=== PATIENT | female | born 1945 | race Caucasian/White ===

== ENCOUNTER 2018-09-18 16:37 | Inpatient (IN) | payer OTHER, SELFPAY ==
[2018-09-18 17:23] VITALS: BP 145/59; PULSE 77; RESP 18; TEMP 36.7; O2SAT 100
--- NOTE | 2018-09-18 17:46 | W.ED.GENAD ---
Discharge Plan Disposition Patient Disposition: [facility] INPATIENT Condition: Stable Discharge Details Chief Complaint: Orthopedic Clinical Impression: Closed fracture of right hip Primary Care Provider: Jana Wayne ED Provider: Gordo Blackman Home Meds and New Rx's Prescriptions: No Action calcium carb and citrate-vitD3 1 EACH tablet extended release 1 ea PO DAILY RF: 0 ranitidine HCl [Zantac] 150 MG tablet 1 tab PO DAILY RF: 0 ibuprofen 200 MG tablet 400 mg PO PRN PRNRF: 0 Medical Decision Making 73 yo female comes in with right hip pain. She slipped in a driveway and landed on her right hip, denies head trauma or loc. She is unable to bear weight on the right leg due to pain, has intact distal sensation and pulses. Has significant pain with any rom of the right hip. Suspect fracture given amount of pain, will order xray and monitor. Denies any loc and did not hit head so do not feel head imaging and doubt syncope pt remains stable, required morphine and fentanyl for pain. Labs unremarkable, has a right subcapital right femur fx. Chest xray shows mild widened mediastinum likely due to low lung volumes given she has no chest pain or pressure or sob. I spoke with Dr. Goldman who states when patient is cleared by hospitalist to make NPO and earliest he can perform operation would be noon tomorrow. Will admit to the hospitalist Differential Diagnosis right hip contusion, fracture Imaging Data Radiologic Study: Attestation: I personally reviewed and interpreted this imaging study as follows: Imaging: X-Ray My impression: right subcapital hip fracutre on pelvis/hip xray Radiologic Study #2: Attestation: I personally reviewed and interpreted this imaging study as follows: Imaging: X-Ray My impression: right subcapital hip fracture on femur xray Radiologic Study #3: Attestation: I personally reviewed and interpreted this imaging study as follows: Imaging: X-Ray Radiologist's impression: IMPRESSION: 1. Mildly widened mediastinum may be related to projection and low lung volumes in the absence of clinical symptoms. If there is any clinical concern for mediastinal disease, consider further evaluation with chest CT. 2. No acute pulmonary disease. 3. Chronic/incidental findings as detailed above. Lab Data Lab results reviewed: Yes I reviewed the patient's lab results. ECG Data Attestation: I personally reviewed and interpreted this ECG (s) as follows: Prior ECG tracings: available for review Interpretation: sinus rhythm, scarlet of 78, pr 164, no acute st t wave ischemic changes HPI General Mode of arrival: ambulatory. Date/Time Provider Initiated Documentation: 09/18/18 17:28. Limitations to Documentation: no limitations. Information obtained by: patient. History of Present Illness 73 year old F presents to the emergency department with the chief complaint of right sided hip pain, described as severe, with intensity rated at 10. Quality is described as aching, and is localized to the right and lower extremity. Patient reports no radiation. Patient started experiencing this hour(s) (1) and it has been constant. Rest improves symptom(s), Movement worsens symptoms . Patient notes no other symptoms.. Patient did receive the following treatments prior to arrival, none Related Data Home Medications Medication Instructions Recorded Confirmed ranitidine HCl [Zantac] 1 tab PO DAILY 03/11/16 09/18/18 calcium carb and citrate-vitD3 1 ea PO DAILY 08/31/17 09/18/18 ibuprofen 400 mg PO PRN PRN 10/08/17 09/18/18 Allergies Allergy/AdvReac Type Severity Reaction Status Date / Time amoxicillin Allergy Severe patient Unverified 09/18/18 17:28 cannot remember pramipexole di-HCl Allergy Severe patient Unverified 09/18/18 17:28 [From Mirapex] cannot remember ropinirole HCl [From Requip] Allergy Intermediate patient Unverified 09/18/18 17:28 cannot remember bee stings AdvReac Intermediate generalized Uncoded 09/18/18 17:28 swelling General Stated Complaint: Orthopedic CHRISTIAN: 3 Review of Systems Review of Systems All systems reviewed & are unremarkable except as noted in HPI and below Constitutional Denies chills, Denies fever(s) and Denies weakness Cardiovascular Denies dyspnea Respiratory Denies cough and Denies dyspnea Gastrointestinal Denies abdominal pain, Denies nausea and Denies vomiting Musculoskeletal Denies joint swelling Integumentary/Breasts Denies rash Neurologic Denies weakness [facility] Medical History Abnormal chest xray Anxiety Diverticulosis Family history of colon cancer GERD (gastroesophageal reflux disease) Insomnia Obstructive sleep apnea Osteopenia Surgical History Cholecystectomy Colonoscopy - MAC (10/12/17) Social History Smoking and Tabacco status: Never Exam Const General: no acute distress Orientation: alert HENMT Head: normal to inspection Ears: external ears normal General nose exam: external nose normal Mouth: moist mucous membranes Eyes General: appearance normal, both eyes and all related structures Neck Neck: normal visual inspection Resp Effort & Inspection: normal respiratory effort and able to speak in complete sentences Cardio Rate: regular rate Skin General skin exam: no rashes or lesions noted Neuro General: alert and oriented x3 Extrem General: normal capillary refill Psych Mental Status: mental status grossly normal Course Vital Signs Temperature 36.7 C 09/18/18 17:23 Pulse 77 09/18/18 17:23 Respiratory Rate 18 09/18/18 17:23 Blood Pressure 145/59 H 09/18/18 17:23 Pulse Oximetry 100 09/18/18 17:23 Temperature 36.7 C 09/18/18 17:23 Temperature Source Temporal Artery Scan 09/18/18 17:23 Pulse 77 09/18/18 17:23 Respiratory Rate 18 09/18/18 17:23 Respiratory Effort Non-Labored 09/18/18 17:27 Blood Pressure 145/59 H 09/18/18 17:23 Blood Pressure Position Sitting 09/18/18 17:23 Pulse Oximetry 100 09/18/18 17:23
--- NOTE | 2018-09-18 17:49 | ED.GENADUL_ITS ---
Discharge Plan Disposition Patient Disposition: [facility] INPATIENT Condition: Stable Discharge Details Chief Complaint: Orthopedic Clinical Impression: Closed fracture of right hip Primary Care Provider: Jana Wayne ED Provider: Gordo Blackman Home Meds and New Rx's Prescriptions: No Action calcium carb and citrate-vitD3 1 EACH tablet extended release 1 ea PO DAILY RF: 0 ranitidine HCl [Zantac] 150 MG tablet 1 tab PO DAILY RF: 0 ibuprofen 200 MG tablet 400 mg PO PRN PRNRF: 0 Medical Decision Making 73 yo female comes in with right hip pain. She slipped in a driveway and landed on her right hip, denies head trauma or loc. She is unable to bear weight on the right leg due to pain, has intact distal sensation and pulses. Has significant pain with any rom of the right hip. Suspect fracture given amount of pain, will order xray and monitor. Denies any loc and did not hit head so do not feel head imaging and doubt syncope pt remains stable, required morphine and fentanyl for pain. Labs unremarkable, has a right subcapital right femur fx. Chest xray shows mild widened mediastinum likely due to low lung volumes given she has no chest pain or pressure or sob. I spoke with Dr. Goldman who states when patient is cleared by hospitalist to make NPO and earliest he can perform operation would be noon tomorrow. Will admit to the hospitalist Differential Diagnosis right hip contusion, fracture Imaging Data Radiologic Study: Attestation: I personally reviewed and interpreted this imaging study as follows: Imaging: X-Ray My impression: right subcapital hip fracutre on pelvis/hip xray Radiologic Study #2: Attestation: I personally reviewed and interpreted this imaging study as follows: Imaging: X-Ray My impression: right subcapital hip fracture on femur xray Radiologic Study #3: Attestation: I personally reviewed and interpreted this imaging study as follows: Imaging: X-Ray Radiologist's impression: IMPRESSION: 1. Mildly widened mediastinum may be related to projection and low lung volumes in the absence of clinical symptoms. If there is any clinical concern for mediastinal disease, consider further evaluation with chest CT. 2. No acute pulmonary disease. 3. Chronic/incidental findings as detailed above. Lab Data Lab results reviewed: Yes I reviewed the patient's lab results. ECG Data Attestation: I personally reviewed and interpreted this ECG (s) as follows: Prior ECG tracings: available for review Interpretation: sinus rhythm, scarlet of 78, pr 164, no acute st t wave ischemic changes HPI General Mode of arrival: ambulatory . Date/Time Provider Initiated Documentation: 09/18/18 17:28 . Limitations to Documentation: no limitations . Information obtained by: patient . History of Present Illness 73 year old F presents to the emergency department with the chief complaint of right sided hip pain, described as severe, with intensity rated at 10. Quality is described as aching, and is localized to the right and lower extremity. Patient reports no radiation. Patient started experiencing this hour(s) (1) and it has been constant. Rest improves symptom(s), Movement worsens symptoms . Patient notes no other symptoms.. Patient did receive the following treatments prior to arrival, none Related Data Home Medications Medication Instructions Recorded Confirmed ranitidine HCl [Zantac] 1 tab PO DAILY 03/11/16 09/18/18 calcium carb and citrate-vitD3 1 ea PO DAILY 08/31/17 09/18/18 ibuprofen 400 mg PO PRN PRN 10/08/17 09/18/18 Allergies Allergy/AdvReac Type Severity Reaction Status Date / Time amoxicillin Allergy Severe patient Unverified 09/18/18 17:28 cannot remember pramipexole di-HCl Allergy Severe patient Unverified 09/18/18 17:28 [From Mirapex] cannot remember ropinirole HCl [From Requip] Allergy Intermediate patient Unverified 09/18/18 17:28 cannot remember bee stings AdvReac Intermediate generalized Uncoded 09/18/18 17:28 swelling General Stated Complaint: Orthopedic CHRISTIAN: 3 Review of Systems Review of Systems All systems reviewed & are unremarkable except as noted in HPI and below Constitutional Denies chills, Denies fever(s) and Denies weakness Cardiovascular Denies dyspnea Respiratory Denies cough and Denies dyspnea Gastrointestinal Denies abdominal pain, Denies nausea and Denies vomiting Musculoskeletal Denies joint swelling Integumentary/Breasts Denies rash Neurologic Denies weakness [facility] Medical History Abnormal chest xray Anxiety Diverticulosis Family history of colon cancer GERD (gastroesophageal reflux disease) Insomnia Obstructive sleep apnea Osteopenia Surgical History Cholecystectomy Colonoscopy - MAC (10/12/17) Social History Smoking and Tabacco status: Never Exam Const General: no acute distress Orientation: alert HENMT Head: normal to inspection Ears: external ears normal General nose exam: external nose normal Mouth: moist mucous membranes Eyes General: appearance normal, both eyes and all related structures Neck Neck: normal visual inspection Resp Effort & Inspection: normal respiratory effort and able to speak in complete sentences Cardio Rate: regular rate Skin General skin exam: no rashes or lesions noted Neuro General: alert and oriented x3 Extrem General: normal capillary refill Psych Mental Status: mental status grossly normal Course Vital Signs Temperature 36.7 C 09/18/18 17:23 Pulse 77 09/18/18 17:23 Respiratory Rate 18 09/18/18 17:23 Blood Pressure 145/59 H 09/18/18 17:23 Pulse Oximetry 100 09/18/18 17:23 Temperature 36.7 C 09/18/18 17:23 Temperature Source Temporal Artery Scan 09/18/18 17:23 Pulse 77 09/18/18 17:23 Respiratory Rate 18 09/18/18 17:23 Respiratory Effort Non-Labored 09/18/18 17:27 Blood Pressure 145/59 H 09/18/18 17:23 Blood Pressure Position Sitting 09/18/18 17:23 Pulse Oximetry 100 09/18/18 17:23
[2018-09-18] MEDS: fentaNYL 100 MCG/2 ML VIAL 75 MCG IVP (18:02)
[2018-09-18 18:05] LABS: Abs Immature Grans 0.04 k/cumm (0.0-0.09); Absolute Basophil Count 0.03 k/cumm (0.0-0.2); Absolute Eosinophil Count 0.07 k/cumm (0.0-0.7); Absolute Lymphocyte Count 1.19 k/cumm (1.2-3.4); Absolute Monocyte Count 0.82 k/cumm (0.11-0.7); Absolute Neutrophil Count 8.53 k/cumm (1.2-6.7); Basophils % 0.3; Eosinophils % 0.7; HCT 42.1 % (36.0-46.0); HGB 14.1 g/dL (12.0-15.5); Immature Grans % 0.4; Lymphocytes % 11.1; Mean Corp. HGB Concentration 33.5 g/dL (32.0-36.0); Mean Corpuscular Hemoglobin 31.5 pg (27.0-33.0); Mean Platelet Volume 9.6 fL (8.0-11.0); Monocytes % 7.7; Neutrophils % 79.8; Platelet Count 261 x1000/uL (130-400); RBC 4.48 m/cumm (4.00-5.20); RBC Distribution Width 12.7 % (11.7-14.6); White Blood Cell Count 10.68 k/cumm (4.4-10.8)
[2018-09-18 18:17] LABS: PTT Activated 22.2 sec (21.0-31.4); Prothrombin Time 9.9 sec (9.3-11.0)
[2018-09-18 18:24] LABS: ALT 22 U/L (12-78); AST 24 U/L (15-37); Albumin 3.8 g/dL (3.4-5.0); Alkaline Phosphatase 118 U/L (46-116); BUN 24 mg/dL (7-18); Bilirubin, Total 0.3 mg/dL (0.2-1.0); CREATININE 1.03 mg/dL (0.55-1.02); Calcium 8.7 mg/dL (8.5-10.1); Chloride 105 mmol/L (98-107); Estimated GFR 52.24 (mL/min/1.73m2); Glucose 90 mg/dL (70-100); Magnesium 1.9 mg/dL (1.8-2.4); Potassium 3.7 mmol/L (3.5-5.1); Sodium 143 mmol/L (136-145); Total Protein 7.6 g/dL (6.4-8.2)
[2018-09-18 18:25] LABS: Troponin I < 0.02 ng/mL (0.00-0.06)
--- NOTE | 2018-09-18 19:05 | DI.RAD_ITS ---
SYMPTOM/DIAGNOSIS: HIP FRACTURE CHEST X-RAY: Single frontal view. Comparison CT scan 04/08/12 There is poor inspiration. Heart appears mildly enlarged. There is apparent mild widening of the mediastinum. This may be due to poor inspiration and projection. No focal consolidating infiltrates, effusions or pneumothoraces are identified. There are surgical clips in the right upper quadrant of the abdomen, likely reflecting prior cholecystectomy. Degenerative changes are seen in the spine. IMPRESSION: 1. No definite acute pulmonary process. 2. Apparent mild widening of the superior mediastinum. This may be due to poor inspiration and projection. If there is concern for mediastinal disease a CT scan of the chest may be considered.
--- NOTE | 2018-09-18 19:12 | DI.COMBO_ITS ---
SYMPTOM/DIAGNOSIS: PAIN, S/P FALL RIGHT FEMUR, AND RIGHT HIP, AND AP PELVIS: There is a subcapital fracture of the right femur. There is impaction of the fracture and mild lateral rotation of the right femoral head. No other acute fracture or dislocation is seen in the pelvis or right femur. Extensive ossification is seen inferior to the patella of the right knee. This appears chronic. The soft tissues are unremarkable. IMPRESSION: Right subcapital femoral neck fracture.
--- NOTE | 2018-09-18 19:40 | DI.VRAD_ITS ---
EXAM: XR Right Hip with Pelvis when Performed, 2 or 3 Views EXAM DATE/TIME: 09/18/2018 5:45 PM CLINICAL HISTORY: 73 years old, female; Pain; Hip pain; Right hip; Patient HX: Pain, S/P fall TECHNIQUE: XR Right hip with pelvis when performed, 2 or 3 views COMPARISON: CT ABD PELVIS WITH CONTRAST 02/01/2018 10:39 AM FINDINGS: Bones/joints: There is a fracture through the subcapital region of the right femoral neck. There is associated lateral angulation of the femoral head with impaction of the femoral neck of approximately 1 cm. There is no dislocation. Linear lucency through the left greater trochanter is felt to be related to artifact from an overlying skin fold. No other acutely displaced fracture or dislocation is appreciated. 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 Bone density appears well-preserved. Soft tissues: There is mild soft tissue swelling about the fracture site. Vasculature: Pelvic phleboliths are noted. IMPRESSION: Right subcapital femoral neck fracture, detailed above. Dictated and Authenticated by: Logan Galindo MD. Ordering:ADRIENNE Caro MD
--- NOTE | 2018-09-18 19:41 | DI.VRAD_ITS ---
EXAM: XR Right Femur, 2 Views EXAM DATE/TIME: 09/18/2018 7:05 PM CLINICAL HISTORY: 73 years old, female; Pain; Hip; Right; Patient HX: Pain, S/P fall TECHNIQUE: XR Right femur, 2 views COMPARISON: No relevant prior studies available. FINDINGS: Bones/joints: Right subcapital femoral neck fracture is again appreciated, please review right hip films performed concomitantly for complete details. No other acutely displaced fracture or dislocation is seen. There is severe osteoarthritic change at the right knee with extensive infrapatellar chronic ossification. Bone density appears well-preserved. Soft tissues: There is soft tissue swelling about the fracture site. IMPRESSION: Right subcapital femoral neck fracture is again seen. Please review right hip films performed concomitantly for complete details. Dictated and Authenticated by: Logan Galindo MD. Ordering:ADRIENNE Caro MD
--- NOTE | 2018-09-18 19:44 | DI.VRAD_ITS ---
EXAM: XR Chest, 1 View EXAM DATE/TIME: 09/18/2018 7:08 PM CLINICAL HISTORY: 73 years old, female; Condition or disease; Other: Hip FX TECHNIQUE: XR of the chest, 1 view. COMPARISON: CT CHEST WITH CONTRAST 04/08/2012 1:36 PM FINDINGS: Lungs: There is poor ventilation of the lungs, accounting for mild diffuse increase in pulmonary parenchymal density. No acute interstitial or airspace disease appreciated. Pleural space: Unremarkable. No pleural effusion. No pneumothorax. Heart/Mediastinum: The heart is enlarged. The mediastinum appears widened. Vasculature: Aortic knob is calcified. Upper abdomen: Cholecystectomy clips noted in the right upper quadrant. Bones/joints: No acute findings. IMPRESSION: 1. Mildly widened mediastinum may be related to projection and low lung volumes in the absence of clinical symptoms. If there is any clinical concern for mediastinal disease, consider further evaluation with chest CT. 2. No acute pulmonary disease. 3. Chronic/incidental findings as detailed above. Dictated and Authenticated by: Logan Galindo MD. Ordering:ADRIENNE Caro MD
--- NOTE | 2018-09-18 20:23 | W.PM.HP.N ---
Date of service: 09/18/18 Time of Service: 20:24 Assessment and Plan (1) Subcapital fracture of right femur: Start date: 09/18/18 Current visit: Yes Status: Acute This is a 73-year-old lady who fell in her yard on the ice fracturing her right hip with a subcapital femoral fracture. She is medically stable except possibly being slightly dry with a creatinine up slightly and concentrated urine. She will receive IV hydration being n.p.o. after midnight and I will hold off on DVT prophylaxis with heparin with planned surgery tomorrow. Dr. Goldman has been consulted and is aware the patient with plans for surgery tomorrow if she has no complications overnight. She seems comfortable with pain control. Usual meds which are minimal will be continued with some modifications giving Protonix IV instead of oral Zantac and Motrin can be given by mouth for pain control though she does not appear to be needing this at this point with her local block given by anesthesia when she was in the ED. She is medically cleared for surgery at this time. Qualifiers: Encounter type: initial encounter Fracture type: closed Qualified Code(s): S72.011A - Unspecified intracapsular fracture of right femur, initial encounter for closed fracture History of Present Illness Chief Complaint: Right hip pain after fall on ice Narrative: This is a generally healthy 73-year-old lady who slipped on ice in her driveway landing on her right side and could not bear weight on her right leg after the fall. She had no loss of consciousness, no injury to her head and no prefall symptoms. She is on minimal medications with only previous surgery was a cholecystectomy. In the ED she was found to have a closed fracture right hip which was a subcapital femur fracture. Her EKG was normal and initial troponins were negative and she would be admitted to [facility] without telemetry, full CODE STATUS with Dr. Brock orthopedics consulted through the ED to see the patient for surgical repair tomorrow. In the ED patient received fentanyl and then morphine and was stated to be comfortable though she states she continued to have pain. Anesthesia did do a local block and she is more comfortable presently. This block should last over the next 12+ hours and she does have IV morphine ordered for pain breakthrough. Review of Systems Review of Systems 13 point review of systems otherwise unrevealing or negative. The patient did not have any epigastric discomfort and was wanting her Zantac at night though I reassured her she is on Protonix IV. She is having no bruising or bleeding. She does take Motrin intermittently. [facility] Medical History Abnormal chest xray Anxiety Diverticulosis Family history of colon cancer GERD (gastroesophageal reflux disease) Insomnia Obstructive sleep apnea Osteopenia Surgical History Cholecystectomy Colonoscopy - MAC (10/12/17) Social History Smoking and Tabacco status: Never Meds Home Medications Medication Instructions Recorded Confirmed Type ranitidine HCl [Zantac] 1 tab PO DAILY 03/11/16 09/18/18 History calcium carb and citrate-vitD3 1 ea PO DAILY 08/31/17 09/18/18 History ibuprofen 400 mg PO PRN PRN 10/08/17 09/18/18 History Allergies Allergy/AdvReac Type Severity Reaction Status Date / Time amoxicillin Allergy Severe patient Unverified 09/18/18 17:28 cannot remember pramipexole di-HCl Allergy Severe patient Unverified 09/18/18 17:28 [From Mirapex] cannot remember ropinirole HCl [From Requip] Allergy Intermediate patient Unverified 09/18/18 17:28 cannot remember bee stings AdvReac Intermediate generalized Uncoded 09/18/18 17:28 swelling Exam Narrative Exam Narrative: General: The patient appears younger than stated age, in no acute distress, alert and oriented x3. HEENT: Normocephalic with ears normal, eyes with pupils equal react to light symmetrically and extraocular movement intact. Sclera anicteric. Oropharynx with pink, moist mucosa and fair dentition. Neck: Supple without JVD. Lungs: Clear to auscultation and percussion. Heart: Regular rate and rhythm with no murmurs gallops appreciated. Breast: Not examined. Abdomen: Soft, normal contour, nontender with no palpable hepatosplenomegaly. Bowel sounds positive in all quadrants. Genitalia and rectal exam: Deferred. Extremities: Without clubbing, cyanosis or edema. Right foot is turning outward and both feet are cold but strong dorsalis pedis pulses over both feet. Decreased respiratory over both lower extremities but normal joints except for right hip with decreased range of motion not examined for range of motion with her fracture and local block. Skin: Tanned, no rashes, warm and dry. Neuro: No focalizing motor deficits, cranial nerves II through XII grossly intact. Psych no status: Normal affect with short-term and long-term memory to be intact and normal mood. (She does have a history of anxiety). Results Labs : 09/18/18 18:00 09/18/18 18:00 Laboratory Results - last 24 hr 09/18/18 09/18/18 09/18/18 18:00 18:00 18:00 WBC 10.68 RBC 4.48 Hgb 14.1 Hct 42.1 MCV 94.0 MCH 31.5 MCHC 33.5 RDW 12.7 Plt Count 261 MPV 9.6 Immature Gran % 0.4 Neutrophils % 79.8 Lymphocytes % 11.1 Monocytes % 7.7 Eosinophils % 0.7 Basophils % 0.3 Absolute Neutrophils 8.53 H Absolute Lymphocytes 1.19 L Absolute Monocytes 0.82 H Absolute Eosinophils 0.07 Absolute Basophils 0.03 PT 9.9 INR 1.0 APTT 22.2 Sodium 143 Potassium 3.7 Chloride 105 Carbon Dioxide 27.0 Anion Gap 11.0 BUN 24 H Creatinine 1.03 H Estimated GFR/1.73 m2 52.24 Glucose 90 Calcium 8.7 Magnesium 1.9 Total Bilirubin 0.3 AST 24 ALT 22 Alkaline Phosphatase 118 H Troponin I < 0.02 Total Protein 7.6 Albumin 3.8 Last Vital Signs Temp 36.7 C 09/18/18 17:23 Pulse 77 09/18/18 17:23 Resp 18 09/18/18 17:23 BP 145/59 H 09/18/18 17:23 Pulse Ox 100 09/18/18 17:23
[2018-09-18] MEDS: Bupivacaine LIPOSOME/PF 133 MG/10 ML VIAL IJ (21:26)
[2018-09-18] MEDS: Bupivacaine 0.25% Pres-Free 30 ML VIAL (21:26)
--- NOTE | 2018-09-18 21:49 | NUR.NOTE ---
Nursing Note: anesthesia at bedside for procedure with pt. Consents signed with anesthesia.
[2018-09-18 22:51] VITALS: BP 126/79; PULSE 77; RESP 16; TEMP 36.7; O2SAT 99
[2018-09-18 22:54] LABS: Bilirubin Negative (Negative); Blood Negative (Negative); Clarity Clear; Glucose Negative (Negative); Ketones Negative (Negative); Leukocyte Esterase Negative (Negative); Nitrite Negative (Negative); Specific Gravity >= 1.030 (1.005-1.025); Urobilinogen 0.2 EU/dL (Up TO 0.2); pH 6.5 (5-8)
[2018-09-18 23:57] VITALS: BP 120/72; PULSE 76; TEMP 36.8; O2SAT 98
[2018-09-19] VITALS (14 sets, daily range): BP systolic 98–151; BP diastolic 52–88; PULSE 60–77; RESP 12–25; TEMP 36.1–37.9; O2SAT 90–98
[2018-09-19] MEDS: Normal Saline 1,000 ML 80 ML IV ×2 (01:10→14:41)
[2018-09-19 01:21] LABS: Troponin I < 0.02 ng/mL (0.00-0.06)
[2018-09-19] MEDS: Normal Saline Flush 10 ML SYR IVP ×3 (04:21→19:47)
--- NOTE | 2018-09-19 07:46 | W.ORTHOCONSU ---
Date of service: 09/19/18 Time of Service: 07:46 History of Present Illness Chief Complaint: Right hip pain/fracture Narrative: Patient slipped on the ice at her daughter's home injuring her right hip. She is unable to bear weight she is brought to ambulance to [facility]. X-rays revealed a subcapital fracture of the right hip being a Garden 2 fracture with impaction and valgus Assessment and Plan (1) Subcapital fracture of right femur: Start date: 09/18/18 Current visit: Yes Status: Acute Patient has an impacted right subcapital hip fracture with mild to moderate valgus deformity. I explained to the patient that this fracture is normally treated with improvement of the alignment by a closed reduction and placement of 3 cannulated screws. I will try to disimpact the fracture slightly without being excessively aggressive with any manipulation techniques. I do explained to the patient that this fracture can go on to delayed union and nonunion or avascular necrosis which would then result in the need for a total hip arthroplasty. I deep not see the indication for total hip arthroplasty on the current fracture status because on the lateral radiograph there is really no significant deformity she has already received a fascia iliacus block by anesthesia. This has made her more comfortable but she states generally she is sore over because if she is sleeping on her back however she denies any other injuries elsewhere she denies any head injury or loss of consciousness. She is completely coherent and discussing the planned procedure with me. We will proceed with open reduction internal fixation and cannulated screw fixation after mild manipulation at noon time today. She prefers general anesthesia and I see no contraindication to that her chest x-ray looks grossly normal the radiologist thought that there might be slight widening of the mediastinum but in an asymptomatic patient with a poor inspiratory effort he felt that this could possibly be within normal limits her laboratory studies are unremarkable hemoglobin is 14 today's electrolytes are pending. INR is normal troponin is negative Qualifiers: Encounter type: initial encounter Fracture type: closed Open fracture type: Fracture healing: Qualified Code(s): S72.011A - Unspecified intracapsular fracture of right femur, initial encounter for closed fracture Review of Systems Constitutional Comments: Has been in reasonably good health does have GERD. He has discomfort if she sleeps on her back. She apparently works at the [employer] in [place]. She is fairly active and reports no significant cardiovascular issues [facility] Medical History Abnormal chest xray Anxiety Diverticulosis Family history of colon cancer GERD (gastroesophageal reflux disease) Insomnia Obstructive sleep apnea Osteopenia Surgical History Cholecystectomy Colonoscopy - [facility] (10/12/17) Social History Smoking and Tabacco status: Never Exam Extrem Other: Right hip is irritable to any range of motion. There is no significant external rotation or shortening. She has no neurovascular deficits of the right foot. She is alert and oriented and understands as I reviewed with her the pathophysiology of the fracture and how it looks on x-ray using a sheet of paper anion illustrative jawline that I do for her Results Last Vital Signs Temp 100.2 F H 09/19/18 04:15 Pulse 76 09/19/18 04:15 Resp 20 09/19/18 04:15 BP 146/75 H 09/19/18 04:15 Pulse Ox 96 09/19/18 04:15 Labs : 09/18/18 18:00 09/18/18 18:00 Laboratory Results - last 24 hr 09/18/18 09/18/18 09/18/18 18:00 18:00 18:00 WBC 10.68 RBC 4.48 Hgb 14.1 Hct 42.1 MCV 94.0 MCH 31.5 MCHC 33.5 RDW 12.7 Plt Count 261 MPV 9.6 Immature Gran % 0.4 Neutrophils % 79.8 Lymphocytes % 11.1 Monocytes % 7.7 Eosinophils % 0.7 Basophils % 0.3 Absolute Neutrophils 8.53 H Absolute Lymphocytes 1.19 L Absolute Monocytes 0.82 H Absolute Eosinophils 0.07 Absolute Basophils 0.03 PT 9.9 INR 1.0 APTT 22.2 Sodium 143 Potassium 3.7 Chloride 105 Carbon Dioxide 27.0 Anion Gap 11.0 BUN 24 H Creatinine 1.03 H Estimated GFR/1.73 m2 52.24 Glucose 90 Calcium 8.7 Magnesium 1.9 Total Bilirubin 0.3 AST 24 ALT 22 Alkaline Phosphatase 118 H Troponin I < 0.02 Total Protein 7.6 Albumin 3.8 Urine Color Urine Clarity Urine pH Ur Specific [place] Urine Protein Urine Ketones Urine Blood Urine Nitrite Urine Bilirubin Urine Urobilinogen Ur Leukocyte Esterase Urine Glucose 09/18/18 09/19/18 22:10 00:25 WBC RBC Hgb Hct MCV MCH MCHC RDW Plt Count MPV Immature Gran % Neutrophils % Lymphocytes % Monocytes % Eosinophils % Basophils % Absolute Neutrophils Absolute Lymphocytes Absolute Monocytes Absolute Eosinophils Absolute Basophils PT INR APTT Sodium Potassium Chloride Carbon Dioxide Anion Gap BUN Creatinine Estimated GFR/1.73 m2 Glucose Calcium Magnesium Total Bilirubin AST ALT Alkaline Phosphatase Troponin I < 0.02 Total Protein Albumin Urine Color Yellow Urine Clarity Clear Urine pH 6.5 Ur Specific [place] >= 1.030 H Urine Protein Negative Urine Ketones Negative Urine Blood Negative Urine Nitrite Negative Urine Bilirubin Negative Urine Urobilinogen 0.2 Ur Leukocyte Esterase Negative Urine Glucose Negative
--- NOTE | 2018-09-19 07:52 | OCONE_ITS ---
Date of service: 09/19/18 Time of Service: 07:46 History of Present Illness Chief Complaint: Right hip pain/fracture Narrative: Patient slipped on the ice at her daughter's home injuring her right hip. She is unable to bear weight she is brought to ambulance to [facility]. X-rays revealed a subcapital fracture of the right hip being a Garden 2 fracture with impaction and valgus Assessment and Plan (1) Subcapital fracture of right femur: Start date: 09/18/18 Current visit: Yes Status: Acute Patient has an impacted right subcapital hip fracture with mild to modera te valgus deformity. I explained to the patient that this fracture is normally treated with improvement of the alignment by a closed reduction and placement of 3 cannulated screws. I will try to disimpact the fracture slightly without being excessively aggressive with any manipulation techniques. I do explained to the patient that this fracture can go on to delayed union and nonunion or avascular necrosis which would then result in the need for a total hip arthroplasty. I deep not see the indication for total hip arthroplasty on the current fracture status because on the lateral radiograph there is really no significant deformity she has already received a fascia iliacus block by nish ramirez. This has made her more comfortable but she states generally she is sore over because if she is sleeping on her back however she denies any other injuries elsewhere she denies any head injury or loss of consciousness. She is completely coherent and discussing the planned procedure with me. We will proceed with open reduction internal fixation and cannulated screw fixation after mild manipulation at noon time today. She prefers general anesthesia and I see no contraindication to that her chest x-ray looks grossly normal the radiologist thought that there might be slight widening of the mediastinum but in an asymptomatic patient with a poor inspiratory effort he felt that this could possibly be within normal limits her laboratory studies are unremarkable hemoglobin is 14 today's electrolytes are pending. INR is normal troponin is negative Qualifiers: Encounter type: initial encounter Fracture type: closed Open fracture type: Fracture healing: Qualified Code(s): S72.011A - Unspecified intracapsular fracture of right femur, initial encounter for closed fracture Review of Systems Constitutional Comments: Has been in reasonably good health does have GERD. He has discomfort if she sleeps on her back. She apparently works at the [employer] in [place]. She is fairly active and reports no significant cardiovascular issues [facility] Medical History Abnormal chest xray Anxiety Diverticulosis Family history of colon cancer GERD (gastroesophageal reflux disease) Insomnia Obstructive sleep apnea Osteopenia Surgical History Cholecystectomy Colonoscopy - [facility] (10/12/17) Social History Smoking and Tabacco status: Never Exam Extrem Other: Right hip is irritable to any range of motion. There is no significant external rotation or shortening. She has no neurovascular deficits of the right foot. She is alert and oriented and understands as I reviewed with her the pathophysiology of the fracture and how it looks on x-ray using a sheet of paper anion illustrative jawline that I do for her Results Last Vital Signs Temp 100.2 F H 09/19/18 04:15 Pulse 76 09/19/18 04:15 Resp 20 09/19/18 04:15 BP 146/75 H 09/19/18 04:15 Pulse Ox 96 09/19/18 04:15 Labs : 09/18/18 18:00 09/18/18 18:00 Laboratory Results - last 24 hr 09/18/18 09/18/18 09/18/18 18:00 18:00 18:00 WBC 10.68 RBC 4.48 Hgb 14.1 Hct 42.1 MCV 94.0 MCH 31.5 MCHC 33.5 RDW 12.7 Plt Count 261 MPV 9.6 Immature Gran % 0.4 Neutrophils % 79.8 Lymphocytes % 11.1 Monocytes % 7.7 Eosinophils % 0.7 Basophils % 0.3 Absolute Neutrophils 8.53 H Absolute Lymphocytes 1.19 L Absolute Monocytes 0.82 H Absolute Eosinophils 0.07 Absolute Basophils 0.03 PT 9.9 INR 1.0 APTT 22.2 Sodium 143 Potassium 3.7 Chloride 105 Carbon Dioxide 27.0 Anion Gap 11.0 BUN 24 H Creatinine 1.03 H Estimated GFR/1.73 m2 52.24 Glucose 90 Calcium 8.7 Magnesium 1.9 Total Bilirubin 0.3 AST 24 ALT 22 Alkaline Phosphatase 118 H Troponin I < 0.02 Total Protein 7.6 Albumin 3.8 Urine Color Urine Clarity Urine pH Ur Specific [place] Urine Protein Urine Ketones Urine Blood Urine Nitrite Urine Bilirubin Urine Urobilinogen Ur Leukocyte Esterase Urine Glucose 09/18/18 09/19/18 22:10 00:25 WBC RBC Hgb Hct MCV MCH MCHC RDW Plt Count MPV Immature Gran % Neutrophils % Lymphocytes % Monocytes % Eosinophils % Basophils % Absolute Neutrophils Absolute Lymphocytes Absolute Monocytes Absolute Eosinophils Absolute Basophils PT INR APTT Sodium Potassium Chloride Carbon Dioxide Anion Gap BUN Creatinine Estimated GFR/1.73 m2 Glucose Calcium Magnesium Total Bilirubin AST ALT Alkaline Phosphatase Troponin I < 0.02 Total Protein Albumin Urine Color Yellow Urine Clarity Clear Urine pH 6.5 Ur Specific [place] >= 1.030 H Urine Protein Negative Urine Ketones Negative Urine Blood Negative Urine Nitrite Negative Urine Bilirubin Negative Urine Urobilinogen 0.2 Ur Leukocyte Esterase Negative Urine Glucose Negative
[2018-09-19 08:00] LABS: HCT 38.9 % (36.0-46.0); HGB 12.8 g/dL (12.0-15.5); Mean Corp. HGB Concentration 32.9 g/dL (32.0-36.0); Mean Corpuscular Hemoglobin 31.2 pg (27.0-33.0); Mean Corpuscular Volume 94.9 fL (80-95); Mean Platelet Volume 9.6 fL (8.0-11.0); Platelet Count 234 x1000/uL (130-400); RBC Distribution Width 12.7 % (11.7-14.6); White Blood Cell Count 10.06 k/cumm (4.4-10.8)
[2018-09-19 08:20] LABS: ALT 17 U/L (12-78); AST 18 U/L (15-37); Albumin 3.1 g/dL (3.4-5.0); Alkaline Phosphatase 94 U/L (46-116); Anion Gap 7.3 mmol/L (3-11); BUN 19 mg/dL (7-18); Bilirubin, Total 0.6 mg/dL (0.2-1.0); CO2 26.7 mmol/L (21.0-32.0); CREATININE 0.83 mg/dL (0.55-1.02); Calcium 8.2 mg/dL (8.5-10.1); Chloride 107 mmol/L (98-107); Glucose 108 mg/dL (70-100); Potassium 4.1 mmol/L (3.5-5.1); Sodium 141 mmol/L (136-145); Total Protein 6.6 g/dL (6.4-8.2)
[2018-09-19] MEDS: Pantoprazole 40 MG VIAL IVP (08:37)
--- NOTE | 2018-09-19 10:43 | DI.RAD_ITS ---
SYMPTOMS/DIAGNOSIS: RIGHT HIP FX RIGHT HIP IN THE OR: Fluoroscopy Time: 83 sec, 21.96 mGy Fluoroscopy was utilized by Dr. Goldman during the reduction and internal fixation of the subcapital right femoral neck fracture. Hard copy images show placement of three partially threaded screws transfixing the subcapital femoral neck fracture. Please refer to the procedure report for complete details.
[2018-09-19] MEDS: Lactated Ringers 1,000 ML 150 ML IV (11:59)
--- NOTE | 2018-09-19 13:05 | PDOC.CMIN ---
Care Management Initial Assess REASON FOR HOSPITALIZATION:: Right Subcapital Femoral Neck Fracture PAST MEDICAL HISTORY/PAST SURGICAL HISTORY:: Abnormal chest xray, anxiety, diverticulosis, family hx of colon cancer, GERD, Insomnia, SREE, Osteopenia, cholecystectomy, colonoscopy. PREVIOUS FUNCTIONAL STATUS/SOCIAL/FAMILY SUPPORTS:: Licha resides with her , Laureano in [place], [place]. 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 She leads an active life and reports a healthy support network of friends and family. Licha slipped on the ice at her daughter's home resulting in her hip fracture. CURRENT FUNCTIONAL STATUS:: Licha was brought to OR with Dr. Goldman today and was lying in bed, surrounded by family this afternoon when CM entered the room. She appeared alert, CM agreed to come back when Licha was more settled. ADVANCE DIRECTIVES:: None on file at [facility]. Has patient been provided with information about the portal?: No Did the patient sign up for the portal?: No CODE STATUS:: Full Code INSURANCE COVERAGE / FINANCIAL ISSUES:: MCR Replacement. Financial Asst 85. MCR CURRENT HOME/COMMUNITY SERVICES/EQUIPMENT:: Walker, grab bars, tub seat/bench PRIMARY CARE PHYSICIAN:: Jana Wayne POTENTIAL DISCHARGE NEEDS:: OR for Hip Fx with Dr. Goldman, monitoring of pain management, evaluations for discharge planning considerations. PATIENT/FAMILY EDUCATION NEEDS:: Review discharge instructions, discuss Ask Me Three. ANTICIPATED BARRIERS TO DISCHARGE:: None identified. TRANSPORTATION:: Via private vehicle with family. PLAN:: Licha will return home when ready per MD. She will continue to be monitored closely for pain management. She will be evaluated by PT/OT to ensure patient readiness for discharge considerations. Undetermined if she will require additional DME equipment or services at this time. CM will continue to follow. Licha will transport via private vehicle with family.
[2018-09-19] MEDS: Bupivacaine 0.5% Pres-Free 30 ML VIAL (13:16)
--- NOTE | 2018-09-19 14:25 | INITIAL_ITS ---
Care Management Initial Assess REASON FOR HOSPITALIZATION:: Right Subcapital Femoral Neck Fracture PAST MEDICAL HISTORY/PAST SURGICAL HISTORY:: Abnormal chest xray, anxiety, diverticulosis, family hx of colon cancer, GERD, Insomnia, SREE, Osteopenia, cholecystectomy, colonoscopy. PREVIOUS FUNCTIONAL STATUS/SOCIAL/FAMILY SUPPORTS:: Licha resides with her , Laureano in [place], [place]. 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 She leads an active life and reports a healthy support network of friends and family. Licha slipped on the ice at her daughter's home resulting in her hip fracture. CURRENT FUNCTIONAL STATUS:: Licha was brought to OR with Dr. Goldman today and was lying in bed, surrounded by family this afternoon when CM entered the room. She appeared alert, CM agreed to come back when Licha was more settled. ADVANCE DIRECTIVES:: None on file at [facility]. Has patient been provided with information about the portal?: No Did the patient sign up for the portal?: No CODE STATUS:: Full Code INSURANCE COVERAGE / FINANCIAL ISSUES:: MCR Replacement. Financial Asst 85. MCR CURRENT HOME/COMMUNITY SERVICES/EQUIPMENT:: Walker, grab bars, tub seat/bench PRIMARY CARE PHYSICIAN:: Jana Wayne POTENTIAL DISCHARGE NEEDS:: OR for Hip Fx with Dr. Goldman, monitoring of pain management, evaluations for discharge planning considerations. PATIENT/FAMILY EDUCATION NEEDS:: Review discharge instructions, discuss Ask Me Three. ANTICIPATED BARRIERS TO DISCHARGE:: None identified. TRANSPORTATION:: Via private vehicle with family. PLAN:: Licha will return home when ready per MD. She will continue to be monitored closely for pain management. She will be evaluated by PT/OT to ensure patient readiness for discharge considerations. Undetermined if she will require additional DME equipment or services at this time. CM will continue to follow. Licha will transport via private vehicle with family.
--- NOTE | 2018-09-19 14:42 | NUR.NOTE ---
Nursing Note: 1405: pt returns to room 218 via pt bed from pacu post operatively. pt is alert/oriented, denies pain at this time. gilbert in place. pt placed on o2 r/t sats of 88% on RA. all other vs are stable. please see intervention. scds in place. dressing intact.
--- NOTE | 2018-09-19 17:45 | PGE_ITS ---
Date of Service Date of service: 09/19/18 Time of Service: 17:38 Assessment and Plan (1) Subcapital fracture of right femur: Current visit: Yes Status: Acute Orthopedic consultation has been requested and provided. Plan for surgical intervention with an open reduction and internal fixation of the hip. Mrs. Aguilar is a generally healthy patient without any prior history of diabete s, renal insufficiency, CAD, or CHF. Her EKG was reviewed and reassuring. She has 4+ METS. The patient should be appropriate for surgical intervention without need for further cardiac evaluation or intervention. Qualifiers: Encounter type: initial encounter Fracture type: closed Open fracture type: Fracture healing: Qualified Code(s): S72.011A - Unspecified intracapsular fracture of right femur, initial encounter for closed fracture (2) DVT prophylaxis: Current visit: Yes Status: Acute Chemical prophylaxis as per orthopedic surgery. Will ensure SCDs. Subjective Interval history since last seen: Healthy 73-year-old woman without significant prior medical history, admitted 09/18 from [facility] Emergency Department with a diagnosis of right hip fracture. Mrs. Aguilar suffered a fall on ice while at her daughter's home. She was immediately unable to bear weight on the affected hip, with significant discomfort with minimal movement, EMS was contacted and transported patient to the ED. Subsequent x-ray revealed evidence of a subcapital fracture of the right hip, with a degree of valgus deformity. She was referred for admission for further evaluation and treatment. Exam Narrative Exam Narrative: General: Patient appears comfortable, AAOX3, NAD Neck: Supple CV: Regular, nontachycardic, S1S2, No rubs, murmurs, or gallops. Pulmonary: Clear to auscultation bilaterally, no crackles, wheezing, or rhonchi on limited anterior and lateral exam Abdomen: + Bowel Sounds, soft, nontender, nondistended Vascular: No lower extremity edema Musculoskeletal: Pain with minimal palpation of right hip, and any movement of the right lower extremity. Psych: Normal mood and affect. Objective Objective Clinical Data: Abnormal lab results 09/18/18 09/18/18 09/18/18 Range/Units 18:00 18:00 22:10 Absolute Neutrophils 8.53 H (1.2-6.7) k/cumm Absolute Lymphocytes 1.19 L (1.2-3.4) k/cumm Absolute Monocytes 0.82 H (0.11-0.7) k/cumm BUN 24 H (7-18) mg/dL Creatinine 1.03 H (0.55-1.02) mg/dL Glucose (70-100) mg/dL Calcium (8.5-10.1) mg/dL Alkaline Phosphatase 118 H (46-116) U/L Albumin (3.4-5.0) g/dL Ur Specific [place] >= 1.030 H (1.005-1.025) 09/19/18 Range/Units 07:45 Absolute Neutrophils (1.2-6.7) k/cumm Absolute Lymphocytes (1.2-3.4) k/cumm Absolute Monocytes (0.11-0.7) k/cumm BUN 19 H (7-18) mg/dL Creatinine (0.55-1.02) mg/dL Glucose 108 H (70-100) mg/dL Calcium 8.2 L (8.5-10.1) mg/dL Alkaline Phosphatase (46-116) U/L Albumin 3.1 L (3.4-5.0) g/dL Ur Specific [place] (1.005-1.025) Vital Signs Temperature 36.1 C L 09/19/18 16:39 Temperature Source Skin 09/19/18 16:39 Pulse 60 09/19/18 16:39 Pulse Rhythm Regular 09/19/18 08:45 Respiratory Rate 16 09/19/18 16:39 Respiratory Effort Non-Labored 09/19/18 08:45 Respiratory Depth Normal 09/19/18 08:45 Respiratory Pattern Normal 09/19/18 08:45 Blood Pressure 134/80 09/19/18 16:39 Blood Pressure Position Sitting 09/18/18 17:23 Pulse Oximetry 96 09/19/18 16:39 Respiratory End-tidal CO2 33 09/19/18 13:55 Oxygen Delivery Method Nasal Cannula 09/19/18 16:39 Oxygen Flow Rate 1 09/19/18 16:39 Pain Level 0 09/19/18 16:39 Intake & Output 09/18/18 09/19/18 09/19/18 23:59 11:59 23:59 Intake Total 900 / 1750 850 / 1750 Output Total 400 / 410 10 / 410 Balance 500 / 1340 840 / 1340 Weight 69 kg 69 kg Intake: IV 900 / 1750 850 / 1750 Oral 0 / 0 Output: Urine 400 / 400 Estimated Blood Loss Other: Urine Color Yellow Dark [place] Urine Appearance Clear Clear Emesis Description None Laboratory Results WBC 10.06 k/cumm (4.4-10.8) 09/19/18 07:45 RBC 4.10 m/cumm (4.00-5.20) 09/19/18 07:45 Hgb 12.8 g/dL (12.0-15.5) 09/19/18 07:45 Hct 38.9 % (36.0-46.0) 09/19/18 07:45 MCV 94.9 fL (80-95) 09/19/18 07:45 MCH 31.2 pg (27.0-33.0) 09/19/18 07:45 MCHC 32.9 g/dL (32.0-36.0) 09/19/18 07:45 RDW 12.7 % (11.7-14.6) 09/19/18 07:45 Plt Count 234 x1000/uL (130-400) 09/19/18 07:45 MPV 9.6 fL (8.0-11.0) 09/19/18 07:45 Immature Gran % 0.4 09/18/18 18:00 Neutrophils % 79.8 09/18/18 18:00 Lymphocytes % 11.1 09/18/18 18:00 Monocytes % 7.7 09/18/18 18:00 Eosinophils % 0.7 09/18/18 18:00 Basophils % 0.3 09/18/18 18:00 Absolute Neutrophils 8.53 k/cumm (1.2-6.7) H 09/18/18 18:00 Absolute Lymphocytes 1.19 k/cumm (1.2-3.4) L 09/18/18 18:00 Absolute Monocytes 0.82 k/cumm (0.11-0.7) H 09/18/18 18:00 Absolute Eosinophils 0.07 k/cumm (0.0-0.7) 09/18/18 18:00 Absolute Basophils 0.03 k/cumm (0.0-0.2) 09/18/18 18:00 PT 9.9 sec (9.3-11.0) 09/18/18 18:00 INR 1.0 (0.9-1.1) 09/18/18 18:00 APTT 22.2 sec (21.0-31.4) 09/18/18 18:00 Sodium 141 mmol/L (136-145) 09/19/18 07:45 Potassium 4.1 mmol/L (3.5-5.1) 09/19/18 07:45 Chloride 107 mmol/L (98-107) 09/19/18 07:45 Carbon Dioxide 26.7 mmol/L (21.0-32.0) 09/19/18 07:45 Anion Gap 7.3 mmol/L (3-11) 09/19/18 07:45 BUN 19 mg/dL (7-18) H 09/19/18 07:45 Creatinine 0.83 mg/dL (0.55-1.02) 09/19/18 07:45 Estimated GFR/1.73 m2 >= 60.00 (mL/min/1.73m2) 09/19/18 07:45 Glucose 108 mg/dL (70-100) H 09/19/18 07:45 Calcium 8.2 mg/dL (8.5-10.1) L 09/19/18 07:45 Magnesium 1.9 mg/dL (1.8-2.4) 09/18/18 18:00 Total Bilirubin 0.6 mg/dL (0.2-1.0) 09/19/18 07:45 AST 18 U/L (15-37) 09/19/18 07:45 ALT 17 U/L (12-78) 09/19/18 07:45 Alkaline Phosphatase 94 U/L (46-116) 09/19/18 07:45 Troponin I < 0.02 ng/mL (0.00-0.06) 09/19/18 00:25 Total Protein 6.6 g/dL (6.4-8.2) 09/19/18 07:45 Albumin 3.1 g/dL (3.4-5.0) L 09/19/18 07:45 Urine Color Yellow (Yellow) 09/18/18 22:10 Urine Clarity Clear 09/18/18 22:10 Urine pH 6.5 (5-8) 09/18/18 22:10 Ur Specific [place] >= 1.030 (1.005-1.025) H 09/18/18 22:10 Urine Protein Negative mg/dL (Negative) 09/18/18 22:10 Urine Ketones Negative mg/dL (Negative) 09/18/18 22:10 Urine Blood Negative (Negative) 09/18/18 22:10 Urine Nitrite Negative (Negative) 09/18/18 22:10 Urine Bilirubin Negative (Negative) 09/18/18 22:10 Urine Urobilinogen 0.2 EU/dL (Up TO 0.2) 09/18/18 22:10 Ur Leukocyte Esterase Negative (Negative) 09/18/18 22:10 Urine Glucose Negative mg/dL (Negative) 09/18/18 22:10
[2018-09-20] VITALS: BP 128/74; PULSE 66; RESP 17; TEMP 37.1; O2SAT 99
[2018-09-20] MEDS: Normal Saline 1,000 ML 80 ML IV (03:15)
[2018-09-20 05:15] VITALS: BP 145/81; PULSE 73; RESP 18; TEMP 37.1; O2SAT 98
[2018-09-20 07:03] LABS: Abs Immature Grans 0.02 k/cumm (0.0-0.09); Absolute Basophil Count 0.02 k/cumm (0.0-0.2); Absolute Eosinophil Count 0.29 k/cumm (0.0-0.7); Absolute Lymphocyte Count 1.77 k/cumm (1.2-3.4); Absolute Monocyte Count 1.11 k/cumm (0.11-0.7); Absolute Neutrophil Count 7.58 k/cumm (1.2-6.7); Basophils % 0.2; Eosinophils % 2.7; HCT 34.9 % (36.0-46.0); HGB 11.2 g/dL (12.0-15.5); Immature Grans % 0.2; Lymphocytes % 16.4; Mean Corp. HGB Concentration 32.1 g/dL (32.0-36.0); Mean Corpuscular Hemoglobin 30.8 pg (27.0-33.0); Mean Corpuscular Volume 95.9 fL (80-95); Monocytes % 10.3; Neutrophils % 70.2; Platelet Count 188 x1000/uL (130-400); RBC 3.64 m/cumm (4.00-5.20); RBC Distribution Width 12.6 % (11.7-14.6); White Blood Cell Count 10.79 k/cumm (4.4-10.8)
[2018-09-20 07:11] LABS: Anion Gap 6.1 mmol/L (3-11); BUN 16 mg/dL (7-18); CO2 25.9 mmol/L (21.0-32.0); CREATININE 0.88 mg/dL (0.55-1.02); Chloride 108 mmol/L (98-107); Glucose 90 mg/dL (70-100); Magnesium 1.7 mg/dL (1.8-2.4); Potassium 4.4 mmol/L (3.5-5.1); Sodium 140 mmol/L (136-145)
--- NOTE | 2018-09-20 07:40 | PGE_ITS ---
Date of Service Date of service: 09/20/18 Time of Service: 07:36 Assessment and Plan (1) Subcapital fracture of right femur: Current visit: Yes Status: Acute Status postoperative course for open reduction internal fixation of a Garden 2 subcapital until fracture of the right hip. Patient's CBC and electrolytes are within normal limits her calcium magnesium in and albumin are slightly depressed she is anxious to have breakfast today. We will get her up with physical therapy partial weightbearing on the right with a walker. We will start a single dose of Lovenox 30 mg subcu daily for DVT prophylaxis post discharge she will be on a single 81 mg aspirin. She states that she can tolerate aspirin despite her history of reflux and gastroesophageal reflux disease Qualifiers: Encounter type: initial encounter Fracture type: closed Open fracture type: Fracture healing: Qualified Code(s): S72.011A - Unspecified intracapsular fracture of right femur, initial encounter for closed fracture Subjective Interval history since last seen: Patient is feeling better this morning. She has not tried sleeping on either side. She states that the pain is reduced. She is able to wiggle her toes without difficulty Exam Extrem Other: No neurovascular deficits noted of the right foot. Patient can tolerate logrolling well Objective Objective Clinical Data: Abnormal lab results 09/19/18 09/20/18 09/20/18 Range/Units 07:45 06:30 06:30 RBC 3.64 L (4.00-5.20) m/cumm Hgb 11.2 L (12.0-15.5) g/dL Hct 34.9 L (36.0-46.0) % MCV 95.9 H (80-95) fL Absolute Neutrophils 7.58 H (1.2-6.7) k/cumm Absolute Monocytes 1.11 H (0.11-0.7) k/cumm Chloride 108 H (98-107) mmol/L BUN 19 H (7-18) mg/dL Glucose 108 H (70-100) mg/dL Calcium 8.2 L 8.0 L (8.5-10.1) mg/dL Magnesium 1.7 L (1.8-2.4) mg/dL Albumin 3.1 L (3.4-5.0) g/dL Vital Signs Temperature 98.8 F 09/20/18 05:15 Temperature Source Tympanic 09/20/18 05:15 Pulse 73 09/20/18 05:15 Pulse Rhythm Regular 09/20/18 01:01 Respiratory Rate 18 09/20/18 05:15 Respiratory Effort Non-Labored 09/20/18 01:01 Respiratory Depth Normal 09/20/18 01:01 Respiratory Pattern Normal 09/20/18 01:01 Blood Pressure 145/81 H 09/20/18 05:15 Blood Pressure Position Sitting 09/18/18 17:23 Pulse Oximetry 98 09/20/18 05:15 Respiratory End-tidal CO2 33 09/19/18 13:55 Oxygen Delivery Method Nasal Cannula 09/20/18 05:15 Oxygen Flow Rate 1 09/20/18 05:15 Pain Level 5 09/20/18 05:15 Comment 09/20/18 05:15 Intake & Output 09/19/18 09/19/18 09/20/18 11:59 23:59 11:59 Intake Total 900 / 2090 1190 / 2090 1537.333 / 1537.333 Output Total 400 / 885 10 / 885 725 / 725 Balance 500 / 1205 1180 / 1205 812.333 / 812.333 Weight 152 lb 1.903 oz 159 lb 6.307 oz Intake: IV 900 / 1850 950 / 1850 1387.333 / 1387.333 Oral 0 / 240 240 / 240 150 / 150 Output: Urine 400 / 875 725 / 725 Estimated Blood Loss Other: Urine Color Dark Diamond Yellow Yellow Urine Appearance Clear Clear Clear Emesis Description None Laboratory Results WBC 10.79 k/cumm (4.4-10.8) 09/20/18 06:30 RBC 3.64 m/cumm (4.00-5.20) L 09/20/18 06:30 Hgb 11.2 g/dL (12.0-15.5) L 09/20/18 06:30 Hct 34.9 % (36.0-46.0) L 09/20/18 06:30 MCV 95.9 fL (80-95) H 09/20/18 06:30 MCH 30.8 pg (27.0-33.0) 09/20/18 06:30 MCHC 32.1 g/dL (32.0-36.0) 09/20/18 06:30 RDW 12.6 % (11.7-14.6) 09/20/18 06:30 Plt Count 188 x1000/uL (130-400) 09/20/18 06:30 MPV 10.0 fL (8.0-11.0) 09/20/18 06:30 Immature Gran % 0.2 09/20/18 06:30 Neutrophils % 70.2 09/20/18 06:30 Lymphocytes % 16.4 09/20/18 06:30 Monocytes % 10.3 09/20/18 06:30 Eosinophils % 2.7 09/20/18 06:30 Basophils % 0.2 09/20/18 06:30 Absolute Neutrophils 7.58 k/cumm (1.2-6.7) H 09/20/18 06:30 Absolute Lymphocytes 1.77 k/cumm (1.2-3.4) 09/20/18 06:30 Absolute Monocytes 1.11 k/cumm (0.11-0.7) H 09/20/18 06:30 Absolute Eosinophils 0.29 k/cumm (0.0-0.7) 09/20/18 06:30 Absolute Basophils 0.02 k/cumm (0.0-0.2) 09/20/18 06:30 PT 9.9 sec (9.3-11.0) 09/18/18 18:00 INR 1.0 (0.9-1.1) 09/18/18 18:00 APTT 22.2 sec (21.0-31.4) 09/18/18 18:00 Sodium 140 mmol/L (136-145) 09/20/18 06:30 Potassium 4.4 mmol/L (3.5-5.1) 09/20/18 06:30 Chloride 108 mmol/L (98-107) H 09/20/18 06:30 Carbon Dioxide 25.9 mmol/L (21.0-32.0) 09/20/18 06:30 Anion Gap 6.1 mmol/L (3-11) 09/20/18 06:30 BUN 16 mg/dL (7-18) 09/20/18 06:30 Creatinine 0.88 mg/dL (0.55-1.02) 09/20/18 06:30 Estimated GFR/1.73 m2 >= 60.00 (mL/min/1.73m2) 09/20/18 06:30 Glucose 90 mg/dL (70-100) 09/20/18 06:30 Calcium 8.0 mg/dL (8.5-10.1) L 09/20/18 06:30 Magnesium 1.7 mg/dL (1.8-2.4) L 09/20/18 06:30 Total Bilirubin 0.6 mg/dL (0.2-1.0) 09/19/18 07:45 AST 18 U/L (15-37) 09/19/18 07:45 ALT 17 U/L (12-78) 09/19/18 07:45 Alkaline Phosphatase 94 U/L (46-116) 09/19/18 07:45 Troponin I < 0.02 ng/mL (0.00-0.06) 09/19/18 00:25 Total Protein 6.6 g/dL (6.4-8.2) 09/19/18 07:45 Albumin 3.1 g/dL (3.4-5.0) L 09/19/18 07:45 Urine Color Yellow (Yellow) 09/18/18 22:10 Urine Clarity Clear 09/18/18 22:10 Urine pH 6.5 (5-8) 09/18/18 22:10 Ur Specific [place] >= 1.030 (1.005-1.025) H 09/18/18 22:10 Urine Protein Negative mg/dL (Negative) 09/18/18 22:10 Urine Ketones Negative mg/dL (Negative) 09/18/18 22:10 Urine Blood Negative (Negative) 09/18/18 22:10 Urine Nitrite Negative (Negative) 09/18/18 22:10 Urine Bilirubin Negative (Negative) 09/18/18 22:10 Urine Urobilinogen 0.2 EU/dL (Up TO 0.2) 09/18/18 22:10 Ur Leukocyte Esterase Negative (Negative) 09/18/18 22:10 Urine Glucose Negative mg/dL (Negative) 09/18/18 22:10
[2018-09-20] MEDS: Normal Saline Flush 10 ML SYR IVP (07:42)
[2018-09-20] MEDS: Pantoprazole 40 MG VIAL IVP (07:42)
[2018-09-20] MEDS: Enoxaparin 30 MG/0.3 ML SYR SC (07:42)
[2018-09-20] MEDS: Acetaminophen 325 MG TAB PO (07:57)
[2018-09-20] MEDS: Docusate Sodium 100 MG CAP PO (07:57)
[2018-09-20] MEDS: Ibuprofen 400 MG TAB PO (07:57)
[2018-09-20 08:14] VITALS: BP 130/76; PULSE 71; RESP 18; TEMP 37.3; O2SAT 98
--- NOTE | 2018-09-20 08:28 | ROE_ITS ---
REPORT OF OPERATIVE PROCEDURE DATE OF SURGERY September 19, 2018 PREOPERATIVE DIAGNOSES Garden II fracture (impacted valgus fracture), right femoral neck). POSTOPERATIVE DIAGNOSES Garden II fracture (impacted valgus fracture), right femoral neck). PROCEDURE Open reduction internal fixation with cannulated screw fixation. SURGEON Rommel Goldman M.D. CONVEX GRINDER Nilsa Harmon PA-C ANESTHESIA General via LMA by Hoang Jung CRNA PREP ChloraPrep INDICATIONS This patient is 73-year-old female who fell on the ice yesterday at her daughter's home. She was seen in the Emergency Department and admitted to the Medical Service for medical clearance for repair of right hip fracture. I saw the patient this morning and reviewed her radiographs and I noted that she had an impacted Garden II fracture with valgus deformity; there was no displacement on the AP view. I recommended placement of cannulated screws across the fracture site. I felt I could attempt a limite d reduction of the impaction of the valgus deformity to make a more physiologic construct. I discusse d the risks of the planned procedure including infection, nonunion and avascular necrosis and she und erstood and wished to proceed. DESCRIPTION OF OPERATIVE PROCEDURE The patient was seen in the Operating Holding Area, I had marked her right leg earlier this morning. I reviewed the planned procedure with the patient and her granddaughter. She consented to proceed wit h surgery. She was taken to the Anesthetic Suite, where she underwent General anesthesia via LMA. Tatyana browning received 2 grams of Ancef as a prophylactic antibiotic. She had a history of allergy to amoxicillin , but showed no cross reactivity. She was carefully transferred to the Fracture table, and she was pl aced in mild longitudinal traction and internal rotation. After placing her left leg in a 90/90 posit ion, I performed a gentle manipulative reduction by performing a vector in a superolateral direction in reference to the right hip. This reduced the valgus impaction anatomically. I then prepped the rig ht thigh for placement of 3 cannulated screws. An appropriate skin incision was made over the lateral aspect of her femur just distal to the vastus tubercle, which could be palpated. A 3-inch incision w as made with use of the image intensifier to show appropriate location of the incision site. The inci paris was carried sharply through the IT band and the fibers of the vastus lateralis were palpated and split bluntly. A 3/16 inch threaded guide pin was then inserted. The most distal pin was placed firs t so as to try to secure the inferomedial aspect of the femoral head to prevent the recurrence of imp action and valgus deformity. This was done under both AP and lateral C-Arm image intensifier control. A second pin was then used. Both pins were overdrilled with a cannulated drill and tapped through th e cortex. The most inferomedial screw, that is the first screw that was placed, was 85 millimeters. I t had a tread length of 16 millimeters, at a diameter of 7.3 millimeters. This obtained secure fixat ion in the femoral head. The second pin was more centrally located and measured 90 millimeters. The t hird pin, was then placed parallel to the other two in the superior aspect and was 85 millimeters. Th e screws were tightened and the fracture appeared to be in good position on AP and lateral views. The re was no evidence that the pins violated the joint. I did advance the central pin into the joint to drain any potential hemarthrosis and to minimize the chance of avascular necrosis. I then removed all the guide pins. The wound was irrigated and the fascia, specifically the IT band was closed with sut ures of #1-Vicryl in a simple fashion. Subcutaneous tissues were closed with #2-Vicryl and the skin w as closed with julia. The wounds were dressed with Xeroform gauze, 4x4s, ABD pads, and Medipore tape. Approximately 12 cc of Marcaine 0.5% was placed in the incisions to provide for postoperative analgesia. Blood loss was 10 cc. No blood was replaced intraoperatively.
[2018-09-20] MEDS: Magnesium Oxide 400 MG TAB PO (09:31)
--- NOTE | 2018-09-20 11:02 | PT.INIE ---
Date of service: 09/20/18 Time of Service: 08:45 PT Notes Inpatient Physical Therapy Evaluation Date: 09/20/2018 Referring Doctor: Dr. Goldman PT Orders: PT CONSULT: 72-year-old female status post ORIF Garden 2 fracture right femoral neck. Fracture fixed with cannulated screws. Up in chair tomorrow, then partial weightbearing as tolerated right with walker. Avoid extreme torque during range of motion exercises. Precautions: Fall, standard Patient Profile/Admitting Diagnosis: Patient admitted 09/19/18 after slipping on the ice at her daughter's home. She was diagnosed in the emergency room with a right femoral neck fracture, which was subsequently repaired in the OR by Dr. Goldman. Referral was received today for up in chair, partial weightbearing right lower extremity. PMHX: GERD, osteopenia, anxiety, diverticulosis, SREE Social History/Home Situation: Patient lives with her in a single level home, with ramp to enter. She can alternately use 5 steps to enter, no rail. She works full-time at [employer], and is active in the community. Equipment Owned/DME: None Subjective: Licha states that she is feeling well this morning. She denies pain. Is agreeable to PT consult. Objective: General Observation: Resting at bed at time of consultation. IV in right upper extremity. Tavaerz catheter in place Mental Status: A and O x3 Pain: 0/10 ROM: Right Upper Extremity: WFL Left Upper Extremity: WFL Right Lower Extremity: Hip range of motion not formally assessed, however patient functionally demonstrates hip flexion to 80 degrees, knee motion 0-95. Left Lower Extremity: WFL Strength: Right Upper Extremity: Shoulder flexion 4+/5. Biceps 4+/5. Triceps 4+/5. Assisted Living Nursing Director is strong and equal Left Upper Extremity: Shoulder flexion 4+/5. Biceps 4+/5. Triceps 4+/5. Assisted Living Nursing Director is strong and equal Right Lower Extremity: Quads strength 3-/5. Patient unable to perform isometric hold in long arc quad position, requiring 75% assist for L AQ. Ankle dorsiflexion 4+/5 Left Lower Extremity: Hip flexion 4+/5. Quads 5/5. Hamstrings 4+/5. Ankle dorsiflexion 5/5. Bed Mobility/Transfers: Supine?sit: Supervision, HOB at 30 degrees Sit to stand: Min assist Stand to sit: Mod assist x2 Bed to chair: Mod assist x2 with FW W. Patient requires assistance secondary to right knee buckling. She also requires significant cueing for equipment management and reliance on upper extremity support to maintain partial weightbearing right lower extremity. Gait: Patient ambulates 4 feet x1 with FW W, mod assist x2, partial weightbearing right lower extremity. She is unable to ambulate 15 feet x1, again with FW W and mod assist x2, although with significantly improved gait mechanics and reduced right lower extremity buckling. Balance: Static Sitting: Normal Dynamic Sitting: Good Static Standing: Fair Dynamic Standing: Poor Special Tests: Mobility Limitations Standardized Measure [facility] AM-PAC 6 clicks Basic Mobility Inpatient Short Form: Raw Score: 13 CMS Score: 65% deficit Informed Consent/Education: Patient instructed in purpose of PT consult and plan of care. Treatment: This session consisted of evaluation, followed by gait and transfer training. She was also instructed in early quad strengthening activities, including active assisted long arc quads and attempted isometric holds in 0 degrees knee flexion. She was instructed in heel slides and ankle pumps for completion in chair between PT sessions. Assessment: Patient is a 73 year old female referred to physical therapy services with the diagnosis of right femoral neck fracture, 1 days status post ORIF. Patient presents with clinical signs and symptoms consistent with postoperative status, as demonstrated by the following impairment level findings: 1. Reduce weightbearing right lower extremity due to postoperative precautions 2. Decreased strength right lower extremity 3. Gait impairments 4. Decreased activity tolerance 5. Decreased range of motion right lower extremity Impairments are contributing to the following functional limitations: 1. Unable to tolerate household distance ambulation 2. Unable to manage stairs 3. Decreased independence with transfers 4. Decreased activity tolerance 5. Gait impairments Patient is assessed as Moderate 05587 3 complexity based on the following: History: 73-year-old female, one day status post ORIF for right Garden 2 fracture of the femoral neck. Comorbidities include osteopenia and anxiety. Patient is active at baseline and has assistance from her at home. Examination: Functional limitations as noted above Presentation: Evolving Decision Making: Moderate complexity Goals: Goals X1 week 1. Supine-Sit: Supervision 2. Sit-Supine : Supervision 3. Sit-Stand: Supervision 4. Stand-Sit : Supervision 5. Bed-Chair: Supervision with FW W 6. Chair-Bed: Supervision with FW W 7. Gait: Supervision with FW W times 50 feet 8. Stairs: No stair goal, as patient is able to enter via ramp 9. Independent with home exercise program Plan of Care/Treatment Plan: 1-2x/day, 7 days/week x 1 week. Plan of care has been reviewed with the CLOTH SHRINKING MACHINE OPERATOR providing the service under Physical Therapy direction. Initiate Physical Therapy intervention for strengthening, bed mobility, transfers, gait, stairs, balance training, use of assistive device. DISCHARGE RECOMMENDATIONS: Home with FW W. If patient continues to require significant assistance in upcoming days, may need to consider brief rehab stay for rehabilitation following transition back to independent living TREATMENT CODE/TIME: 35 minutes ([id number])
[2018-09-20 11:20] VITALS: BP 123/87; PULSE 61; RESP 16; TEMP 36.4; O2SAT 96
--- NOTE | 2018-09-20 13:56 | PHARADMIT ---
Addendum entered by Adebayo Angela III 09/22/18 12:42: Pharmacy Note Subjective notes that patients' discharge is being held up by quadriceps dysfunction caused by nerve block. Once this wears off she will be ready. Objective VS-OK Pain:03/19, Lytes, SCr,H&H,Plts,WBC-OK wgt-69.2 kg No BM yet Assessment Aynor, Ibuprofen for pain. Lovenox continues. Plan Will be ready for discharge tomorrow. Original Note: Admission Pharmacy Clinical Review Right subcapital femoral neck fracture Code Status Full Code Current Weight 72.3 kg Renally Cleared and Narrow Therapeutic Index Meds Crcl ~52.1 mL/min using adjusted body weight QTc Value / Action Taken QTc 456 BP Control, Fever BP 123/87 afebrile Electrolytes reviewed Cl 108 DVT Prophylaxis enoxaparin Opiate Usage / Scheduled Bowel Regimen Ordered prn/prn Plt/SCr for Heparin / Enoxaparin plt 188 SCr 0.88 INR for Warfarin n/a H/H stable, WBC/Bands h/h 11.2/34.9 wbc 10.79 Antibiotic appropriateness none Cultures and Sensitivities n/a Surgical ABX d/c within 24 hr yes DM control / Insulin Dosing BG 90 none Heart Failure (Check EF%) (ROMULO's, B-Block, Diuretics) none IV to PO Switch n/a Home Meds Reviewed yes Home Meds Not Ordered calcium carbonate and citrate, ranitidine Comments
--- NOTE | 2018-09-20 14:06 | CHAPLAIN ---
Licha was sitting up in her chair when I visited. She told me about falling at her daughters. She expects her to be in later today to visit, and her granddaughter who works at [employer]. Licha said it is frustrating to be slowed down by and injury and surgery. She works at the [employer] and is usually active, she said.
--- NOTE | 2018-09-20 15:30 | PT.INTREAT ---
Date of service: 09/20/18 Time of Service: 15:30 PT Notes Inpatient Physical Therapy Treatment Note [facility] Date: 09/20/18 PRECAUTIONS: Fall SUBJECTIVE: Licha states that she has been performing heel slides from her chair throughout the day. She expresses concern regarding continued numbness throughout her R LE. OBJECTIVE: PAIN: No complaints of pain BED MOBILITY/TRANSFERS Sit-stand: SBA Stand-sit: SBA GAIT Assistive Device: FWW Weight bearing: PWB L Assist: CGA Distance: 25' x2 Deviation: R knee buckling x2 THEREX: Patient completed a lower extremity strengthening program, while in a seated position, as per flow sheet. Patient requires assist to complete LAQ exercise. ASSESSMENT: Patient tolerated session without complaints of pain. Patient was able to tolerate a progression in gait distance with FWW support and CGA today. Patient was able to tolerate a progression in ther ex today. Patient would benefit from continued strengthening as well as gait and transfer training for improved mobility, as well as improved activity tolerance. PLAN: Continue with PTs POC TREATMENT CODE/TIME: Session 1: 30 minutes; [id number], [id number]
[2018-09-20 16:12] VITALS: BP 157/82; PULSE 65; RESP 18; TEMP 37.4; O2SAT 96
--- NOTE | 2018-09-20 16:15 | PT.INTREAT ---
Date of service: 09/20/18 Time of Service: 15:45 PT Notes Inpatient Physical Therapy Treatment Note [facility] Date: 09/20/18 PRECAUTIONS:FALL, STANDARD SUBJECTIVE: Licha states that she's feeling well. She has no pain. She continues to have numbness extending down below her knee. OBJECTIVE: PAIN: 0/10 BED MOBILITY/TRANSFERS Sit-supine: max A to RLE Sit-stand: min A from recliner Stand-sit: CG Bed-Chair: CGA with FWW, PWB RLE GAIT Assistive Device: FWW Weight bearing: PWB RLE Assist: CG Distance: 4' Deviation: cues for UE support to WW Sensation: Patient is unable to identify light touch to medial thigh and howard on the right. Sensation is intact laterally. THEREX: Patient assisted through AA LAQ 10x2, AA SAQ 10x2 and quad sets for 10x2. She is able to get palpable quad contraction with quad setting activities, although continues to require 75% or greater assist for LAQ and SAQ. ASSESSMENT: Significant quad weakness, now at 24 hours post op. Demonstrating improvements in transfers and ambulation, walking 25' earlier today. PLAN: Continue progressive strengthening and gait/transfer training. TREATMENT CODE/TIME: 15 minutes ([id number])
--- NOTE | 2018-09-20 16:21 | PTTR_ITS ---
Date of service: 09/20/18 Time of Service: 15:45 PT Notes Inpatient Physical Therapy Treatment Note [facility] Date: 09/20/18 PRECAUTIONS:FALL, STANDARD SUBJECTIVE: Licha states that she's feeling well. She has no pain. She contin ues to have numbness extending down below her knee. OBJECTIVE: PAIN: 0/10 BED MOBILITY/TRANSFERS Sit-supine: max A to RLE Sit-stand: min A from recliner Stand-sit: CG Bed-Chair: CGA with FWW, PWB RLE GAIT Assistive Device: FWW Weight bearing: PWB RLE Assist: CG Distance: 4' Deviation: cues for UE support to WW Sensation: Patient is unable to identify light touch to medial thigh and howard on the right. Sensation is intact laterally. THEREX: Patient assisted through AA LAQ 10x2, AA SAQ 10x2 and quad sets for 10x2. She is able to get palpable quad contraction with quad setting activities, although continues to require 75% or greater assist for LAQ and SAQ. ASSESSMENT: Significant quad weakness, now at 24 hours post op. Demonstrating improvements in transfers and ambulation, walking 25' earlier today. PLAN: Continue progressive strengthening and gait/transfer training. TREATMENT CODE/TIME: 15 minutes ([id number])
--- NOTE | 2018-09-20 16:34 | PDOC.CMPRO ---
- If Service Date Differs Date of service: 09/20/18 Time of Service: 16:34 Care Management Progress Note S/O: CM met with patient at the bedside her spouse and family are present. Licha is on the phone and is not able to engage with CM at this time. Licha is post op day one today. She will continue to be evaluated A:Licha is a 73 year old female admitted after a fall on the ice resulting in a fx r hip repaired on 09/19/18 P:Licha will return when medically ready anticipate home new HHS vs SNF. Licha did have a PT/OT consult today PT does express concern that she may need additional rehab time. CM and PT will continue to assess.
--- NOTE | 2018-09-20 17:49 | W.PM.PROGNOT ---
Date of Service Date of service: 09/20/18 Time of Service: 17:49 Assessment and Plan (1) Subcapital fracture of right femur: Current visit: Yes Status: Acute S/p surgical intervention with an open reduction and internal fixation of the hip on 09/20. Plan for PT. Patient to have partial weightbearing on her right LE with use of a walker. Will need low dose ASA for DVT prophylaxis following discharge. Qualifiers: Encounter type: initial encounter Fracture type: closed Open fracture type: Fracture healing: Qualified Code(s): S72.011A - Unspecified intracapsular fracture of right femur, initial encounter for closed fracture (2) DVT prophylaxis: Current visit: Yes Status: Acute Chemical prophylaxis as per orthopedic surgery. Will ensure SCDs. Subjective Interval history since last seen: Healthy 73-year-old woman without significant prior medical history, admitted 09/18 from [facility] Emergency Department with a diagnosis of right hip fracture. Mrs. Aguilar suffered a fall on ice while at her daughter's home. She was immediately unable to bear weight on the affected hip, with significant discomfort with minimal movement, EMS was contacted and transported patient to the ED. Subsequent x-ray revealed evidence of a subcapital fracture of the right hip, with a degree of valgus deformity. She was referred for admission for further evaluation and treatment. The patient has undergone surgical repair of her hip Exam Narrative Exam Narrative: General: Patient appears comfortable, AAOX3, NAD Neck: Supple CV: Regular, nontachycardic, S1S2, No rubs, murmurs, or gallops. Pulmonary: Clear to auscultation bilaterally, no crackles, wheezing, or rhonchi on limited anterior and lateral exam Abdomen: + Bowel Sounds, soft, nontender, nondistended Vascular: No lower extremity edema Musculoskeletal: Pain with minimal palpation of right hip, and any movement of the right lower extremity. Psych: Normal mood and affect. Objective Objective Clinical Data: Abnormal lab results 09/20/18 09/20/18 Range/Units 06:30 06:30 RBC 3.64 L (4.00-5.20) m/cumm Hgb 11.2 L (12.0-15.5) g/dL Hct 34.9 L (36.0-46.0) % MCV 95.9 H (80-95) fL Absolute Neutrophils 7.58 H (1.2-6.7) k/cumm Absolute Monocytes 1.11 H (0.11-0.7) k/cumm Chloride 108 H (98-107) mmol/L Calcium 8.0 L (8.5-10.1) mg/dL Magnesium 1.7 L (1.8-2.4) mg/dL Vital Signs Temperature 37.4 C 09/20/18 16:12 Temperature Source Tympanic 09/20/18 16:12 Pulse 65 09/20/18 16:12 Pulse Rhythm Regular 09/20/18 07:40 Respiratory Rate 18 09/20/18 16:12 Respiratory Effort Non-Labored 09/20/18 07:40 Respiratory Depth Normal 09/20/18 07:40 Respiratory Pattern Normal 09/20/18 07:40 Blood Pressure 157/82 H 09/20/18 16:12 Blood Pressure Position Sitting 09/18/18 17:23 Pulse Oximetry 96 09/20/18 16:12 Respiratory End-tidal CO2 33 09/19/18 13:55 Oxygen Delivery Method Room Air 09/20/18 16:12 Oxygen Flow Rate 0 09/20/18 16:12 Pain Level 5 09/20/18 05:15 Comment 09/20/18 05:15 Intake & Output 09/19/18 09/20/18 09/20/18 23:59 11:59 23:59 Intake Total 1190 / 2090 1807.333 / 2835.333 1028 / 2835.333 Output Total 725 / 725 Balance 1180 / 1205 1082.333 / 2110.333 1028 / 2110.333 Weight 72.3 kg Intake: IV 950 / 1850 1407.333 / 2195.333 788 / 2195.333 Oral 240 / 240 400 / 640 240 / 640 Output: Urine 725 / 725 Estimated Blood Loss Other: Urine Color Yellow Yellow Urine Appearance Clear Clear Emesis Description None Laboratory Results WBC 10.79 k/cumm (4.4-10.8) 09/20/18 06:30 RBC 3.64 m/cumm (4.00-5.20) L 09/20/18 06:30 Hgb 11.2 g/dL (12.0-15.5) L 09/20/18 06:30 Hct 34.9 % (36.0-46.0) L 09/20/18 06:30 MCV 95.9 fL (80-95) H 09/20/18 06:30 MCH 30.8 pg (27.0-33.0) 09/20/18 06:30 MCHC 32.1 g/dL (32.0-36.0) 09/20/18 06:30 RDW 12.6 % (11.7-14.6) 09/20/18 06:30 Plt Count 188 x1000/uL (130-400) 09/20/18 06:30 MPV 10.0 fL (8.0-11.0) 09/20/18 06:30 Immature Gran % 0.2 09/20/18 06:30 Neutrophils % 70.2 09/20/18 06:30 Lymphocytes % 16.4 09/20/18 06:30 Monocytes % 10.3 09/20/18 06:30 Eosinophils % 2.7 09/20/18 06:30 Basophils % 0.2 09/20/18 06:30 Absolute Neutrophils 7.58 k/cumm (1.2-6.7) H 09/20/18 06:30 Absolute Lymphocytes 1.77 k/cumm (1.2-3.4) 09/20/18 06:30 Absolute Monocytes 1.11 k/cumm (0.11-0.7) H 09/20/18 06:30 Absolute Eosinophils 0.29 k/cumm (0.0-0.7) 09/20/18 06:30 Absolute Basophils 0.02 k/cumm (0.0-0.2) 09/20/18 06:30 PT 9.9 sec (9.3-11.0) 09/18/18 18:00 INR 1.0 (0.9-1.1) 09/18/18 18:00 APTT 22.2 sec (21.0-31.4) 09/18/18 18:00 Sodium 140 mmol/L (136-145) 09/20/18 06:30 Potassium 4.4 mmol/L (3.5-5.1) 09/20/18 06:30 Chloride 108 mmol/L (98-107) H 09/20/18 06:30 Carbon Dioxide 25.9 mmol/L (21.0-32.0) 09/20/18 06:30 Anion Gap 6.1 mmol/L (3-11) 09/20/18 06:30 BUN 16 mg/dL (7-18) 09/20/18 06:30 Creatinine 0.88 mg/dL (0.55-1.02) 09/20/18 06:30 Estimated GFR/1.73 m2 >= 60.00 (mL/min/1.73m2) 09/20/18 06:30 Glucose 90 mg/dL (70-100) 09/20/18 06:30 Calcium 8.0 mg/dL (8.5-10.1) L 09/20/18 06:30 Magnesium 1.7 mg/dL (1.8-2.4) L 09/20/18 06:30 Total Bilirubin 0.6 mg/dL (0.2-1.0) 09/19/18 07:45 AST 18 U/L (15-37) 09/19/18 07:45 ALT 17 U/L (12-78) 09/19/18 07:45 Alkaline Phosphatase 94 U/L (46-116) 09/19/18 07:45 Troponin I < 0.02 ng/mL (0.00-0.06) 09/19/18 00:25 Total Protein 6.6 g/dL (6.4-8.2) 09/19/18 07:45 Albumin 3.1 g/dL (3.4-5.0) L 09/19/18 07:45 Urine Color Yellow (Yellow) 09/18/18 22:10 Urine Clarity Clear 09/18/18 22:10 Urine pH 6.5 (5-8) 09/18/18 22:10 Ur Specific [place] >= 1.030 (1.005-1.025) H 09/18/18 22:10 Urine Protein Negative mg/dL (Negative) 09/18/18 22:10 Urine Ketones Negative mg/dL (Negative) 09/18/18 22:10 Urine Blood Negative (Negative) 09/18/18 22:10 Urine Nitrite Negative (Negative) 09/18/18 22:10 Urine Bilirubin Negative (Negative) 09/18/18 22:10 Urine Urobilinogen 0.2 EU/dL (Up TO 0.2) 09/18/18 22:10 Ur Leukocyte Esterase Negative (Negative) 09/18/18 22:10 Urine Glucose Negative mg/dL (Negative) 09/18/18 22:10
--- NOTE | 2018-09-20 18:09 | OT.INIE ---
Occupational Therapy Notes Inpatient Occupational Therapy Evaluation Date: 09/20/18 Referring Doctor:Rommel Goldman MD OT Orders: s/p ORIF (R) femoral neck fx with cannulated screws, please assist with ADLs. Precautions: PWB (R) LE, Fall, standard PATIENT PROFILE/ADMITTING DIAGNOSIS: Pt is a 73 year old female was is s/p ORIF (R) femoral neck fx with cannulated screws performed by Dr. Goldman. Pt was admitted through the ER s/p a fall on the ice at her daughters home. Xrays in the ER confirmed the fx. Past Medical History: GERD, osteopenia, anxiety, diverticulosis, SREE Current Functional Limitations: Performing functional mobility with FWW, PWB for (R) hip, decreased (I) in ADLs/IADLs, increased pain in (R) hip, decreased functional activity tolerance, inability to perform ADLs in standing for prolonged periods of time, decreased (I) in mobility due to knee buckling. Social History/Home Situation: Pt lives in a private home with her . She reports that prior to admission was very (I) with all ADLs/IADLs. 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 Equipment owned/DME: Shower chair, grab bars, ramp to enter home. SUBJECTIVE: Pt was in the bathroom when OT arrived. She was agreeable to OT session and verbalizes that she is very frustrated that this happened and that she does not like to be reliant on anyone for help. OBJECTIVE: General Observation: [place], IV (L) UE Mental Status: A&Ox3 Pain: no c/o pain. ROM: RUE WNL L UE WNL STRENGTH: RUE 5/5 throughout, oral health therapist is strong and equal. LUE 5/5 throughout, oral health therapist is strong and equal. FUNCTIONAL MOBILITY/ADLS: Transfers Sit-Stand Min (A) Stand-sit Mod (A)x2 Bed-Chair Mod (A)x2 FWW Chair-bed Mod (A)x2 FWW BATHING sitting in chair with max (A) Set up Bathing UE (I) Bathing LE min (A) lower legs DRESSING Sitting in chair Dressing UE (I) [facility] gown Dressing LE NT GROOMING Sitting in chair with max (A) set up (I) with teeth brushing TOILETING On toilet with min vc for body mechanics and safety, pt required min (A) for toileting hygiene. EATING NT BALANCE: Static sitting Normal Dynamic Sitting Good Static Standing Fair Dynamic Standing Poor SPECIAL TESTS: Daily Activity Limitations Standardized Measure [facility] AM -PAC ?6 clicks? Daily Activity Inpatient Short Form: Raw score: 20 CMS score: 38.32% INFORMED CONSENT/EDUCATION: Pt instructed in purpose of OT Consult and plan of care. ASSESSMENT: Patient is a 73-year-old female referred to occupational therapy services with diagnosis of right femoral neck fracture, 1 days status post ORIF. Patient presents with clinical signs and symptoms consistent with dx, as demonstrated by the following impairment level findings: Decreased functional activity tolerance, inability to perform ambulation for ADLs/IADLs, decreased (I) in standing position for ADLs, partial weightbearing in (R) LE and use of FWW for functional mobility. Impairments are contributing to the following functional limitations: Unable to manage stairs, inability to perform LE dressing, decreased functional activity tolerance, use of FWW for ADLs, difficulty performing functional UE dynamic movements due to PWB status and use of FWW. AMPAC score 20, CMS score 38.32% Patient is assessed as a Moderate 33380 complexity based on the following: History: See Above Examination: See Above Presentation: Evolving Decision Making: Moderate complexity GOALS Goals x1 week in hospital setting 1. Transfers (S) FWW 2. Dressing- Sitting in the chair pt will be able to don and doff street clothes (I) with ideal technique. 3. Bathing- Sitting in shower pt will be able to (I) wash her UE/LE. 4. Toileting- Pt will be able to perform toileting routine (I) on toilet. 5. Eating- (I) with food to mouth and open and closing packages/containers 6. Grooming- Standing at sink with FWW pt will be able to perform teeth brushing (I) PLAN OF CARE/TREATMENT PLAN: 1x/day, 5 days/ week x 1week Initiate Occupational Therapy Services for bathing, dressing, grooming, toileting, eating, transfer training. DISCHARGE RECOMMENDATIONS Home when medically cleared per MD. If pt is unable to perform ADLs/IADLs within the next couple days and requires increased (A) pt may benefit from stay at SNF to increase (I) in ADL routine. TREATMENT TIME/MINUTES/CODES 48607, [id number], 30 minutes (10:15) Sofy Roger OTR/[facility]
[2018-09-20 19:31] VITALS: BP 134/72; PULSE 75; RESP 18; TEMP 37.5; O2SAT 95
[2018-09-20] MEDS: HYDROcodone 5/Acetaminophen 325 TAB PO (22:33)
[2018-09-21 00:02] VITALS: BP 156/86; PULSE 74; RESP 18; TEMP 37.3; O2SAT 95
[2018-09-21 07:16] LABS: Abs Immature Grans 0.01 k/cumm (0.0-0.09); Absolute Basophil Count 0.03 k/cumm (0.0-0.2); Absolute Eosinophil Count 0.36 k/cumm (0.0-0.7); Absolute Lymphocyte Count 1.27 k/cumm (1.2-3.4); Absolute Monocyte Count 0.91 k/cumm (0.11-0.7); Absolute Neutrophil Count 5.79 k/cumm (1.2-6.7); Basophils % 0.4; Eosinophils % 4.3; HCT 34.5 % (36.0-46.0); HGB 11.4 g/dL (12.0-15.5); Immature Grans % 0.1; Lymphocytes % 15.2; Mean Corpuscular Hemoglobin 31.4 pg (27.0-33.0); Mean Platelet Volume 10.4 fL (8.0-11.0); Monocytes % 10.9; Neutrophils % 69.1; Platelet Count 190 x1000/uL (130-400); RBC 3.63 m/cumm (4.00-5.20); RBC Distribution Width 12.3 % (11.7-14.6); White Blood Cell Count 8.37 k/cumm (4.4-10.8)
[2018-09-21 07:24] LABS: Anion Gap 7.2 mmol/L (3-11); BUN 16 mg/dL (7-18); CO2 26.8 mmol/L (21.0-32.0); CREATININE 0.85 mg/dL (0.55-1.02); Calcium 8.4 mg/dL (8.5-10.1); Chloride 105 mmol/L (98-107); Glucose 94 mg/dL (70-100); Magnesium 1.7 mg/dL (1.8-2.4); Sodium 139 mmol/L (136-145)
[2018-09-21 07:30] VITALS: BP 166/95; PULSE 75; RESP 18; TEMP 37.5; O2SAT 93
--- NOTE | 2018-09-21 07:45 | W.PM.PROGNOT ---
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 This should resolve over time the timeframe is unclear labs are pending from this morning but I do not see any reason for any significant hemodynamic shifts of blood loss. She is getting single dose Lovenox DVT prophylaxis because of her history of GERD. Numbness and quad weakness discussed with physical therapy this morning Qualifiers: Encounter type: initial encounter Fracture type: closed Open fracture type: Fracture healing: Qualified Code(s): S72.011A - Unspecified intracapsular fracture of right femur, initial encounter for closed fracture Subjective Interval history since last seen: Patient still has numbness of the right thigh from her fascia iliacus block. Sitting in a chair she denies groin discomfort Exam Extrem Other: Patient has numbness of the proximal thigh consistent with the fascia block. She has some weak quad secondary to muscular effect of the block this should resolve over Objective Objective Clinical Data: Abnormal lab results 09/21/18 09/21/18 Range/Units 06:20 06:20 RBC 3.63 L (4.00-5.20) m/cumm Hgb 11.4 L (12.0-15.5) g/dL Hct 34.5 L (36.0-46.0) % Absolute Monocytes 0.91 H (0.11-0.7) k/cumm Calcium 8.4 L (8.5-10.1) mg/dL Magnesium 1.7 L (1.8-2.4) mg/dL Vital Signs Temperature 99.1 F 09/21/18 00:02 Temperature Source Tympanic 09/21/18 00:02 Pulse 74 09/21/18 00:02 Pulse Rhythm Regular 09/20/18 20:40 Respiratory Rate 18 09/21/18 00:02 Respiratory Effort Non-Labored 09/20/18 20:40 Respiratory Depth Normal 09/20/18 20:40 Respiratory Pattern Normal 09/20/18 20:40 Blood Pressure 156/86 H 09/21/18 00:02 Blood Pressure Position Sitting 09/18/18 17:23 Pulse Oximetry 95 09/21/18 00:02 Respiratory End-tidal CO2 33 09/19/18 13:55 Oxygen Delivery Method Room Air 09/21/18 00:02 Oxygen Flow Rate 0 09/21/18 00:02 Pain Level 8 09/20/18 22:33 Comment 09/20/18 05:15 Intake & Output 09/20/18 09/20/18 09/21/18 11:59 23:59 11:59 Intake Total 1807.333 / 3075.333 1268 / 3075.333 Output Total 725 / 2125 1400 / 2125 Balance 1082.333 / 950.333 -132 / 950.333 Weight 159 lb 6.307 oz 154 lb 1.65 oz Intake: IV 1407.333 / 2195.333 788 / 2195.333 Oral 400 / 880 480 / 880 Output: Urine 725 / 5 1400 / 5 Other: Urine Color Yellow Yellow Urine Appearance Clear Clear Laboratory Results WBC 8.37 k/cumm (4.4-10.8) 09/21/18 06:20 RBC 3.63 m/cumm (4.00-5.20) L 09/21/18 06:20 Hgb 11.4 g/dL (12.0-15.5) L 09/21/18 06:20 Hct 34.5 % (36.0-46.0) L 09/21/18 06:20 MCV 95.0 fL (80-95) 09/21/18 06:20 MCH 31.4 pg (27.0-33.0) 09/21/18 06:20 MCHC 33.0 g/dL (32.0-36.0) 09/21/18 06:20 RDW 12.3 % (11.7-14.6) 09/21/18 06:20 Plt Count 190 x1000/uL (130-400) 09/21/18 06:20 MPV 10.4 fL (8.0-11.0) 09/21/18 06:20 Immature Gran % 0.1 09/21/18 06:20 Neutrophils % 69.1 09/21/18 06:20 Lymphocytes % 15.2 09/21/18 06:20 Monocytes % 10.9 09/21/18 06:20 Eosinophils % 4.3 09/21/18 06:20 Basophils % 0.4 09/21/18 06:20 Absolute Neutrophils 5.79 k/cumm (1.2-6.7) 09/21/18 06:20 Absolute Lymphocytes 1.27 k/cumm (1.2-3.4) 09/21/18 06:20 Absolute Monocytes 0.91 k/cumm (0.11-0.7) H 09/21/18 06:20 Absolute Eosinophils 0.36 k/cumm (0.0-0.7) 09/21/18 06:20 Absolute Basophils 0.03 k/cumm (0.0-0.2) 09/21/18 06:20 PT 9.9 sec (9.3-11.0) 09/18/18 18:00 INR 1.0 (0.9-1.1) 09/18/18 18:00 APTT 22.2 sec (21.0-31.4) 09/18/18 18:00 Sodium 139 mmol/L (136-145) 09/21/18 06:20 Potassium 4.0 mmol/L (3.5-5.1) 09/21/18 06:20 Chloride 105 mmol/L (98-107) 09/21/18 06:20 Carbon Dioxide 26.8 mmol/L (21.0-32.0) 09/21/18 06:20 Anion Gap 7.2 mmol/L (3-11) 09/21/18 06:20 BUN 16 mg/dL (7-18) 09/21/18 06:20 Creatinine 0.85 mg/dL (0.55-1.02) 09/21/18 06:20 Estimated GFR/1.73 m2 >= 60.00 (mL/min/1.73m2) 09/21/18 06:20 Glucose 94 mg/dL (70-100) 09/21/18 06:20 Calcium 8.4 mg/dL (8.5-10.1) L 09/21/18 06:20 Magnesium 1.7 mg/dL (1.8-2.4) L 09/21/18 06:20 Total Bilirubin 0.6 mg/dL (0.2-1.0) 09/19/18 07:45 AST 18 U/L (15-37) 09/19/18 07:45 ALT 17 U/L (12-78) 09/19/18 07:45 Alkaline Phosphatase 94 U/L (46-116) 09/19/18 07:45 Troponin I < 0.02 ng/mL (0.00-0.06) 09/19/18 00:25 Total Protein 6.6 g/dL (6.4-8.2) 09/19/18 07:45 Albumin 3.1 g/dL (3.4-5.0) L 09/19/18 07:45 Urine Color Yellow (Yellow) 09/18/18 22:10 Urine Clarity Clear 09/18/18 22:10 Urine pH 6.5 (5-8) 09/18/18 22:10 Ur Specific [place] >= 1.030 (1.005-1.025) H 09/18/18 22:10 Urine Protein Negative mg/dL (Negative) 09/18/18 22:10 Urine Ketones Negative mg/dL (Negative) 09/18/18 22:10 Urine Blood Negative (Negative) 09/18/18 22:10 Urine Nitrite Negative (Negative) 09/18/18 22:10 Urine Bilirubin Negative (Negative) 09/18/18 22:10 Urine Urobilinogen 0.2 EU/dL (Up TO 0.2) 09/18/18 22:10 Ur Leukocyte Esterase Negative (Negative) 09/18/18 22:10 Urine Glucose Negative mg/dL (Negative) 09/18/18 22:10
--- NOTE | 2018-09-21 07:51 | PGE_ITS ---
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 This should resolve over time the timeframe is unclear labs are pending from this morning bu t I do not see any reason for any significant hemodynamic shifts of blood loss. She is getting single dose Lovenox DVT prophylaxis because of her history of GERD. Numbness and quad weakness discussed with physical therapy this morning Qualifiers: Encounter type: initial encounter Fracture type: closed Open fracture type: Fracture healing: Qualified Code(s): S72.011A - Unspecified intracapsu lar fracture of right femur, initial encounter for closed fracture Subjective Interval history since last seen: Patient still has numbness of the right thigh from her fascia iliacus block. Sitting in a chair she denies groin discomfort Exam Extrem Other: Patient has numbness of the proximal thigh consistent with the fascia block. She has some weak quad secondary to muscular effect of the block this should resolve over Objective Objective Clinical Data: Abnormal lab results 09/21/18 09/21/18 Range/Units 06:20 06:20 RBC 3.63 L (4.00-5.20) m/cumm Hgb 11.4 L (12.0-15.5) g/dL Hct 34.5 L (36.0-46.0) % Absolute Monocytes 0.91 H (0.11-0.7) k/cumm Calcium 8.4 L (8.5-10.1) mg/dL Magnesium 1.7 L (1.8-2.4) mg/dL Vital Signs Temperature 99.1 F 09/21/18 00:02 Temperature Source Tympanic 09/21/18 00:02 Pulse 74 09/21/18 00:02 Pulse Rhythm Regular 09/20/18 20:40 Respiratory Rate 18 09/21/18 00:02 Respiratory Effort Non-Labored 09/20/18 20:40 Respiratory Depth Normal 09/20/18 20:40 Respiratory Pattern Normal 09/20/18 20:40 Blood Pressure 156/86 H 09/21/18 00:02 Blood Pressure Position Sitting 09/18/18 17:23 Pulse Oximetry 95 09/21/18 00:02 Respiratory End-tidal CO2 33 09/19/18 13:55 Oxygen Delivery Method Room Air 09/21/18 00:02 Oxygen Flow Rate 0 09/21/18 00:02 Pain Level 8 09/20/18 22:33 Comment 09/20/18 05:15 Intake & Output 09/20/18 09/20/18 09/21/18 11:59 23:59 11:59 Intake Total 1807.333 / 3075.333 1268 / 3075.333 Output Total 725 / 5 1400 / 5 Balance 1082.333 / 950.333 -132 / 950.333 Weight 159 lb 6.307 oz 154 lb 1.65 oz Intake: IV 1407.333 / 2195.333 788 / 2195.333 Oral 400 / 880 480 / 880 Output: Urine 72 / 2124 1400 / 2124 Other: Urine Color Yellow Yellow Urine Appearance Clear Clear Laboratory Results WBC 8.37 k/cumm (4.4-10.8) 09/21/18 06:20 RBC 3.63 m/cumm (4.00-5.20) L 09/21/18 06:20 Hgb 11.4 g/dL (12.0-15.5) L 09/21/18 06:20 Hct 34.5 % (36.0-46.0) L 09/21/18 06:20 MCV 95.0 fL (80-95) 09/21/18 06:20 MCH 31.4 pg (27.0-33.0) 09/21/18 06:20 MCHC 33.0 g/dL (32.0-36.0) 09/21/18 06:20 RDW 12.3 % (11.7-14.6) 09/21/18 06:20 Plt Count 190 x1000/uL (130-400) 09/21/18 06:20 MPV 10.4 fL (8.0-11.0) 09/21/18 06:20 Immature Gran % 0.1 09/21/18 06:20 Neutrophils % 69.1 09/21/18 06:20 Lymphocytes % 15.2 09/21/18 06:20 Monocytes % 10.9 09/21/18 06:20 Eosinophils % 4.3 09/21/18 06:20 Basophils % 0.4 09/21/18 06:20 Absolute Neutrophils 5.79 k/cumm (1.2-6.7) 09/21/18 06:20 Absolute Lymphocytes 1.27 k/cumm (1.2-3.4) 09/21/18 06:20 Absolute Monocytes 0.91 k/cumm (0.11-0.7) H 09/21/18 06:20 Absolute Eosinophils 0.36 k/cumm (0.0-0.7) 09/21/18 06:20 Absolute Basophils 0.03 k/cumm (0.0-0.2) 09/21/18 06:20 PT 9.9 sec (9.3-11.0) 09/18/18 18:00 INR 1.0 (0.9-1.1) 09/18/18 18:00 APTT 22.2 sec (21.0-31.4) 09/18/18 18:00 Sodium 139 mmol/L (136-145) 09/21/18 06:20 Potassium 4.0 mmol/L (3.5-5.1) 09/21/18 06:20 Chloride 105 mmol/L (98-107) 09/21/18 06:20 Carbon Dioxide 26.8 mmol/L (21.0-32.0) 09/21/18 06:20 Anion Gap 7.2 mmol/L (3-11) 09/21/18 06:20 BUN 16 mg/dL (7-18) 09/21/18 06:20 Creatinine 0.85 mg/dL (0.55-1.02) 09/21/18 06:20 Estimated GFR/1.73 m2 >= 60.00 (mL/min/1.73m2) 09/21/18 06:20 Glucose 94 mg/dL (70-100) 09/21/18 06:20 Calcium 8.4 mg/dL (8.5-10.1) L 09/21/18 06:20 Magnesium 1.7 mg/dL (1.8-2.4) L 09/21/18 06:20 Total Bilirubin 0.6 mg/dL (0.2-1.0) 09/19/18 07:45 AST 18 U/L (15-37) 09/19/18 07:45 ALT 17 U/L (12-78) 09/19/18 07:45 Alkaline Phosphatase 94 U/L (46-116) 09/19/18 07:45 Troponin I < 0.02 ng/mL (0.00-0.06) 09/19/18 00:25 Total Protein 6.6 g/dL (6.4-8.2) 09/19/18 07:45 Albumin 3.1 g/dL (3.4-5.0) L 09/19/18 07:45 Urine Color Yellow (Yellow) 09/18/18 22:10 Urine Clarity Clear 09/18/18 22:10 Urine pH 6.5 (5-8) 09/18/18 22:10 Ur Specific [place] >= 1.030 (1.005-1.025) H 09/18/18 22:10 Urine Protein Negative mg/dL (Negative) 09/18/18 22:10 Urine Ketones Negative mg/dL (Negative) 09/18/18 22:10 Urine Blood Negative (Negative) 09/18/18 22:10 Urine Nitrite Negative (Negative) 09/18/18 22:10 Urine Bilirubin Negative (Negative) 09/18/18 22:10 Urine Urobilinogen 0.2 EU/dL (Up TO 0.2) 09/18/18 22:10 Ur Leukocyte Esterase Negative (Negative) 09/18/18 22:10 Urine Glucose Negative mg/dL (Negative) 09/18/18 22:10
[2018-09-21] MEDS: Enoxaparin 30 MG/0.3 ML SYR SC (08:43)
[2018-09-21] MEDS: HYDROcodone 5/Acetaminophen 325 TAB PO ×3 (08:47→19:19)
[2018-09-21] MEDS: Magnesium Oxide 400 MG TAB 800 MG PO (10:01)
--- NOTE | 2018-09-21 11:14 | OT.INTREAT ---
Date of service: 09/21/18 Time of Service: 10:00 Occupational Therapy Notes Occupational Therapy Inpatient Treatment Note Date: 09/21/18 PRECAUTIONS: PWB LE, fall, standard precautions SUBJECTIVE: Pt was sitting in chair she was agreeable to OT session. She walked with PT into the bathroom and states that she wants to go home so she needs to be (I). OBJECTIVE: PAIN:no c/o pain FUNCTIONAL MOBILITY Stand-sit: CGA, FWW Bathroom-Chair: CGA, FWW BATHING: Upper Body: Standing at sink with FWW (I) face, (B) UE and hands. Sitting in chair (I) abdomen and max (A) back Lower Body: Sitting in chair (I) (B) legs and feet. DRESSING: Upper Extremity: Sitting in chair (I) [facility] gown. Lower Extremity: Mod (A) don and doff (L) sock, (I) (R) GROOMING: Standing at sink with FWW, CGA pt was (I) brushing teeth and hair. ASSESSMENT/PLAN: Pt is demonstrating increased (I) in her ADL routines. She is performing them standing at the sink and is demonstrating safe static and dynamic reaching with FWW and S when standing still. She is able to perform most of her ADLs at her premorbid level of function with precautions for WB status. She is demonstrating improved functional mobility. Pt reports that she is hoping to go home tomorrow. OT does feel that pt would be able to perform her ADLs safely at home with modifications when medically cleared per MD. OT will assess pts (I) in dressing tomorrow. Pt reports that her is at home and will (A) as needed. TREATMENT CODES/TIME: [id number], 31 minutes (10:00) Sofy Roger OTR/[facility]
[2018-09-21 11:17] VITALS: BP 124/83; PULSE 69; RESP 18; TEMP 37.3; O2SAT 95
--- NOTE | 2018-09-21 11:23 | OTTR_ITS ---
Date of service: 09/21/18 Time of Service: 10:00 Occupational Therapy Notes Occupational Therapy Inpatient Treatment Note Date: 09/21/18 PRECAUTIONS: PWB LE, fall, standard precautions SUBJECTIVE: Pt was sitting in chair she was agreeable to OT session. She walked with PT into the bathroom and states that she wants to go home so she needs to be (I). OBJECTIVE: PAIN:no c/o pain FUNCTIONAL MOBILITY Stand-sit: CGA, FWW Bathroom-Chair: CGA, FWW BATHING: Upper Body: Standing at sink with FWW (I) face, (B) UE and hands. Sitting in chair (I) abdomen and max (A) back Lower Body: Sitting in chair (I) (B) legs and feet. DRESSING: Upper Extremity: Sitting in chair (I) [facility] gown. Lower Extremity: Mod (A) don and doff (L) sock, (I) (R) GROOMING: Standing at sink with FWW, CGA pt was (I) brushing teeth and hair. ASSESSMENT/PLAN: Pt is demonstrating increased (I) in her ADL routines. She is performing them standing at the sink and is demonstrating safe static and dynamic reaching with FWW and S when standing still. She is able to perform most of her ADLs at her premorbid level of function with precautions for WB status. She is demonstrating improved functional mobility. Pt reports that she is hoping to go home tomorrow. OT does feel that pt would be able to perform her ADLs safely at home with modifications when medically cleared per MD. OT will assess pts (I) in dressing tomorrow. Pt reports that her is at home and will (A) as needed. TREATMENT CODES/TIME: [id number], 31 minutes (10:00) Sofy Roger OTR/[facility]
--- NOTE | 2018-09-21 12:28 | PT.INTREAT ---
Date of service: 09/21/18 Time of Service: 11:30 PT Notes Inpatient Physical Therapy Treatment Note [facility] Date: 09/21/18 PRECAUTIONS:FALL, STANDARD SUBJECTIVE: Licha states that she's feeling well. She has no pain. She continues to have numbness extending down below her knee. OBJECTIVE: PAIN: 0/10 BED MOBILITY/TRANSFERS Sit-stand: SBA from recliner Stand-sit: SBA GAIT Assistive Device: FWW Weight bearing: PWB RLE Assist: CG Distance: 60' THEREX: Patient assisted through AA LAQ 10x2, AA SAQ 10x2 and quad sets for 10x2. She is able to get palpable quad contraction with quad setting activities, although continues to require 75% or greater assist for LAQ and SAQ. ASSESSMENT: Significant improvements in functional mobility, despite persistent quad weakness from her femoral nerve block. We will continue progressing ambulation and strengthening activities, as she is able to tolerate. PLAN: Continue progressive strengthening and gait/transfer training. TREATMENT CODE/TIME: 30 minutes (9:10-9:20, 11:30-11:50); ([id number], [id number])
--- NOTE | 2018-09-21 14:10 | W.PM.PROGNOT ---
Date of Service Date of service: 09/21/18 Time of Service: 14:10 Assessment and Plan (1) Subcapital fracture of right femur: Current visit: Yes Status: Acute S/p surgical intervention with an open reduction and internal fixation of the hip on 09/[address] Goldman. She denies pain, her right thigh remains numb, but improving, likely related to block. PT reports improvement today. Continue PT. She will likely be ready for discharge within the next 24-48 hours. Qualifiers: Encounter type: initial encounter Fracture type: closed Open fracture type: Fracture healing: Qualified Code(s): S72.011A - Unspecified intracapsular fracture of right femur, initial encounter for closed fracture (2) DVT prophylaxis: Current visit: Yes Status: Acute Lovenox per orthopedics. (3) Discharge planning issues: Current visit: Yes Status: Acute She is a FULL CODE. She is doing well today. She will likely return home when ready. This case was discussed with Dr. Constantino who is in agreement. Subjective Interval history since last seen: Licha Aguilar is a 73 year old female with no significant past medical history who was admitted on 09/18/18 from the [facility] ED after falling on the ice and sustaining a right hip fracture. She went on to have the fracture repaired by Dr. Goldman on 09/19/18. She is doing well postoperatively. She denies pain in the left hip, she continues to report numbness to her right thigh, she believes she is gaining some feeling in the thigh. She worked with PT this morning, PT reports improvement. She denies shortness of breath, cough, wheeze, chest pain/pressure, palpitations. She is eating and drinking and tolerating it well, no nausea, vomiting, or diarrhea. Her bowels and bladder are functioning well, she reports the gilbert catheter was discontinued, she is voiding well. Exam Narrative Exam Narrative: General: Appears younger than her stated age. She is sitting up in the chair, in no acute distress. Appears comfortable, AAOX3. Neck: Supple, no JVD. CV: Regular, nontachycardic, no murmurs appreciated. Pulmonary: Respirations even and unlabored, lung sounds clear to auscultation throughout. Abdomen: + Bowel Sounds x4 quadrants, soft, nontender, nondistended, no masses appreciated. Vascular: No lower extremity edema Musculoskeletal: Dressing to the right lateral thigh clean, dry and intact, minimal swelling to right thigh. Able to move right leg without significant discomfort. Objective Objective Clinical Data: Abnormal lab results 09/21/18 09/21/18 Range/Units 06:20 06:20 RBC 3.63 L (4.00-5.20) m/cumm Hgb 11.4 L (12.0-15.5) g/dL Hct 34.5 L (36.0-46.0) % Absolute Monocytes 0.91 H (0.11-0.7) k/cumm Calcium 8.4 L (8.5-10.1) mg/dL Magnesium 1.7 L (1.8-2.4) mg/dL Vital Signs Temperature 37.3 C 09/21/18 11:17 Temperature Source Tympanic 09/21/18 11:17 Pulse 69 09/21/18 11:17 Pulse Rhythm Regular 09/21/18 08:45 Respiratory Rate 18 09/21/18 11:17 Respiratory Effort Non-Labored 09/21/18 08:45 Respiratory Depth Normal 09/21/18 08:45 Respiratory Pattern Normal 09/21/18 08:45 Blood Pressure 124/83 09/21/18 11:17 Blood Pressure Position Sitting 09/18/18 17:23 Pulse Oximetry 95 09/21/18 11:17 Respiratory End-tidal CO2 33 09/19/18 13:55 Oxygen Delivery Method Room Air 09/21/18 11:17 Oxygen Flow Rate 0 09/21/18 11:17 Pain Level 10 09/21/18 07:30 Comment 09/20/18 05:15 Intake & Output 09/20/18 09/21/18 09/21/18 23:59 11:59 23:59 Intake Total 1268 / 3075.333 240 / 480 240 / 480 Output Total 1400 / 2125 2200 / 2200 Balance -132 / 950.333 -1960 / -1720 240 / -1720 Weight 69.9 kg Intake: IV 788 / 2195.333 Oral 480 / 880 240 / 480 240 / 480 Output: Urine 1400 / 2125 2200 / 2200 Other: Urine Color Yellow Yellow Urine Appearance Clear Clear Comment Pt voided missed hat. Amount unknown. Laboratory Results WBC 8.37 k/cumm (4.4-10.8) 09/21/18 06:20 RBC 3.63 m/cumm (4.00-5.20) L 09/21/18 06:20 Hgb 11.4 g/dL (12.0-15.5) L 09/21/18 06:20 Hct 34.5 % (36.0-46.0) L 09/21/18 06:20 MCV 95.0 fL (80-95) 09/21/18 06:20 MCH 31.4 pg (27.0-33.0) 09/21/18 06:20 MCHC 33.0 g/dL (32.0-36.0) 09/21/18 06:20 RDW 12.3 % (11.7-14.6) 09/21/18 06:20 Plt Count 190 x1000/uL (130-400) 09/21/18 06:20 MPV 10.4 fL (8.0-11.0) 09/21/18 06:20 Immature Gran % 0.1 09/21/18 06:20 Neutrophils % 69.1 09/21/18 06:20 Lymphocytes % 15.2 09/21/18 06:20 Monocytes % 10.9 09/21/18 06:20 Eosinophils % 4.3 09/21/18 06:20 Basophils % 0.4 09/21/18 06:20 Absolute Neutrophils 5.79 k/cumm (1.2-6.7) 09/21/18 06:20 Absolute Lymphocytes 1.27 k/cumm (1.2-3.4) 09/21/18 06:20 Absolute Monocytes 0.91 k/cumm (0.11-0.7) H 09/21/18 06:20 Absolute Eosinophils 0.36 k/cumm (0.0-0.7) 09/21/18 06:20 Absolute Basophils 0.03 k/cumm (0.0-0.2) 09/21/18 06:20 PT 9.9 sec (9.3-11.0) 09/18/18 18:00 INR 1.0 (0.9-1.1) 09/18/18 18:00 APTT 22.2 sec (21.0-31.4) 09/18/18 18:00 Sodium 139 mmol/L (136-145) 09/21/18 06:20 Potassium 4.0 mmol/L (3.5-5.1) 09/21/18 06:20 Chloride 105 mmol/L (98-107) 09/21/18 06:20 Carbon Dioxide 26.8 mmol/L (21.0-32.0) 09/21/18 06:20 Anion Gap 7.2 mmol/L (3-11) 09/21/18 06:20 BUN 16 mg/dL (7-18) 09/21/18 06:20 Creatinine 0.85 mg/dL (0.55-1.02) 09/21/18 06:20 Estimated GFR/1.73 m2 >= 60.00 (mL/min/1.73m2) 09/21/18 06:20 Glucose 94 mg/dL (70-100) 09/21/18 06:20 Calcium 8.4 mg/dL (8.5-10.1) L 09/21/18 06:20 Magnesium 1.7 mg/dL (1.8-2.4) L 09/21/18 06:20 Total Bilirubin 0.6 mg/dL (0.2-1.0) 09/19/18 07:45 AST 18 U/L (15-37) 09/19/18 07:45 ALT 17 U/L (12-78) 09/19/18 07:45 Alkaline Phosphatase 94 U/L (46-116) 09/19/18 07:45 Troponin I < 0.02 ng/mL (0.00-0.06) 09/19/18 00:25 Total Protein 6.6 g/dL (6.4-8.2) 09/19/18 07:45 Albumin 3.1 g/dL (3.4-5.0) L 09/19/18 07:45 Urine Color Yellow (Yellow) 09/18/18 22:10 Urine Clarity Clear 09/18/18 22:10 Urine pH 6.5 (5-8) 09/18/18 22:10 Ur Specific [place] >= 1.030 (1.005-1.025) H 09/18/18 22:10 Urine Protein Negative mg/dL (Negative) 09/18/18 22:10 Urine Ketones Negative mg/dL (Negative) 09/18/18 22:10 Urine Blood Negative (Negative) 09/18/18 22:10 Urine Nitrite Negative (Negative) 09/18/18 22:10 Urine Bilirubin Negative (Negative) 09/18/18 22:10 Urine Urobilinogen 0.2 EU/dL (Up TO 0.2) 09/18/18 22:10 Ur Leukocyte Esterase Negative (Negative) 09/18/18 22:10 Urine Glucose Negative mg/dL (Negative) 09/18/18 22:10
--- NOTE | 2018-09-21 14:54 | PT.INTREAT ---
Date of service: 09/21/18 Time of Service: 14:54 PT Notes Inpatient Physical Therapy Treatment Note [facility] Date: 09/21/18 PRECAUTIONS: Fall, PWB L SUBJECTIVE: Licha reports that she has been having some pain in her right lower extremity this afternoon. OBJECTIVE: PAIN: Patient complained of pain in right lower extremity with weight bearing and transfers. BED MOBILITY/TRANSFERS Supine-sit: SBA with leg rear admiral with HOB flat Sit-supine: SBA with leg rear admiral with HOB flat Sit-stand: SBA Stand-sit: SBA GAIT Assistive Device: FWW Weight bearing: PWB L Assist: CGA Distance: 40' THEREX: Patient completed a LE strengthening and stabilization program with a focus on quad strengthening, in a supine position, as per flow sheet. Patient continues to demonstrate quad weakness in right lower extremity, requiring max assist with SAQ exercise. ASSESSMENT: Patient tolerated session with some complaint of right lower extremity pain with weight bearing and transfers. Patient was instructed in use of leg rear admiral for assist with supine<> sit transfers due to right quad weakness. Patient would benefit from continued transfer and gait training as well as strengthening for improved mobility. PLAN: Continue with PT's POC TREATMENT CODE/TIME: 30 minutes; [id number], [id number]
--- NOTE | 2018-09-21 14:59 | PTTR_ITS ---
Date of service: 09/21/18 Time of Service: 14:54 PT Notes Inpatient Physical Therapy Treatment Note [facility] Date: 09/21/18 PRECAUTIONS: Fall, PWB L SUBJECTIVE: Licha reports that she has been having some pain in her right lower extremity this afternoon. OBJECTIVE: PAIN: Patient complained of pain in right lower extremity with weight bearing and transfers. BED MOBILITY/TRANSFERS Supine-sit: SBA with leg product tester with HOB flat Sit-supine: SBA with leg product tester with HOB flat Sit-stand: SBA Stand-sit: SBA GAIT Assistive Device: FWW Weight bearing: PWB L Assist: CGA Distance: 40' THEREX: Patient completed a LE strengthening and stabilization program with a focus on quad strengthening, in a supine position, as per flow sheet. Patient continues to demonstrate quad weakness in right lower extremity, requiring max assist with SAQ exercise. ASSESSMENT: Patient tolerated session with some complaint of right lower extremity pain with weight bearing and transfers. Patient was instructed in use of leg product tester for assist with supine<> sit transfers due to right quad weakness. Patient would benefit from continued transfer and gait training as well as strengthening for improved mobility. PLAN: Continue with PT's POC TREATMENT CODE/TIME: 30 minutes; [id number], [id number]
--- NOTE | 2018-09-21 15:38 | PDOC.CMPRO ---
- If Service Date Differs Date of service: 09/21/18 Time of Service: 15:38 Care Management Progress Note S/O: CM met with patient at the bedside her spouse and family are present. Licha wants to return home when medically ready she is accepting of home health services and states that she is not interested in a Rehab. She has a large family which she states it supportive. Her Granddaughter is an HAIRCUTTER and lives [address] She states she will provide support daily. A:Licha is a 73 year old female admitted after a fall on the ice resulting in a fx r hip repaired on 09/19/18 P:Licha will return home with new home health services PT and OT when medically ready. CM faxed a referral to [facility]. Licha has her own FWW. She will be transported home via private car and spouse when ready.
--- NOTE | 2018-09-21 15:44 | CMPROGNOTE_ITS ---
- If Service Date Differs Date of service: 09/21/18 Time of Service: 15:38 Care Management Progress Note S/O: CM met with patient at the bedside her spouse and family are present. Licha wants to return home when medically ready she is accepting of home health services and states that she is not interested in a Rehab. She has a large family which she states it supportive. Her Granddaughter is an FINANCE CLERK and [address] She states she will provide support daily. A:Licha is a 73 year old female admitted after a fall on the ice resulting in a fx r hip repaired on 09/19/18 P:Licha will return home with new home health services PT and OT when medically ready. CM faxed a referral to [facility]. Licha has her own FWW. She will be transported home via private car and spouse when ready.
[2018-09-21 16:03] VITALS: BP 136/75; PULSE 82; RESP 18; TEMP 37.8; O2SAT 95
[2018-09-21] MEDS: Ibuprofen 400 MG TAB PO (17:45)
[2018-09-21 19:48] VITALS: BP 118/73; PULSE 70; RESP 18; TEMP 37.7; O2SAT 94
[2018-09-22 07:30] VITALS: BP 125/97; PULSE 74; RESP 18; TEMP 37.5; O2SAT 95
[2018-09-22 07:37] LABS: Abs Immature Grans 0.02 k/cumm (0.0-0.09); Absolute Basophil Count 0.05 k/cumm (0.0-0.2); Absolute Eosinophil Count 0.33 k/cumm (0.0-0.7); Absolute Lymphocyte Count 1.19 k/cumm (1.2-3.4); Absolute Monocyte Count 0.85 k/cumm (0.11-0.7); Absolute Neutrophil Count 5.19 k/cumm (1.2-6.7); Basophils % 0.7; Eosinophils % 4.3; HCT 33.9 % (36.0-46.0); HGB 11.3 g/dL (12.0-15.5); Immature Grans % 0.3; Lymphocytes % 15.6; Mean Corp. HGB Concentration 33.3 g/dL (32.0-36.0); Mean Corpuscular Hemoglobin 31.5 pg (27.0-33.0); Mean Corpuscular Volume 94.4 fL (80-95); Monocytes % 11.1; Platelet Count 204 x1000/uL (130-400); RBC 3.59 m/cumm (4.00-5.20); RBC Distribution Width 12.6 % (11.7-14.6); White Blood Cell Count 7.63 k/cumm (4.4-10.8)
[2018-09-22] MEDS: Enoxaparin 30 MG/0.3 ML SYR SC (07:42)
[2018-09-22] MEDS: HYDROcodone 5/Acetaminophen 325 TAB PO ×3 (07:43→20:41)
[2018-09-22 07:45] LABS: Anion Gap 7.7 mmol/L (3-11); BUN 19 mg/dL (7-18); CO2 27.3 mmol/L (21.0-32.0); CREATININE 0.89 mg/dL (0.55-1.02); Calcium 8.2 mg/dL (8.5-10.1); Chloride 106 mmol/L (98-107); Glucose 93 mg/dL (70-100); Magnesium 1.8 mg/dL (1.8-2.4); Potassium 3.8 mmol/L (3.5-5.1); Sodium 141 mmol/L (136-145)
--- NOTE | 2018-09-22 09:11 | W.PM.PROGNOT ---
Date of Service Date of service: 09/22/18 Time of Service: 09:12 Assessment and Plan (1) Subcapital fracture of right femur: Current visit: Yes Status: Acute Overall satisfactory function following fixation of an impacted femoral neck fracture with 3 cannulated screws the biggest hampered to her being discharged is that she still has quadriceps dysfunction secondary to the X Lazar nerve block. This should resolve and appears to be resolving as based on the cutaneous return of sensation. I think it is not safe to send her home today because if she were to get up suddenly and he would collapse she could reinjure the hip. She understands this will continue DVT Lovenox prophylaxis until discharge tomorrow which time she will be started on a baby aspirin. Her electrolytes magnesium and CBC are unremarkable I am just the DC'd any further labs to prevent any unnecessary blood draws. Qualifiers: Encounter type: initial encounter Fracture type: closed Open fracture type: Fracture healing: Qualified Code(s): S72.011A - Unspecified intracapsular fracture of right femur, initial encounter for closed fracture Subjective Interval history since last seen: Patient is generally doing well she is noted return of sensation over her proximal thigh but still has some numbness around the knee. She still lacks quadriceps control of her right leg. She is having no dysuria since the Tavarez catheter was removed. She did have a mild temperature last night of 99.2 Exam Extrem Other: Wound is benign. There is no evidence of any hematoma. Evan will be left open to the air allow the patient to shower today. Hip is not irritable to internal and external rotation even with my assistance she still demonstrates quad weakness on the right side Objective Objective Clinical Data: Abnormal lab results 09/22/18 09/22/18 Range/Units 07:05 07:05 RBC 3.59 L (4.00-5.20) m/cumm Hgb 11.3 L (12.0-15.5) g/dL Hct 33.9 L (36.0-46.0) % Absolute Lymphocytes 1.19 L (1.2-3.4) k/cumm Absolute Monocytes 0.85 H (0.11-0.7) k/cumm BUN 19 H (7-18) mg/dL Calcium 8.2 L (8.5-10.1) mg/dL Vital Signs Temperature 99.5 F 09/22/18 07:30 Temperature Source Tympanic 09/22/18 07:30 Pulse 74 09/22/18 07:30 Pulse Rhythm Regular 09/21/18 22:32 Respiratory Rate 18 09/22/18 07:30 Respiratory Effort Non-Labored 09/21/18 22:32 Respiratory Depth Normal 09/21/18 22:32 Respiratory Pattern Normal 09/21/18 22:32 Blood Pressure 125/97 H 09/22/18 07:30 Blood Pressure Position Sitting 09/18/18 17:23 Pulse Oximetry 95 09/22/18 07:30 Respiratory End-tidal CO2 33 09/19/18 13:55 Oxygen Delivery Method Room Air 09/22/18 07:30 Oxygen Flow Rate 0 09/22/18 07:30 Pain Level 8 09/22/18 07:43 Comment 09/20/18 05:15 Intake & Output 09/21/18 09/21/18 09/22/18 11:59 23:59 11:59 Intake Total 570 / 1530 960 / 1530 Output Total 2200 / 2200 Balance -1630 / -670 960 / -670 Weight 154 lb 1.65 oz 152 lb 8.958 oz Intake: Oral 570 / 1530 960 / 1530 Output: Urine 2200 / 2200 Other: Urine Color Yellow Yellow Urine Appearance Clear Clear Comment Pt voided missed hat. Amount unknown. Moderate void in toilet, unknown amount as Pt missed hat. Voiding Methods Bedpan Laboratory Results WBC 7.63 k/cumm (4.4-10.8) 09/22/18 07:05 RBC 3.59 m/cumm (4.00-5.20) L 09/22/18 07:05 Hgb 11.3 g/dL (12.0-15.5) L 09/22/18 07:05 Hct 33.9 % (36.0-46.0) L 09/22/18 07:05 MCV 94.4 fL (80-95) 09/22/18 07:05 MCH 31.5 pg (27.0-33.0) 09/22/18 07:05 MCHC 33.3 g/dL (32.0-36.0) 09/22/18 07:05 RDW 12.6 % (11.7-14.6) 09/22/18 07:05 Plt Count 204 x1000/uL (130-400) 09/22/18 07:05 MPV 10.0 fL (8.0-11.0) 09/22/18 07:05 Immature Gran % 0.3 09/22/18 07:05 Neutrophils % 68.0 09/22/18 07:05 Lymphocytes % 15.6 09/22/18 07:05 Monocytes % 11.1 09/22/18 07:05 Eosinophils % 4.3 09/22/18 07:05 Basophils % 0.7 09/22/18 07:05 Absolute Neutrophils 5.19 k/cumm (1.2-6.7) 09/22/18 07:05 Absolute Lymphocytes 1.19 k/cumm (1.2-3.4) L 09/22/18 07:05 Absolute Monocytes 0.85 k/cumm (0.11-0.7) H 09/22/18 07:05 Absolute Eosinophils 0.33 k/cumm (0.0-0.7) 09/22/18 07:05 Absolute Basophils 0.05 k/cumm (0.0-0.2) 09/22/18 07:05 PT 9.9 sec (9.3-11.0) 09/18/18 18:00 INR 1.0 (0.9-1.1) 09/18/18 18:00 APTT 22.2 sec (21.0-31.4) 09/18/18 18:00 Sodium 141 mmol/L (136-145) 09/22/18 07:05 Potassium 3.8 mmol/L (3.5-5.1) 09/22/18 07:05 Chloride 106 mmol/L (98-107) 09/22/18 07:05 Carbon Dioxide 27.3 mmol/L (21.0-32.0) 09/22/18 07:05 Anion Gap 7.7 mmol/L (3-11) 09/22/18 07:05 BUN 19 mg/dL (7-18) H 09/22/18 07:05 Creatinine 0.89 mg/dL (0.55-1.02) 09/22/18 07:05 Estimated GFR/1.73 m2 >= 60.00 (mL/min/1.73m2) 09/22/18 07:05 Glucose 93 mg/dL (70-100) 09/22/18 07:05 Calcium 8.2 mg/dL (8.5-10.1) L 09/22/18 07:05 Magnesium 1.8 mg/dL (1.8-2.4) 09/22/18 07:05 Total Bilirubin 0.6 mg/dL (0.2-1.0) 09/19/18 07:45 AST 18 U/L (15-37) 09/19/18 07:45 ALT 17 U/L (12-78) 09/19/18 07:45 Alkaline Phosphatase 94 U/L (46-116) 09/19/18 07:45 Troponin I < 0.02 ng/mL (0.00-0.06) 09/19/18 00:25 Total Protein 6.6 g/dL (6.4-8.2) 09/19/18 07:45 Albumin 3.1 g/dL (3.4-5.0) L 09/19/18 07:45 Urine Color Yellow (Yellow) 09/18/18 22:10 Urine Clarity Clear 09/18/18 22:10 Urine pH 6.5 (5-8) 09/18/18 22:10 Ur Specific [place] >= 1.030 (1.005-1.025) H 09/18/18 22:10 Urine Protein Negative mg/dL (Negative) 09/18/18 22:10 Urine Ketones Negative mg/dL (Negative) 09/18/18 22:10 Urine Blood Negative (Negative) 09/18/18 22:10 Urine Nitrite Negative (Negative) 09/18/18 22:10 Urine Bilirubin Negative (Negative) 09/18/18 22:10 Urine Urobilinogen 0.2 EU/dL (Up TO 0.2) 09/18/18 22:10 Ur Leukocyte Esterase Negative (Negative) 09/18/18 22:10 Urine Glucose Negative mg/dL (Negative) 09/18/18 22:10
[2018-09-22 10:40] VITALS: O2SAT 97
[2018-09-22] MEDS: Potassium Chloride 20 MEQ TABCR PO (10:46)
[2018-09-22] MEDS: Magnesium Oxide 400 MG TAB PO (10:46)
--- NOTE | 2018-09-22 11:10 | OT.INTREAT ---
Date of service: 09/22/18 Time of Service: 08:55 Occupational Therapy Notes Occupational Therapy Inpatient Treatment Note Date: 09/22/18 PRECAUTIONS: PWB (R) LE, Fall, Standard Precautions SUBJECTIVE: Pt reports that she is not going home today as she had planned. She states that she is definitely going home tomorrow. She is agreeable to OT session. OBJECTIVE: PAIN:no c/o pain. FUNCTIONAL MOBILITY Sit-stand: S, FWW Stand-sit: SBA, FWW Shower-Chair: SBa, FWW BATHING: Sitting on shower bench in shower Upper Body: (I) (B) UE, Face, hair Lower Body: (I) except for (R) foot which was min (A). DRESSING: Sitting in chair Upper Extremity: (I) [facility] and [facility] Lower Extremity: (I) (L) sock, Max (A) (R) sock ASSESSMENT/PLAN: Pt is demonstrating increased (I) in ADL routines. She was educated that when she returns home to utilize her shower chair for safety during showering routine. OT will go over dressing with pt at next session prior to discharge when medically cleared per MD. TREATMENT CODES/TIME: [id number], 46 minutes (08:55) Sofy Roger OTR/[facility]
--- NOTE | 2018-09-22 11:16 | OTTR_ITS ---
Date of service: 09/22/18 Time of Service: 08:55 Occupational Therapy Notes Occupational Therapy Inpatient Treatment Note Date: 09/22/18 PRECAUTIONS: PWB (R) LE, Fall, Standard Precautions SUBJECTIVE: Pt reports that she is not going home today as she had planned. She states that she is definitely going home tomorrow. She is agreeable to OT session. OBJECTIVE: PAIN:no c/o pain. FUNCTIONAL MOBILITY Sit-stand: S, FWW Stand-sit: SBA, FWW Shower-Chair: SBa, FWW BATHING: Sitting on shower bench in shower Upper Body: (I) (B) UE, Face, hair Lower Body: (I) except for (R) foot which was min (A). DRESSING: Sitting in chair Upper Extremity: (I) [facility] gon and [facility] Lower Extremity: (I) (L) sock, Max (A) (R) sock ASSESSMENT/PLAN: Pt is demonstrating increased (I) in ADL routines. She was educated that when she returns home to utilize her shower chair for safety during showering routine. OT will go over dressing with pt at next session prior to discharge when medically cleared per MD. TREATMENT CODES/TIME: [id number], 46 minutes (08:55) Sofy Roger OTR/[facility]
--- NOTE | 2018-09-22 12:13 | PGE_ITS ---
Date of Service Date of service: 09/22/18 Time of Service: 12:06 Assessment and Plan (1) Subcapital fracture of right femur: Current visit: Yes Status: Acute S/p surgical intervention with an open reduction and internal fixation of the hip on 09/[address] Goldman. She reports pain today, her right thigh/knee numbness improving, related to block. PT reports improvemented mobility. Continue PT. Orthto continues to follow. She will be ready for discharge when the femoral nerve block wears off enough so she is safe to transfer. Qualifiers: Encounter type: initial encounter Fracture type: closed Open fracture type: Fracture healing: Qualified Code(s): S72.011A - Unspecified intracapsular fracture of right femur, initial encounter for closed fracture (2) DVT prophylaxis: Current visit: Yes Status: Acute Lovenox per orthopedics. She will transition to aspirin 81 mg p.o. twice daily upon discharge home for DVT prophylaxis. (3) Discharge planning issues: Current visit: Yes Status: Acute She is a FULL CODE. She is doing well today. She has support at home and will return home when medically ready. This case was discussed with Dr. Constantino who is in agreement. Subjective Interval history since last seen: Licha Aguilar is a 73 year old female with no significant past medical history who was admitted on 09/18/18 from the [facility] ED after falling on the ice and sustaining a right hip fracture. She went on to have the fracture repaired by Dr. Goldman on 09/19/18. She is doing well postoperatively. She had a low grade fever last night, this was discussed with Dr. Goldman [facility], who was not concerned at this point. The plan was for her to discharge home today, however, she continues to have numbness in the right leg related to femoral nerve block. She reports improvement in the numbness, her right knee remains numb, no tingling, but proximally to the knee, she is gaining sensation. She is beginning to have some pain in the right hip. She continues to work with PT. She is eating and drinking, her bowels are moving. She denies shortness of breath, cough, wheeze, chest pain/pressure, palpitations, no nausea, vomiting, or diarrhea. She is voiding well s/p gilbert removal, no dysuria or hematuria. Exam Narrative Exam Narrative: General: Appears younger than her stated age. She is sitting up in the chair, in no acute distress. Appears comfortable, AAOX3. Neck: Supple, no JVD. CV: Regular, nontachycardic, no murmurs appreciated. Pulmonary: Respirations even and unlabored, lung sounds clear to auscultation throughout. Abdomen: + Bowel Sounds x4 quadrants, soft, nontender, nondistended, no masses appreciated. Vascular: No lower extremity edema Musculoskeletal: Incision to the right lateral thigh open to air, well kaiser roximated, julia intact, no active drainage, or erythema, there is minimal swelling to right thigh. Able to move right leg without significant discomfort. Objective Objective Clinical Data: Abnormal lab results 09/22/18 09/22/18 Range/Units 07:05 07:05 RBC 3.59 L (4.00-5.20) m/cumm Hgb 11.3 L (12.0-15.5) g/dL Hct 33.9 L (36.0-46.0) % Absolute Lymphocytes 1.19 L (1.2-3.4) k/cumm Absolute Monocytes 0.85 H (0.11-0.7) k/cumm BUN 19 H (7-18) mg/dL Calcium 8.2 L (8.5-10.1) mg/dL Vital Signs Temperature 37.5 C 09/22/18 07:30 Temperature Source Tympanic 09/22/18 07:30 Pulse 74 09/22/18 07:30 Pulse Rhythm Regular 09/22/18 07:35 Respiratory Rate 18 09/22/18 07:30 Respiratory Effort Non-Labored 09/22/18 07:35 Respiratory Depth Normal 09/22/18 07:35 Respiratory Pattern Normal 09/22/18 07:35 Blood Pressure 125/97 H 09/22/18 07:30 Blood Pressure Position Sitting 09/18/18 17:23 Pulse Oximetry 95 09/22/18 07:30 Respiratory End-tidal CO2 33 09/19/18 13:55 Oxygen Delivery Method Room Air 09/22/18 07:30 Oxygen Flow Rate 0 09/22/18 07:30 Pain Level 0 09/22/18 08:43 Comment 09/20/18 05:15 Intake & Output 09/21/18 09/22/1809/22/19 23:59 11:59 23:59 Intake Total 960 / 1530 Balance 960 / -670 Weight 69.2 kg Intake: Oral 960 / 1530 Other: Urine Color Yellow Urine Appearance Clear Clear Urine Odor Normal Comment Moderate void in toilet, unknown amount as Pt missed hat. Voiding Methods Bedpan Toilet Laboratory Results WBC 7.63 k/cumm (4.4-10.8) 09/22/18 07:05 RBC 3.59 m/cumm (4.00-5.20) L 09/22/18 07:05 Hgb 11.3 g/dL (12.0-15.5) L 09/22/18 07:05 Hct 33.9 % (36.0-46.0) L 09/22/18 07:05 MCV 94.4 fL (80-95) 09/22/18 07:05 MCH 31.5 pg (27.0-33.0) 09/22/18 07:05 MCHC 33.3 g/dL (32.0-36.0) 09/22/18 07:05 RDW 12.6 % (11.7-14.6) 09/22/18 07:05 Plt Count 204 x1000/uL (130-400) 09/22/18 07:05 MPV 10.0 fL (8.0-11.0) 09/22/18 07:05 Immature Gran % 0.3 09/22/18 07:05 Neutrophils % 68.0 09/22/18 07:05 Lymphocytes % 15.6 09/22/18 07:05 Monocytes % 11.1 09/22/18 07:05 Eosinophils % 4.3 09/22/18 07:05 Basophils % 0.7 09/22/18 07:05 Absolute Neutrophils 5.19 k/cumm (1.2-6.7) 09/22/18 07:05 Absolute Lymphocytes 1.19 k/cumm (1.2-3.4) L 09/22/18 07:05 Absolute Monocytes 0.85 k/cumm (0.11-0.7) H 09/22/18 07:05 Absolute Eosinophils 0.33 k/cumm (0.0-0.7) 09/22/18 07:05 Absolute Basophils 0.05 k/cumm (0.0-0.2) 09/22/18 07:05 PT 9.9 sec (9.3-11.0) 09/18/18 18:00 INR 1.0 (0.9-1.1) 09/18/18 18:00 APTT 22.2 sec (21.0-31.4) 09/18/18 18:00 Sodium 141 mmol/L (136-145) 09/22/18 07:05 Potassium 3.8 mmol/L (3.5-5.1) 09/22/18 07:05 Chloride 106 mmol/L (98-107) 09/22/18 07:05 Carbon Dioxide 27.3 mmol/L (21.0-32.0) 09/22/18 07:05 Anion Gap 7.7 mmol/L (3-11) 09/22/18 07:05 BUN 19 mg/dL (7-18) H 09/22/18 07:05 Creatinine 0.89 mg/dL (0.55-1.02) 09/22/18 07:05 Estimated GFR/1.73 m2 >= 60.00 (mL/min/1.73m2) 09/22/18 07:05 Glucose 93 mg/dL (70-100) 09/22/18 07:05 Calcium 8.2 mg/dL (8.5-10.1) L 09/22/18 07:05 Magnesium 1.8 mg/dL (1.8-2.4) 09/22/18 07:05 Total Bilirubin 0.6 mg/dL (0.2-1.0) 09/19/18 07:45 AST 18 U/L (15-37) 09/19/18 07:45 ALT 17 U/L (12-78) 09/19/18 07:45 Alkaline Phosphatase 94 U/L (46-116) 09/19/18 07:45 Troponin I < 0.02 ng/mL (0.00-0.06) 09/19/18 00:25 Total Protein 6.6 g/dL (6.4-8.2) 09/19/18 07:45 Albumin 3.1 g/dL (3.4-5.0) L 09/19/18 07:45 Urine Color Yellow (Yellow) 09/18/18 22:10 Urine Clarity Clear 09/18/18 22:10 Urine pH 6.5 (5-8) 09/18/18 22:10 Ur Specific Johnston >= 1.030 (1.005-1.025) H 09/18/18 22:10 Urine Protein Negative mg/dL (Negative) 09/18/18 22:10 Urine Ketones Negative mg/dL (Negative) 09/18/18 22:10 Urine Blood Negative (Negative) 09/18/18 22:10 Urine Nitrite Negative (Negative) 09/18/18 22:10 Urine Bilirubin Negative (Negative) 09/18/18 22:10 Urine Urobilinogen 0.2 EU/dL (Up TO 0.2) 09/18/18 22:10 Ur Leukocyte Esterase Negative (Negative) 09/18/18 22:10 Urine Glucose Negative mg/dL (Negative) 09/18/18 22:10
[2018-09-22 12:34] VITALS: BP 140/73; PULSE 62; RESP 20; TEMP 37.2; O2SAT 98
--- NOTE | 2018-09-22 12:43 | PT.INTREAT ---
Date of service: 09/22/18 Time of Service: 12:43 PT Notes Inpatient Physical Therapy Treatment Note [facility] Date: 09/22/18 PRECAUTIONS: Fall SUBJECTIVE: Licha reports that she was able to roll herself in bed last night. She also reports decreased numbness in anterior thigh compared to yesterday. OBJECTIVE: PAIN: No c/o pain BED MOBILITY/TRANSFERS Supine-sit: S with HOB flat and leg crime laboratory analyst assist Sit-supine: S with HOB flat and leg crime laboratory analyst assist Sit-stand: SBA Stand-sit: SBA GAIT Assistive Device: FWW Weight bearing: PWB on R Assist: CGA-SBA Distance: 80' in a.m.; 90' in p.m. THEREX: Patient completed a LE strengthening and stabilization program, focusing on improved quad strength and control, as per flow sheet. Patient completed LAQ exercise with isometric holds, requiring max assist. ASSESSMENT: Patient tolerated session well. She was able to tolerate a progression in ther ex program today, modifications made to reps are noted on flow sheet. She was also able to tolerate a progression in gait distance with FWW support with SBA, with cueing to maintain PWB status. Patient would benefit from continued gait and transfer training, as well as strengthening for improved activity tolerance and mobility. PLAN: Continue with PT's POC TREATMENT CODE/TIME: Session 1: 30 minutes; [id number], [id number] Session 2: 30 minutes; 88113, [id number]
--- NOTE | 2018-09-22 12:48 | PTTR_ITS ---
Date of service: 09/22/18 Time of Service: 12:43 PT Notes Inpatient Physical Therapy Treatment Note [facility] Date: 09/22/18 PRECAUTIONS: Fall SUBJECTIVE: Licha reports that she was able to roll herself in bed last night. She also reports decreased numbness in anterior thigh compared to yesterday. OBJECTIVE: PAIN: No c/o pain BED MOBILITY/TRANSFERS Supine-sit: S with HOB flat and leg physical aerodynamicist assist Sit-supine: S with HOB flat and leg physical aerodynamicist assist Sit-stand: SBA Stand-sit: SBA GAIT Assistive Device: FWW Weight bearing: PWB on R Assist: CGA-SBA Distance: 80' in a.m.; 90' in p.m. THEREX: Patient completed a LE strengthening and stabilization program, focusing on improved quad strength and control, as per flow sheet. Patient completed LAQ exercise with isometric holds, requiring max assist. ASSESSMENT: Patient tolerated session well. She was able to tolerate a progression in ther ex program today, modifications made to reps are noted on flow sheet. She was also able to tolerate a progression in gait distance with FWW support with SBA, with cueing to maintain PWB status. Patient would benefit from continued gait and transfer training, as well as strengthening for improved activity tolerance and mobility. PLAN: Continue with PT's POC TREATMENT CODE/TIME: Session 1: 30 minutes; [id number], [id number] Session 2: 30 minutes; [id number], [id number]
--- NOTE | 2018-09-22 13:30 | PDOC.CMPRO ---
- If Service Date Differs Date of service: 09/22/18 Time of Service: 13:31 Care Management Progress Note S/O: Licha will remain inpatient today due to decrease sensation r/t nerve block. She reports good pain control and will continue to work with PT while inpatient. Anticipate she will return home with family on and new home health for PT and OT. She was a walker and a ramp in place. A:Licha is a 73 year old female admitted after a fall on the ice resulting in a fx r hip repaired on 09/19/18 P:Licha will return home with new home health services PT and OT when medically ready. CM faxed a referral to [facility]. Licha has her own FWW. She will be transported home via private car and spouse when ready.
--- NOTE | 2018-09-22 13:38 | CMPROGNOTE_ITS ---
- If Service Date Differs Date of service: 09/22/18 Time of Service: 13:31 Care Management Progress Note S/O: Licha will remain inpatient today due to decrease sensation r/t nerve block. She reports good pain control and will continue to work with PT while inpatient. Anticipate she will return home with family on and new home health for PT and OT. She was a walker and a ramp in place. A:Licha is a 73 year old female admitted after a fall on the ice resulting in a fx r hip repaired on 09/19/18 P:Licha will return home with new home health services PT and OT when medically ready. CM faxed a referral to [facility]. Licha has her own FWW. She will be transported home via private car and spouse when ready.
[2018-09-22 16:24] VITALS: BP 121/74; PULSE 75; RESP 18; TEMP 36.9; O2SAT 96
[2018-09-22 20:54] VITALS: BP 127/76; PULSE 78; RESP 19; TEMP 37.8; O2SAT 96
[2018-09-23 04:07] VITALS: BP 123/74; PULSE 75; RESP 17; TEMP 37.7; O2SAT 96
[2018-09-23] MEDS: HYDROcodone 5/Acetaminophen 325 TAB PO (06:32)
[2018-09-23 07:34] VITALS: BP 137/66; PULSE 67; RESP 18; TEMP 36.4; O2SAT 95
[2018-09-23] MEDS: Enoxaparin 30 MG/0.3 ML SYR SC (07:50)
--- NOTE | 2018-09-23 09:11 | DSE_ITS ---
Date of service: 09/23/18 Time of Service: 08:59 DS: Diagnosis Discharge Diagnosis (1) Subcapital fracture of right femur: Status: Acute (2) DVT prophylaxis: Status: Acute (3) Discharge planning issues: Status: Acute Discharge Plan Disposition Patient Disposition: HOME W/HOME HEALTH SERVICE Condition: Improving Discharge Details Chief Complaint: Orthopedic Clinical Impression: Closed fracture of right hip Reason For Visit: RIGHT SUBCAPITAL FEMORAL NECK FRACTURE Admit Date/Time: 09/18/18 20:03 Admit Provider: Jose Antonio Palomo Attending Provider: Jose Antonio Palomo Primary Care Provider: Jana Wayne ED Provider: Gordo Blackman Hospital Course Hospital Course: Patient rayshawn admitted on 09/18/18 after falling on the ice with an impacted fracture of her right femoral neck. She was given a fascia iliaca block for pain control and admitted by the hospitalist for medical clearance. She was taken to the operating room on 09/19/18 where she underwent surgical repair of the right femoral neck fracture with 3 cannulated screws. Her post operative course was unremarkable except that the block took 72-96 hours to wear off. She was maintained on prohylactic antibiotics for 24 hours. Tavarez catheter was removed at 48 hours without dysuria. Wound maintained a benign appearance. Cbc, lytes and magnesium were normal. She was maintained on lovenox prophylaxis during hospital stay but will be on aspirin 81 mg p.o. bid post discharged for 2 weeks. Home Meds and New Rx's Prescriptions: No Action calcium carb and citrate-vitD3 1 EACH tablet extended release 1 ea PO DAILY RF: 0 ranitidine HCl [Zantac] 150 MG tablet 1 tab PO DAILY RF: 0 ibuprofen 200 MG tablet 400 mg PO PRN PRNRF: 0 Discharge Instructions Additional Instructions: Use your walker at all times to prevent falls. Only place partial weight on your right foot until seen for follow-up. Avoid extreme positions with your right hip and avoid twisting it beyond its normal range of motion. You may get your wound wet in the shower with soap and water. Gently pat the stitches dry and leave them open to the air. If your stitches catch on your clothing you may cover them with a light layer of gauze. You will find it most comfortable showering by placing a chair or stool in the shower to rest upon. Take your usual medications as before. In addition, take a baby aspirin (81mg) with food twice daily to prevent blood clots. Follow-up with Dr. Goldman in 10-12 days for staple removal. Home health physical therapy will be checking on you in your home. Care Plan Goals: Return to independent function. Activity:: Activity as Tolerated Equipment/Supplies:: Walker Diet:: As Tolerated Discharge Orders Discharge Orders: Discharge Order (Routine); Ordered 09/23/18 Ordered By: Rommel Goldman Exam Extrem General: normal to inspection Other: Right hip wound beningn. Staple line is intact. I will leave wound open to the air. Patient has return or right quad function and normal sensation. Right hip not irritable to range of motion. DS: Data Vitals/I&O Vitals and I&O: Vital Signs Temperature 97.5 F L 09/23/18 07:34 Temperature Source Tympanic 09/23/18 07:34 Pulse 67 09/23/18 07:34 Pulse Rhythm Regular 09/23/18 05:03 Respiratory Rate 18 09/23/18 07:34 Respiratory Effort Non-Labored 09/23/18 05:03 Respiratory Depth Normal 09/23/18 05:03 Respiratory Pattern Normal 09/23/18 05:03 Blood Pressure 137/66 09/23/18 07:34 Blood Pressure Position Sitting 09/18/18 17:23 Pulse Oximetry 95 09/23/18 07:34 Respiratory End-tidal CO2 33 09/19/18 13:55 Oxygen Delivery Method Room Air 09/23/18 07:34 Oxygen Flow Rate 0 09/23/18 07:34 Pain Level 3 09/23/18 07:34 Comment 09/20/18 05:15 Intake & Output 09/22/18 09/22/18 09/23/18 11:59 23:59 11:59 Intake Total 780 / 780 250 / 250 Output Total 950 / 950 Balance 780 / 780 -700 / -700 Weight 152 lb 8.958 oz Intake: Oral 780 / 780 250 / 250 Output: Urine 950 / 950 Other: Urine Color Yellow Yellow Yellow Urine Appearance Cloudy Clear Clear Urine Odor Normal None Normal Comment amount unknown. Void x1 in the toilet. Stool Size Moderate Stool Characteristics Soft Formed Voiding Methods Toilet Toilet Toilet [facility] Medical History Abnormal chest xray Anxiety Diverticulosis Family history of colon cancer GERD (gastroesophageal reflux disease) Insomnia Obstructive sleep apnea Osteopenia Surgical History [place]ole[place] [facility] [place] Social History Smoking and Tabacco status: Never
--- NOTE | 2018-09-23 09:29 | OT.INDS ---
Date of service: 09/23/18 Time of Service: 08:20 Occupational Therapy Notes Occupational Therapy Inpatient Discharge Summary Dates of Service: 09/20/18-09/23/18 Date: 09/23/18 Referring Doctor:Rommel Goldman MD OT Orders: s/p ORIF (R) femoral neck fx with cannulated screws, please assist with ADLs. Precautions: PWB (R) LE, Fall, standard PATIENT PROFILE/ADMITTING DIAGNOSIS: Pt is a 73 year old female was is s/p ORIF (R) femoral neck fx with cannulated screws performed by Dr. Goldman. Pt was admitted through the ER s/p a fall on the ice at her daughters home. Xrays in the ER confirmed the fx. Past Medical History: GERD, osteopenia, anxiety, diverticulosis, SREE Current Functional Limitations: Performing functional mobility with FWW, PWB for (R) hip, decreased (I) in ADLs/IADLs, increased pain in (R) hip, decreased functional activity tolerance, inability to perform ADLs in standing for prolonged periods of time, decreased (I) in mobility due to knee buckling. Social History/Home Situation: Pt lives in a private home with her . She reports that prior to admission was very (I) with all ADLs/IADLs. 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 Equipment owned/DME: Shower chair, grab bars, ramp to enter home. SUBJECTIVE: Pt was sitting in chair she states that she is going home today. She was agreeable to OT session. OBJECTIVE: General Observation: Mental Status: A&Ox3 Pain: no c/o pain. ROM: RUE WNL L UE WNL STRENGTH: RUE 5/5 throughout, accounts receivable executive is strong and equal. LUE 5/5 throughout, accounts receivable executive is strong and equal. FUNCTIONAL MOBILITY/ADLS: Transfers Sit-Stand S, FWW Stand-sit S, FWW Bed-Chair S, FWW Chair-bed S, FWW BATHING standing at sink FWW, (S) (I) washing face, (B) UE and neck, abdomen DRESSING Standing at sink (I) with bra and shirt with FWW (S), sitting on toilet Mod (A) for pants for (R) leg and underwear for (R) leg otherwise (I). GROOMING standing at sink with FWW (S), (I) brushing teeth and hair. TOILETING Sitting on toilet (I) with toileting routine. EATING (I) BALANCE: Static sitting Normal Dynamic Sitting Normal Static Standing Normal Dynamic Standing Good ASSESSMENT: Patient is a 73-year-old female referred to occupational therapy services with diagnosis of right femoral neck fracture, 1 days status post ORIF. Pt was seen for 4 skilled OT sessions. She is demonstrating increased (I) in functional mobility and ADLs at this time. Pt is being discharged home when medically cleared per MD. OT recommends that pt get home health OT services for assessment of ADLs in home setting. GOALS Goals x1 week in hospital setting 1. Transfers (S) FWW (MET) 2. Dressing- Sitting in the chair pt will be able to don and doff street clothes (I) with ideal technique. (MET) 3. Bathing- Sitting in shower pt will be able to (I) wash her UE/LE. (MET) 4. Toileting- Pt will be able to perform toileting routine (I) on toilet. (MET) 5. Eating- (I) with food to mouth and open and closing packages/containers (MET) 6. Grooming- Standing at sink with FWW pt will be able to perform teeth brushing (I) (MET) PLAN OF CARE/TREATMENT PLAN: Pt will be discharged from skilled OT services. DISCHARGE RECOMMENDATIONS Pt will be discharged home with home OT services. TREATMENT TIME/MINUTES/CODES [id number], 40 minutes (08:20) [facility]
--- NOTE | 2018-09-23 09:31 | DSE_ITS ---
DS: Diagnosis Discharge Diagnosis (1) Subcapital fracture of right femur: Status: Acute (2) DVT prophylaxis: Status: Acute (3) Discharge planning issues: Status: Acute Discharge Plan Disposition Patient Disposition: HOME W/HOME HEALTH SERVICE Condition: Improving Discharge Details Chief Complaint: Orthopedic Reason For Visit: RIGHT SUBCAPITAL FEMORAL NECK FRACTURE Admit Date/Time: 09/18/18 20:03 Admit Provider: Jose Antonio Palomo Attending Provider: Jose Antonio Palomo Primary Care Provider: Jana Wayne ED Provider: Gordo Blackman Hospital Course Hospital Course: Patient rayshawn admitted on 09/18/18 after falling on the ice with an impacted fracture of her right femoral neck. She was given a fascia iliaca block for pain control and admitted by the hospitalist for medical clearance. She was taken to the operating room on 09/19/18 where she underwent surgical repair of the right femoral neck fracture with 3 cannulated screws. Her post operative course was unremarkable except that the block took 72-96 hours to wear off. She was maintained on prohylactic antibiotics for 24 hours. Tavarez catheter was removed at 48 hours without dysuria. Wound maintained a benign appearance. Cbc, lytes and magnesium were normal. She was maintained on lovenox prophylaxis during hospital stay but will be on aspirin 81 mg p.o. bid post discharged for 2 weeks. Home Meds and New Rx's Prescriptions: No Action calcium carb and citrate-vitD3 1 EACH tablet extended release 1 ea PO DAILY RF: 0 ranitidine HCl [Zantac] 150 MG tablet 1 tab PO DAILY RF: 0 ibuprofen 200 MG tablet 400 mg PO PRN PRNRF: 0 Discharge Instructions Additional Instructions: Use your walker at all times to prevent falls. Only place partial weight on your right foot until seen for follow-up. Avoid extreme positions with your right hip and avoid twisting it beyond its normal range of motion. You may get your wound wet in the shower with soap and water. Gently pat the stitches dry and leave them open to the air. If your stitches catch on your clothing you may cover them with a light layer of gauze. You will find it most comfortable showering by placing a chair or stool in the shower to rest upon. Take your usual medications as before. In addition, take a baby aspirin (81mg) with food twice daily to prevent blood clots. Follow-up with Dr. Goldman in 10-12 days for staple removal. Home health physical therapy will be checking on you in your home. Care Plan Goals: Return to independent function. Stand Alone Forms: Nursing Discharge Form Referrals: Rommel Goldman MD [ [facility] STAFF PHYSICIAN] - (Dr. Goldman's office will give you a call with an appointment) Activity:: Activity as Tolerated Equipment/Supplies:: Walker Diet:: As Tolerated Discharge Orders Discharge Orders: Discharge Order (Routine); Ordered 09/23/18 Ordered By: Rommel Goldman DS: Data Vitals/I&O Vitals and I&O: Vital Signs Temperature 97.5 F L 09/23/18 07:34 Temperature Source Tympanic 09/23/18 07:34 Pulse 67 09/23/18 07:34 Pulse Rhythm Regular 09/23/18 05:03 Respiratory Rate 18 09/23/18 07:34 Respiratory Effort Non-Labored 09/23/18 05:03 Respiratory Depth Normal 09/23/18 05:03 Respiratory Pattern Normal 09/23/18 05:03 Blood Pressure 137/66 09/23/18 07:34 Blood Pressure Position Sitting 09/18/18 17:23 Pulse Oximetry 95 09/23/18 07:34 Respiratory End-tidal CO2 33 09/19/18 13:55 Oxygen Delivery Method Room Air 09/23/18 07:34 Oxygen Flow Rate 0 09/23/18 07:34 Pain Level 3 09/23/18 07:34 Comment 09/20/18 05:15 Intake & Output 09/22/18 09/22/18 09/23/18 11:59 23:59 11:59 Intake Total 780 / 780 250 / 250 Output Total 950 / 950 Balance 780 / 780 -700 / -700 Weight 152 lb 8.958 oz Intake: Oral 780 / 780 250 / 250 Output: Urine 950 / 950 Other: Urine Color Yellow Yellow Yellow Urine Appearance Cloudy Clear Clear Urine Odor Normal None Normal Comment amount unknown. Void x1 in the toilet. Stool Size Moderate Stool Characteristics Soft Formed Voiding Methods Toilet Toilet Toilet [facility] Medical History Abnormal chest xray Anxiety Diverticulosis Family history of colon cancer GERD (gastroesophageal reflux disease) Insomnia Obstructive sleep apnea Osteopenia Surgical History Cholecystectomy Colonoscopy - [facility] (10/12/17) Social History Smoking and Tabacco status: Never
--- NOTE | 2018-09-23 09:33 | OTDS_ITS ---
Date of service: 09/23/18 Time of Service: 08:20 Occupational Therapy Notes Occupational Therapy Inpatient Discharge Summary Dates of Service: 09/20/18-09/23/18 Date: 09/23/18 Referring Doctor:Rommel Goldman MD OT Orders: s/p ORIF (R) femoral neck fx with cannulated screws, please assist with ADLs. Precautions: PWB (R) LE, Fall, standard PATIENT PROFILE/ADMITTING DIAGNOSIS: Pt is a 73 year old female was is s/p ORIF (R) femoral neck fx with cannulated screws performed by Dr. Goldman. Pt was admitted through the ER s/p a fall on the ice at her daughters home. Xrays in the ER confirmed the fx. Past Medical History: GERD, osteopenia, anxiety, diverticulosis, SREE Current Functional Limitations: Performing functional mobility with FWW, PWB for (R) hip, decreased (I) in ADLs/IADLs, increased pain in (R) hip, decreased functional activity tolerance, inability to perform ADLs in standing for prolonged periods of time, decreased (I) in mobility due to knee buckling. Social History/Home Situation: Pt lives in a private home with her . She reports that prior to admission was very (I) with all ADLs/IADLs. 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 Equipment owned/DME: Shower chair, grab bars, ramp to enter home. SUBJECTIVE: Pt was sitting in chair she states that she is going home today. She was agreeable to OT session. OBJECTIVE: General Observation: Mental Status: A&Ox3 Pain: no c/o pain. ROM: RUE WNL L UE WNL STRENGTH: RUE 5/5 throughout, rooming house inspector is strong and equal. LUE 5/5 throughout, rooming house inspector is strong and equal. FUNCTIONAL MOBILITY/ADLS: Transfers Sit-Stand S, FWW Stand-sit S, FWW Bed-Chair S, FWW Chair-bed S, FWW BATHING standing at sink FWW, (S) (I) washing face, (B) UE and neck, abdomen DRESSING Standing at sink (I) with bra and shirt with FWW (S), sitting on toilet Mod (A) for pants for (R) leg and underwear for (R) leg otherwise (I). GROOMING standing at sink with FWW (S), (I) brushing teeth and hair. TOILETING Sitting on toilet (I) with toileting routine. EATING (I) BALANCE: Static sitting Normal Dynamic Sitting Normal Static Standing Normal Dynamic Standing Good ASSESSMENT: Patient is a 73-year-old female referred to occupational therapy services with diagnosis of right femoral neck fracture, 1 days status post ORIF. Pt was seen for 4 skilled OT sessions. She is demonstrating increased (I) in functional mobility and ADLs at this time. Pt is being discharged home when medically cleared per MD. OT recommends that pt get home health OT services for assessment of ADLs in home setting. GOALS Goals x1 week in hospital setting 1. Transfers (S) FWW (MET) 2. Dressing- Sitting in the chair pt will be able to don and doff street clothes (I) with ideal technique. (MET) 3. Bathing- Sitting in shower pt will be able to (I) wash her UE/LE. (MET) 4. Toileting- Pt will be able to perform toileting routine (I) on toilet. (MET) 5. Eating- (I) with food to mouth and open and closing packages/containers (MET) 6. Grooming- Standing at sink with FWW pt will be able to perform teeth brushing (I) (MET) PLAN OF CARE/TREATMENT PLAN: Pt will be discharged from skilled OT services. DISCHARGE RECOMMENDATIONS Pt will be discharged home with home OT services. TREATMENT TIME/MINUTES/CODES [id number], 40 minutes (08:20) [facility]
--- NOTE | 2018-09-23 09:33 | HHF2F_ITS ---
1. Encounter Date and Reason I certify that ABELARDO HELTON was seen by Rommel Goldman MD on 09/23/18 and that I had a [id number] encounter with this patient that meets the physician face to face encounter requirements. 2. Clinical Findings Supporting Skilled Need and Homebound Status I certify that home health services are medically necessary, include either intermittent senior care and/or physical/speech therapy, and that this patient is homebound in that absences from the home require considerable and taxing effort and are infrequent or of short duration, or are attributable to the need to receive medical care. [X] (a) Attached documentation from encounter provides clinical findings supporting skilled need and homebound status (including what assistance patient requires to leave the home). The encounter with the patient was in whole, or in part, for the following medical condition, which is the primary reason for home health care: RIGHT SUBCAPITAL FEMORAL NECK FRACTURE Assisted: Physical Therapy: 72 year old white female s/p open reduction and internal fixation of right femoral neck fracture with cannulated screws. Patient should be partial weight bearing on right with walker. She should avoid twisting and extreme ranges of motion Speech Therapy: Homebound: 3. Certification and Authentication I certify that I composed the above information based on my clinical judgement relating to this patient's medical condition and, if applicable, clinical findings communicated to me by the NPP or inpatient physician who performed the Home Health Referral. All further orders will be obtained through (Community Based Physician - PCP)
--- NOTE | 2018-09-23 09:34 | W.PM.DS.N ---
DS: Diagnosis Discharge Diagnosis (1) Subcapital fracture of right femur: Status: Acute (2) DVT prophylaxis: Status: Acute (3) Discharge planning issues: Status: Acute Discharge Plan Disposition Patient Disposition: HOME W/HOME HEALTH SERVICE Condition: Improving Discharge Details Chief Complaint: Orthopedic Clinical Impression: Closed fracture of right hip Reason For Visit: RIGHT SUBCAPITAL FEMORAL NECK FRACTURE Admit Date/Time: 09/18/18 20:03 Admit Provider: Jose Antonio Palomo Attending Provider: Jose Antonio Palomo Primary Care Provider: Jana Wayne ED Provider: Gordo Blackman Hospital Course Hospital Course: Patient rayshawn admitted on 09/18/18 after falling on the ice with an impacted fracture of her right femoral neck. She was given a fascia iliaca block for pain control and admitted by the hospitalist for medical clearance. She was taken to the operating room on 09/19/18 where she underwent surgical repair of the right femoral neck fracture with 3 cannulated screws. Her post operative course was unremarkable except that the block took 72-96 hours to wear off. She was maintained on prohylactic antibiotics for 24 hours. Tavarez catheter was removed at 48 hours without dysuria. Wound maintained a benign appearance. Cbc, lytes and magnesium were normal. She was maintained on lovenox prophylaxis during hospital stay but will be on aspirin 81 mg p.o. bid post discharged for 2 weeks. Home Meds and New Rx's Prescriptions: No Action calcium carb and citrate-vitD3 1 EACH tablet extended release 1 ea PO DAILY RF: 0 ranitidine HCl [Zantac] 150 MG tablet 1 tab PO DAILY RF: 0 ibuprofen 200 MG tablet 400 mg PO PRN PRNRF: 0 Discharge Instructions Instructions: Leg Fracture (DC), Deep Venous Thrombosis (DC) Additional Instructions: Use your walker at all times to prevent falls. Only place partial weight on your right foot until seen for follow-up. Avoid extreme positions with your right hip and avoid twisting it beyond its normal range of motion. You may get your wound wet in the shower with soap and water. Gently pat the stitches dry and leave them open to the air. If your stitches catch on your clothing you may cover them with a light layer of gauze. You will find it most comfortable showering by placing a chair or stool in the shower to rest upon. Take your usual medications as before. In addition, take a baby aspirin (81mg) with food twice daily to prevent blood clots. Follow-up with Dr. Goldman in 10-12 days for staple removal. Home health physical therapy will be checking on you in your home. Care Plan Goals: Return to independent function. Stand Alone Forms: Nursing Discharge Form Referrals: Rommel Goldman MD [ [facility] STAFF PHYSICIAN] - (Dr. Goldman's office will give you a call with an appointment) Activity:: Activity as Tolerated Equipment/Supplies:: Walker Diet:: As Tolerated Discharge Orders Discharge Orders: Discharge Order (Routine); Ordered 09/23/18 Ordered By: Rommel Goldman Discharge Data Discharge Date/Time-TO BE ENTERED AT DEPARTURE: 09/23/18 10:53 DS: Data Vitals/I&O Vitals and I&O: Vital Signs Temperature 97.5 F L 09/23/18 07:34 Temperature Source Tympanic 09/23/18 07:34 Pulse 67 09/23/18 07:34 Pulse Rhythm Regular 09/23/18 05:03 Respiratory Rate 18 09/23/18 07:34 Respiratory Effort Non-Labored 09/23/18 05:03 Respiratory Depth Normal 09/23/18 05:03 Respiratory Pattern Normal 09/23/18 05:03 Blood Pressure 137/66 09/23/18 07:34 Blood Pressure Position Sitting 09/18/18 17:23 Pulse Oximetry 95 09/23/18 07:34 Respiratory End-tidal CO2 33 09/19/18 13:55 Oxygen Delivery Method Room Air 09/23/18 07:34 Oxygen Flow Rate 0 09/23/18 07:34 Pain Level 3 09/23/18 07:34 Comment 09/20/18 05:15 Intake & Output 09/22/18 09/22/18 09/23/18 11:59 23:59 11:59 Intake Total 780 / 780 250 / 250 Output Total 950 / 950 Balance 780 / 780 -700 / -700 Weight 152 lb 8.958 oz Intake: Oral 780 / 780 250 / 250 Output: Urine 950 / 950 Other: Urine Color Yellow Yellow Yellow Urine Appearance Cloudy Clear Clear Urine Odor Normal None Normal Comment amount unknown. Void x1 in the toilet. Stool Size Moderate Stool Characteristics Soft Formed Voiding Methods Toilet Toilet Toilet [facility] Medical History Abnormal chest xray Anxiety Diverticulosis Family history of colon cancer GERD (gastroesophageal reflux disease) Insomnia Obstructive sleep apnea Osteopenia Surgical History Cholecystectomy Colonoscopy - [facility] (10/12/17) Social History Smoking and Tabacco status: Never
--- NOTE | 2018-09-23 11:04 | INDS_ITS ---
Date of service: 09/23/18 Time of Service: 11:20 PT Notes Date: 09/23/2018 Referring Doctor: Dr. Goldman PT Orders: PT CONSULT: 72-year-old female status post ORIF [place] 2 fracture right femoral neck. Fracture fixed with cannulated screws. Up in chair tomorrow, then partial weightbearing as tolerated right with walker. Avoid extreme torque during range of motion exercises. Precautions: Fall, standard Date: 09/20/18 - 09/23/18 Patient Profile/Admitting Diagnosis: Patient admitted 09/19/18 after slipping on the ice at her daughter's home. She was diagnosed in the emergency room with a right femoral neck fracture, which was subsequently repaired in the OR by Dr. Goldman. Referral was received today for up in chair, partial weightbearing right lower extremity. She was seen 1-2x/day for 4 days for 7 treatments. PMHX: GERD, osteopenia, anxiety, diverticulosis, SREE Social History/Home Situation: Patient lives with her in a single level home, with ramp to enter. She can alternately use 5 steps to enter, no rail. She works full-time at [employer], and is active in the community. Equipment Owned/DME: None Subjective: Licha states that she is leaving this morning. She states that she noticed this morning that she's now able to lift her leg, and she's been doing kick outs all morning. Objective: General Observation: Resting in chair at time of consultation. No lines. Mental Status: A and O x3 Pain: 0/10 ROM: Right Upper Extremity: WFL Left Upper Extremity: WFL Right Lower Extremity: Hip range of motion not formally assessed, however patient functionally demonstrates hip flexion to 80 degrees, knee motion 0-100. Left Lower Extremity: WFL Strength: Right Upper Extremity: Shoulder flexion 4+/5. Biceps 4+/5. Triceps 4+/5. Cardroom Plastic Card Grader is strong and equal Left Upper Extremity: Shoulder flexion 4+/5. Biceps 4+/5. Triceps 4+/5. Cardroom Plastic Card Grader is strong and equal Right Lower Extremity: Quads strength 3+/5. Ankle dorsiflexion 4+/5 Left Lower Extremity: Hip flexion 4+/5. Quads 5/5. Hamstrings 4+/5. Ankle dorsiflexion 5/5. Bed Mobility/Transfers: Supine?sit: Supervision Sit to stand: S Stand to sit: S Bed to chair: S Gait: Patient ambulates 90' with FWW and supervision only, PWB RLE. Balance: Static Sitting: Normal Dynamic Sitting: Normal Static Standing: Fair Dynamic Standing: Fair Special Tests: Mobility Limitations Standardized Measure [facility] AM-PAC 6 clicks Basic Mobility Inpatient Short Form: Raw Score: 23 CMS Score: 11% deficit Treatment: This session consisted of re-evaluation, followed by gait and transfer training. We reviewed her HEP, and patient understands to continue quad and gluteal sets, ankle pumps and LAQs 3x/day. Assessment: Patient is a 73 year old female referred to physical therapy services with the diagnosis of right femoral neck fracture, 1 days status post ORIF. Patient has participated in 7 PT sessions over the past 4 days, and has made significant gains in functional mobility and independence sufficient to allow for safe transition back home. Goals: Goals X1 week 1. Supine-Sit: Supervision (MET) 2. Sit-Supine : Supervision(MET) 3. Sit-Stand: Supervision(MET) 4. Stand-Sit : Supervision(MET) 5. Bed-Chair: Supervision with FW W(MET) 6. Chair-Bed: Supervision with FW W(MET) 7. Gait: Supervision with FW W times 50 feet(MET) 8. Stairs: No stair goal, as patient is able to enter via ramp 9. Independent with home exercise program (MET) Plan of Care/Treatment Plan: D/C from PT services in acute care setting. DISCHARGE RECOMMENDATIONS: Home with FW W and HH services. TREATMENT CODE/TIME: 11:20-11:40 ([id number])
--- NOTE | 2018-09-23 14:39 | DSE_ITS ---
DS: Diagnosis Discharge Diagnosis (1) Subcapital fracture of right femur: Status: Acute (2) DVT prophylaxis: Status: Acute (3) Discharge planning issues: Status: Acute Discharge Plan Disposition Patient Disposition: HOME W/HOME HEALTH SERVICE Condition: Improving Discharge Details Chief Complaint: Orthopedic Clinical Impression: Closed fracture of right hip Reason For Visit: RIGHT SUBCAPITAL FEMORAL NECK FRACTURE Admit Date/Time: 09/18/18 20:03 Admit Provider: Jose Antonio Palomo Attending Provider: Jose Antonio Palomo Primary Care Provider: Jana Wayne ED Provider: Gordo Blackman Hospital Course Hospital Course: Patient rayshawn admitted on 09/18/18 after falling on the ice with an impacted fracture of her right femoral neck. She was given a fascia iliaca block for pain control and admitted by the hospitalist for medical clearance. She was taken to the operating room on 09/19/18 where she underwent surgical repair of the right femoral neck fracture with 3 cannulated screws. Her post operative course was unremarkable except that the block took 72-96 hours to wear off. She was maintained on prohylactic antibiotics for 24 hours. Tavarez catheter was removed at 48 hours without dysuria. Wound maintained a benign appearance. Cbc, lytes and magnesium were normal. She was maintained on lovenox prophylaxis during hospital stay but will be on aspirin 81 mg p.o. bid post discharged for 2 weeks. Home Meds and New Rx's Prescriptions: No Action calcium carb and citrate-vitD3 1 EACH tablet extended release 1 ea PO DAILY RF: 0 ranitidine HCl [Zantac] 150 MG tablet 1 tab PO DAILY RF: 0 ibuprofen 200 MG tablet 400 mg PO PRN PRNRF: 0 Discharge Instructions Instructions: Leg Fracture (DC), Deep Venous Thrombosis (DC) Additional Instructions: Use your walker at all times to prevent falls. Only place partial weight on your right foot until seen for follow-up. Avoid extreme positions with your right hip and avoid twisting it beyond its normal range of motion. You may get your wound wet in the shower with soap and water. Gently pat the stitches dry and leave them open to the air. If your stitches catch on your clothing you may cover them with a light layer of gauze. You will find it most comfortable showering by placing a chair or stool in the shower to rest upon. Take your usual medications as before. In addition, take a baby aspirin (81mg) with food twice daily to prevent blood clots. Follow-up with Dr. Goldman in 10-12 days for staple removal. Home health physical therapy will be checking on you in your home. Care Plan Goals: Return to independent function. Stand Alone Forms: Nursing Discharge Form Referrals: Rommel Goldman MD [ [facility] STAFF PHYSICIAN] - (Dr. Goldman's office will give you a call with an appointment) Activity:: Activity as Tolerated Equipment/Supplies:: Walker Diet:: As Tolerated Discharge Orders Discharge Orders: Discharge Order (Routine); Ordered 09/23/18 Ordered By: Rommel Goldman Discharge Data Discharge Date/Time-TO BE ENTERED AT DEPARTURE: 09/23/18 10:53 DS: Data Vitals/I&O Vitals and I&O: Vital Signs Temperature 97.5 F L 09/23/18 07:34 Temperature Source Tympanic 09/23/18 07:34 Pulse 67 09/23/18 07:34 Pulse Rhythm Regular 09/23/18 05:03 Respiratory Rate 18 09/23/18 07:34 Respiratory Effort Non-Labored 09/23/18 05:03 Respiratory Depth Normal 09/23/18 05:03 Respiratory Pattern Normal 09/23/18 05:03 Blood Pressure 137/66 09/23/18 07:34 Blood Pressure Position Sitting 09/18/18 17:23 Pulse Oximetry 95 09/23/18 07:34 Respiratory End-tidal CO2 33 09/19/18 13:55 Oxygen Delivery Method Room Air 09/23/18 07:34 Oxygen Flow Rate 0 09/23/18 07:34 Pain Level 3 09/23/18 07:34 Comment 09/20/18 05:15 Intake & Output 09/22/18 09/22/18 09/23/18 11:59 23:59 11:59 Intake Total 780 / 780 250 / 250 Output Total 950 / 950 Balance 780 / 780 -700 / -700 Weight 152 lb 8.958 oz Intake: Oral 780 / 780 250 / 250 Output: Urine 950 / 950 Other: Urine Color Yellow Yellow Yellow Urine Appearance Cloudy Clear Clear Urine Odor Normal None Normal Comment amount unknown. Void x1 in the toilet. Stool Size Moderate Stool Characteristics Soft Formed Voiding Methods Toilet Toilet Toilet [facility] Medical History Abnormal chest xray Anxiety Diverticulosis Family history of colon cancer GERD (gastroesophageal reflux disease) Insomnia Obstructive sleep apnea Osteopenia Surgical History Cholecystectomy Colonoscopy - [facility] [place] (10/12/17) Social History Smoking and Tabacco status: Never
--- NOTE | 2018-09-23 15:46 | PDOC.CMDIS ---
- If Service Date Differs Date of service: 09/23/18 Time of Service: 15:46 LACE Index Scoring Tool - Questions: Length of Stay (in days): 4 - 6 Acuity (Admit via E.D.?): Yes E.D. Visits: 4 - Answers: Total Score: 11 Risk of Readmission: High Risk Care Management Discharge Reason for Hospitalization: Right Subcapital Femoral Neck Fracture Discharge Plan: Licha be discharged home today with her family. She will have new home health services with PT. Her family will provide her support at home she has a ramp and FWW. She will be transported home via private car with spouse at time of discharge. Patient/Family Education Needs: Discharge education, limitations, follow-up plan of care, ask me 3 and self-management. Services Needed at Discharge: Home Health Care Services, Physical Therapy
== END 2018-09-23 10:53 | disposition home health service (06) | DRG 482 ==
LOC: ER 20:36 → MS 23:36
PROVIDERS: Orthopaedic Surgery; Admitting Provider Family Medicine; Emergency Provider Emergency Medicine; PCP Family Medicine; Visit Provider Internal Medicine
PROC: 0QS604Z Reposition Right Upper Femur with Internal Fixation Device, Open Approach (ICD-10-PCS; principal; 2018-09-19 10:10)
DX: S72.011A Unspecified intracapsular fracture of right femur, initial encounter for closed fracture (principal); M21.051 Valgus deformity, not elsewhere classified, right hip; W00.0XXA Fall on same level due to ice and snow, initial encounter; E86.0 Dehydration; K21.9 Gastro-esophageal reflux disease without esophagitis; G47.33 Obstructive sleep apnea (adult) (pediatric); M85.80 Other specified disorders of bone density and structure, unspecified site
CPT/HCPCS: 27236; 36415; 51702; 64450; 73552; 76942; 80048; 80053; 85027; 93005; 96374; 96375; 97110; 97162; 97166; 97530; 97535; 99222; 99232; 99285; NC; 71045; 73501; 73502; 81003; 83735; 84484; 85025; 85610; 85730; 93010; J1100; J1650; J1885; J2405; J3010

== ENCOUNTER 2018-10-01 12:33 | Outpatient (CLI) | payer OTHER, SELFPAY ==
--- NOTE | 2018-10-01 12:15 | DI.RAD_ITS ---
SYMPTOMS/DIAGNOSIS: F/U HIP SURGERY RIGHT HIP: Two views were obtained. There are three lag screws transfixing the proximal femur. The alignment appears essentially unchanged in comparison with intraoperative films of with no gross interval change in alignment of the femoral neck fracture fragments.
== END 2018-10-01 12:53 ==
PROVIDERS: PCP Family Medicine; Referring Provider Family Medicine; Visit Provider Orthopaedic Surgery
DX: S72.011D Unspecified intracapsular fracture of right femur, subsequent encounter for closed fracture with routine healing (principal); W00.9XXD Unspecified fall due to ice and snow, subsequent encounter
CPT/HCPCS: 73502

== ENCOUNTER 2018-10-18 14:16 | Outpatient (CLI) | payer OTHER, SELFPAY ==
--- NOTE | 2018-10-18 14:14 | DI.RAD_ITS ---
SYMPTOM/DIAGNOSIS: S/P RT HIP SURGERY AP PELVIS: Comparison is made with 10/01/18. There are again three partially threaded screws transfixing the subcapital fracture of the right femoral neck. No change in alignment of the orthopedic hardware or fracture components is noted. No new fractures or dislocations are present.
== END 2018-10-18 14:36 ==
PROVIDERS: PCP Family Medicine; Visit Provider Orthopaedic Surgery
DX: S72.011D Unspecified intracapsular fracture of right femur, subsequent encounter for closed fracture with routine healing (principal); W00.9XXD Unspecified fall due to ice and snow, subsequent encounter
CPT/HCPCS: 72170

== ENCOUNTER 2018-10-20 08:15 | Outpatient (REF) | payer OTHER, SELFPAY ==
[2018-10-20 11:49] LABS: Anion Gap 9.8 mmol/L (3-11); BUN 24 mg/dL (7-18); CO2 28.2 mmol/L (21.0-32.0); CREATININE 1.05 mg/dL (0.55-1.02); Calcium 8.9 mg/dL (8.5-10.1); Chloride 105 mmol/L (98-107); Cholesterol 201 mg/dL (50-200); Estimated GFR 51.09 (mL/min/1.73m2); Glucose 81 mg/dL (70-100); HDL Cholesterol 55 mg/dL (40-60); LDL CHOLESTEROL 117 mg/dL (<100); Potassium 4.3 mmol/L (3.5-5.1); Sodium 143 mmol/L (136-145); Triglyceride 141 mg/dL (30-150)
== END 2018-10-20 08:35 ==
LOC: NCHCN 08:15
PROVIDERS: PCP Family Medicine; Visit Provider Family Medicine
DX: E78.89 Other lipoprotein metabolism disorders (principal)
CPT/HCPCS: 80048; 80061; 83721

== ENCOUNTER 2018-11-23 10:56 | Outpatient (CLI) | payer OTHER, SELFPAY ==
--- NOTE | 2018-11-23 10:50 | DI.RAD_ITS ---
SYMPTOM/DIAGNOSIS: S/P RIGHT HIP SURGERY AP PELVIS: When compared with previous images again noted are the screws transfixing the fracture of the neck of the right humerus. The fracture components remain in excellent alignment. Orthopaedic hardware in place.
== END 2018-11-23 11:16 ==
PROVIDERS: PCP Family Medicine; Referring Provider Family Medicine; Visit Provider Orthopaedic Surgery
DX: S72.011A Unspecified intracapsular fracture of right femur, initial encounter for closed fracture; X58.XXXA Exposure to other specified factors, initial encounter
CPT/HCPCS: 72170

== ENCOUNTER 2018-12-23 11:42 | Outpatient (CLI) | payer OTHER, SELFPAY ==
--- NOTE | 2018-12-23 12:13 | DI.RAD_ITS ---
SYMPTOMS/DIAGNOSIS: F/U RT HIP FRACTURE, S/P SURGERY RIGHT HIP: Four views were obtained. Previously described subcapital fracture of the femur is again noted with three lag screws in place transfixing the fracture fragments. The alignment appears essentially unchanged in comparison with previous examinations including 10/18/18 and 11/23/18.
== END 2018-12-23 12:02 ==
PROVIDERS: PCP Family Medicine; Referring Provider Family Medicine; Visit Provider Orthopaedic Surgery
DX: S72.011A Unspecified intracapsular fracture of right femur, initial encounter for closed fracture (principal); X58.XXXA Exposure to other specified factors, initial encounter
CPT/HCPCS: 73502

== ENCOUNTER 2019-02-04 15:33 | Emergency (ER) | payer OTHER, SELFPAY ==
[2019-02-04 15:55] VITALS: BP 142/74; PULSE 72; RESP 18; TEMP 36.6; O2SAT 97
--- NOTE | 2019-02-04 16:15 | ED.GENADUL_ITS ---
Discharge Plan Disposition Patient Disposition: HOME Condition: Stable Discharge Details Chief Complaint: Orthopedic Clinical Impression: Right knee sprain Primary Care Provider: Jana Wayne ED Provider: Gordo Blackman Home Meds and New Rx's Prescriptions: No Action calcium carb and citrate-vitD3 1 EACH tablet extended release 1 ea PO DAILY RF: 0 ranitidine HCl [Zantac] 150 MG tablet 1 tab PO DAILY RF: 0 ibuprofen 200 MG tablet 400 mg PO PRN PRNRF: 0 Discharge Instructions Instructions: Knee Sprain (ED) Additional Instructions: if pain continues in a week see your primary care provider you can take 1000mg tylenol and 600mg ibuprofen as needed for pain every 6 hours Medical Decision Making 73 yo female comes in with right knee pain since yesterday when she twisted it going down a step. Denies any falls or trauma. She has pain over the medial and lateral anterior right joint line, no swelling of the joint, has full rom and is able to bear weight so doubt fx and do not feel xrays indicated. No swelling of the leg or calf pain so doubt dvt. No erythema, warmth and no fevers so doubt septic joint. I suspect knee sprain, advised f/u with pcp if pain continues Differential Diagnosis sprain, strain, meniscus injury HPI General Mode of arrival: ambulatory . Date/Time Provider Initiated Documentation: 02/04/19 15:41 . Limitations to Documentation: no limitations . Information obtained by: patient . History of Present Illness 73 year old F presents to the emergency department with the chief complaint of right knee pain, described as moderate, Quality is described as aching, and is local ized to the right and lower extremity. Patient started experiencing this day(s) (1) and it has been constant. Rest improves symptom(s), Movement worsens symptoms . Patient notes no other symptoms.. Patient did receive the following treatments prior to arrival, none Related Data Home Medications Medication Instructions Recorded Confirmed ranitidine HCl [Zantac] 1 tab PO DAILY 03/11/16 02/04/19 calcium carb and citrate-vitD3 1 ea PO DAILY 08/31/17 02/04/19 ibuprofen 400 mg PO PRN PRN 10/08/17 02/04/19 Allergies Allergy/AdvReac Type Severity Reaction Status Date / Time amoxicillin Allergy Severe patient Unverified 02/04/19 16:00 cannot remember pramipexole di-HCl Allergy Severe patient Unverified 02/04/19 16:00 [From Mirapex] cannot remember ropinirole HCl [From Requip] Allergy Intermediate patient Unverified 02/04/19 16:00 cannot remember bee stings AdvReac Intermediate generalized Uncoded 02/04/19 16:00 swelling General Stated Complaint: Orthopedic CHRISTIAN: 3 Review of Systems Review of Systems All systems reviewed & are unremarkable except as noted in HPI and below Constitutional Denies chills, Denies fever(s) and Denies weakness Eyes Denies loss of vision Cardiovascular Denies chest pain and Denies dyspnea Respiratory Denies dyspnea Gastrointestinal Denies abdominal pain, Denies nausea and Denies vomiting Integumentary/Breasts Denies rash Neurologic Denies loss of vision and Denies weakness [facility] Social History Smoking/Tobacco Use Status: Never Alcohol Intake: never Drug use: Never Do you feel safe at home: Yes Do you feel safe in your relationship?: Yes Exam Const General: no acute distress Orientation: alert HENMT Head: normal to inspection Ears: external ears normal General nose exam: external nose normal Mouth: moist mucous membranes Eyes General: appearance normal, both eyes and all related structures Neck Neck: normal visual inspection Resp Effort & Inspection: normal respiratory effort and able to speak in complete se ntences Cardio Rate: regular rate Skin General skin exam: no rashes or lesions noted Neuro General: alert and oriented x3 Extrem General: normal to inspection Psych Mental Status: mental status grossly normal Course Vital Signs Temperature 36.6 C 02/04/19 15:55 Pulse 72 02/04/19 15:55 Respiratory Rate 18 02/04/19 15:55 Blood Pressure 142/74 H 02/04/19 15:55 Pulse Oximetry 97 02/04/19 15:55 Temperature 36.6 C 02/04/19 15:55 Temperature Source Skin 02/04/19 15:55 Pulse 72 02/04/19 15:55 Respiratory Rate 18 02/04/19 15:55 Respiratory Effort 02/04/19 16:01 Blood Pressure 142/74 H 02/04/19 15:55 Blood Pressure Position Sitting 02/04/19 15:55 Pulse Oximetry 97 02/04/19 15:55 Oxygen Delivery Method Room Air 02/04/19 15:55 Oxygen Flow Rate 0 02/04/19 15:55 Pain Level 10 02/04/19 15:55
== END 2019-02-04 16:43 | disposition home or self-care (01) ==
PROVIDERS: Emergency Provider Emergency Medicine; PCP Family Medicine
DX: S83.91XA Sprain of unspecified site of right knee, initial encounter (principal); X50.9XXA Other and unspecified overexertion or strenuous movements or postures, initial encounter
CPT/HCPCS: 29505; 99283; 99282; L1820

== ENCOUNTER → 2019-02-24 13:16 | Outpatient (BNVA) | payer OTHER, SELFPAY | PROVIDERS: Referring Provider Family Medicine; Visit Provider Orthopaedic Surgery | DX: S72.011A Unspecified intracapsular fracture of right femur, initial encounter for closed fracture (principal); X58.XXXA Exposure to other specified factors, initial encounter | CPT/HCPCS: 99211; 99213 ==

== ENCOUNTER 2019-04-07 13:30 | Outpatient (CLI) | payer OTHER, SELFPAY ==
--- NOTE | 2019-04-07 13:58 | DI.RAD_ITS ---
SYMPTOM/DIAGNOSIS: S/P HIP SURGERY RIGHT HIP AND PELVIS: Comparison is made with 12/23/18. There are again three partially threaded screws transfixing the subcapital fracture of the right femur. There has been no change in alignment of the orthopedic hardware or fracture components. No new fractures or dislocations are seen.
== END 2019-04-07 13:50 ==
PROVIDERS: Visit Provider Orthopaedic Surgery
DX: M25.551 Pain in right hip (principal); M25.461 Effusion, right knee
CPT/HCPCS: 20610; 99211; 99213; 73502; J1040

== ENCOUNTER 2019-04-29 11:49 | Outpatient (CLI) | payer OTHER, SELFPAY ==
--- NOTE | 2019-04-29 10:01 | DI.RAD_ITS ---
EXAM: XR KNEE RT 3V AP,LAT,KATELYN INDICATION: right knee pain. COMPARISON: No exams were available for comparison TECHNIQUE: 2D digital imaging was performed. FINDINGS: There is no evidence of fracture or dislocation. There is evidence of an old patellar fracture. Dege nerative changes involving the patellofemoral joint are evident. There are a number of small calcific ations lying in the soft tissues posterior to the knee which could also be related to old trauma. IMPRESSION: No acute abnormality is demonstrated.
== END 2019-04-29 12:09 ==
PROVIDERS: Visit Provider Student in an Organized Health Care Education/Training Program
DX: M25.561 Pain in right knee (principal); M79.89 Other specified soft tissue disorders; S72.011G Unspecified intracapsular fracture of right femur, subsequent encounter for closed fracture with delayed healing; W00.0XXA Fall on same level due to ice and snow, initial encounter; M25.551 Pain in right hip; M17.11 Unilateral primary osteoarthritis, right knee
CPT/HCPCS: 73562; 99213

== ENCOUNTER 2019-05-12 06:52 | Outpatient (CLI) | payer OTHER, SELFPAY ==
[2019-05-12] MEDS: Omnipaque 300 MG/ML 10 ML BTL IJ (16:09)
[2019-05-12] MEDS: methylPREDNISolone ACETATE 80 MG/ML VIAL IM (16:09)
[2019-05-12] MEDS: Bupivacaine 0.5% Pres-Free 10 ML VIAL IJ (16:10)
--- NOTE | 2019-05-12 16:10 | DI.RAD_ITS ---
EXAM: RF JOINT INJECTION FLUORO GUID CLINICAL HISTORY: rt hip pain,M26.559. TECHNIQUE: 2D and realtime digital imaging was performed. COMPARISON: No exams were available for comparison FINDINGS: Fluoroscopy is utilized Dr. Fraire during right hip injection. Hard copy shows intra-articular rig ht hip injection. Fluoro time.04 seconds
--- NOTE | 2019-05-12 21:13 | W.PROCNOTE ---
Date of service: 05/12/19 Time of Service: 16:15 Procedure Note Date of procedure: 05/12/19 Procedure: Right Hip Injection with Fluoroscopic Guidance Surgeon/Proceduralist/Physician: Baldo Fraire Procedure Diagnosis: Right Hip Osteoarthritis Procedure Indications: Diana has had persistent pain of the RIGHT hip and groin. She has a history of femoral neck fracture fixed with 3 screws. Noninvasive measures have been tried. To serve as both diagnostic and therapeutic, an injection under fluoroscopy was recommended. I had discussed the risks of the procedure and the patient elected to proceed. Procedure Description: Diana was greeted in the flouroscopy room. The correct side was identified and the consent was reviewed with the patient and signed. The patient was then placed in the supine position on the fluoroscopy table. The RIGHT hip was then prepped with Chloraprep. The anterolateral injection starting point was identiifed by bony landmarks and fluoroscopy. The skin and soft tissue in the tract of the injection was anesthetized with 1% Lidocaine. A spinal needle was then inserted deep into the hip joint at the level of the lateral femoral neck under fluoroscopic guidance. A small amount of Omnipaque solution was injected to confirm intraarticular placement. Once confirmed, the hip was injected with 6cc of 0.5% Bupivicaine and 80mg of Depo-Medrol. A bandaid was placed on the injection site. The patient tolerated the procedure well and noted improvement in pre-injection pain.
== END 2019-05-12 07:12 ==
PROVIDERS: PCP Family Medicine; Visit Provider Physician Assistant
DX: M25.551 Pain in right hip (principal); M16.11 Unilateral primary osteoarthritis, right hip
CPT/HCPCS: 20610; 77002; J1040

== ENCOUNTER 2019-05-16 01:11 | Outpatient (CLI) | payer OTHER, SELFPAY ==
--- NOTE | 2019-05-16 14:49 | DI.CT_ITS ---
EXAM: CT LOWER EXTREMITY RT WO CLINICAL HISTORY: rt hip pain; s/p cannulated screws,M25.559. TECHNIQUE: COMPARISON: RF JOINT INJECTION FLUORO GUID from 05/12/2019 FINDINGS: CT of the hip was performed utilizing multi slice acquisition multiplanar reconstruction. Soft tissu es of the pelvis are unremarkable except for calcifications in uterus consistent with uterine fibroid . There [address] transfixing subcapital right femoral fracture. These appear well seat ed in the bone. No additional bony abnormality seen. IMPRESSION:
== END 2019-05-16 01:31 ==
PROVIDERS: PCP Family Medicine; Visit Provider Physician Assistant
DX: M25.551 Pain in right hip (principal); D25.9 Leiomyoma of uterus, unspecified; Z87.81 Personal history of (healed) traumatic fracture
CPT/HCPCS: 73700

== ENCOUNTER 2019-06-01 00:26 | Outpatient (CLI) | payer OTHER, SELFPAY ==
--- NOTE | 2019-06-01 15:56 | DI.MAMMO_ITS ---
EXAM: MAMMO SCREENING CLINICAL HISTORY: SCREENING Z12.39. TECHNIQUE: Mammograms were interpreted according to the usual protocol including computer analysis w [employer] Screening CAD system, tomosynthesis and C-view imaging. FINDINGS: The breast tissue is composed of moderate fibroglandular tissue. There is no evidence of a mass. The re are no suspicious calcifications. There has been no significant interval change when compared wit h prior images. IMPRESSION: No evidence of malignancy, category 1, yearly screening mammography is recommended. Breast density, c ategory B. BI-RADS Cat 1 - Negative. Breast Density - Category B - Scattered areas of fibroglandular density.
--- NOTE | 2019-06-01 16:21 | DI.DEXA_ITS ---
EXAM: XR DEXA BONE DENSITY W/WO STEPH INDICATION: OSTEOPENIA M85.80, OTHER DISORDERS OF BONE DENSITY AND STRUCTURE M85.88. COMPARISON: No exams were available for comparison TECHNIQUE: 2D digital imaging was performed. FINDINGS: The scanogram is unremarkable. For the left hip, a T-score -1.3 and a Z-score of 0.5 are consistent with osteopenia and an increased fracture risk. The lumbar spine shows a T-score -1.8 and a Z-score of 0.6 and are consistent with osteopenia and an increased fracture risk. For the left forearm, a T- score of -2.5 and a Z-score of 0 are consistent with osteoporosis and a high fracture risk.
== END 2019-06-01 00:46 ==
PROVIDERS: PCP Family Medicine; Visit Provider Family Medicine
DX: M85.88 Other specified disorders of bone density and structure, other site (principal); M81.0 Age-related osteoporosis without current pathological fracture; Z12.31 Encounter for screening mammogram for malignant neoplasm of breast
CPT/HCPCS: 77063; 77067; 77080

== ENCOUNTER 2019-07-06 12:05 | Outpatient (CLI) | payer OTHER, SELFPAY ==
--- NOTE | 2019-07-06 12:32 | DI.RAD_ITS ---
EXAM: XR HIP RT 1V CLINICAL HISTORY: PRE OP TECHNIQUE: COMPARISON: XR hip RT complete AP pelvis from 04/07/2019 FINDINGS: AP view of the right hip was obtained with apparent marker ball. Three lag screws are not again note d transfixing subcapital femoral fracture, no change in alignment comparison with previous examinatio n of April 07 except for perhaps slightly increased impaction at the fracture site. Moderate dege nerative changes of the hip joint noted. IMPRESSION:
== END 2019-07-06 12:25 ==
PROVIDERS: PCP Family Medicine; Visit Provider Student in an Organized Health Care Education/Training Program
DX: S72.011G Unspecified intracapsular fracture of right femur, subsequent encounter for closed fracture with delayed healing (principal); W00.0XXD Fall on same level due to ice and snow, subsequent encounter; Z01.818 Encounter for other preprocedural examination
CPT/HCPCS: 73501

== ENCOUNTER 2019-07-06 13:18 | Outpatient (CLI) | payer OTHER, SELFPAY ==
--- NOTE | 2019-07-06 12:32 | W.PREOPHP ---
Assessment and Plan Assessment and plan (1) Subcapital fracture of right femur: Status: Resolved Assessment and plan: Plan: AP of right hip with mag marker was ordered for pre-operative planning. Patient is a reliable historian and denies any areas of skin breakdown along the left groin and anterior leg. No leg length discrepancy was reported or noted on physical exam. Educated patient that if they develop any lesions, redness or skin breakdown to contact office as skin concerns would be a reason to cancel surgery. Patient gives verbal understanding. Educated patient on surgery covering surgical technique via models, recovery process, benefits and risks including but not limited to risk of infection, blood clot, fracture, numbness/tingling, damage to soft tissue/blood vessels/nerves in detail. After discussion patient gives verbal understanding of risks and elects to proceed with scheduling surgery. Patient had opportunity to have questions answered to their satisfaction. They will contact office if issues arise. Patient will continue to be scheduled for right hardware removal and total hip replacement with Dr. Fraire. Qualifiers: Encounter type: subsequent encounter Fracture healing: with delayed healing Fracture type: closed Qualified Code(s): S72.011G - Unspecified intracapsular fracture of right femur, subsequent encounter for closed fracture with delayed healing History of Present Illness Narrative: Ms. Aguilar is a 73-year-old female who presents to clinic for pre-operative exam for scheduled hardware removal and right OZIEL. Patient suffered a slip and fall on the ice which resulted in fracture that was treated with placement of closed reduction and cannulated screws by Dr. Goldman on 09/19/2018. Since surgery patient has continued to have routine orthopedic follow-up with Dr. Goldman until his recent usp. Patient reports she continues to experience severe discomfort diffusely around her hip that extends down to her knee. Pain is a constant aching sensation that is more severe with walking, sitting and prolonged standing. In addition to pain, she notes an intermittent burning sensation along the anterior aspect of her thigh predominantly at night. Although she experiences diffuse pain throughout the joint she reports anterior groin discomfort that is noted with the first few steps after she has been sitting for prolonged amount of time, when trying to get dressed such as putting her shoes and socks in attempting to move in and out of the vehicle. 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 Patient works at [employer] but has difficulty with prolonged standing due to her severe discomforts. Denies any trauma since her last orthopedic appointment. Denies any new symptoms. Due to her continued pain she was offered surgical intervention and elected to proceed. Pertinent Surgical Information Denies past medical history of: Hypertension, stroke, cardiac issues, angina, asthma, COPD, renal issues, liver issues, hepatitis, gastrointestinal ulcers, hyperlipidemia, bleeding disorders, seizures, migraines, depression, diabetes, autoimmune disorders, thyroid issues Reports had 4 days of difficulty moving her right lower extremity following a nerve block received after her fracture. She denies prior complications from surgery or anesthesia. Review of Systems Constitutional Constitutional: Denies fever(s), Denies frequent falls and Denies headache(s) Eyes Eyes: Denies change in vision ENT Ears, Nose, Mouth, and Throat: Denies dizziness, Denies ear discharge, Denies headache(s), Denies epistaxis, Denies nasal discharge and Denies sore throat Cardiovascular Cardiovascular: Denies chest pain, Denies rapid heart rate, Denies irregular heart rhythm, Denies palpitations, Denies dyspnea, Denies dyspnea on exertion, Denies orthopnea, Denies paroxysmal nocturnal dyspnea and Denies slow heart rate Respiratory Respiratory: Denies cough, Denies dyspnea, Denies dyspnea on exertion and Denies wheezing Gastrointestinal Gastrointestinal: Denies abdominal pain, Denies melena, Denies hematochezia, Denies constipation, Denies diarrhea, Denies nausea and Denies vomiting Genitourinary Genitourinary: Denies hematuria, Denies dysuria and Denies urinary urgency Musculoskeletal Musculoskeletal: Reports as per HPI, Denies numbness and Denies tingling Neurologic Neurologic: Denies dizziness, Denies frequent falls, Denies headache(s), Denies numbness and Denies tingling Psychiatric Psychiatric: Denies anxiety and Denies depression Endocrine Endocrine: Denies palpitations Allergic/Immunologic Allergic/Immunologic: Denies wheezing [facility] Medical History (Updated 07/06/19 @ 12:41 by Nadia Connelly) Abnormal chest xray Anxiety Diverticulosis Family history of colon cancer GERD (gastroesophageal reflux disease) Insomnia Obstructive sleep apnea Does not use CPAP; returned to company since she did not have change in symptoms Osteopenia Surgical History (Updated 07/06/19 @ 13:12 by Nadia Connelly) Cholecystectomy Colonoscopy - MAC (10/12/17) Subcapital fracture of right femur (Resolved) S/P closed reduction and cannulated screws Dr. Goldman DOS: 09/19/2018 Social History Smoking/Tobacco Use Status: Never Alcohol Intake: never Drug use: Never Current gender identity: female Do you feel safe at home: Yes Do you feel safe in your relationship?: Yes Meds Home Medications and Allergies Home Medications Medication Instructions Recorded Confirmed Type ranitidine HCl [Zantac] 1 tab PO DAILY 03/11/16 04/29/19 History calcium carb and citrate-vitD3 1 ea PO DAILY 08/31/17 04/29/19 History ibuprofen 400 mg PO PRN PRN 10/08/17 04/29/19 History tramadol 50 mg tablet 50 mg PO BID PRN #14 tab 06/06/19 Rx Allergies Allergy/AdvReac Type Severity Reaction Status Date / Time pramipexole di-HCl Allergy Severe patient Unverified 07/06/19 12:48 [From Mirapex] cannot remember ropinirole HCl [From Requip] Allergy Intermediate patient Unverified 07/06/19 12:48 cannot remember amoxicillin AdvReac Intermediate freezing/hot Unverified 07/06/19 12:48 sensation bee stings AdvReac Intermediate generalized Uncoded 07/06/19 12:48 swelling Exam Const General: cooperative and no acute distress [facility] Head: normal to inspection, normocephalic and atraumatic Ears: external ears normal General nose exam: external nose normal and no nasal discharge Face and sinus: face symmetric Mouth: oral mucosae normal, lip normal, tongue normal and moist mucous membranes Teeth and gingiva: fair dentition Throat: posterior oropharynx normal Eyes General: appearance normal, both eyes and all related structures Pupils: PERRL EOM: EOM intact bilaterally Neck Neck: trachea midline Carotids: normal carotid upstroke Lymphatic: no lymphadenopathy noted Resp Effort & Inspection: normal respiratory effort and able to speak in complete sentences Auscultation: clear to auscultation bilaterally, no rales, no rhonchi and no wheezes Cardio Heart Sounds: S1 normal, S2 normal and no murmurs Pulses: radial pulses present bilaterally Skin General skin exam: no rashes or lesions noted
[2019-07-06 14:22] LABS: HGB 13.3 g/dL (12.0-15.5); Mean Corp. HGB Concentration 33.3 g/dL (32.0-36.0); Mean Corpuscular Hemoglobin 31.2 pg (27.0-33.0); Mean Corpuscular Volume 93.9 fL (80-95); Mean Platelet Volume 9.4 fL (8.0-11.0); Platelet Count 317 x1000/uL (130-400); RBC 4.26 m/cumm (4.00-5.20); RBC Distribution Width 12.5 % (11.7-14.6); White Blood Cell Count 8.58 k/cumm (4.4-10.8)
[2019-07-06 14:58] LABS: Anion Gap 9.9 mmol/L (3-11); BUN 26 mg/dL (7-18); CO2 27.1 mmol/L (21.0-32.0); CREATININE 0.82 mg/dL (0.55-1.02); Calcium 8.9 mg/dL (8.5-10.1); Chloride 106 mmol/L (98-107); Glucose 84 mg/dL (74-106); Sodium 143 mmol/L (136-145)
== END 2019-07-06 13:38 ==
PROVIDERS: PCP Family Medicine; Visit Provider Student in an Organized Health Care Education/Training Program
DX: S72.001D Fracture of unspecified part of neck of right femur, subsequent encounter for closed fracture with routine healing (principal); Z01.818 Encounter for other preprocedural examination; Z01.812 Encounter for preprocedural laboratory examination
CPT/HCPCS: 36415; 80048; 85027; NC

== ENCOUNTER 2019-07-15 05:59 | Inpatient (IN) | payer OTHER, SELFPAY ==
[2019-07-06 13:28] VITALS: BP 164/87; PULSE 63; RESP 16; TEMP 36.2; O2SAT 98
[2019-07-15] VITALS (12 sets, daily range): BP systolic 113–138; BP diastolic 63–95; PULSE 55–71; RESP 13–20; TEMP 35.7–37.6; O2SAT 82–99
[2019-07-15] MEDS: Celecoxib 200 MG CAP 400 MG PO (06:35)
[2019-07-15] MEDS: Acetaminophen 500 MG TAB 1000 MG PO (06:35)
[2019-07-15] MEDS: Lactated Ringers 1,000 ML 80 ML IV ×2 (06:52→12:51)
[2019-07-15] MEDS: ceFAZolin 2 GM/50 ML BAG IVPB (07:33)
--- NOTE | 2019-07-15 08:42 | DI.RAD_ITS ---
EXAM: XR HIP RT IN OR CLINICAL HISTORY: Subcapital fracture of right femur. TECHNIQUE: 2D digital imaging was performed. COMPARISON: XR HIP RT 1V from 07/06/2019 FINDINGS: Fluoroscopy was utilized by Dr. Fraire during the placement of a right total hip replacement. The orthopedic hardware appears in good position. Please refer to the procedure report for complete deta ils. FLUORO TIME: 82.7 IMPRESSION: Right TKR.
[2019-07-15] MEDS: Bupivacaine 0.25% Pres-Free 30 ML VIAL (09:40)
[2019-07-15] MEDS: Ketorolac 30 MG/ML VIAL (09:40)
[2019-07-15] MEDS: ceFAZolin 1 GM/50 ML BAG IVPB ×2 (12:51→19:39)
--- NOTE | 2019-07-15 14:06 | NUR.NOTE ---
Nursing Note: 1049: pt arrives to [id number] via pt bed from pacu. pt is alert/oriented. HR regular, LS clear, +BS, gilbert draining minimal urine at this time-clear yellow. pt mepilex AG dressings intact x 2. SCDS placed. +cmst. pt denies pain. pt oriented to call esposito/TV remote. LR at 80cc/hr in RH. continue to monitor.
--- NOTE | 2019-07-15 14:45 | ROE_ITS ---
Date of service: 07/15/19 Time of Service: 10:46 Operative Note Operative Note DATE OF PROCEDURE: 07/15/19 PRE-OP DIAGNOSIS: Right Femoral Neck Malunion POST-OP DIAGNOSIS: same PROCEDURE: Right Anterior Total Hip Arthroplasty and Removal of Hardware SURGEON: Baldo Fraire SENIOR ASSISTANT MANAGER: Nadia Connelly ANESTHESIA: spinal ESTIMATED BLOOD LOSS: 400 PATHOLOGY: none sent COMPLICATIONS: None Patient was transported to: PACU Patient's condition: stable Implants: 1. Depuy Nelsonia Acetabular Component, 52mm 2. Depuy Acetabular Liner, [id number] 3. Depuy Corail Standard Collared Femoral Stem, Size 11 4. Depuy Altrx Ceramic Femoral Head, Size 36+1.5mm Indications: I have seen Licha in clinic for symptoms of hip pain and femoral neck malunion, confirmed with radiographic findings. She has exhausted nonoperative methods and was having significant limitations in daily function and desired better function and less pain. I discussed the technical details of a hip replacement. I explained the risks of the procedure to include, but not limited to, bleeding, infection, pain, stiffness, fracture, damage to nerves and vessels, damage to muscles and tendons, loosening, instability, leg length inequality, need for repeat procedure, blood clot and cardiopulmonary demise. Despite these risks, Licha elected to proceed. Findings: There was a defect of the superior femoral head. There was a malunion of the femoral neck but no apparent true nonunion. Screws were removed without difficulty and a total hip was performed. Procedure Description: Licha was greeted in the preoperative holding area whe re the correct side was identified and marked. The consent was reviewed with the patient and signed. The history and physical was updated. All questions were answered. She was taken back to the operating room. A spinal anesthestic was then administered. The patient was placed into the supine position on the operating room table. The patient was then positioned onto the ARCH table. Both feet were wrapped with Webrill cotton wrap along with Coban. The feet were placed in specialized boots for the ARCH table, well seated within the boot and secured. SCDs were applied. The patient was then slid down onto a peroneal post and the nonoperative leg was secured in a leg colunga attached to the table. The operative side was placed into the ARCH table attachment and bed height and positioning was secured. A preoperative AP pelvis was obtained to serve as a reference for determining leg lengths. Prophylactic antibiotics in the form of Cefazolin were administered. 1g of Tranxemic Acid was given intravenously within 30 minutes of incision. The right leg was then prepped with Chloraprep and draped in a standard fashion. A second prep with Chloraprep was performed prior to placement of a shower-curtain type drape with Iodine impregnated skin protection. A timeout to confirm correct identity, side and site, procedure, allergies, anesthesia, and medical concerns was performed. The previous incision for the screw fixation was incised. The screws were palpated and a small incision into the IT band was performed. The screws were cannulated with a k-wire and then removed with the cannulated screwdriver from the 7.3mm cannulated screw system. All three screws were removed without difficulty. The incision was irrigated with Irrisept chlorhexadine solution and the IT band was closed with a #1 Vicryl. The deep layers were closed with a #2 Vicryl and the skin was closed with a funning #3-0 Monocryl. An obliquely oriented incision was then made starting lateral to the ASIS and running distal over the Tensor Fascia Dee (TFL) muscle belly toward the fibular head, approximately 10cm. The skin and soft tissue was dissected sharply, through Gopal?s fascia, and to the fascia of the TFL. With the fascia and superior border of the IT band identified, the fascia was incised with a new knife just above any perforators from the IT band. The TFL muscle belly was bl untly dissected away from the fascia and moved laterally. The fat between TFL and rectus was identified to ensure the dissection was not within the TFL. Blunt dissection created space between abductors and the capsule and retractor was placed over the lateral femoral neck. The fibers of the rectus femoris tendon were identified and these were freed from the anterior capsule. A second cobra retractor was placed around the medial femoral neck. The TFL was further retracted laterally to show the deep fascia. Careful dissection through this layer identified three main crossing vessels of the lateral femoral circumflex. These were cauterized in multiple locations and then cut without any noticeable bleeding. The TFL was further released bluntly from the deep fascia to expose anterior hip capsule and fat The Madi orthopaedic retractor was then placed beneath the TFL and against sartorius and medial soft tissues to protect and retract the soft tissues. A T-capsulotomy was then performed starting at the superior lateral acetabulum and moving distally to the intertrochanteric ridge. These capsular flaps were tagged with a No. 1 Ethibond and elevated from within. The capsular flaps were released to the shoulder of the lateral neck and to the lesser trochanter to give excellent visualization of the proximal femur. A neck osteotomy was performed using an oscillating saw based on preoperative templates. This cut started in the shoulder and of the lateral neck and exited medially. The saw was at all times directed medially to avoid injury to the greater trochanter. 6cm of traction was applied to the leg and the osteotomy opened. The femoral head was removed with a corkscrew, making sure to protect the TFL on its exit. This was measured on the back table to determing the starting reamer size. Portions of the rectus obscuring visualization were minimally elevated off the superior acetabulum. An anterior retractor was placed over the anterior wall between capsule and labrum and attached to the Gripper retraction system. A posterior retractor was placed similarly. This provided excellent visualization. The contents of the cotyloid fossa were removed with electrocautery and the labrum was removed with a knife. Acetabular reaming began with a 46mm reamer. This first reaming was directed anterior to posterior and medial to get down to the true floor. This was inspected and reamed until the true floor was reached. I then reamed sequentially up to a 51mm reamer where good fit was obtained. The larger reamers were oriented based on anatomical reference of the anterior and lateral fu to ensure proper abduction and anteversion. Positioning and size was confirmed with the fluoroscopy. A 52mm Depuy Nelsonia acetabular component was selected. The acetabulum was reamed around the periphery with the selected acetabular size to prevent a rim fit. The deep tissues were irrigated. The acetabular component was then impacted in a position of about 40-45 degrees of abduction and 15-20 degrees of anteversion, using the patient?s anatomy as the ultimate landmark. Fluoroscopy was used to confirm this. There was excellent ironworker apprentice of the acetabular component and the inserting handle was removed. A primary acetabular screw was placed into the ilium by drilling through one of the holes in the acetabular component. This was measured and an approrpriately sized screw was placed with excellent purchase. It was checked not to be proud. A second screw was placed in a similar fashion. The acetabular liner, Depuy [id number] polyethylene liner, was inserted and lined up with the tines of the acetabular component. There was no soft tissue interposition. The liner was then impacted into position and confirmed to be well-seated. A portion of the kelly-articular cocktail was then injected around the acetabulum into the capsule and periosteum. This cocktail consisted of 50cc of 0.25% Bupivicaine and 20cc of Exparel, expanded to a total of 120cc. Traction was released from the femur. The leg was rotated to 120 degrees. Any remaining medial capsule was released until the lesser trochanter was easily palpable. A Roth retractor was placed medially. The lateral capsule was further released into the shoulder to allow access to the greater trochanter. A Roth retractor was placed over the greater trochanter which allowed the trochanter to flip in front of the capsule for excellent exposure. The leg was brought down into maximal extension and 20 degrees of adduction while ensuring there was no impingement on the acetabulum. Any remnant capsule within the trochanter was released. Piriformis and obturator externis were identified and protected. There was excellent access to the proximal femur. The lateral neck remnant was removed with a rongeur. A blunt canal probe was used to identify the canal and trajectory for later broaching. A box osteotome initiated the broach course. A small curved rasp and a curved curette were used to work laterally. Broaching then began with a size 8 Corail broach. This was inserted manually around the trochanter and into the canal before mallet blows. The broach was seated to a few millimeters below the cut level based on the neck cut and the preoperative template. Sequential broaching was continued until a tight fit was obtained with good rotational control of the femur. A trial Cox[place]ara neck was inserted along with a +5 trial head. The leg was brought out of extension and adduction and then reduced with traction and internal rotation. The leg was stable anteriorly in a position of 30 degrees of extension and 90 degrees of external rotation. Fluoroscopy was used to ensure there was no fracture and the stem was seated well. Leg lengths were checked with an AP pelvis and pelvic reference points. [employer] was utilized to assist in leg lengths and offset assessment. It was determined that the standard neck +8.5mm head would best recreate leg length and offset. The leg was brought back into extension, external rotation and adduction. The periosteum and surrounding tissue was injected with remaining portion of the kelly-articular cocktail. The proximal femur was irrigated as well as the deep tissues. The Depuy Corail standard collared stem, size 11, was then manually inserted into the proximal femur making sure to control rotation. It was then malleted into position with light blows, giving breaks to allow bone expansion and decrease risk of fracture. The selected Depuy Altrx Ceramic Head, size 36+8.5mm, was then placed onto the clean and dry trunnion and secured with impaction onto the tapered fit. The leg was brought back out of extension and adduction and reduced with traction and internal rotation. Stability was confirmed with no shuck at 90 degrees of external rotation and 30 degrees of extension. No impingement through range of motion arc, however, the anterior tissues felt quite tight. Fluoroscopy was performed and the leg looked long. A repeat pelvis AP was performed with an alignment mindi. This demonstrated that the right leg was lengthened by at least 6-7mm with a little increase in offset. I thus removed the +8.5mm femoral head and then trialed a +1.5mm. This had much better recreation of leg lengths and still maintained stability at 30 degrees of extension and 90 degrees of external rotation. Final x-ray images were obtained with fluoroscopy to confirm adequate positioning and no intraoperative fracture. The deep tissues were thoroughly irrigated with a pulse lavage. The second dose of TXA 1g was administered intravenously.The capsule was then reapproximated with the previously placed Ethibond sutures. The TFL fascia was finally closed with a No. 2 Stratafix, barbed suture. Deep tissues were then reapproximated with 0 Vicryl and a running 2-0 Vicryl. The skin was closed with a running 4-0 Monocryl in a subcuticular fashion. This was reinforced with skin glue. A Mepilex silver dressing was applied. At the end of the case, all counts were correct. Licha was transferred to the hospital bed without difficulty and suffering no apparent complication. She has a good prognosis. Physical therapy will start today and without restrictions, weight-bearing as tolerated. Aspirin 81mg BID will be used for DVT prophylaxis.
[2019-07-15] MEDS: Lactated Ringers 1,000 ML 1000 ML IV (14:50)
--- NOTE | 2019-07-15 16:46 | IN_ITS ---
Date of service: 07/15/19 Time of Service: 13:37 PT Notes Visit Reasons: (R) HIP FEMORAL HEAD FX Physical Therapy Inpatient Initial Evaluation Date: 07/15/2019 Referring Doctor: Baldo Fraire MD PT Orders: PT CONSULT: Status post Ortho surgery. Status post anterior right OZIEL. Precautions: Fall. Standard. WBAT on right LE. Patient Profile/Admitting Diagnosis: Patient is a 74-year-old female with right femoral neck malunion. He status post removal of hardware and status post right anterior total hip arthroplasty. PMHX: Medical History (Updated 07/06/19 @ 12:41 by Nadia Connelly) Abnormal chest xray Anxiety Diverticulosis Family history of colon cancer GERD (gastroesophageal reflux disease) Insomnia Obstructive sleep apnea Does not use CPAP; returned to company since she did not have change in symptoms Osteopenia Surgical History (Updated 07/06/19 @ 13:12 by Nadia Connelly) Cholecystectomy Colonoscopy - MAC (10/12/17) Subcapital fracture of right femur (Resolved) S/P closed reduction and cannulated screws Dr. Goldman DOS: 09/19/2018 Social History/Home Situation: Patient lives with in a 1 floor house with 3 steps to enter with bilateral rails. She states that she has 12 steps to the basement where they do their laundry but stresses that her will help out with laundry while she is recovering. She is independent with all aspects of ADLs prior to surgery. She still drives. She still works full-time at the [employer] in [place], [place]. Equipment Owned/DME: [] Subjective: Patient reports pain on the right hip. She is agreeable to a PT consult and treatment. She denies headache, chest pain, and dizziness throughout PT session. Objective: General Observation: Patient is seen resting in bed. Sister is present in room throughout PT consult. Mepilex Ag on right hip over surgical incision. Cold pack on right hip. Bilateral TEDS on. Mental Status: Alert and oriented x4 Pain: 4-5/10 on the right hip with movement and weightbearing ROM: Right Upper Extremity: Shoulder Flexion WFL. Shoulder abduction WFL. Elbow flexion WFL. Wrist flexion WFL. Opening and closing of hand WFL. Left Upper Extremity: Shoulder Flexion WFL. Shoulder abduction WFL. Elbow flex ion WFL. Wrist flexion WFL. Opening and closing of hand WFL. Right Lower Extremity: Hip flexion WFL. Hip abduction WFL. Knee flexion WFL. Ankle dorsiflexion WFL. Ankle plantarflexion WFL. Left Lower Extremity: Hip flexion WFL. Hip abduction WFL. Knee flexion WFL. Ankle dorsiflexion WFL. Ankle plantarflexion WFL. Strength: Right Upper Extremity: Shoulder flexors 5/5. Shoulder abductors 5/5. Elbow flexors 5/5. Elbow extensors 5/5. Defensive Secondary Coach strong. Left Upper Extremity: Shoulder flexors 5/5. Shoulder abductors 5/5. Elbow flexors 5/5. Elbow extensors 5/5. Defensive Secondary Coach strong. Right Lower Extremity: Hip flexors 4-/5. Hip abductors 4-/5. Knee flexors 4-/5. Knee extensors /5. Ankle dorsiflexors 5/5. Ankle plantarflexors 5/5. Left Lower Extremity:Hip flexors 5/5. Hip abductors 5/5. Knee flexors 5/5. Knee extensors 5/5. Ankle dorsiflexors 5/5. Ankle plantarflexors 5/5. Sensation: Intact as to pain and pressure on bilateral lower extremities. Bed Mobility/Transfers: Rolling SBA Supine to sit SBA Sit to supine SBA Sit to stand SBA Stand to sit SBA Bed to chair SBA Chair to bed SBA Gait: Patient tolerated 60 feet of level surface ambulation using front wheeled walker with with WBAT on right LE requiring only contact guard assist with step to gait pattern with complaint of pain on right hip that she verbalized as being more than 5/10 but then subsided to below 5/10 later in the walk. Decreased gait velocity. Decreased step height and length on right. Balance: Static Sitting: Normal Dynamic Sitting: Normal Static Standing: Fair Dynamic Standing: Fair Special Tests: Mobility Limitations Standardized Measure [facility]-PAC 6 clicks Basic Mobility Inpatient Short Form: Raw Score: 18 CMS Score: 47% deficit Informed Consent/Education: Patient instructed in purpose of PT consult and plan of care. Assessment: Patient is a 74-year-old female with right femoral neck malunion. He status post removal of hardware and status post right anterior total hip arthroplasty. Patient is motivated motivated to return to prior level of function and to return to vocational activities when medically cleared. She has a supportive . Her prognosis for regaining her previous functional mobility level is good. Patient presents with clinical signs and symptoms consistent with current/admitting diagnoses that have resulted to mobility limitations, gait instability, generalized weakness, and impairment of motor control as demonstrated by the following impairment level findings: 1. Decreased strength to right hip major muscle groups 2. Impaired standing balance 3. Impaired activity tolerance Impairments are contributing to the following functional limitations: 1. Dependent bed mobility skills 2. Increased dependence with transfers 3. Inability to safely ambulate without assistive device and physical assistance 4. Increase completion time for mobility ADL performance 5. Increased fall risk 6. Inability to negotiate steps alone safely Patient is assessed as a 15729 moderate complexity based on the following: History: Patient is a 74-year-old female with right femoral neck malunion. He status post removal of hardware and status post right anterior total hip arthroplasty. Examination: Demonstrable impairment in strength, balance, and range of motion with underlying impairments and functional limitations as documented above Presentation:Evolving Decision Makin moderate Goals: Goals X1 week 1. Supine-Sit independent 2. Sit-Supine independent 3. Sit-Stand independent 4. Stand-Sit independent 5. Bed-Chair independent 6. Chair-Bed independent 7. Independent gait on level surface with use of least restrictive device for at least 300 feet without report of pain nor dyspnea 8. Independent stair negotiation while holding onto bilateral rails for at least 10 steps without report of pain nor dyspnea 9. Independent with home exercise program 10. Good static and dynamic standing balance/tolerance Plan of Care/Treatment Plan: 1-2x/day, 7 days/week x 1 week. Plan of care has been reviewed with the [employer]NER providing the service under Physical Therapy direction. Initiate Physical Therapy intervention for strengthening, bed mobility, transfers, gait, stairs, balance training, use of assistive device. DISCHARGE RECOMMENDATIONS: May benefit from skilled physical therapy services according to orthopedic surgeon's timeline recommendations. Patient will be educated and trained on home exercise program per OZIEL exercise protocol in preparation for outpatient physical therapy services. Patient has a front wheeled walker. TREATMENT CODE/TIME: 9716 2 x 28 minutes beginning at 13:37 PM. Thank you very much for this referral. Cinda Pratt PT, DPT, CLT [facility] [place], [place]
[2019-07-15] MEDS: Celecoxib 200 MG CAP PO (19:38)
[2019-07-15] MEDS: HYDROmorphone 2 MG/ML VIAL 0.5 MG IVP ×2 (19:39→22:30)
[2019-07-15] MEDS: Normal Saline Flush 10 ML SYR IV ×2 (19:39→22:31)
[2019-07-15] MEDS: Aspirin E.C. 81 MG TABEC PO (19:40)
[2019-07-16] MEDS: HYDROmorphone 2 MG/ML VIAL 0.5 MG IVP ×2 (00:32→03:03)
[2019-07-16] MEDS: Normal Saline Flush 10 ML SYR IV ×2 (00:33→03:03)
[2019-07-16] MEDS: ceFAZolin 1 GM/50 ML BAG IVPB (04:03)
[2019-07-16 05:05] VITALS: BP 123/74; PULSE 81; RESP 17; TEMP 37.1; O2SAT 98
--- NOTE | 2019-07-16 07:11 | W.PM.DS.N ---
DS: Diagnosis Discharge Diagnosis (1) Subcapital fracture of right femur: Status: Resolved Discharge Plan Disposition Patient Disposition: HOME Condition: Good Discharge Details Reason For Visit: (R) HIP FEMORAL HEAD FX Admit Date/Time: 07/15/19 05:59 Admit Provider: Baldo Fraire Attending Provider: Baldo Fraire Primary Care Provider: Jana Wayne [facility] Hospital Course: Patient was admitted to the medical/surgical floor following the procedure. It was tolerated well without any notable medical, surgical, or anesthetic complications. Mobilization began postoperatively. The gilbert catheter was removed and voiding spontaneously. Vitals were stable. Physical therapy worked with the patient and was cleared for discharge home. No acute medical issues. Home Meds and New Rx's Prescriptions: New celecoxib 200 mg capsule 200 mg PO BID PRN (Reason: pain) Qty: 60 RF: 1 aspirin 81 mg tablet,delayed release (DR/EC) 81 mg PO BID Qty: 60 RF: 0 acetaminophen 500 mg tablet 1,000 mg PO Q8H PRN (Reason: pain) Qty: 90 RF: 3 oxycodone 5 mg tablet 5 mg PO Q4H Qty: 12 RF: 0 Continued calcium carb and citrate-vitD3 1 EACH tablet extended release 1 ea PO DAILY RF: 0 ranitidine HCl [Zantac] 150 MG tablet 1 tab PO DAILY RF: 0 Discontinued ibuprofen 200 MG tablet 400 mg PO PRN PRNRF: 0 Discharge Instructions Additional Instructions: Dr. Fraire?s Total Hip Discharge Instructions Activity: The most important activity is to walk. You should try to take short walks a few times a day. You have no restrictions on movement or positioning, but do not try to force what you do. You will find some stiffness and weakness with hip flexion (lifting your knee). Do not try to strengthen this too early, continue to practice walking and stairs and this will come. - Home health physical therapy can be helpful to help return you to a normal gait and improve your flexibility and strength. - You should wear the NEELIMA hose on both legs for 2 weeks. Dressing: Keep the surgical dressing in place for at least one week. After the first week it may be removed and replace with light gauze and tape or nothing. It may get wet after 3 days but avoid soaking the dressing. If it gets wet, just lightly pat dry. It is important to always keep some gauze between skin folds, especially when you are sitting. Spend some time with the wound exposed when you are lying flat as the incision does wrinkle onto itself. Medications: - You should take Tylenol and an anti-inflammatory Celebrex as your primary pain control medications - You have been prescribed a stronger pain medication Oxycodone for breakthrough pain, take as needed as prescribed. - You should continue your Ranitidine to help reduce stomach acid and reflux. - You will be taking Aspirin 81mg twice a day for DVT prevention unless instructed otherwise. - If you have constipation you should take Colace or Miralax (both raxw-boi-wvyalaw). It takes most people 3-4 days to have a bowel movement. Follow-up: 2 weeks 1. Encounter Date and Reason I certify that LICHA HELTON was seen by Baldo Fraire MD on 07/16/19 and that I had a [id number] encounter with this patient that meets the physician face to face encounter requirements. 2. Clinical Findings Supporting Skilled Need and Homebound Status I certify that home health services are medically necessary, include either intermittent halfway and/or physical/speech therapy, and that this patient is homebound in that absences from the home require considerable and taxing effort and are infrequent or of short duration, or are attributable to the need to receive medical care. [X] (a) Attached documentation from encounter provides clinical findings supporting skilled need and homebound status (including what assistance patient requires to leave the home). 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 SHe had an anterior approach and has no specific restrictions. Speech Therapy: Homebound: Licha is homebound and is unable to leave her home unassisted. 3. Certification and Authentication I certify that I composed the above information based on my clinical judgement relating to this patient's medical condition and, if applicable, clinical findings communicated to me by the NPP or inpatient physician who performed the Home Health Referral. All further orders will be obtained through Dr. Fraire Referrals: Baldo Fraire MD [ [facility] STAFF PHYSICIAN] - Activity:: Activity as Tolerated Equipment/Supplies:: Walker Diet:: As Tolerated Discharge Orders Discharge Orders: Discharge Order (Routine); Ordered 07/16/19 Ordered By: Baldo Fraire DS: Summary Status at Discharge Functional status at discharge: uses cane/walker Overall status at discharge: patient is progressing back to baseline Mental Status: mental status grossly normal Speech and Movement: speech and movement normal Mood: congruent mood Affect: normal affect Exam Psych Mental Status: mental status grossly normal Speech and Movement: speech and movement normal Mood: congruent mood Affect: normal affect DS: Data Vitals/I&O Vitals and I&O: Vital Signs Temperature 37.1 C 07/16/19 05:05 Temperature Source Tympanic 07/16/19 05:05 Pulse 81 07/16/19 05:05 Pulse Rhythm Regular 07/16/19 03:57 Respiratory Rate 17 07/16/19 05:05 Respiratory Effort Non-Labored 07/16/19 03:57 Respiratory Depth Normal 07/16/19 03:57 Respiratory Pattern Normal 07/16/19 03:57 Blood Pressure 123/74 07/16/19 05:05 Pulse Oximetry 98 07/16/19 05:05 Respiratory End-tidal CO2 30 07/15/19 10:45 Oxygen Delivery Method Room Air 07/16/19 05:05 Oxygen Flow Rate 0 07/16/19 05:05 Pain Level 0 07/16/19 05:05 Comment 07/15/19 11:45 Intake & Output 07/15/19 07/15/19 07/16/19 11:59 23:59 11:59 Intake Total 970 / 1753.333 783.333 / 3319.821 7456 / 1350 Output Total 600 / 800 200 / 800 1000 / 1000 Balance 370 / 953.333 583.333 / 953.333 350 / 350 Weight 68.1 kg Intake: IV 970 / 1153.333 183.333 / 7728.185 9681 / 1050 Oral 600 / 600 300 / 300 Output: Urine 100 / 300 200 / 300 1000 / 1000 Estimated Blood Loss 500 / 500 Other: Urine Color Pale Yellow Yellow Yellow Urine Appearance Clear Clear Clear Emesis Description None Data Completed and Pending Labs on day of discharge: Labs from last 24 hours 07/15/19 07:15 Patient ABO/Rh O Positive Antibody Screen Negative [facility] Medical History Abnormal chest xray Anxiety Diverticulosis Family history of colon cancer GERD (gastroesophageal reflux disease) Insomnia Obstructive sleep apnea Does not use CPAP; returned to company since she did not have change in symptoms Osteopenia Surgical History Cholecystectomy Colonoscopy - MAC (10/12/17) Subcapital fracture of right femur (Resolved) S/P closed reduction and cannulated screws Dr. Goldman DOS: 09/19/2018 Social History Smoking/Tobacco Use Status: Never Alcohol Intake: never Drug use: Never Current gender identity: female Do you feel safe at home: Yes Do you feel safe in your relationship?: Yes
[2019-07-16] MEDS: Aspirin E.C. 81 MG TABEC PO (08:48)
[2019-07-16] MEDS: Celecoxib 200 MG CAP PO (08:48)
[2019-07-16 09:24] VITALS: BP 132/73; PULSE 72; RESP 18; TEMP 37.4; O2SAT 97
--- NOTE | 2019-07-16 11:24 | PT.INTREAT ---
Date of service: 07/16/19 Time of Service: 11:25 PT Notes Visit Reasons: (R) HIP FEMORAL HEAD FX Inpatient Physical Therapy Treatment Note [facility] Date: 07/16/2019 PRECAUTIONS: Fall, WBAT R SUBJECTIVE: Pat states that she is happy to be going home today. She is agreeable to participating in PT this morning. OBJECTIVE: PAIN: Minimal complaints of pain in right knee with ther ex and gait training BED MOBILITY/TRANSFERS Supine-sit: I with HOB flat Sit-supine: I with HOB flat Sit-stand: I Stand-sit: I GAIT Assistive Device: FWW Weight bearing: WBAT R Assist: S Distance: 50' + 100' Deviation: Step through gait pattern utilized following instruction continuous advancement of FWW THEREX: Patient completed a lower extremity strengthening and stabilization program, in a supine position, as per flow sheet. STAIRS: Up/down 3?4 and 2?6 using B rails and a step to pattern with supervision ASSESSMENT: Patient tolerated session well with minimal c/o right knee pain with gait training and ther ex. She was able to tolerate a progression in gait distance with FWW support and supervision utilizing step through gait pattern. PLAN: As per primary PT TREATMENT CODE/TIME: 25 minutes; 91429, [id number]
== END 2019-07-16 10:52 | disposition home or self-care (01) | DRG 470 ==
LOC: PDS 06:05 → MS 10:50
PROVIDERS: Admitting Provider Student in an Organized Health Care Education/Training Program; PCP Family Medicine; Visit Provider Student in an Organized Health Care Education/Training Program
PROC: 0SR904A Replacement of Right Hip Joint with Ceramic on Polyethylene Synthetic Substitute, Uncemented, Open Approach (ICD-10-PCS; CPT 27130; principal; 2019-07-15 07:30)
PROC: 0SR904A Replacement of Right Hip Joint with Ceramic on Polyethylene Synthetic Substitute, Uncemented, Open Approach (ICD-10-PCS; CPT 27130; 2019-07-15 07:30)
DX: S72.001P Fracture of unspecified part of neck of right femur, subsequent encounter for closed fracture with malunion (principal); W19.XXXD Unspecified fall, subsequent encounter; K21.9 Gastro-esophageal reflux disease without esophagitis; F41.9 Anxiety disorder, unspecified; G47.33 Obstructive sleep apnea (adult) (pediatric)
CPT/HCPCS: 27130; 20680; 86850; 86900; 86901; 97110; 97162; 97530; NC; 73501; J0690; J1885; J2250; J2405; J3010

== ENCOUNTER 2019-07-28 12:03 | Outpatient (CLI) | payer OTHER, SELFPAY ==
--- NOTE | 2019-07-28 12:14 | DI.RAD_ITS ---
EXAM: XR HIP RT COMPLETE AP PELVIS CLINICAL HISTORY: R OZIEL TECHNIQUE: COMPARISON: XR HIP RT 1V from 07/06/2019 FINDINGS: Two views were obtained and show a right total hip joint replacement in position. The components kaiser ear well seated. There are mild degenerative changes of the left hip. IMPRESSION:
== END 2019-07-28 12:23 ==
PROVIDERS: PCP Family Medicine; Referring Provider Family Medicine; Visit Provider Student in an Organized Health Care Education/Training Program
DX: Z96.641 Presence of right artificial hip joint (principal); Z47.1 Aftercare following joint replacement surgery; M16.12 Unilateral primary osteoarthritis, left hip
CPT/HCPCS: 73502

== ENCOUNTER → 2019-08-25 11:41 | Outpatient (BNVA) | payer OTHER, SELFPAY | PROVIDERS: PCP Family Medicine; Referring Provider Family Medicine; Visit Provider Student in an Organized Health Care Education/Training Program | DX: Z47.1 Aftercare following joint replacement surgery; Z96.641 Presence of right artificial hip joint ==

== ENCOUNTER → 2019-09-26 12:38 | Outpatient (BNVA) | payer OTHER, SELFPAY | PROVIDERS: PCP Family Medicine; Referring Provider Family Medicine; Visit Provider Student in an Organized Health Care Education/Training Program | DX: Z47.1 Aftercare following joint replacement surgery; Z96.641 Presence of right artificial hip joint ==

== ENCOUNTER 2019-11-24 11:43 | Outpatient (REF) | payer OTHER, SELFPAY ==
[2019-11-24 13:11] LABS: Anion Gap 9.1 mmol/L (3-11); BUN 19 mg/dL (7-18); CO2 27.9 mmol/L (21.0-32.0); CREATININE 1.06 mg/dL (0.55-1.02); Calcium 9.1 mg/dL (8.5-10.1); Chloride 105 mmol/L (98-107); Glucose 85 mg/dL (74-106); Potassium 4.6 mmol/L (3.5-5.1); Sodium 142 mmol/L (136-145)
[2019-11-24 13:15] LABS: HCT 43.7 % (36.0-46.0); HGB 14.8 g/dL (12.0-15.5); Mean Corp. HGB Concentration 33.9 g/dL (32.0-36.0); Mean Corpuscular Hemoglobin 31.9 pg (27.0-33.0); Mean Corpuscular Volume 94.2 fL (80-95); Mean Platelet Volume 10.2 fL (8.0-11.0); Platelet Count 297 x1000/uL (130-400); RBC 4.64 m/cumm (4.00-5.20); RBC Distribution Width 12.9 % (11.7-14.6); White Blood Cell Count 7.03 k/cumm (4.4-10.8)
[2019-11-24 13:49] LABS: TSH (W/Ref FT4) 1.85 uIU/mL (0.36-3.74)
[2019-11-25 14:19] LABS: Ferritin 538 ng/mL (8-252)
== END 2019-11-24 12:03 ==
LOC: NCHCN 11:43
PROVIDERS: PCP Family Medicine; Visit Provider Family Medicine
DX: F41.9 Anxiety disorder, unspecified (principal); F51.04 Psychophysiologic insomnia; R03.0 Elevated blood-pressure reading, without diagnosis of hypertension
CPT/HCPCS: 80048; 85027; 82728; 84443

== ENCOUNTER → 2020-01-09 09:46 | Outpatient (BNVA) | payer OTHER, SELFPAY | PROVIDERS: PCP Family Medicine; Referring Provider Family Medicine; Visit Provider Student in an Organized Health Care Education/Training Program | DX: M25.561 Pain in right knee (principal) | CPT/HCPCS: 99213 ==

== ENCOUNTER 2020-01-20 10:32 | Outpatient (REF) | payer OTHER, SELFPAY ==
[2020-01-20 17:01] LABS: Anion Gap 10.3 mmol/L (3-11); BUN 19 mg/dL (7-18); CO2 28.7 mmol/L (21.0-32.0); CREATININE 1.11 mg/dL (0.55-1.02); Chloride 100 mmol/L (98-107); Estimated GFR 47.79 (mL/min/1.73m2); Glucose 105 mg/dL (74-106); Potassium 3.3 mmol/L (3.5-5.1); Sodium 139 mmol/L (136-145)
== END 2020-01-20 10:52 ==
LOC: NCHCN 10:32
PROVIDERS: PCP Family Medicine; Visit Provider Family Medicine
DX: I10 Essential (primary) hypertension (principal)
CPT/HCPCS: 80048

== ENCOUNTER 2020-02-09 09:54 | Outpatient (REF) | payer OTHER, SELFPAY ==
[2020-02-09 15:04] LABS: Anion Gap 11.3 mmol/L (3-11); BUN 36 mg/dL (7-18); CO2 24.7 mmol/L (21.0-32.0); CREATININE 1.37 mg/dL (0.55-1.02); Calcium 8.8 mg/dL (8.5-10.1); Chloride 104 mmol/L (98-107); Estimated GFR 37.49 (mL/min/1.73m2); Glucose 75 mg/dL (74-106); Potassium 3.7 mmol/L (3.5-5.1); Sodium 140 mmol/L (136-145)
== END 2020-02-09 10:14 ==
LOC: NCHCN 09:54
PROVIDERS: PCP Family Medicine; Visit Provider Family Medicine
DX: I10 Essential (primary) hypertension (principal)
CPT/HCPCS: 80048

== ENCOUNTER 2020-02-20 00:47 | Outpatient (CLI) | payer OTHER, SELFPAY ==
--- NOTE | 2020-02-20 | DI.US_ITS ---
EXAM: US RENAL CLINICAL HISTORY: LEG EDEMA SHELLY, R60.0, HTN BENIGN ESSENTIAL, I10. TECHNIQUE: Ford scale, color and spectral Doppler were used. CT ABD PELVIS WITH CONTRAST from 02/01/2018 FINDINGS: Renal size in cm: Right: 8.9 left: 8.9 Echogenicity: Normal. Hydronephrosis: No. Cyst or mass: Bilateral parapelvic cysts are noted. These are present on the CT scan from 02/01/2018. Nephrolithiasis: No. Other findings: Symmetric color flow is seen to both kidneys. Bladder:Normal. Ureteral jets: Right: Visualized and unremarkable. Left: Visualized and unremarkable. Prevoid vol:85 cc Postvoid vol:0 cc IMPRESSION: Bilateral parapelvic cysts. DATA REPOSITORY:
== END 2020-02-20 01:07 ==
PROVIDERS: PCP Family Medicine; Visit Provider Family Medicine
DX: R60.0 Localized edema (principal); I10 Essential (primary) hypertension
CPT/HCPCS: 76770

== ENCOUNTER 2020-02-28 13:15 | Outpatient (REF) | payer OTHER, SELFPAY ==
[2020-02-28 14:39] LABS: ALT 19 U/L (14-59); AST 20 U/L (15-37); Albumin 3.8 g/dL (3.4-5.0); Alkaline Phosphatase 92 U/L (46-116); Anion Gap 10.6 mmol/L (3-11); BUN 29 mg/dL (7-18); Bilirubin, Total 0.4 mg/dL (0.2-1.0); CO2 23.4 mmol/L (21.0-32.0); CREATININE 1.07 mg/dL (0.55-1.02); Chloride 107 mmol/L (98-107); Estimated GFR 49.86 (mL/min/1.73m2); Glucose 84 mg/dL (74-106); Potassium 4.3 mmol/L (3.5-5.1); Sodium 141 mmol/L (136-145); Total Protein 6.6 g/dL (6.4-8.2)
== END 2020-02-28 13:35 ==
LOC: NCHCN 13:15
PROVIDERS: PCP Family Medicine; Visit Provider Family Medicine
DX: N18.3 Chronic kidney disease, stage 3 (moderate) (principal); R60.0 Localized edema
CPT/HCPCS: 80053

== ENCOUNTER 2020-07-16 11:53 | Outpatient (CLI) | payer OTHER, SELFPAY ==
--- NOTE | 2020-07-16 10:15 | DI.RAD_ITS ---
EXAM: XR HIP RT AP LAT ONLY CLINICAL HISTORY: R OZIEL. TECHNIQUE: 2D digital imaging was performed. COMPARISON: CR XR HIP RT COMPLETE AP PELVIS from 07/28/2019 FINDINGS: Components of the prosthesis remain in satisfactory position alignment. No fracture or loosening. N o radiographic evidence of osteomyelitis. IMPRESSION: DATA REPOSITORY: RADIATION DOSE DELIVERED:
== END 2020-07-16 12:13 ==
PROVIDERS: PCP Family Medicine; Referring Provider Family Medicine; Visit Provider Student in an Organized Health Care Education/Training Program
DX: Z47.1 Aftercare following joint replacement surgery (principal); Z96.641 Presence of right artificial hip joint
CPT/HCPCS: 99213; 73502

== ENCOUNTER 2020-08-24 19:34 | Outpatient (REF) | payer OTHER, SELFPAY ==
[2020-08-24 18:59] LABS: Anion Gap 9.5 mmol/L (3-11); BUN 21 mg/dL (7-18); CO2 25.5 mmol/L (21.0-32.0); CREATININE 1.09 mg/dL (0.55-1.02); Calcium 8.4 mg/dL (8.5-10.1); Chloride 106 mmol/L (98-107); Estimated GFR 48.67 (mL/min/1.73m2); Folate 7.3 ng/mL (8.6-20.0); Glucose 91 mg/dL (74-106); Potassium 4.1 mmol/L (3.5-5.1); Sodium 141 mmol/L (136-145); Vitamin B12 515 pg/mL (193-986)
== END 2020-08-24 19:54 ==
LOC: NCHCN 19:34
PROVIDERS: PCP Family Medicine; Visit Provider Family Medicine
DX: I10 Essential (primary) hypertension (principal); R20.2 Paresthesia of skin
CPT/HCPCS: 80048; 82607; 82746

== ENCOUNTER 2021-02-13 20:39 | Outpatient (REF) | payer OTHER, SELFPAY ==
[2021-02-13 20:03] LABS: Anion Gap 11.5 mmol/L (3-11); BUN 15 mg/dL (7-18); CO2 26.5 mmol/L (21.0-32.0); CREATININE 1.2 mg/dL (0.55-1.02); Calcium 9.1 mg/dL (8.5-10.1); Chloride 105 mmol/L (98-107); Estimated GFR 43.56 (mL/min/1.73m2); Glucose 94 mg/dL (74-106); Magnesium 1.8 mg/dL (1.8-2.4); Potassium 4.6 mmol/L (3.5-5.1); Sodium 143 mmol/L (136-145)
[2021-02-13 20:18] LABS: Folate > 20.0 ng/mL (8.6-20.0)
[2021-02-15 13:57] LABS: Albumin 63.7 % (55.8-66.1); Total Protein 7.2 g/dL (6.3-8.2)
== END 2021-02-13 20:40 | disposition home or self-care (01) ==
LOC: NCHCN 20:39
PROVIDERS: PCP Family Medicine; Visit Provider Family Medicine
DX: R20.2 Paresthesia of skin (principal); R25.2 Cramp and spasm
CPT/HCPCS: 80048; 82746; 83735; 84165

== ENCOUNTER 2021-02-14 02:16 | Outpatient (CLI) | payer OTHER, SELFPAY ==
--- NOTE | 2021-02-14 | DI.US_ITS ---
Exam(s) US LOWER EXTREMITY VENOUS RT EXAM: US LOWER EXTREMITY VENOUS RT CLINICAL HISTORY: RT CALF PAIN, M79.661. TECHNIQUE: Lower extremity venous ultrasound performed using grayscale, color-flow, and spectral Do ppler analysis. COMPARISON: CR XR KNEE RT 3V AP,LAT,KATELYN from 04/29/2019 CR XR KNEE RT 3V AP,LAT,KATELYN from 04/29/2019 FINDINGS: The common femoral, femoral and popliteal veins demonstrate normal compressibility, augmentation, and color Doppler. The posterior tibial veins are patent. No saphenous vein thrombosis or other superfi cial venous thrombosis is seen. 4.9 centimeter Mata's cyst.. Calcifications are noted at the infer ior aspect of the Mata's cyst. Calcifications were present on prior plain film. No abnormalities s een in the region of the ankle. IMPRESSION: Mata's cyst containing calcifications... No evidence of DVT. DATA REPOSITORY:
== END 2021-02-14 02:36 ==
PROVIDERS: PCP Family Medicine; Visit Provider Family Medicine
DX: M71.21 Synovial cyst of popliteal space [Baker], right knee (principal); M25.861 Other specified joint disorders, right knee; M79.661 Pain in right lower leg
CPT/HCPCS: 93971

== ENCOUNTER 2021-02-28 19:20 | Outpatient (REF) | payer OTHER, SELFPAY ==
[2021-02-28 19:59] LABS: Anion Gap 9.4 mmol/L (3-11); BUN 18 mg/dL (7-18); CO2 24.6 mmol/L (21.0-32.0); CREATININE 1.1 mg/dL (0.55-1.02); Calcium 8.9 mg/dL (8.5-10.1); Chloride 108 mmol/L (98-107); Estimated GFR 48.16 (mL/min/1.73m2); Glucose 91 mg/dL (74-106); Potassium 4.1 mmol/L (3.5-5.1); Sodium 142 mmol/L (136-145)
== END 2021-02-28 19:21 | disposition home or self-care (01) ==
LOC: NCHCN 19:20
PROVIDERS: PCP Family Medicine; Visit Provider Family Medicine
DX: I10 Essential (primary) hypertension (principal)
CPT/HCPCS: 80048

== ENCOUNTER 2021-04-10 02:02 | Outpatient (CLI) | payer OTHER, SELFPAY ==
--- NOTE | 2021-04-10 | DI.MAMMO_ITS ---
Exam(s) MAMMO SCREENING EXAM: MAMMO SCREENING CLINICAL HISTORY: SCREENING, Z12.39 TECHNIQUE: Bilateral full field digital CC and MLO mammographic images were obtained with 3D tomosyn thesis and utilizing computer aided detection (CAD). COMPARISON: Available for comparison. FINDINGS: Masses/Architectural Distortion: None seen. Microcalcifications: No suspicious pleomorphic-type are seen. Skin Thickening/Nipple Retraction: None. IMPRESSION: 1. No significant interval change with no specific features of malignancy noted. 2. Unless there is more urgent need, screening mammography is recommended, as per [employer] guidelines. BI-RADS Category 1 - Negative Breast Density - Category B - Scattered areas of fibroglandular density Breast density category C or D implies that the patient has dense breast tissue. Dense breast tissue is very common and is not abnormal but dense breast tissue can make it harder to find cancer on a ma mmogram. Also, dense breast tissue may increase their breast cancer risk. This information about the result of the mammogram report was provided to the patient to raise their awareness. Use this report when you speak with the patient about their risks for breast cancer, which includes their family hist ory. At that time, you may recommend for more screening tests (Ultrasound or MRI) as they might be us eful based on their risk. A negative radiographic report should not delay biopsy if a dominant or clinically suspicious mass is present. Up to ten percent of cancers are not identified on mammography. A negative report may reinforce clinical impression. Adenosis and dense breasts may obscure an underlying neoplasm. False positive reports average 6 to 10%. Patient will receive a letter notifying them of these results.
== END 2021-04-10 02:22 ==
PROVIDERS: PCP Family Medicine; Visit Provider Family Medicine
DX: Z12.31 Encounter for screening mammogram for malignant neoplasm of breast (principal)
CPT/HCPCS: 77063; 77067

== ENCOUNTER → 2021-04-25 08:18 | Outpatient (BNVA) | payer OTHER, SELFPAY | PROVIDERS: PCP Family Medicine; Referring Provider Family Medicine; Visit Provider Student in an Organized Health Care Education/Training Program | DX: M17.11 Unilateral primary osteoarthritis, right knee (principal) | CPT/HCPCS: 20610; 99214; J1040 ==

== ENCOUNTER 2021-04-25 08:52 | Emergency (ER) | payer OTHER, SELFPAY ==
[2021-04-25] VITALS (7 sets, daily range): BP systolic 134–151; BP diastolic 64–84; PULSE 70–85; RESP 18; TEMP 36.7–36.8; O2SAT 97–100
--- NOTE | 2021-04-25 09:00 | DI.CT_ITS ---
Exam(s) CT ABDOMEN PELVIS W EXAM: CT ABDOMEN PELVIS W CLINICAL HISTORY: right lower abdomen pain, diarrhea TECHNIQUE: Imaging Protocol: Axial computed tomography images with coronal and sagittal reformatted images were created and reviewed CONTRAST MATERIAL: Intravenous: Omnipaque 350 Contrast volume:100 mL Oral: No CT ABD PELVIS WITH CONTRAST from 02/01/2018 FINDINGS: The examination is limited due to patient motion artifact. ABDOMEN: Lung Bases: Normal where visualized. Small hiatal hernia. Liver: Normal density. No measurable mass. Portal, Superior Mesenteric, and Splenic Veins: Unremarkable. Gallbladder and Biliary Tract: Status post cholecystectomy. No biliary ductal dilatation. Pancreas: Normal density, no abnormal calcifications or inflammatory process. Spleen: Normal. Adrenals: No masses seen. Kidneys: Normal size, contour and axis. No radiodense stones or obstructive uropathy. Bilateral parap elvic and cortical cysts. No follow-up is recommended. Abdominal Aorta: Abdominal portion non-dilated. Atherosclerosis. Bowel: No obstruction is present. There is mild bowel wall thickening in several loops of small michael l in the right lower quadrant suspicious for an infectious or inflammatory enteritis. There is diver ticulosis seen in the descending and sigmoid colon, but no evidence of acute diverticulitis. No evid ence of appendicitis. Peritoneal Cavity: Small amount of fluid in the pelvis. No free air. Lymph Nodes: Within normal limits. Bones: Within normal limits for the patient's age. The patient has a right total hip replacement whi ch does cause artifact. Soft Tissues: Unremarkable. PELVIS: Bladder: Symmetric distention, no gross wall thickening. Part of the urinary bladder is obscured by a rtifact from the patient's right hip replacement. Reproductive Organs: There is a calcified uterine fibroid. Lymph Nodes: Within normal limits. Bones: Within normal limits for the patient's age. IMPRESSION: 1. Findings suspicious for an enteritis involving the distal small bowel. 2. Results of this exam have been verbally communicated with provider. RADIATION DOSE DELIVERED: 951.89mGy.cm Total DLP DATA REPOSITORY: All CT scans at this facility are submitted to the National Radiology Data Registry (NRDR) Dose Index Registry (DIR) with the [employer] (ACR). RADIATION OPTIMIZATION: All CT scans at this facility use at least one of these dose optimization te chniques: automated exposure control; mA and/or kV adjustment per patient size (includes targeted exa ms where dose is matched to clinical indication); or iterative reconstruction.
--- NOTE | 2021-04-25 09:11 | W.ED.GENAD ---
Discharge Plan Disposition Patient Disposition: HOME Condition: Stable Discharge Details Clinical Impression: Diarrhea, Abdominal pain Primary Care Provider: Jana Wayne ED Provider: Gordo Blackman Home Meds and New Rx's Prescriptions: New ondansetron 4 mg tablet,disintegrating 4 mg PO Q8H PRN (Reason: nausea and vomiting) Qty: 30 RF: 0 Continued amlodipine 5 mg tablet 5 mg PO DAILY RF: 0 calcium carb and citrate-vitD3 1 EACH tablet extended release 1 ea PO DAILY RF: 0 ranitidine HCl [Zantac] 150 MG tablet 1 tab PO DAILY RF: 0 acetaminophen 500 mg tablet 1,000 mg PO Q8H PRN (Reason: pain) Qty: 90 RF: 3 Discharge Instructions Instructions: Acute Diarrhea (ED) Additional Instructions: your blood work did not show any concerning findings. you likely have a virus causing your symptoms if you have symptoms next week follow up with your primary care provider return to the emergency department for severe worsening pain, difficulty breathing or persistent vomit return to the emergency department Medical Decision Making 75 yo female with hx of htn who comes in with 3 days of feeling general weakness is setting of having lack of appetite and diarrhea per patient. Denies fevers, recent travel or antibiotic use. She denies chest pain or dyspnea. She denies bloody or black stools. She has not had any vomit though has nausea per patient. She is in no distress on exam with no distention of the abdomen but is tender on exam in the right lower abdomen. Given the tenderness and her symptoms will obtain ct to evaluate for appendicitis vs colitis. No severe abdomen pain so doubt mesenteric ischemia. Will evaluate for possible electrolyte abnormalities as well. She has no risk factors for c diff but given her age will check for this as well as obtain fecal bacterial pathogen pcr. labs and imaging unremarkable other than enteritis of her distal small bowel which fits with likely viral gastroenteritis. She feels much better after IVF and zofran and is tolerating PO. She is stable for d/c and return precautions given Differential Diagnosis Differential Diagnosis: viral gastroenteritis, colitis, electrolyte abnormality, appendicitis Imaging Data Radiologic Study: Attestation: I personally reviewed and interpreted this imaging study as follows: Imaging: CT Scan Radiologist's impression: IMPRESSION: 1. Findings suspicious for an enteritis involving the distal small bowel. 2. Results of this exam have been verbally communicated with provider. Lab Data Lab results reviewed: Yes I reviewed the patient's lab results. HPI General Mode of arrival: ambulatory. Date/Time Provider Initiated Documentation: 04/25/21 08:53. Limitations to Documentation: no limitations. Information obtained by: patient. History of Present Illness 75 year old F presents to the emergency department with the chief complaint of diarrhea, described as moderate, Patient reports no radiation. Patient started experiencing this day(s) (3) and it has been constant. No relieving factors improve symptom(s), No exacerbating factors reported . Patient notes weakness. Patient did receive the following treatments prior to arrival, none Related Data Home Medications Medication Instructions Recorded Confirmed ranitidine HCl [Zantac] 1 tab PO DAILY 03/11/16 04/25/21 calcium carb and citrate-vitD3 1 ea PO DAILY 08/31/17 04/25/21 acetaminophen 1,000 mg PO Q8H PRN #90 tab 07/16/19 04/25/21 amlodipine 5 mg tablet 5 mg PO DAILY 01/09/20 04/25/21 ondansetron 4 mg PO Q8H PRN #30 tab 04/25/21 Previous Rx's Medication Instructions Recorded acetaminophen 1,000 mg PO Q8H PRN #90 tab 07/16/19 ondansetron 4 mg PO Q8H PRN #30 tab 04/25/21 Allergies Allergy/AdvReac Type Severity Reaction Status Date / Time pramipexole di-HCl Allergy Severe patient Unverified 04/25/21 09:00 [From Mirapex] cannot remember ropinirole HCl [From Requip] Allergy Intermediate patient Unverified 04/25/21 09:00 cannot remember amoxicillin AdvReac Intermediate freezing/hot Unverified 04/25/21 09:00 sensation bee stings AdvReac Intermediate generalized Uncoded 04/25/21 09:00 swelling General Stated Complaint: Nausea/Vomit/Diar CHRISTIAN: 3 Review of Systems All systems reviewed & are unremarkable except as noted in HPI and below Constitutional Constitutional: Denies chills and Denies fever(s) Cardiovascular Cardiovascular: Denies chest pain and Denies dyspnea Respiratory Respiratory: Denies cough and Denies dyspnea Gastrointestinal Gastrointestinal: Denies vomiting Genitourinary Genitourinary: Denies dysuria Musculoskeletal Musculoskeletal: Denies joint swelling Integumentary/Breasts Skin/Breast: Denies rash [facility] Medical History (Updated 04/25/21 @ 10:59 by Gordo Blackman MD) Abnormal chest xray Anxiety Diverticulosis Family history of colon cancer GERD (gastroesophageal reflux disease) Insomnia Obstructive sleep apnea Does not use CPAP; returned to company since she did not have change in symptoms Osteopenia Surgical History Cholecystectomy Colonoscopy - MAC (10/12/17) 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 Goldman DOS: 09/19/2018 Social History Smoking/Tobacco Use Status: Never Smoking risk assessment performed?: Yes Alcohol Intake: current Alcohol Intake frequency: a few times a month Drug use: Never Current gender identity: female Do you feel safe at home: Yes Do you feel safe in your relationship?: Yes Exam Const General: no acute distress Orientation: alert HENMT Head: normal to inspection Ears: external ears normal General nose exam: external nose normal Mouth: moist mucous membranes Eyes General: appearance normal, both eyes and all related structures Neck Neck: normal visual inspection Resp Effort & Inspection: normal respiratory effort and able to speak in complete sentences Cardio Rate: regular rate GI Palpation: soft, not firm and tender Skin General skin exam: no rashes or lesions noted Neuro General: patient alert and patient oriented x3 Extrem General: normal to inspection Psych Mental Status: mental status grossly normal Course Vital Signs Vital signs: Vital Signs Temperature 36.7 C 04/25/21 08:57 Pulse 85 04/25/21 08:57 Respiratory Rate 18 04/25/21 08:57 Blood Pressure 151/84 H 04/25/21 08:57 Pulse Oximetry 97 04/25/21 08:57 Temperature 36.7 C 04/25/21 08:57 Temperature Source Temporal Artery Scan 04/25/21 08:57 Pulse 85 04/25/21 08:57 Respiratory Rate 18 04/25/21 08:57 Respiratory Effort Non-Labored 04/25/21 09:03 Blood Pressure 151/84 H 04/25/21 08:57 Blood Pressure Position Sitting 04/25/21 08:57 Pulse Oximetry 97 04/25/21 08:57 Oxygen Delivery Method Room Air 04/25/21 08:57 Oxygen Flow Rate 0 04/25/21 08:57
[2021-04-25 09:35] LABS: Absolute Basophil Count 0.09 10^3/uL (0.0-0.2); Absolute Eosinophil Count 0.12 10^3/uL (0.0-0.7); Absolute Monocyte Count 1.04 10^3/uL (0.1-0.8); Basophils % 0.6; Eosinophils % 0.8; HGB 13.9 g/dL (11.2-15.7); Immature Grans % 0.7; MCH 31.6 pg (27.0-33.0); MCHC 33.1 % (32.0-36.0); MCV 95.5 fL (80-95); MPV 9.4 fL (8.0-11.0); Monocytes % 7.1; Neutrophils % 75.8; Nucleated RBC 0 %; Platelet Count 366 10^3/uL (130-400); RDW-SD 41.8 fL; WBC 14.69 10^3/uL (4.4-10.8)
[2021-04-25 09:36] LABS: Absolute Neutrophil Count 11.14 10^3/uL (1.2-6.7)
[2021-04-25] MEDS: Normal Saline 1,000 ML 1000 ML IV (09:37)
[2021-04-25] MEDS: Ondansetron 4 MG/2 ML VIAL IVP (09:38)
[2021-04-25 09:51] LABS: ALT 22 U/L (14-59); AST 19 U/L (15-37); Albumin 4.3 g/dL (3.4-5.0); Alkaline Phosphatase 139 U/L (46-116); BUN 23 mg/dL (7-18); Bilirubin, Total 0.7 mg/dL (0.2-1.0); CREATININE 1.3 mg/dL (0.55-1.02); Calcium 9.2 mg/dL (8.5-10.1); Chloride 104 mmol/L (98-107); Estimated GFR 39.72 (mL/min/1.73m2); Glucose 105 mg/dL (74-106); Lipase 120 U/L (73-393); Potassium 4.3 mmol/L (3.5-5.1); Sodium 137 mmol/L (136-145); Total Protein 8.1 g/dL (6.4-8.2)
[2021-04-25 10:00] LABS: Magnesium 2.1 mg/dL (1.8-2.4)
[2021-04-25] MEDS: Omnipaque 350 MG/ML 100 ML BTL IV (10:12)
[2021-04-25 10:34] LABS: C Diff PCR Negative (Negative)
[2021-04-25 10:39] LABS: Bilirubin Negative (Negative); Blood Trace-intact (Negative); Clarity Clear (Clear); Glucose Negative (Negative); Ketones Negative (Negative); Leukocyte Esterase Negative (Negative); Nitrite Negative (Negative); Specific Gravity <= 1.005 (1.005-1.025); Urobilinogen 0.2 EU/dL (Up TO 0.2); pH 5.5 (5-8)
[2021-04-25 10:55] LABS: Bacteria Negative HPF (Negative); C & S Indicated? No; Casts Negative LPF (Negative); Crystals Negative HPF (Negative); Epithelial Cells Rare HPF (Negative); Mucus Negative (Negative); RBC 0-2 HPF (0-2); WBC Negative HPF (0-5)
[2021-04-26 11:36] LABS: Campylobacter PCR Negative (Negative); Salmonella PCR Negative (Negative); Shiga Toxin PCR Negative (Negative); Shigella/Enteroinvasive Ecoli Negative (Negative)
== END 2021-04-25 11:18 | disposition home or self-care (01) ==
PROVIDERS: Emergency Provider Emergency Medicine; PCP Family Medicine
DX: R19.7 Diarrhea, unspecified (principal); R10.31 Right lower quadrant pain; R53.1 Weakness
CPT/HCPCS: 36415; 80053; 83690; 87493; 87505; 96361; 96374; 99285; 74177; 81003; 81015; 83735; 85025; J2405; J3490

== ENCOUNTER 2021-07-25 01:55 | Outpatient (CLI) | payer OTHER, SELFPAY ==
--- NOTE | 2021-07-25 09:15 | DI.MRI_ITS ---
Exam(s) MR IAC BRAIN WO/W EXAM: MR IAC BRAIN WO/W CLINICAL HISTORY: PULSATILE TINNITUS OF BOTH EARS, H93.A3; BALANCE PROBLEM, R26.89 TECHNIQUE: Multiplanar multisequence MRI of the brain was performed. Both noninfused and contrast i nfused sequences were performed. IV Contrast injected was 15 cc Dotarem. COMPARISON: No exams were available for comparison FINDINGS: CEREBRAL PARENCHYMA: No evidence of intracranial hemorrhage, mass effect nor shift of midline structu re. No extraaxial fluid collections. Ventricles are not enlarged nor shifted. There is no significant focal signal abnormality in the cerebellar hemispheres nor within the shar, m idbrain, and thalami. There are multiple small sub cm foci of white matter signal abnormality evident on FLAIR imaging, the se being nonspecific and not associated with hemorrhage or surrounding edema nor enhancement followin g contrast injection. DWI: No evidence of restricted diffusion to suggest acute/recent ischemic event. SWI: No evidence of microhemorrhages There are no ring enhancing lesions in the brain. There is no abnormal meningeal enhancement. IACS: There is no evidence of mass in the cerebellopontine angles and no evidence of intra canalicula r acoustic neuroma-schwannoma. The sub millimeter slice Fiesta sequence reveals normal appearing 7th and 8th cranial nerves within t he internal auditory canals. In the right internal auditory canal there is is a vascular loop surrou nding the 7th and 8th nerves which appears to be a branch of the right anterior inferior cerebellar a rtery. Similar vascular loop not seen on the opposite-left side at same location. The right 5th cranial nerve (trigeminal nerve) appears unremarkable. The left trigeminal nerve appea rs somewhat thin as it heads towards Meckel's cave. Just medial to with is the distal aspect of the left superior cerebellar artery. There are posterior communicating arteries noted on both sides of the woefgu-xt-[place]. These vessel s at flow to the posterior cerebral arteries which are both seen to originate at the distal tip of th e basilar artery. There is no aneurysm at this level. Mild PITUITARY GLAND: No mass nor parasellar abnormality. No obvious abnormality in the cavernous sinuses. FLOW VOIDS: The expected flow void are noted. No evidence of obvious aneurysm nor obvious vascular ma lformation. PARANASAL SINUSES: The visualized paranasal sinuses appear unremarkable. ORBITS: No obvious abnormal findings. IMPRESSION: 1. There are multiple small (average size 3 millimeters) nonspecific foci of signal abnormality in th e Bella in supra ventricular white matter, not associated with hemorrhage, surrounding edema, enhancem ent following contrast injection nor abnormal signal on diffusion imaging. There is no evidence to s uggest recent ischemic event. 2. No evidence of mass in the cerebellopontine angles and no evidence of intra canalicular acoustic n euroma-schwannoma. 3. Given the history here, an interesting finding here (seen on the very thin sub millimeter slice F iesta sequence) is a thin vascular loop intimately associated with the 7th and 8th cranial nerves wit hin the medial 3rd of the right internal auditory canal. This appears to be a branch of the right an terior inferior cerebellar artery (which originates off the basilar artery). Similar findings not se en on the opposite-left side. There is no evidence of aneurysm. DATA REPOSITORY:
[2021-07-25 09:28] LABS: BUN 20 mg/dL (7-18); CREATININE 1.1 mg/dL (0.55-1.02); Estimated GFR 48.04 (mL/min/1.73m2)
[2021-07-25] MEDS: Normal Saline Flush 10 ML SYR IVP (09:37)
[2021-07-25] MEDS: Gadoterate meglumine 20 ML VIAL 15 ML IVP (09:37)
== END 2021-07-25 02:15 ==
PROVIDERS: PCP Family Medicine; Visit Provider Otolaryngology Otolaryngology/Facial Plastic Surgery
DX: H93.A3 Pulsatile tinnitus, bilateral (principal); R26.89 Other abnormalities of gait and mobility; R90.82 White matter disease, unspecified; Z01.812 Encounter for preprocedural laboratory examination
CPT/HCPCS: 70553; 84520; 82565

== ENCOUNTER 2021-09-06 16:24 | Outpatient (REF) | payer OTHER, SELFPAY ==
[2021-09-06 16:44] LABS: ALT 21 U/L (14-59); BUN 20 mg/dL (7-18); CREATININE 1.1 mg/dL (0.55-1.02); Calcium 9.1 mg/dL (8.5-10.1); Calculated LDL 66 mg/dL (<100); Chloride 104 mmol/L (98-107); Cholesterol 143 mg/dL (<200); Estimated GFR 48.04 (mL/min/1.73m2); Glucose 82 mg/dL (74-106); HDL Cholesterol 58 mg/dL (40-60); Potassium 4.4 mmol/L (3.5-5.1); Sodium 141 mmol/L (136-145); Triglyceride 95 mg/dL (<150)
[2021-09-09 01:37] LABS: Vitamin D 25 Total 26.8 ng/mL (30-100)
== END 2021-09-06 16:25 | disposition home or self-care (01) ==
LOC: NCHCN 16:24
PROVIDERS: PCP Family Medicine; Visit Provider Family Medicine
DX: E78.5 Hyperlipidemia, unspecified (principal); I10 Essential (primary) hypertension; N18.30 Chronic kidney disease, stage 3 unspecified; M85.88 Other specified disorders of bone density and structure, other site
CPT/HCPCS: 80048; 80061; 82306; 84460

== ENCOUNTER → 2021-09-10 08:21 | Outpatient (BNVA) | payer OTHER, SELFPAY | PROVIDERS: PCP Family Medicine; Referring Provider Podiatrist; Visit Provider Psychiatry & Neurology Neurology | DX: M54.31 Sciatica, right side (principal); M54.16 Radiculopathy, lumbar region; I10 Essential (primary) hypertension | CPT/HCPCS: 95885; 95909; 99214 ==

== ENCOUNTER 2021-09-24 00:50 | Outpatient (CLI) | payer OTHER, SELFPAY ==
--- NOTE | 2021-09-24 07:15 | DI.MRI_ITS ---
Exam(s) MR LUMBAR SPINE WO EXAM: MR LUMBAR SPINE WO CLINICAL HISTORY: R sciatica,RT LUMBAR RADICULOPATHY,M54.16,M54.31. TECHNIQUE: Multiplanar multisequence MRI of the Lumbar spine was performed. COMPARISON: CR XR DEXA BONE DENSITY W/WO STEPH from 06/01/2019 FINDINGS: Five lumbar vertebrae are presumed. Conus medullaris is at normal level. There is no evidence of conus mass nor subjacent clumping of in trathecal nerve roots to suggest arachnoiditis. The distal thecal sac appears unremarkable.There is no evidence of Tarlov intrasacral cysts nor other significant findings within the sacral canal Bones:There are no fractures nor ominous osseous lesions in the lumbar vertebral bodies and visualize d sacrum. With respect to the individual levels... T12-L1: Normal disc height and signal. There is some mildly asymmetric annular bulging central and l eft. This slightly indents the thecal sac. There is no prominent central canal stenosis. No signif icant foraminal stenosis. L1-2: This level exhibits moderate-advanced disc space narrowing. There are anterior osteophytes. P osteriorly there is mild retrolisthesis of L1 upon L2. There is symmetrical annular bulging without a dominant disc herniation. Central canal dimensions are lower normal. There is no significant fora edy stenosis. Facet joints exhibit mild degenerative changes. L2-3: Normal disc height. No disc herniation nor central canal stenosis.No foraminal stenosis.No face t arthropathy. L3-4: Normal disc height. No significant focal disc herniation. Central canal dimensions are lower normal.No foraminal stenosis.No facet arthropathy. L4-5: Preserved disc height. However, there is 5 millimeters anterior listhesis L4 upon L5 due to fa cet arthropathy. There is severe central spinal canal stenosis at this level due to the listhesis, s hort AP dimensions the pedicles and advanced degenerative changes in the facet joints. Lateral reces ses are carried forward but there is no significant foraminal stenosis due to the preserved disc heig ht. L5-S1: Normal disc height and signal. Very mild anterolisthesis L5 upon S1 due to facet arthropathy, with approximately 2 millimeters anterior slippage of L5 upon S1. Central canal dimensions are lowe r normal. No significant foraminal stenosis. Soft tissues: Parapelvic cysts are noted in both kidneys. Also cortical cysts in the superior pole the left kidney. IMPRESSION: 1. As above. The main finding here is severe/critical central spinal canal stenosis at the L4-5 leve l due to degenerative anterolisthesis of L4 upon L5, short AP dimensions the pedicles and significant bilateral facet arthropathy. There is, however, no true foraminal stenosis. There is normal fat pl anes surrounding the exiting nerve roots in both exiting neural foramina. This lack of vertical fora edy stenosis is due to the fact that there is no significant height loss in the disc this level. T he main finding is the critical central canal stenosis here. 2. Milder findings at L5-S1 but without evidence of significant central nor foraminal stenosis at thi s level. DATA REPOSITORY:
== END 2021-09-24 01:10 ==
PROVIDERS: PCP Family Medicine; Visit Provider Psychiatry & Neurology Neurology
DX: M54.31 Sciatica, right side; M43.17 Spondylolisthesis, lumbosacral region; M47.27 Other spondylosis with radiculopathy, lumbosacral region
CPT/HCPCS: 72148

== ENCOUNTER → 2021-10-14 09:07 | Outpatient (BNVA) | payer OTHER, SELFPAY | PROVIDERS: PCP Family Medicine; Referring Provider Family Medicine; Visit Provider Psychiatry & Neurology Neurology | DX: M48.061 Spinal stenosis, lumbar region without neurogenic claudication (principal); M54.31 Sciatica, right side | CPT/HCPCS: 99214 ==

== ENCOUNTER 2021-11-08 14:42 | Outpatient (REF) | payer OTHER, SELFPAY ==
[2021-11-08 17:00] LABS: HCT 40.2 % (36.0-46.0); MCH 31.3 pg (27.0-33.0); MCHC 32.3 % (32.0-36.0); MCV 96.6 fL (80-95); MPV 10.6 fL (8.0-11.0); Platelet Count 291 10^3/uL (130-400); RBC 4.16 10^6/uL (3.93-5.22); RDW-SD 42.8 fL; WBC 8.18 10^3/uL (4.4-10.8)
[2021-11-08 17:24] LABS: ALT 21 U/L (14-59); AST 16 U/L (15-37); Alkaline Phosphatase 117 U/L (46-116); Anion Gap 9.4 mmol/L (3-11); BUN 21 mg/dL (7-18); Bilirubin, Total 0.5 mg/dL (0.2-1.0); CO2 26.6 mmol/L (21.0-32.0); CREATININE 1.1 mg/dL (0.55-1.02); Calcium 8.8 mg/dL (8.5-10.1); Chloride 106 mmol/L (98-107); Estimated GFR 48.04 (mL/min/1.73m2); Glucose 82 mg/dL (74-106); Potassium 4.4 mmol/L (3.5-5.1); Sodium 142 mmol/L (136-145); Total Protein 6.9 g/dL (6.4-8.2)
[2021-11-11 10:45] LABS: Hepatitis C Ab w Rflx HCV PCR Negative (Negative)
== END 2021-11-08 14:43 | disposition home or self-care (01) ==
LOC: NCHCN 14:42
PROVIDERS: PCP Family Medicine; Visit Provider Family Medicine
DX: Z01.818 Encounter for other preprocedural examination (principal); Z11.59 Encounter for screening for other viral diseases
CPT/HCPCS: 80053; 85027; 86803

== ENCOUNTER → 2021-12-16 09:10 | Outpatient (BNVA) | payer OTHER, SELFPAY | PROVIDERS: PCP Family Medicine; Visit Provider Psychiatry & Neurology Neurology | DX: M48.061 Spinal stenosis, lumbar region without neurogenic claudication (principal) | CPT/HCPCS: 99213 ==

== ENCOUNTER → 2022-01-02 10:54 | Outpatient (BNVA) | payer OTHER, SELFPAY | PROVIDERS: PCP Family Medicine; Referring Provider Family Medicine; Visit Provider Physician Assistant | DX: M17.11 Unilateral primary osteoarthritis, right knee (principal) | CPT/HCPCS: 20610; J1040 ==

== ENCOUNTER 2022-03-12 08:15 | Outpatient (REF) | payer OTHER, SELFPAY ==
[2022-03-12 16:09] LABS: Folate > 20.0 ng/mL (8.6-20.0)
[2022-03-13 05:38] LABS: Vitamin D 25 Total 42.8 ng/mL (30-100)
== END 2022-03-12 08:16 | disposition home or self-care (01) ==
LOC: NCHCN 08:15
PROVIDERS: PCP Family Medicine; Visit Provider Family Medicine
DX: N18.30 Chronic kidney disease, stage 3 unspecified (principal); E53.8 Deficiency of other specified B group vitamins; E55.9 Vitamin D deficiency, unspecified; I10 Essential (primary) hypertension; M85.80 Other specified disorders of bone density and structure, unspecified site
CPT/HCPCS: 82306; 82746

== ENCOUNTER 2022-03-24 11:46 | Outpatient (CLI) | payer OTHER, SELFPAY ==
--- NOTE | 2022-03-24 11:30 | DI.RAD_ITS ---
Exam(s) XR KNEE RT 3V AP,LAT,KATELYN EXAM: XR KNEE RT 3V AP,LAT,KATELYN CLINICAL HISTORY: right knee pain. TECHNIQUE: 2D digital imaging was performed. COMPARISON: CR XR KNEE RT 3V AP,LAT,KATELYN from 04/29/2019 FINDINGS: 3 views No evidence of acute fracture nor prominent joint effusion. However, there is again noted a large ca lcific density subjacent to the patella within the intra-articular Hoffa fat pad space. This large a bnormal calcification-loose body measures approximately 4 x 3 cm. There are moderate osteoarthritic degenerative changes in all 3 compartments. Posteriorly the multiple confluent dense calcifications seen on the prior study are again noted but h ave decreased density at this time. These are too posteriorly located to be within a Mata cyst. Th ere are quite superficially located. IMPRESSION: DATA REPOSITORY: RADIATION DOSE DELIVERED:
== END 2022-03-24 11:47 | disposition home or self-care (01) ==
LOC: DIORS 11:46
PROVIDERS: PCP Family Medicine; Referring Provider Family Medicine; Visit Provider Physician Assistant
DX: M17.11 Unilateral primary osteoarthritis, right knee (principal)
CPT/HCPCS: 73562; 99213

== ENCOUNTER 2022-05-05 13:32 | Outpatient (REF) | payer OTHER, SELFPAY ==
[2022-05-05 15:50] LABS: Anion Gap 8.2 mmol/L (3-11); BUN 19 mg/dL (7-18); CO2 25.8 mmol/L (21.0-32.0); CREATININE 1.3 mg/dL (0.55-1.02); Chloride 107 mmol/L (98-107); Estimated GFR 42.09 (mL/min/1.73m2); Glucose 89 mg/dL (74-106); Potassium 4.5 mmol/L (3.5-5.1); Sodium 141 mmol/L (136-145)
== END 2022-05-05 13:33 | disposition home or self-care (01) ==
LOC: NCHCN 13:32
PROVIDERS: PCP Family Medicine; Visit Provider Family Medicine
DX: I12.9 Hypertensive chronic kidney disease with stage 1 through stage 4 chronic kidney disease, or unspecified chronic kidney disease (principal); N18.30 Chronic kidney disease, stage 3 unspecified
CPT/HCPCS: 80048

== ENCOUNTER 2022-05-26 13:27 | Outpatient (CLI) | payer OTHER, SELFPAY ==
--- NOTE | 2022-05-26 13:00 | DI.RAD_ITS ---
Exam(s) XR STANDING ALIGNMENT EXAM: XR STANDING ALIGNMENT CLINICAL HISTORY: R TKR planning. TECHNIQUE: 2D digital imaging was performed. Four images were obtained. COMPARISON: CR XR HIP RT COMPLETE AP PELVIS from 07/28/2019 CR XR KNEE RT 3V AP,LAT,KATELYN from 03/24/2022 FINDINGS: BONES: There are stable postsurgical changes of a right total hip replacement. Stable degenerative c hanges are seen in the right knee particularly the medial femoral tibial joint. The left knee is wel l maintained. The ankles are well maintained.The right lower extremity measures 84 cm. The left low er extremity measures 83 cm. SOFT TISSUE: Normal. IMPRESSION: Degenerative changes in the right knee. DATA REPOSITORY: RADIATION DOSE DELIVERED:
== END 2022-05-26 13:28 | disposition home or self-care (01) ==
LOC: DIORS 13:28
PROVIDERS: PCP Family Medicine; Referring Provider Family Medicine; Visit Provider Physician Assistant
DX: M17.11 Unilateral primary osteoarthritis, right knee (principal); Z01.818 Encounter for other preprocedural examination
CPT/HCPCS: 77073

== ENCOUNTER 2022-06-02 02:33 | Outpatient (CLI) | payer OTHER, SELFPAY ==
[2022-06-02 10:00] LABS: HCT 37.8 % (36.0-46.0); HGB 12.9 g/dL (11.2-15.7); MCH 32.2 pg (27.0-33.0); MCHC 34.1 % (32.0-36.0); MCV 94 fL (80-95); MPV 9.8 fL (8.0-11.0); Platelet Count 279 10^3/uL (130-400); RBC 4.01 10^6/uL (3.93-5.22); RDW 12.6 % (11.7-14.6); RDW-SD 43.3 fL; WBC 9.61 10^3/uL (4.4-10.8)
[2022-06-02 10:22] LABS: Anion Gap 7.1 mmol/L (3-11); BUN 25 mg/dL (7-18); CO2 26.9 mmol/L (21.0-32.0); CREATININE 1.1 mg/dL (0.55-1.02); Calcium 9.2 mg/dL (8.5-10.1); Chloride 107 mmol/L (98-107); Estimated GFR 51.43 (mL/min/1.73m2); Glucose 93 mg/dL (74-106); Sodium 141 mmol/L (136-145)
== END 2022-06-02 02:34 | disposition home or self-care (01) ==
LOC: LBO 02:33
PROVIDERS: PCP Family Medicine; Visit Provider Student in an Organized Health Care Education/Training Program
DX: M25.561 Pain in right knee (principal); M17.11 Unilateral primary osteoarthritis, right knee; Z01.818 Encounter for other preprocedural examination; Z01.812 Encounter for preprocedural laboratory examination
CPT/HCPCS: 36415; 80048; 85027

== ENCOUNTER 2022-06-03 07:15 | Day surgery (SDC) | payer OTHER, SELFPAY ==
[2022-06-03] VITALS (10 sets, daily range): BP systolic 127–185; BP diastolic 47–91; PULSE 48–66; RESP 14–20; TEMP 36.3–36.8; O2SAT 95–98; BMI 29.8
--- NOTE | 2022-06-03 06:45 | W.ANESPRE ---
General Info Date of Service Date Performed: 06/03/22 Height: 5 ft 2 in Weight: 73.936 kg Body Mass Index (BMI): 29.8 Surgical Procedure: Operation Date: 06/03/22 09:40 Proposed Procedure Side Surgeon p Knee Total Arthroplasty w/OrthoAlign Right Baldo Friare MD Meds Allergies and Home Medications Allergies Allergy/AdvReac Type Severity Reaction Status Date / Time pramipexole di-HCl Allergy Severe patient Verified 06/03/22 07:34 [From Mirapex] cannot remember ropinirole HCl [From Requip] Allergy Intermediate patient Verified 06/03/22 07:34 cannot remember amoxicillin AdvReac Intermediate freezing/hot Verified 06/03/22 07:34 sensation bee stings AdvReac Intermediate generalized Uncoded 06/03/22 07:34 swelling oxycodeine AdvReac Intermediate heart races Uncoded 06/03/22 07:34 Home Medication Medication Instructions Recorded calcium carb,cit ER 600 mg-vit D3 1 ea PO DAILY 08/31/17 12.5 mcg (500 unit) tablet,ext.rel acetaminophen 500 mg tablet 1,000 mg PO Q8H PRN pain #90 tabs 07/16/19 atorvastatin 20 mg tablet 20 mg PO DAILY 04/25/21 folic acid 1 mg tablet 1 mg PO DAILY 04/25/21 losartan 100 mg tablet 100 mg PO DAILY 04/25/21 omeprazole 20 mg capsule,delayed 20 mg PO DAILY 04/25/21 release ondansetron 4 mg disintegrating 4 mg PO Q8H PRN nausea and 04/25/21 tablet vomiting #30 tabs spironolactone 25 mg tablet 25 mg PO DAILY 04/25/21 gabapentin 300 mg capsule 600 mg PO DAILY 11/12/21 meloxicam 15 mg tablet 15 mg PO DAILY #30 tabs 03/24/22 metoprolol succinate 25 mg 1 tab PO DAILY 06/03/22 tablet,extended release 24 hr Current Visit Medications: Current Medications Generic Name Dose Route Start Last Admin Trade Name Freq PRN Reason Stop Dose Admin Acetaminophen 1,000 mg 06/03/22 06:00 Acetaminophen 500 Mg Tab PO 06/03/22 16:00 PREOP LILI Celecoxib 400 mg 06/03/22 06:00 Celecoxib 200 Mg Cap PO 06/03/22 16:00 PREOP LILI Gabapentin 300 mg 06/03/22 06:00 Gabapentin 300 Mg Cap PO 06/03/22 16:00 PREOP LILI Tranexamic Acid 1,000 mg/ 60 mls @ 360 mls/hr 06/03/22 06:00 Sodium Chloride IVPB 06/03/22 16:00 PREOP LILI Ringer's Solution 1,000 mls @ 80 mls/hr 06/03/22 06:00 IV 07/02/22 23:59 INFUSION LILI Cefazolin Sodium/Dextrose 2 gm in 50 mls @ 100 mls/hr 06/03/22 06:00 Ancef Duplex IVPB 06/03/22 16:00 PREOP LILI IV Miscellaneous Supplies 1 each 06/03/22 06:00 Iv Access IV 07/02/22 23:59 DIRECTED LILI Sodium Chloride 0 ml 06/03/22 06:00 Normal Saline Flush 10 Ml Syr IV 07/02/22 23:59 PRN PRN Sodium Chloride 0 ml 06/03/22 06:00 Normal Saline 10 Ml Vial IJ 07/02/22 23:59 DIRECTED PRN Sterile Water 0 ml 06/03/22 06:00 Water,Injection,Sterile 10 Ml Vial IJ 07/02/22 23:59 DIRECTED PRN PFSH Active Problems Active Problems: Problem Status Onset Code Lumbar stenosis M48.061 Sensorineural hearing loss of both ears H90.3 Sciatica of right side without back pain M54.31 Lumbar radiculopathy, right M54.16 Pulsatile tinnitus of both ears H93.A3 Diarrhea R19.7 Abdominal pain R10.9 Primary osteoarthritis of right knee M17.11 Medical History Medical History Abnormal chest xray Anxiety Chronic kidney disease, stage 3 Diverticulosis Dyslipidemia Family history of colon cancer Folic acid deficiency GERD (gastroesophageal reflux disease) Hyperlipidemia Hypertension Insomnia Kidney disease Leg cramps Memory loss Obstructive sleep apnea Does not use CPAP; returned to company since she did not have change in symptoms Osteopenia Paresthesia Right sided sciatica Sciatica Tinnitus of right ear Vitamin D deficiency Surgical History Surgical History (Updated 06/03/22 @ 07:33 by Lexi Valdivia) Cholecystectomy Colonoscopy - MAC (10/12/17) History of bronchoscopy History of lumbar surgery 11/2020 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 Goldman DOS: 09/19/2018 Tobacco Smoking/Tobacco Use Status: Never Alcohol Alcohol Intake: current Alcohol intake frequency: holidays/special occasions only Substance Use Substance use: Never Substance use type: does not use Vital Signs and Lab Results Lab Results Blood Type / Crossmatch: No Data to Display Complete Blood Count: White Blood Count 9.61 10^3/uL (4.4-10.8) 06/02/22 09:49 Red Blood Count 4.01 10^6/uL (3.93-5.22) 06/02/22 09:49 Hemoglobin 12.9 g/dL (11.2-15.7) 06/02/22 09:49 Hematocrit 37.8 % (36.0-46.0) 06/02/22 09:49 Platelet Count 279 10^3/uL (130-400) 06/02/22 09:49 Complete Metabolic Panel: Sodium 141 mmol/L (136-145) 06/02/22 09:49 Potassium 5.0 mmol/L (3.5-5.1) 06/02/22 09:49 Chloride 107 mmol/L (98-107) 06/02/22 09:49 Carbon Dioxide 26.9 mmol/L (21.0-32.0) 06/02/22 09:49 BUN 25 mg/dL (7-18) H 06/02/22 09:49 Creatinine 1.1 mg/dL (0.55-1.02) H 06/02/22 09:49 Est GFR (CKD-EPI 2020) 51.43 (mL/min/1.73m2) 06/02/22 09:49 Calcium 9.2 mg/dL (8.5-10.1) 06/02/22 09:49 Glucose 93 mg/dL (74-106) 06/02/22 09:49 Liver Function Panel: No Data to Display Coagulation Panel: No Data to Display Cardiac Panel: No Data to Display Arterial Blood Gas: No Data to Display Venous Blood Gas: No Data to Display Pancreas Panel: No Data to Display Thyroid Panel: No Data to Display Infectious Disease: No Data to Display Blood Cultures: No Data to Display Toxicology Panel: No Data to Display Imaging and Studies Imaging and Studies Study information below may be from another EMR and interpreted by another provider. Please see original notes in EMR for more complete details. EKG Summary: 11/29: sinus arley, rsr in v1 Anesthesia Assessment and Plan Anesthesia History Personal History: No History of Anesthesia Complications Family History: No Family History of Anesthesia Complications Exercise Tolerance Exercise Tolerance: Metabolic Equivalents>4 Pertinent Negatives Pertinent Negatives: No Symptoms of GERD, No Major Cardiovascular Symptoms or Complaints, No Major Pulmonary Symptoms or Complaints and No History of CVA/TIA Cardiac & Pulmonary Exam Cardiac Exam: Normal S1/S2 Heart Sounds Pulmonary Exam: Clear Bilateral Breath Sounds Implantable Cardiac Device Does patient have a Pacemaker or an ICD?: No Airway Exam Known Difficult Airway: No Mallampati Class: 3 Mouth Opening: Normal (> 3cm) Thyromental Distance: Greater than 3 cm Neck Range of Motion: Full ROM Neck Circumference: Normal Teeth Condition: Normal Dentition ASA Classification ASA Score: ASA 2 Emergency Case?: No NPO Status NPO Status: NPO Clears >2 hours, Solids >8 hours Anesthesia Plan Resuscitation Status: Full Code Anesthesia Technique: Spinal Anesthesia Airway Planned: Natural Airway Pain Management: Surgeon and patient request nerve block Monitors Used: Standard Monitors Preoperative Comments:: 76 yo female for TKA. Sig PMHx: lumbar stenosis, anxiety, GERD, CKD, HTN, SREE/CPAP, Previous Anes: - OZIEL spinal 1.4 mL heavy - hip screw, LMA 4. - lami, mac 3, easy mask. Discussed risk, benifits of spinal vs GA with adductor canal block. Plan for spinal with GA backup, and block. Discussed risks of block inculding failure and nerve injury, she would like to proceed.
--- NOTE | 2022-06-03 07:35 | W.PM.DSUDISC ---
Date of service: 06/03/22 Time of Service: 07:35 Discharge Plan Disposition Patient Disposition: HOME Condition: Good Discharge Details Reason For Visit: R TKR Attending Provider: Baldo Fraire Primary Care Provider: Jana Wayne Home Meds and New Rx's Prescriptions: New aspirin 81 mg tablet,delayed release (DR/EC) 81 mg PO BID Qty: 60 0RF dexamethasone 4 mg tablet 4 mg PO DAILY Qty: 2 0RF Rx Instructions: Starting Post-Operative Day #1 (Day after surgery) oxycodone 5 mg tablet 5 mg PO Q4H Qty: 18 0RF Continued folic acid 1 mg tablet 1 mg PO DAILY omeprazole 20 mg capsule,delayed release(DR/EC) 20 mg PO HS spironolactone 25 mg tablet 25 mg PO DAILY losartan 100 mg tablet 100 mg PO HS atorvastatin 20 mg tablet 20 mg PO DAILY gabapentin 300 mg capsule 600 mg PO HS calcium carb and citrate-vitD3 1 EACH tablet extended release 1 ea PO DAILY ondansetron 4 mg tablet,disintegrating 4 mg PO Q8H PRN (Reason: nausea and vomiting) Qty: 30 0RF metoprolol succinate 25 mg tablet extended release 24 hr 1 tab PO DAILY meloxicam 15 mg tablet 15 mg PO DAILY Qty: 30 1RF Rx Instructions: Take one tablet daily for inflammation and pain acetaminophen 500 mg tablet 1,000 mg PO Q8H PRN (Reason: pain) Qty: 90 3RF Discharge Instructions Additional Instructions: Total Knee Discharge Instructions Activity: The most important activity is to walk and to work on gentle motion (both flexion and extension). You should try to take short walks a few times a day. It is important that when resting you work on keeping the knee straight. Avoid putting a pillow behind the knee as this will encourage flexion. Work on range of motion exercises as provided by Physical Therapy. - Start outpatient physical therapy within 2 weeks. - You should wear the NEELIMA hose on both legs for 2 weeks. You may remove these at night. You may also use any compression sock in place of the NEELIMA hose. - Utilize [employer] to review exercises, see videos on exercises and obtain basic information pertaining to your surgery and your recovery. Dressing: Remove the Mando wrap by 2 days after your surgery and put on the NEELIMA stocking given to you from the hospital. Keep the surgical dressing (underneath the MANDO wrap) in place for at least one week. After the first week it may be removed and replaced with light gauze and tape or nothing. The wound and dressing may get wet after 3 days but avoid soaking the dressing or otherwise it will need to be changed. Many people prefer covering the dressing with cling wrap (saran wrap) to minimize it from getting soaked. If it gets wet, just pat dry. If it starts to peel off then it will need to be changed. Medications: - You should take Tylenol and anti-inflammatory Meloxicam as your primary pain control medications. - You have been prescribed a stronger pain medication Oxycodone for breakthrough pain, take as needed as prescribed. - You should continue your stomach acid reduction agent Omeprazole to help reduce stomach acid and reflux. - You will continue your Gabapentin - You will be taking Aspirin 81mg twice a day for DVT prevention unless instructed otherwise. - You have also been prescribed Decadron to take to control post-operative nausea and pain. You will start this tomorrow. - If you have constipation you should take Colace or Miralax (both [id number]). It takes most people 3-4 days to have a bowel movement. Follow-up: 2 weeks If you have any acute concerns or questions, please do not hesitate to contact the office at [phone]. You may contact Dr. Fraire with any questions after hours through the hospital at [phone] or on his cell phone at [phone]. Referrals: Baldo Fraire MD [ [facility] STAFF PHYSICIAN] - Equipment/Supplies: Walker Activity:: Activity as Tolerated Remove Dressings/Wound Care:: Do Not Remove Shower/Bathe:: 72 hours Diet:: As Tolerated Discharge Orders Discharge Orders: Discharge Order (Routine); Ordered 06/03/22 Ordered By: Baldo Fraire DS: Diagnosis Discharge Diagnosis (1) Primary osteoarthritis of right knee: Status: Chronic
[2022-06-03] MEDS: Gabapentin 300 MG CAP PO (07:50)
[2022-06-03] MEDS: Acetaminophen 500 MG TAB 1000 MG PO (07:50)
[2022-06-03] MEDS: Lactated Ringers 1,000 ML 80 ML IV (08:00)
--- NOTE | 2022-06-03 08:51 | ANES.NERVE_ITS ---
Nerve Block Single Injection Procedure Date and Time Date Performed: 06/03/22 Procedure Start: 08:40 Location Where Procedure Performed Procedure Location: Day Surgery Unit Reason Performed: Postoperative Analgesia Requesting Provider: Baldo Fraire Timeout Performed Timeout Performed: Yes Monitoring Used ECG, Blood Pressure and SpO2 Sterility Sterility: Hand Hygiene, Surgical Cap, Surgical Mask, Sterile Gloves and Chlorhexidine Sedation Given During Procedure Sedation Given (Indicate Dose Given): No Sedation given Patient Mental Status Patient Mental Status: Awake Nerve Block 1st Nerve Block: Laterality: Right Block Type: Adductor Canal Needle / Catheter Used: 100mm SonoPlex II Local Anesthetic Bolus (Indicate Dose Given): Lidocaine used for local infiltration of skin, Injected in 3-5ml increments after negative blood aspiration and Bupivacaine 0.375% Dose:: 10 mL Additives (Indicate Dose Given): None Ultrasound: Sterile probe cover and gel used Ultrasound Image Saved?: Yes Nerve Stimulator: Supplement to Ultrasound use and No twitch or sissy thesia noted < 0.5 mA Paresthesia: None Procedure Tolerated: No Complications Procedure Outcome: Successful Performed By: Mary Bazan Supervised By: Kieran Chu
[2022-06-03] MEDS: ceFAZolin 2 GM/50 ML BAG IVPB (09:22)
[2022-06-03] MEDS: oxyCODONE 5 MG TAB PO (12:20)
--- NOTE | 2022-06-03 13:05 | PT.INIE ---
Date of service: 06/03/22 Time of Service: 13:05 PT Notes Visit Reasons: R TKR Physical Therapy Day Surgery Initial Evaluation Date: 06/03/2022 Referring Doctor: ELBA Murrell PT Orders: PT CONSULT: S/P Ortho Surgery Precautions: WBAT on R LE with AD. Patient Profile/Admitting Diagnosis: Licha is a 76-year-old female with degenerative joint disease of the right knee and status post right total knee arthroplasty on postoperative day 0. PMHX: Medical History?(Updated 03/18/22 @ 15:07 by Lorena Spear) Abnormal chest xray Anxiety Chronic kidney disease, stage 3 Diverticulosis Dyslipidemia Family history of colon cancer Folic acid deficiency GERD (gastroesophageal reflux disease) Hyperlipidemia Hypertension Insomnia Kidney disease Leg cramps Memory loss Obstructive sleep apnea Does not use CPAP; returned to company since she did not have change in symptoms Osteopenia Paresthesia Right sided sciatica Sciatica Tinnitus of right ear Vitamin D deficiency Surgical History?(Updated 03/18/22 @ 15:09 by Lorena Spear) Cholecystectomy Colonoscopy - MAC (10/12/17) History of bronchoscopy 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 Goldman DOS: 09/19/2018 Social History/Home Situation: Lives with in a private home with a ramp to enter. There steps down to the basement where her washer and dryer are. Independent with all aspects of ADLs without assistive device prior to surgery. Equipment Owned/DME: None Subjective: Agreeable to PT consult. Denies headache, chest pain, and dizziness throughout session. Pain on the right knee with sit to stand from toilet seat that eventually resolved. Objective: General Observation: Supine on stretcher. ROMULO wraps to right LE. Cryocuff to right knee. TEDS to left leg. Mental Status: Alert and oriented x 4 Pain: Denies ROM: Right Lower Extremity: Hip flexion WFL. Hip abduction WFL. Knee flexion 10 to 90 degrees. Knee extension -10 degrees ankle dorsiflexion WFL. Ankle plantarflexion WFL. Left Lower Extremity: Hip flexion WFL. Hip abduction WFL. Knee flexion WFL. Ankle dorsiflexion WFL. Ankle plantarflexion WFL. Strength: Right Lower Extremity: Hip flexors 5/5. Hip abductors 5/5. Knee flexors 5/5. Knee extensors 5/5. Ankle dorsiflexors 5/5. Ankle plantarflexors 5/5. Left Lower Extremity:Hip flexors 5/5. Hip abductors 5/5. Knee flexors 5/5. Knee extensors 5/5. Ankle dorsiflexors 5/5. Ankle plantarflexors 5/5. Sensation: InTact as to pain and pressure in B LE Bed Mobility/Transfers: Supine to sit standby assist Sit to stand standby assist Stand to sit standby assist Bed to chair standby assist Gait: 150 feet of level surface ambulation using step to gait pattern with front wheeled walker with no report of increased pain. No LOB. No SOB. Stairs: Up and down 3 x 4-inch steps and 2 x 6-inch steps while holding onto bilateral rails with standby assist with step-to gait pattern. THERA EX: R SLR x 10 Seated hip flexion x 10 LAQs x 10 Ankle DF/PF x 10 Gluteal sets x 10 Quadriceps sets x 10 Balance: Static Sitting: Normal Dynamic Sitting: Normal Static Standing: Fair Dynamic Standing: Fair Special Tests: Mobility Limitations Standardized Measure [facility] AM-PAC 6 clicks Basic Mobility Inpatient Short Form: Raw Score: 24 CMS Score: 0% deficit Informed Consent/Education: Patient instructed in purpose of PT consult. Education and training on initial set of exercises that can be done at home have been completed with patient. Assessment: Patient requires the use of a front-wheeled walker to maximize independence and reduce fall risk at home. Patient presents with clinical signs and symptoms consistent with current/admitting diagnoses that have resulted to mobility limitations, gait instability, generalized weakness, and impairment of motor control as demonstrated by the following impairment level findings: 1. Decreased strength to right knee major muscle groups 2. Impaired standing balance 3. Limitation of joint range of motion in right knee Impairments are contributing to the following functional limitations: 1. Inability to safely ambulate without assistive device 2. Increase completion time for mobility ADL performance 3. Increased fall risk Patient is assessed as a 47610 complexity based on the following: History: 76-year-old female with impairment level findings, functional limitations, and past medical history as indicated above Examination: Demonstrable impairment in strength, balance, and mobility level with underlying impairments and functional limitations as documented above Presentation: Evolving Decision Makin moderate complexity Goals: N/A. PT evaluation and 1-2 treatment sessions only for functional mobility training using recommended AD and for HEP instruction. Plan of Care/Treatment Plan: N/A. PT evaluation and 1-2 treatment session only for functional mobility training using recommended AD and for HEP instruction. DISCHARGE RECOMMENDATIONS: [] Home with no services [] [] Home with services [specify] [X] Home with outpatient PT. Home when medically cleared by orthopedic surgeon. Will benefit from outpatient PT services to maximize functional mobility outcomes and facilitate independent community ambulation without an assistive device. [] SNF for continued rehabilitation [] [] [facility] [] [] SNF versus LTC based on ability to participate and progress [] TREATMENT CODE/TIME: 51687 x 20 minutes, 64155 x 24 minutes beginning at 13:05 PM. Thank you for the opportunity to participate in the care of this patient. Cinda Pratt PT, DPT, CLT [facility] [place], [place]
--- NOTE | 2022-06-03 13:29 | W.ANESPOSTOP ---
Postoperative Evaluation Date, Time and Location Date Performed: 06/03/22 Time Performed: 13:29 Patient Location: Day Surgery Unit Vital Signs Most Recent Imported Vital Signs: Most Recent Vital Signs Temp Pulse Resp BP Pulse Ox 36.4 C L 54 L 15 134/71 96 06/03/22 13:05 06/03/22 13:05 06/03/22 13:05 06/03/22 13:05 06/03/22 13:05 Pain Score Most Recent Pain Score: Most Recent Pain Score Pain Level 4 06/03/22 13:05 Assessment Mental Status: Awake (Alert & Oriented to Patient Baseline) Airway and Respiratory Function: Patent airway with normal (patient baseline) respiratory exam Cardiovascular Function: Hemodynamically Stable Hydration Status: Adequately Hydrated Nausea & Vomiting: No Nausea or Vomiting Pain: Pain is tolerable per patient Peripheral Nerve Block: Regional nerve block not resolved at time of post operative discharge
--- NOTE | 2022-06-03 15:41 | W.PM.OP ---
Date of service: 06/03/22 Time of Service: 10:45 Operative Note Operative Note DATE OF PROCEDURE: 06/03/22 PRE-OP DIAGNOSIS: Right Knee Arthritis with Valgus Deformity POST-OP DIAGNOSIS: same PROCEDURE: RIGHT Total Knee Arthroplasty with Intraoperative Navigation SURGEON: Baldo Fraire PINSETTER MECHANIC HELPER: Lloyd Pascual ANESTHESIA TYPE: Spinal Refer to Anesthesia Record ESTIMATED BLOOD LOSS: 200 PATHOLOGY: none sent COMPLICATIONS: None Patient was transported to: PACU Patient's condition: stable Implants: 1. Depuy Attune Posterior Stabilized Femoral Component, Size 6 Narrow 2. Depuy Attune Rotating Platform Tibial Component, Size 4 3. Depuy Attune 6x7 RP/PS Poly 4. Depuy Attune Patellar Component, Size 35 Indications: I have seen Pat in clinic for symptoms of knee arthritis, confirmed with radiographic findings. She has exhausted nonoperative methods and was having significant limitations in daily function and desired better function and less pain. I discussed the technical details of a knee replacement. I explained the risks of the procedure to include, but not limited to, bleeding, infection, pain, stiffness, fracture, damage to nerves and vessels, damage to muscles and tendons, loosening, need for repeat procedure, blood clot and cardiopulmonary demise. Despite these risks, Pat elected to proceed. Findings: There was significant signs of arthritis throughout the knee with a large loose body wedged into the anterior joint. Procedure Description: Pat was greeted in the preoperative holding area where the correct side was identified and marked. The consent was reviewed with the patient and signed. The history and physical was updated. All questions were answered. Preoperative mediacations were administered: Acetaminophen 1000mg, Celebrex 400mg, and Gabapentin 300mg. An adductor canal block was then administered by the anesthesia team in the PACU. Pat was taken back to the operating room. A spinal anesthestic was then administered. The patient was placed into the supine position on the operating room table. A nonsterile tourniquet was placed high onto the leg but only used for cementing. Posts were placed for positioning during the procedure. All bony prominences were well padded. Prophylactic antibiotics in the form of Cefazolin were administered. 1g of Tranxemic Acid was given intravenously within 30 minutes of incision. The left leg was then prepped with Chloraprep and draped in a standard fashion with impervious stockinette and extremity drape with Iodine impregnated skin protection. A timeout to confirm correct identity, side and site, procedure, allergies, anesthesia, and medical concerns was performed. With the knee in some flexion, a midline incision was made overlying the knee. Full thickness skin flaps were raised once the extensor mechanism was encountered. These were raised medially and laterally. Any bleeding was controlled with electrocautery. Once the extensor mechanism was fully exposed, a medial parapatellar arthrotomy was performed in a flexed position. All bleeding from the arthrotomy and the geniculate arteries was coagulated. A large osseous loose body was encountered directly beneath the patella and abutting the inferior patella, superior tibia, and the anterior femur. This was very large and was removed along with a few smaller loose bodies. A medial subperiosteal peel was performed with electrocautery to the midcoronal plane. The fat pad was removed while keeping the patellar tendon protected. The anterior distal femur synovium was removed for later visualization. The ACL and PCL were resected and the anterior horn of the lateral meniscus was transected. The knee was then flexed with the patella everted. Large osteophytes from the tibia were removed. Large osteophytes from the femur were removed. A single starting pin was then placed 1cm anterior to the PCL insertion and the notch in the direction of the femoral head. The OrthoAlign device was applied over the pin. It was oriented to be in line with the epicondylar axis and the trochlear groove. It was then pinned into place. The navigation computer was then turned on and calibrated. The distal femur cut was set at 0 degrees varus/valgus and 2.5 degrees flexion. The distal femur cutting guide then was positioned for a 9mm cut. The distal femur was cut with an oscillating saw while protecting the soft tissues. The tibia was then addressed. The OrthoAlign device was placed over the tibial tubercle and medial tibia and secured into position. Once again, OrthoAlign was calibrated and then set for a 0 degree varus/valgus cut and 5 degrees of posterior slope. With this locked into position, the cut thickness stylus was used to assess cut thickness. This was then held in position and pinned into place with 2 additional pins and a cross pin for stability. The medial and lateral collateral ligaments were protected and the cut was performed. With this completed, it was assessed and noted to be of appropriate dimensions. The guide and OrthoAlign was removed. A spacer block was inserted and the knee was brought into extension. The 6mm spacer block provided full extension, without hyperextension and with stability of both the medial and lateral collateral ligaments was assessed. The pins from the femur and the tibia were then removed. The distal femur was then sized. The anterior stylus was placed onto the lateral ridge of the anterior femur. This indicated a size 6 femur. The external rotation of the guide was adjusted to 3 degrees to match the epicondylar axis, perpendicular to [place]?s line. The 4-in-1 cutting guide was the placed. The posterior medial femur cut was evaluated and appeared of good thickness. The spacer block was inserted underneath the cutting guide and stability was confirmed in 90 degrees of flexion. An seth wing was used to confirm appropriate position of the anterior cut to avoid notching. This cutting guide was ensured to be flush on the cut surface and then pinned into place with headed pins. While protecting the soft tissues, quad tendon, and collateral ligaments, the anterior and posterior cuts were performed with a saw. The central two pins were removed and the posterior and anterior chamfers were cut next. The notch-cutting guide was placed. This was pinned to lateralize the femoral component as much as possible while keeping it flush on the cut surface. This was then pinned into position. A reciprocating saw was used to make the notch cut. A rasp smoothed the cut surfaces. A trial posterior stabilized femoral component was then inserted, impacted down to the cut surfaces, and the lug holes were drilled. A provisional trial tibial component was placed and the knee was brought through range of motion. The polyethylene was trialed until there was good flexion and extension with excellent stability to the medial and lateral collaterals. The patella was tracking without thumbs. The tibial cut surface was fully exposed. The medial and lateral menisci were removed. The tibia was then sized as a 4. The tibia had been previously marked during trialing to correspond to the center of the tibial component to help with rotation. The trial was aligned to this lloyd, approximately rotated to the medial 1/3rd of the tibial tubercle. The trial was pinned into place. The tibia was prepared with a reamer and a keel punch. The knee was then brought into extension and the patella was measured as 22mm. Using the patellar clamp and cut guide, this was resected to a flat surface with at least 13mm of thickness remaining. The size 35 patella fit the best. This was oriented and then clamped into position. The lugs were drilled. The trial components were removed. The final components, except for the polyethylene were opened on the back table. The periosteal and capsular tissues, especially posteriorly, around the knee were then systematically injected with a periarticular cocktail consisting of 246mg of Ropivacaine, 0.5mg of Epinephrine, 0.08mg of Clonidine, and 30mg of Ketorolac, diluted to 100cc. The tourniquet was then inflated to 275mmHg. The knee was thoroughly irrigated with a pulse lavage and dried. On the back table, with the implants opened, the cement was mixed. 2 batches of medium viscosity cement were prepared with vacuum assistance. After the cement was ready a small amount was placed on to the back side of the tibial component at the keel. A small amount was placed onto the posterior flange of the femur. Cement was manual pressurized and impregnated into the cut surface of the tibia. The tibial component was then inserted into the cut surface and impacted into position. Excess cement was removed and the component was reimpacted. Again, excess cement was removed and our attention was then turned to the femur. The femoral cut surface was once again dried and cement was manually impacted into the cut surface. The femoral component was lined with the lug holes and impacted. Excess cement was removed. It was ensured to be down against the cut surface. The trial polyethylene was then inserted and the leg was brought out into full extension for the duration of the cement curing process, approximately 18min. Cement was lastly manually impacted into the cut surface of the patella and the patellar button was clamped into position and held. During this process attention was turned to the gutters of the knee and for all interfaces for any excess cement. The knee was thoroughly irrigated with Surgiphor betadine solution. It was allowed to sit in the wound for 3 minutes before being irrigated out with saline. After the cement had finally cured, approximately 18min, the clamp was removed from the patella and the knee was taken through range of motion. A size 7mm polyethylene component provided the best range of motion and stability with less than 2mm gapping with medial and lateral stress and full extension without significant hyperextension. The patella was tracking with a no-thumbs technique. The trial poly was removed and once again the knee was checked for any loose, excess, or errant cement. The poly component was then inserted and impacted into position after cleaning and drying the tibial tray. The capsule was then reapproximated with a No. 1 Vicryl at multiple locations. The capsule was finally closed with a No. 2 Stratafix, barbed suture. The tourniquet was then released and the arthrotomy appeared watertight without significant bleeding. The second dosing of 1g TXA was started. Deep tissues were then reapproximated with 0 Vicryl and 2-0 Monocryl. The skin was closed with a running 3-0 Monocryl in a subcuticular fashion. This was reinforced with skin glue. A Mepilex silver dressing was applied along with a [id number]-[id number]-fayam ROMULO wrap. A CryoCuff was applied. Pat was transferred to the hospital bed without difficulty an suffering no apparent complication. She has a good prognosis. Physical therapy will start today and without restrictions, weight-bearing as tolerated. Aspirin 81mg BID will be used for DVT prophylaxis.
== END 2022-06-03 14:50 | disposition home or self-care (01) ==
PROVIDERS: PCP Family Medicine; Visit Provider Student in an Organized Health Care Education/Training Program
PROC: (CPT 27447; principal; 2022-06-03 09:30)
DX: M17.11 Unilateral primary osteoarthritis, right knee (principal); N18.30 Chronic kidney disease, stage 3 unspecified; I12.9 Hypertensive chronic kidney disease with stage 1 through stage 4 chronic kidney disease, or unspecified chronic kidney disease
CPT/HCPCS: 20985; 27447; C1776; 76942; 97162; 97530; J0690; J1100; J2405

== ENCOUNTER 2022-06-16 13:44 | Outpatient (CLI) | payer OTHER, SELFPAY ==
--- NOTE | 2022-06-16 13:00 | DI.RAD_ITS ---
Exam(s) XR STANDING ALIGNMENT EXAM: XR STANDING ALIGNMENT CLINICAL HISTORY: f/u R TKA. TECHNIQUE: 2D digital imaging was performed. COMPARISON: CR XR STANDING ALIGNMENT from 05/26/2022 FINDINGS: 3 views There has been interval placement of a right knee prosthesis appears satisfactory. There is mild narrowing of the medial compartment of the opposite-left knee. Lateral compartment of left knee appears unremarkable. There is a right hip prosthesis again noted. Left hip appears unrem arkable. Ankles unremarkable. No osseous lesions. IMPRESSION: DATA REPOSITORY: RADIATION DOSE DELIVERED:
--- NOTE | 2022-06-16 13:00 | DI.RAD_ITS ---
Exam(s) XR KNEE RT 1V EXAM: XR KNEE RT 1V CLINICAL HISTORY: f/u R TKA. TECHNIQUE: 2D digital imaging was performed. COMPARISON: CR XR KNEE RT 3V AP,LAT,KATELYN from 03/24/2022 FINDINGS: Single lateral view: Satisfactory position alignment of components of the prosthesis. No fractures or loosening evident. IMPRESSION: DATA REPOSITORY: RADIATION DOSE DELIVERED:
== END 2022-06-16 13:45 | disposition home or self-care (01) ==
LOC: DIORS 13:44
PROVIDERS: PCP Family Medicine; Referring Provider Family Medicine; Visit Provider Student in an Organized Health Care Education/Training Program
DX: Z47.1 Aftercare following joint replacement surgery; Z96.651 Presence of right artificial knee joint
CPT/HCPCS: 73560; 77073

== ENCOUNTER → 2022-07-14 14:21 | Outpatient (BNVA) | payer OTHER, SELFPAY | PROVIDERS: PCP Family Medicine; Referring Provider Family Medicine; Visit Provider Student in an Organized Health Care Education/Training Program | DX: Z47.1 Aftercare following joint replacement surgery (principal); Z96.651 Presence of right artificial knee joint; M17.11 Unilateral primary osteoarthritis, right knee ==

== ENCOUNTER → 2022-08-25 13:40 | Outpatient (BNVA) | payer OTHER, SELFPAY | PROVIDERS: PCP Family Medicine; Referring Provider Family Medicine; Visit Provider Student in an Organized Health Care Education/Training Program | DX: Z47.1 Aftercare following joint replacement surgery (principal); Z96.651 Presence of right artificial knee joint ==

== ENCOUNTER 2022-12-02 08:48 | Emergency (ER) | payer OTHER, SELFPAY ==
[2022-12-02 08:51] VITALS: PULSE 79; RESP 18; TEMP 37.3; O2SAT 97
--- NOTE | 2022-12-02 09:08 | ED.GENADUL_ITS ---
Discharge Plan Disposition Patient Disposition: Home Condition: Stable Discharge Details Clinical Impression: Diarrhea, Nausea and vomiting Primary Care Provider: Jana Wayne ED Provider: Gordo Blackman Home Meds and New Rx's Prescriptions: New ondansetron 4 mg tablet,disintegrating 4 mg PO Q8H PRN (Reason: nausea and vomiting) Qty: 30 0RF Continued folic acid 1 mg tablet 1 mg PO DAILY omeprazole 20 mg capsule,delayed release(DR/EC) 20 mg PO HS spironolactone 25 mg tablet 25 mg PO DAILY losartan 100 mg tablet 100 mg PO HS atorvastatin 20 mg tablet 20 mg PO DAILY gabapentin 300 mg capsule 600 mg PO HS calcium carb and citrate-vitD3 1 EACH tablet extended release 1 ea PO DAILY meloxicam 15 mg tablet See Rx Instructions .ROUTE .COMPLEX Qty: 30 1RF Dose Instruction: TAKE 1 TABLET BY MOUTH DAILY FOR INFLAMMATION AND PAIN Rx Instructions: TAKE 1 TABLET BY MOUTH DAILY FOR INFLAMMATION AND PAIN metoprolol succinate 25 mg tablet extended release 24 hr 1 tab PO DAILY acetaminophen 500 mg tablet 1,000 mg PO Q8H PRN (Reason: pain) Qty: 90 3RF Discharge Instructions Instructions: Acute Nausea and Vomiting (ED), Acute Diarrhea (ED) Additional Instructions: you should start to feel better in a few days, if not follow up with your primary care provider if you feel more ill, have severe abdominal pain or persistent vomiting return to the emergency department Medical Decision Making 77 yo female with hx of hld who comes in with cc of n/v/d since Thursday night. She states any time she eats she has vomiting and her stools are watery yellow. She denies chest pain, dyspnea, fevers, chills, abdominal pain. No recent travel nor any recent antibiotics. She arrives stable and appears well on exam, caox4 with stable gait. She has a soft nontender abdomen with no distention. Her symptoms seem consistent with viral gastroenteritis vs food illness, no abdominal pain or tenderness so doubt surgical pathology such as sbo. Will check cbc, cmp and give ivf and zofran and reassess. labs with wbc of 13, no other acute abnormalities, she is feeling better and feel well enough to try and take po, still has no abdominal tenderness on exam. Will po trial and if successful likely d/c pt tolerated po, still no abdominal tenderness, she is stable for d/c, she will f/u with pcp and return precautions given Differential Diagnosis Differential Diagnosis: food illness, gastroenteritis, electrolyte abnormality Medical Records Medical records reviewed: Yes I reviewed the patient's medical records. Lab Data Lab results reviewed: Yes I reviewed the patient's lab results. HPI General Mode of arrival: ambulatory . Date/Time Provider Initiated Documentation: 12/02/22 08:49 . Limitations to Documentation: no limitations . Information obtained by: patient . History of Present Illness 77 year old F presents to the emergency department with the chief complaint of diarrhea, described as moderate, Patient started experiencing this day(s) (2) and it has been intermittent. No relieving factors improve symptom(s), No exacerbating factors reported . Patient notes nausea/vomiting; denies fever/chills. Patient did receive the following treatments prior to arrival, none Related Data Home Medications Medication Instructions Recorded Confirmed calcium carb,cit ER 600 mg-vit D3 1 ea PO DAILY 08/31/17 12/02/22 12.5 mcg (500 unit) tablet,ext.rel atorvastatin 20 mg tablet 20 mg PO DAILY 04/25/21 12/02/22 folic acid 1 mg tablet 1 mg PO DAILY 04/25/21 12/02/22 losartan 100 mg tablet 100 mg PO HS 04/25/21 12/02/22 omeprazole 20 mg capsule,delayed 20 mg PO HS 04/25/21 12/02/22 release spironolactone 25 mg tablet 25 mg PO DAILY 04/25/21 12/02/22 gabapentin 300 mg capsule 600 mg PO HS 11/12/21 12/02/22 acetaminophen 500 mg tablet 1,000 mg PO Q8H PRN pain #90 tabs 06/03/22 12/02/22 metoprolol succinate 25 mg 1 tab PO DAILY 06/03/22 12/02/22 tablet,extended release 24 hr meloxicam 15 mg tablet See Rx Instructions .Route 11/25/22 12/02/22 .COMPLEX #30 tabs ondansetron 4 mg disintegrating 4 mg PO Q8H PRN nausea and 12/02/22 tablet vomiting #30 tabs Previous Rx's Medication Instructions Recorded acetaminophen 500 mg tablet 1,000 mg PO Q8H PRN pain #90 tabs 06/03/22 meloxicam 15 mg tablet See Rx Instructions .Route 11/25/22 .COMPLEX #30 tabs ondansetron 4 mg disintegrating 4 mg PO Q8H PRN nausea and 12/02/22 tablet vomiting #30 tabs Allergies Allergy/AdvReac Type Severity Reaction Status Date / Time pramipexole di-HCl Allergy Severe patient Verified 12/02/22 08:55 [From [facility]] cannot remember ropinirole HCl [From Requip] Allergy Intermediate patient Verified 12/02/22 08:55 cannot remember amoxicillin AdvReac Intermediate freezing/hot Verified 12/02/22 08:55 sensation bee stings AdvReac Intermediate generalized Uncoded 12/02/22 08:55 swelling oxycodeine AdvReac Intermediate heart races Uncoded 12/02/22 08:55 General Stated Complaint: Nausea/Vomit/Diar CHRISTIAN: 3 Review of Systems All systems reviewed & are unremarkable except as noted in HPI and below Constitutional Constitutional: Denies chills, Denies fever(s) and Denies weakness Eyes Eyes: Denies loss of vision ENT Ears, Nose, Mouth, and Throat: Denies change in voice Cardiovascular Cardiovascular: Denies chest pain and Denies dyspnea Respiratory Respiratory: Denies cough and Denies dyspnea Gastrointestinal Gastrointestinal: Denies abdominal pain, Reports diarrhea, Reports nausea and Reports vomiting Musculoskeletal Musculoskeletal: Denies joint swelling Neurologic Neurologic: Denies loss of vision and Denies weakness PFSH All Active Problems (Updated 12/02/22 @ 10:09 by Gordo Blackman MD) Nausea and vomiting (Acute) Foot pain (Acute) Neuropathy (Acute) History of total right knee replacement (TKR) (Acute 06/03/22) Diarrhea (Acute) Abdominal pain (Acute) Pulsatile tinnitus of both ears (Acute) Lumbar radiculopathy, right (Acute) Sciatica of right side without back pain (Acute) Sensorineural hearing loss of both ears (Acute) Lumbar stenosis (Acute) Medical History Abnormal chest xray Anxiety Chronic kidney disease, stage 3 Diverticulosis Dyslipidemia Family history of colon cancer Folic acid deficiency GERD (gastroesophageal reflux disease) Hyperlipidemia Hypertension Insomnia Kidney disease Leg cramps Memory loss Obstructive sleep apnea Does not use CPAP; returned to company since she did not have change in symptoms Osteopenia Paresthesia Right sided sciatica Sciatica Tinnitus of right ear Vitamin D deficiency Surgical History Cholecystectomy Colonoscopy - MAC (10/12/17) History of bronchoscopy History of lumbar surgery 11/2020 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 Goldman DOS: 09/19/2018 Family History Father Hypertension Mother Hypertension Sister Hypertension Diabetes Social History Smoking/Tobacco Use Status: Never Smoking risk assessment performed?: Yes Alcohol Intake: current Alcohol Intake frequency: holidays/special occasions only Drug use: Never Substance use type: does not use Household members: spouse Number of Children: 4 current occupation: [employer] Current gender identity: female Do you feel safe at home: Yes Do you feel safe in your relationship?: Yes Exam Const General: no acute distress Orientation: alert HENMT Head: normal to inspection Ears: external ears normal General nose exam: external nose normal Mouth: moist mucous membranes Eyes General: appearance normal, both eyes and all related structures Neck Neck: normal visual inspection Resp Effort & Inspection: normal respiratory effort and able to speak in complete sentences Cardio Rate: regular rate GI Palpation: soft and nontender Skin General skin exam: no rashes or lesions noted Neuro General: patient alert and patient oriented x3 Extrem General: normal to inspection Psych Mental Status: mental status grossly normal Course Vital Signs Vital signs: Vital Signs Temperature 37.3 C 12/02/22 08:51 Pulse 79 12/02/22 08:51 Respiratory Rate 18 12/02/22 08:51 Pulse Oximetry 97 12/02/22 08:51 Temperature 37.3 C 12/02/22 08:51 Temperature Source Oral 12/02/22 08:51 Pulse 79 12/02/22 08:51 Respiratory Rate 18 12/02/22 08:51 Respiratory Effort Normal, Non-Labored 12/02/22 08:57 Pulse Oximetry 97 12/02/22 08:51 Pain Level 0 12/02/22 08:51
[2022-12-02 09:22] LABS: Abs Immature Grans 0.07 10^3/uL (0.0-0.06); Absolute Basophil Count 0.07 10^3/uL (0.0-0.2); Absolute Eosinophil Count 0.01 10^3/uL (0.0-0.7); Absolute Lymphocyte Count 0.95 10^3/uL (1.2-3.4); Absolute Monocyte Count 0.71 10^3/uL (0.1-0.8); Basophils % 0.5; Eosinophils % 0.1; HCT 44.8 % (36.0-46.0); HGB 15.3 g/dL (11.2-15.7); Immature Grans % 0.5; Lymphocytes % 7.2; MCH 31.7 pg (27.0-33.0); MCHC 34.2 % (32.0-36.0); MCV 93 fL (80-95); MPV 9.6 fL (8.0-11.0); Monocytes % 5.4; Neutrophils % 86.3; Platelet Count 316 10^3/uL (130-400); RBC 4.83 10^6/uL (3.93-5.22); RDW 12.6 % (11.7-14.6); RDW-SD 43.2 fL; WBC 13.14 10^3/uL (4.4-10.8)
[2022-12-02] MEDS: Normal Saline 1,000 ML 1000 ML IV (09:24)
[2022-12-02 09:25] LABS: Absolute Neutrophil Count 11.34 10^3/uL (1.2-6.7)
[2022-12-02] MEDS: Ondansetron 4 MG/2 ML VIAL IVP (09:26)
[2022-12-02 09:49] LABS: ALT 21 U/L (14-59); AST 20 U/L (15-37); Albumin 4.5 g/dL (3.4-5.0); Alkaline Phosphatase 115 U/L (46-116); Anion Gap 13.9 mmol/L (3-11); BUN 34 mg/dL (7-18); Bilirubin, Total 0.9 mg/dL (0.2-1.0); CO2 22.1 mmol/L (21.0-32.0); CREATININE 1.3 mg/dL (0.55-1.02); Calcium 9.7 mg/dL (8.5-10.1); Chloride 101 mmol/L (98-107); Estimated GFR 41.83 (mL/min/1.73m2); Glucose 136 mg/dL (74-106); Magnesium 1.8 mg/dL (1.8-2.4); Potassium 4.1 mmol/L (3.5-5.1); Sodium 137 mmol/L (136-145); Total Protein 8.6 g/dL (6.4-8.2)
[2022-12-02 10:03] VITALS: BP 141/67; PULSE 69; RESP 18; TEMP 37.1; O2SAT 100
[2022-12-02 11:15] VITALS: BP 156/93; PULSE 72; RESP 18; TEMP 37.4; O2SAT 94
== END 2022-12-02 11:36 | disposition home or self-care (01) ==
PROVIDERS: Emergency Provider Emergency Medicine; PCP Family Medicine
DX: R11.2 Nausea with vomiting, unspecified (principal); R19.7 Diarrhea, unspecified; N18.30 Chronic kidney disease, stage 3 unspecified; I12.9 Hypertensive chronic kidney disease with stage 1 through stage 4 chronic kidney disease, or unspecified chronic kidney disease
CPT/HCPCS: 80053; 96361; 96374; 99284; 83735; 85025; J2405

== ENCOUNTER 2023-04-03 12:40 | Outpatient (REF) | payer OTHER, SELFPAY ==
[2023-04-03 16:08] LABS: Abs Immature Grans 0.05 10^3/uL (0.0-0.06); Absolute Basophil Count 0.12 10^3/uL (0.0-0.2); Absolute Eosinophil Count 0.26 10^3/uL (0.0-0.7); Absolute Lymphocyte Count 2.55 10^3/uL (1.2-3.4); Absolute Monocyte Count 0.98 10^3/uL (0.1-0.8); Absolute Neutrophil Count 5.07 10^3/uL (1.2-6.7); Basophils % 1.3; Eosinophils % 2.9; HCT 36.9 % (36.0-46.0); HGB 12.6 g/dL (11.2-15.7); Immature Grans % 0.6; Lymphocytes % 28.2; MCH 32.6 pg (27.0-33.0); MCHC 34.1 % (32.0-36.0); MCV 95 fL (80-95); MPV 10.6 fL (8.0-11.0); Monocytes % 10.9; Neutrophils % 56.1; Platelet Count 254 10^3/uL (130-400); RBC 3.87 10^6/uL (3.93-5.22); RDW 12.4 % (11.7-14.6); RDW-SD 42.8 fL; WBC 9.03 10^3/uL (4.4-10.8)
[2023-04-03 17:44] LABS: Anion Gap 7.4 mmol/L (3-11); BUN 36 mg/dL (7-18); CO2 27.6 mmol/L (21.0-32.0); CREATININE 1.3 mg/dL (0.55-1.02); Calcium 8.6 mg/dL (8.5-10.1); Chloride 107 mmol/L (98-107); Estimated GFR 41.83 (mL/min/1.73m2); Glucose 87 mg/dL (74-106); Potassium 4.9 mmol/L (3.5-5.1); Sodium 142 mmol/L (136-145); Vitamin B12 1341 pg/mL (193-986)
[2023-04-03 17:45] LABS: Folate > 20.0 ng/mL (8.6-20.0)
== END 2023-04-03 12:41 | disposition home or self-care (01) ==
LOC: NCHCN 12:40
PROVIDERS: PCP Family Medicine; Visit Provider Family Medicine
DX: I10 Essential (primary) hypertension (principal); E53.8 Deficiency of other specified B group vitamins; E55.9 Vitamin D deficiency, unspecified
CPT/HCPCS: 80048; 82607; 82746; 85025

== ENCOUNTER 2023-05-28 02:42 | Outpatient (CLI) | payer OTHER, SELFPAY ==
--- NOTE | 2023-05-28 08:10 | DI.MAMMO_ITS ---
Exam(s) MAMMO SCREENING EXAM: MAMMO SCREENING CLINICAL HISTORY: SCREENING, Z12.39 TECHNIQUE: Bilateral full field digital CC and MLO mammographic images were obtained with 3D tomosyn thesis and utilizing computer aided detection (CAD). COMPARISON: Available for comparison. FINDINGS: Masses/Architectural Distortion: None seen. Microcalcifications: No suspicious pleomorphic-type are seen. Skin Thickening/Nipple Retraction: None. IMPRESSION: 1. No significant interval change with no specific features of malignancy noted. 2. Unless there is more urgent need, screening mammography is recommended, as per [employer] guidelines. BI-RADS Category 1 - Negative Breast Density - Category B - Scattered areas of fibroglandular density Breast density category C or D implies that the patient has dense breast tissue. Dense breast tissue is very common and is not abnormal but dense breast tissue can make it harder to find cancer on a ma mmogram. Also, dense breast tissue may increase their breast cancer risk. This information about the result of the mammogram report was provided to the patient to raise their awareness. Use this report when you speak with the patient about their risks for breast cancer, which includes their family hist ory. At that time, you may recommend for more screening tests (Ultrasound or MRI) as they might be us eful based on their risk. A negative radiographic report should not delay biopsy if a dominant or clinically suspicious mass is present. Up to ten percent of cancers are not identified on mammography. A negative report may reinforce clinical impression. Adenosis and dense breasts may obscure an underlying neoplasm. False positive reports average 6 to 10%. Patient will receive a letter notifying them of these results.
--- NOTE | 2023-05-28 08:30 | DI.DEXA_ITS ---
Exam(s) XR DEXA BONE DENSITY W/WO STEPH EXAM: XR DEXA BONE DENSITY W/WO STEPH CLINICAL HISTORY: OTHER SPECIFIED DISORDERS OF BONE DENSITY AND STRUCTURE, M85.88 TECHNIQUE: COMPARISON: CR XR DEXA BONE DENSITY W/WO STEPH from 06/01/2019 FINDINGS: Lateral Spine Image: Unremarkable. No compression deformities identified. Left hip: Total T-Score: -1.5. This compares to -1.3 on the prior examination. Total Z-Score: 0.5 T- and Z-scores: The findings are consistent with osteopenia. Lumbar Spine: Total T-Score: -1.8. This compares to -1.8 on the prior examination. Total Z-Score: 0.8 T- and Z-scores: Findings are consistent with osteopenia. There are findings of osteoporosis in the left forearm with a total T-score of -2.7 and a Z-score of 0.3. IMPRESSION: Osteoporosis in the left forearm.
== END 2023-05-28 03:02 ==
LOC: DI 02:43
PROVIDERS: PCP Family Medicine; Visit Provider Family Medicine
DX: Z13.820 Encounter for screening for osteoporosis (principal); Z12.31 Encounter for screening mammogram for malignant neoplasm of breast; M81.0 Age-related osteoporosis without current pathological fracture
CPT/HCPCS: 77063; 77067; 77080

== ENCOUNTER 2023-06-01 18:02 | Outpatient (CLI) | payer OTHER, SELFPAY ==
--- NOTE | 2023-06-01 13:00 | DI.RAD_ITS ---
Exam(s) XR KNEE RT 2V AP,LAT EXAM: XR KNEE RT 2V AP,LAT CLINICAL HISTORY: ANNUAL F/U S/P R TKA. TECHNIQUE: 2D digital imaging was performed. Two views. COMPARISON: CR XR KNEE RT 1V from 06/16/2022 CR XR STANDING ALIGNMENT from 06/16/2022 FINDINGS: BONES: No acute fracture is present. No bony destructive lesion is seen. There has been no change i n the alignment of the total knee prosthesis. JOINTS: The knee is normally aligned. No joint effusion is seen. SOFT TISSUE: Posterior soft tissue calcification again noted. IMPRESSION: Stable appearance right knee prosthesis. DATA REPOSITORY: RADIATION DOSE DELIVERED:
== END 2023-06-01 18:03 | disposition home or self-care (01) ==
LOC: DIORS 18:04
PROVIDERS: PCP Family Medicine; Visit Provider Student in an Organized Health Care Education/Training Program
DX: Z96.651 Presence of right artificial knee joint (principal); Z47.1 Aftercare following joint replacement surgery
CPT/HCPCS: 99213; 73560

== ENCOUNTER 2023-10-26 16:31 | Outpatient (REF) | payer OTHER, SELFPAY ==
[2023-10-26 18:36] LABS: HCT 37.4 % (36.0-46.0); HGB 12.3 g/dL (11.2-15.7); MCH 31.7 pg (27.0-33.0); MCHC 32.9 % (32.0-36.0); MCV 96 fL (80-95); MPV 10.9 fL (8.0-11.0); Platelet Count 219 10^3/uL (130-400); RBC 3.88 10^6/uL (3.93-5.22); RDW 12.8 % (11.7-14.6); RDW-SD 44.7 fL
[2023-10-26 19:23] LABS: Anion Gap 9.6 mmol/L (3-11); BUN 16 mg/dL (7-18); CO2 26.4 mmol/L (21.0-32.0); CREATININE 1.4 mg/dL (0.55-1.02); Calcium 8.7 mg/dL (8.5-10.1); Chloride 107 mmol/L (98-107); Estimated GFR 38.03 (mL/min/1.73m2); Glucose 113 mg/dL (74-106); Potassium 3.9 mmol/L (3.5-5.1); Sodium 143 mmol/L (136-145)
== END 2023-10-26 16:32 | disposition home or self-care (01) ==
LOC: NCHCN 16:31
PROVIDERS: PCP Family Medicine; Visit Provider Family Medicine
DX: N18.30 Chronic kidney disease, stage 3 unspecified (principal)
CPT/HCPCS: 80048; 85027

== ENCOUNTER → 2023-10-29 04:42 | Outpatient (CLI) | payer OTHER, SELFPAY ==
--- NOTE | 2023-10-29 | DI.MRI_ITS ---
Exam(s) MR LUMBAR SPINE WO EXAM: MR LUMBAR SPINE WO CLINICAL HISTORY: SPINAL STENOSIS LUMBAR REGION, M48.062, NEUROGENIC CLAUDICATION. TECHNIQUE: Multiplanar multisequence MRI of the Lumbar spine was performed. COMPARISON: MR MR LUMBAR SPINE WO from 09/24/2021 FINDINGS: Bones: The last intervertebral disc space is designated the L5/S1 level for the numbering purpose of this ex amination. The vertebral body heights are well maintained. Alignment: Unremarkable. The marrow signal characteristics are unremarkable. Cord: The conus tip ends at the T12 level. It is of normal size and signal intensity. T12-L1: Mild disc bulging. No focal disc herniation is present. No central spinal canal stenosis.No neural foraminal stenosis. L1-2: Loss of disc height, endplate osteophytes and mild concentric disc bulging. No focal disc he rniation is present. No central spinal canal stenosis.No neural foraminal stenosis. L2-3:Normal disc height. No significant disc bulging. No focal disc herniation is present. No cent ral spinal canal stenosis.No neural foraminal stenosis. L3-4: No focal disc herniation is present. Minimal disc bulging. Facet degenerative changes and lig amentous hypertrophy. No central spinal canal stenosis.No neural foraminal stenosis. L4-5:Disc height normal.Mild disc bulging. No focal disc herniation is present.Facet degenerative ch anges. Mild central canal stenosis, greatly improved from prior. Moderate bilateral neural foramina l stenosis. L5-S1: No focal disc herniation is present. Facet degenerative changes. No central spinal canal griselda nosis.No neural foraminal stenosis. The visualized SI joints and sacrum are unremarkable. Soft tissues: Post surgical changes posterior to the L4-5 level. Impression: S/P surgery at L4-5 with improvement in central canal stenosis. Bilateral neural foraminal narrowing at this level. No new disc herniation. DATA REPOSITORY:
== END ==
PROVIDERS: PCP Family Medicine; Visit Provider Family Medicine
DX: M48.062 Spinal stenosis, lumbar region with neurogenic claudication (principal)
CPT/HCPCS: 72148

== ENCOUNTER 2024-01-18 13:48 | Outpatient (REF) | payer OTHER, SELFPAY ==
[2024-01-18 16:30] LABS: Anion Gap 8.1 mmol/L (3-11); BUN 14 mg/dL (7-18); CO2 27.9 mmol/L (21.0-32.0); Calcium 9.1 mg/dL (8.5-10.1); Chloride 107 mmol/L (98-107); Estimated GFR 56.95 (mL/min/1.73m2); Glucose 96 mg/dL (74-106); Potassium 4.5 mmol/L (3.5-5.1); Sodium 143 mmol/L (136-145)
== END 2024-01-18 13:49 | disposition home or self-care (01) ==
LOC: NCHCN 13:48
PROVIDERS: PCP Family Medicine; Visit Provider Family Medicine
DX: N18.30 Chronic kidney disease, stage 3 unspecified (principal)
CPT/HCPCS: 80048

== ENCOUNTER 2024-01-18 16:04 | Outpatient (CLI) | payer OTHER, SELFPAY ==
--- NOTE | 2024-01-18 13:30 | DI.RAD_ITS ---
Exam(s) XR HIP LT COMPLETE AP PELVIS EXAM: XR HIP LT COMPLETE AP PELVIS CLINICAL HISTORY: L hip pain. TECHNIQUE: 2D digital imaging was performed. COMPARISON: CR XR STANDING ALIGNMENT from 06/16/2022 CR XR DEXA BONE DENSITY W/WO STEPH from 05/28/2023 FINDINGS: Two views. There are no pelvic nor hip fractures. Right hip prosthesis appears stable. Mild degenerative greene es in the left hip are noted. No significant osseous lesions. IMPRESSION: Mild degenerative changes left hip. Right hip prosthesis. DATA REPOSITORY: RADIATION DOSE DELIVERED:
== END 2024-01-18 16:05 | disposition home or self-care (01) ==
LOC: DIORS 16:04
PROVIDERS: PCP Family Medicine; Referring Provider Family Medicine
DX: M16.12 Unilateral primary osteoarthritis, left hip; M70.62 Trochanteric bursitis, left hip
CPT/HCPCS: 20610; J1010; 73502

== ENCOUNTER → 2024-02-19 08:19 | Outpatient (BNVA) | payer OTHER, SELFPAY | PROVIDERS: PCP Family Medicine; Referring Provider Family Medicine; Visit Provider Physician Assistant | DX: M16.12 Unilateral primary osteoarthritis, left hip (principal) | CPT/HCPCS: 20611; J1010 ==

== ENCOUNTER 2024-04-27 15:28 | Outpatient (CLI) | payer OTHER, SELFPAY ==
--- NOTE | 2024-04-27 06:00 | DI.RAD_ITS ---
Exam(s) XR PAIN CLINIC LUMBAR SP 2V EXAM: XR PAIN CLINIC LUMBAR SP 2V CLINICAL HISTORY: Lumbar Radiculopathy. TECHNIQUE: Fluoroscopy was provided for the referring physician for guidance with performing pain cl inic injection procedure. COMPARISON: No exams were available for comparison FINDINGS: Please see procedure note for details. Fluoro time: 24.7 seconds RADIATION DOSE DELIVERED: Ka,r=6.3 mGy
[2024-04-27 15:36] VITALS: BP 131/71; PULSE 58; RESP 18; TEMP 36.6; O2SAT 95
--- NOTE | 2024-04-27 16:17 | PDOC.PAIN ---
Date of service: 04/27/24 Time of Service: 16:40 Pain Managment Procedure Note Procedure Note Procedure Note: PROCEDURE NOTE CAUDAL EPIDURAL STEROID INJECTION Date of Service: April 27, 2024 Patient:? Licha Aguilar? Provider:? Jose Antonio Gonzales DO, MPH Licha Aguilar has been referred to the [facility] for caudal epidural steroid injection.? Pre-operative diagnosis: Lumbosacral Radiculopathy Post-operative diagnosis: Same Pre-Procedure Pain: VAS= 6/10. COMMENTS: She was referred directly for this procedure from her spine surgeon (Dr. Cruz). I did discuss this with her at length. She has pain that travels to the posterior thigh and calf on the right. Since she has had previous surgery, we opted for a caudal approach to this procedure. Naveedwas interviewed and the medical record was reviewed.? There were no medical, pharmacologic, radiographic or other structural contraindications to attempting fluoroscopically guided epidural steroid injection.? Risks and expected side effects as well as potential benefit of the procedure were reviewed with Naveed, and the patient's voiced concerns were addressed.? The printed consent form was signed.? Standard time-out procedure was performed. Naveed was placed in the prone position on the fluoroscopy table and automated blood pressure cuff and pulse oximeter applied.? The skin entry point for entering/approaching the epidural space by a caudal approach through the sacral hiatus ed identified with surgical skin marking.? Following thorough chlorhexidine preparation of the skin and draping and 1% lidocaine infiltration of the skin entry point and subcutaneous tissues, a 17 gauge Touhy needle was placed under fluoroscopic guidance? into the epidural space. Needle tip placement and depth were aided and confirmed by fluoroscopy in the lateral and AP position. There was no paresthesia or return of blood or CSF through the needle. 1 cc of Omnipaque 240 was injected with clear epidural spread confirmed with fluoroscopy. An Arrow 19G radio-opaque epidural catheter was advanced into the epidural space to the L4-L5 level and 2 cc of Omnipaque 240 was injected with clear epidural spread. 80 mg of Depo-Medrol was? injected. There was no unusual discomfort expressed by Licha. The needle and catheter were then flushed with 1 cc of 1% Lidocaine and they were removed together without difficulty (49 cc of Omnipaque was wasted). Licha was observed and was without hemodynamic, neurologic, or allergic reactions.? Fluoroscopic images were digitally archived. Licha's vital signs were stable throughout the procedure and were as recorded in the docflowsheet by the nursing staff.? If given, dosages of intravenous drugs for anxiolysis and analgesia were documented in MAR. Follow up plans and appointments were discussed with Licha.? Post procedure instruction was given as documented in nursing documentation and having met discharge criteria, [facility] ? COMMENTS: No apparent complications.? Post-procedure pain: VAS= 0/10. If the patient receives at least 50% improvement in pain and/or function for at least 3 months, this procedure can be repeated. She will call us back in 4 weeks to let us know how she is doing. I personally completed the entire procedure. JOSE ANTONIO GONZALES DO, MPH [employer]BPM[employer] - Subspecialty board certification in Pain Medicine [facility]
[2024-04-27 16:34] VITALS: PULSE 54; RESP 18; O2SAT 93
[2024-04-27 16:36] VITALS: BP 186/80; PULSE 51; PULSE 52; RESP 17; O2SAT 97
[2024-04-27 16:40] VITALS: PULSE 53; RESP 19; O2SAT 98
[2024-04-27 16:45] VITALS: BP 183/100; PULSE 51
[2024-04-27 16:47] VITALS: BP 175/86; PULSE 60
[2024-04-27] MEDS: Nerve Block Tray 1 EACH MC (16:50)
[2024-04-27] MEDS: Omnipaque 240 MG/ML 50 ML BTL IJ (16:50)
[2024-04-27] MEDS: methylPREDNISolone ACETATE 80 MG/ML VIAL IJ (16:50)
== END 2024-04-27 15:29 | disposition home or self-care (01) ==
LOC: PC 15:28
PROVIDERS: PCP Family Medicine; Visit Provider Preventive Medicine Occupational Medicine
DX: M54.50 Low back pain, unspecified (principal); M54.17 Radiculopathy, lumbosacral region
CPT/HCPCS: 62323; 72100; J1010; Q9967

== ENCOUNTER 2024-05-03 12:28 | Outpatient (CLI) | payer OTHER, SELFPAY ==
[2024-05-03 13:08] LABS: Anion Gap 6.9 mmol/L (3-11); BUN 17 mg/dL (7-18); CO2 29.1 mmol/L (21.0-32.0); CREATININE 1.1 mg/dL (0.55-1.02); Calcium 9.4 mg/dL (8.5-10.1); Chloride 103 mmol/L (98-107); Glucose 98 mg/dL (74-106); Potassium 4.4 mmol/L (3.5-5.1); Sodium 139 mmol/L (136-145)
== END 2024-05-03 12:29 | disposition home or self-care (01) ==
LOC: LBO 12:29
PROVIDERS: PCP Family Medicine; Visit Provider Family Medicine
DX: N18.30 Chronic kidney disease, stage 3 unspecified (principal)
CPT/HCPCS: 36415; 80048

== ENCOUNTER 2024-06-27 01:36 | Outpatient (CLI) | payer OTHER, SELFPAY ==
--- NOTE | 2024-06-27 | DI.MRI_ITS ---
Exam(s) MR LUMBAR SPINE WO/W EXAM: MR LUMBAR SPINE WO/W CLINICAL HISTORY: RT L4-5 SYNOVIAL CYST LUMBAR SPINE,M71.38,RT LEG PAIN. TECHNIQUE: Multiplanar multisequence MRI of the Lumbar spine was performed. COMPARISON: MR MR LUMBAR SPINE WO from 09/24/2021 MR MR LUMBAR SPINE WO from 10/29/2023 FINDINGS: Conus medullaris is at normal level. There is no evidence of conus mass nor subjacent clumping of in trathecal nerve roots to suggest arachnoiditis. The distal thecal sac appears unremarkable.There is no evidence of Tarlov intrasacral cysts nor other significant findings within the sacral canal Bones:There are no fractures nor ominous osseous lesions in the lumbar vertebral bodies and visualize d sacrum. No evidence of discitis nor osteomyelitis. With respect to the individual levels... T12-L1: There is central annular bulging at this level which is unchanged from the 10/29/2023 MRI bria dy. Central canal dimensions are lower normal. No significant foraminal stenosis at this level. L1-2: This level again exhibits chronic disc space narrowing and anterior osseous lipping. Posterior ly there is an element of mild retrolisthesis of L1 upon L2 again noted. Mild posterior annular bulg ing is unchanged. No new disc herniation. Central canal dimensions are lower normal. No significan t foraminal stenosis at this level. Facets unremarkable. L2-3: Normal disc height. No disc herniation nor central canal stenosis.No foraminal stenosis.Mild fa cet joint degenerative changes. L3-4: Relatively preserved disc height again noted. Mild retrolisthesis L3 upon L4 unchanged. Symme trical annular bulging is unchanged. Central canal dimensions are lower normal. No significant fora edy stenosis. Mild facet joint degenerative changes again noted . L4-5: Previous surgery at this level. Disc height is slightly decreased on the right side and there is again noted grade 1 anterolisthesis L4 upon L5, unchanged and related to facet arthropathy. Centr al canal dimensions are similar to 10/29/2023, again significantly improved when compared to the MRI scan of 09/24/2021. Presently mild central canal stenosis when compared to severe central canal steno sis of 09/24/2021. In addition there is a degenerative synovial cyst off the medial aspect of the ri ght facet joint at this level which was not present preoperatively (ligamentum flavum resected) but w as evident on study of 10/29/2023 and appears relatively stable in the AP plane but slightly increase d in size in craniocaudal dimension, presently measuring 1.8 cm craniocaudal length and previously 1. 2 cm craniocaudal length. This degenerative synovial cyst is again noted to be slightly compressing the right-side of the thecal sac at this level. There does not appear to be significant foraminal st enosis on either side at this level.. No new disc herniations evident. There is enhancing granulati on tissue in the epidural space at this level and what appears to be mild enhancement of the right-si ded above described degenerative synovial cyst. L5-S1: This level again exhibits mild degenerative anterolisthesis of L5 upon S1 related to facet art hropathy. There are no degenerative subarticular cysts at this level. Central canal dimensions are lower normal. There is no significant foraminal stenosis on either side at this level. Soft tissues: Multiple cysts and parapelvic cysts are noted in the kidneys bilaterally, similar to t he previous study IMPRESSION: 1. Multilevel findings as described individually above, mostly stable when compared to the most recen t CT scan of 10/29/2023 with the exception of the fact that there is a right-sided degenerative synov ial cyst at the operative L4-5 level which appears to have slightly increased in size in the cranioca udal plane when compared to the 10/29/2023 study. There had been L4-5 spinal canal stenosis decompre ssion surgery between the MRI scans of 09/24/2021 and 10/29/2023. 2. No evidence of new significant disc herniation and the right-sided finding described above at L4-5 level has more the appearance of a degenerative synovial cyst than an epidural abscess. DATA REPOSITORY:
[2024-06-27] MEDS: Gadoterate meglumine 20 ML SYRINGE 14 ML IVP (10:21)
[2024-06-27] MEDS: Normal Saline Flush 10 ML SYR IVP (10:21)
== END 2024-06-27 01:56 ==
LOC: DI 01:36
PROVIDERS: PCP Family Medicine; Visit Provider Neurological Surgery
DX: M71.38 Other bursal cyst, other site (principal)
CPT/HCPCS: 72158

== ENCOUNTER 2024-07-15 15:19 | Outpatient (REF) | payer OTHER, SELFPAY ==
[2024-07-15 17:45] LABS: C Diff PCR Negative (Negative)
[2024-07-16 11:31] LABS: Campylobacter PCR Negative (Negative); Salmonella PCR Negative (Negative); Shiga Toxin PCR Negative (Negative); Shigella/Enteroinvasive Ecoli Negative (Negative)
[2024-07-19 15:58] LABS: Cryptosporidium, F Negative (Negative)
[2024-07-20 18:52] LABS: Calprotectin <50.0 mcg/g
[2024-07-25 16:11] LABS: Misc Referral (MAYO) See Comments
== END 2024-07-15 15:20 | disposition home or self-care (01) ==
LOC: NCHCN 15:19
PROVIDERS: PCP Family Medicine; Visit Provider Family Medicine
DX: R19.7 Diarrhea, unspecified (principal)
CPT/HCPCS: 87328; 87329; 87493; 87505; 83993

== ENCOUNTER 2024-08-05 11:37 | Outpatient (REF) | payer OTHER, SELFPAY ==
[2024-08-05 15:33] LABS: Abs Immature Grans 0.07 10^3/uL (0.0-0.06); Absolute Basophil Count 0.11 10^3/uL (0.0-0.2); Absolute Eosinophil Count 0.21 10^3/uL (0.0-0.7); Absolute Monocyte Count 0.85 10^3/uL (0.1-0.8); Basophils % 1.1 %; Eosinophils % 2.1 %; HCT 38.2 % (36.0-46.0); HGB 12.6 g/dL (11.2-15.7); Immature Grans % 0.7 %; Lymphocytes % 25.4 %; MCH 32.6 pg (27.0-33.0); MCV 99 fL (80-95); MPV 9.6 fL (8.0-11.0); Monocytes % 8.6 %; Neutrophils % 62.1 %; Platelet Count 281 10^3/uL (130-400); RBC 3.87 10^6/uL (3.93-5.22); RDW 11.9 % (11.7-14.6); RDW-SD 42.6 fL; WBC 9.84 10^3/uL (4.4-10.8)
[2024-08-05 15:46] LABS: ALT 14 U/L (14-59); AST 16 U/L (15-37); Albumin 3.8 g/dL (3.4-5.0); Alkaline Phosphatase 111 U/L (46-116); Anion Gap 8.1 mmol/L (3-11); BUN 18 mg/dL (7-18); Bilirubin, Total 0.56 mg/dL (0.2-1.0); CO2 27.9 mmol/L (21.0-32.0); CREATININE 1.1 mg/dL (0.55-1.02); Chloride 107 mmol/L (98-107); Estimated GFR 50.48 (mL/min/1.73m2); Glucose 86 mg/dL (74-106); Potassium 4.6 mmol/L (3.5-5.1); Sodium 143 mmol/L (136-145); Total Protein 6.6 g/dL (6.4-8.2)
== END 2024-08-05 11:38 | disposition home or self-care (01) ==
LOC: NCHCN 11:37
PROVIDERS: PCP Family Medicine; Visit Provider Family Medicine
DX: Z01.811 Encounter for preprocedural respiratory examination (principal)
CPT/HCPCS: 80053; 85025

== ENCOUNTER 2024-08-09 13:30 | Outpatient (CLI) | payer OTHER, SELFPAY ==
--- NOTE | 2024-08-09 13:30 | RT.EKG_ITS ---
APPROVED REPORT Exam: Resting ECG Reason for Exam: PRE-OP Patient Location: O HR:57 bpm ECG Measurements Heart Rate 57 AXIS WY 145 P 19 QRSd 100 QRS -5 QT 446 T 13 QTc 435 Conclusion Sinus rhythm...normal P axis, V-rate 50- 99 RSR' in V1 or V2
== END 2024-08-09 13:31 | disposition home or self-care (01) ==
PROVIDERS: PCP Family Medicine; Visit Provider Family Medicine
DX: Z01.818 Encounter for other preprocedural examination (principal)
CPT/HCPCS: 93005; 93010

== ENCOUNTER 2024-08-12 20:34 | Outpatient (REF) | payer MEDICARE, MEDICAID, SELFPAY ==
[2024-08-12 17:39] LABS: Bilirubin Negative (Negative); Blood Negative (Negative); Clarity Cloudy (Clear); Glucose Negative (Negative); Ketones Negative (Negative); Leukocyte Esterase Negative (Negative); Nitrite Negative (Negative); Urobilinogen 0.2 mg/dL (Up to 0.2); pH 5.5 (5-8)
== END 2024-08-12 20:35 | disposition home or self-care (01) ==
LOC: LBN 20:34
PROVIDERS: PCP Family Medicine; Visit Provider Neurological Surgery
DX: Z01.818 Encounter for other preprocedural examination (principal); M71.38 Other bursal cyst, other site
CPT/HCPCS: 81003

== ENCOUNTER 2024-08-15 14:59 | Outpatient (REF) | payer MEDICARE, MEDICAID, SELFPAY ==
[2024-08-15 17:54] LABS: Bacteria Rare HPF (Negative); C & S Indicated? No; Casts Negative LPF (Negative); Crystals Negative HPF (Negative); Epithelial Cells Rare HPF (Negative); Mucus Negative (Negative); Other Cells Negative (Negative); RBC Negative HPF (0-2); WBC Negative HPF (0-5)
== END 2024-08-15 15:00 | disposition home or self-care (01) ==
LOC: LBN 14:59
PROVIDERS: PCP Family Medicine; Visit Provider Neurological Surgery
DX: Z01.818 Encounter for other preprocedural examination (principal); M71.38 Other bursal cyst, other site
CPT/HCPCS: 81015

== ENCOUNTER → 2024-10-21 08:27 | Outpatient (BNVA) | payer MEDICARE, MEDICAID, SELFPAY | PROVIDERS: PCP Family Medicine; Referring Provider Family Medicine | DX: M16.12 Unilateral primary osteoarthritis, left hip (principal) | CPT/HCPCS: 99212 ==

== ENCOUNTER 2024-11-04 18:18 | Outpatient (REF) | payer MEDICARE, MEDICAID, SELFPAY ==
[2024-11-04 23:03] LABS: Vitamin D 25 Total 26 ng/mL (30-100)
[2024-11-07 09:43] LABS: Parathyroid Hormone,Intact 82.6 pg/mL (19.0-88.0)
== END 2024-11-04 18:19 | disposition home or self-care (01) ==
LOC: NCHCN 18:18
PROVIDERS: PCP Family Medicine; Visit Provider Family Medicine
DX: M85.88 Other specified disorders of bone density and structure, other site (principal)
CPT/HCPCS: 82306; 83970

== ENCOUNTER 2024-12-15 10:46 | Outpatient (CLI) | payer MEDICARE, SELFPAY | END 2024-12-15 10:47 | disposition home or self-care (01) | PROVIDERS: PCP Family Medicine; Visit Provider Family Medicine | DX: R55 Syncope and collapse (principal) | CPT/HCPCS: 93270 ==

== ENCOUNTER 2025-01-17 06:57 | Outpatient (CLI) | payer MEDICARE, SELFPAY ==
--- NOTE | 2025-01-17 09:02 | W.CARDEVENT ---
Date of service: 01/17/25 Time of Service: 09:02 Cardiac Event Recorder Referring Provider:: Jana Wayne Indications:: Syncope Cardiac Event Note: This is a cardiac event monitor. Patient was monitored for 28 days and 5 hours. Rhythm throughout was sinus. Average heart rate overall was 55. Minimum was 42, maximum 112 There were no significant ventricular dysrhythmias. There was no atrial fibrillation, no high-grade AV block, no pauses greater than 3 seconds There were no apparent symptoms
== END 2025-01-17 06:58 | disposition home or self-care (01) ==
LOC: CARDOPNVT 06:57
PROVIDERS: PCP Family Medicine; Visit Provider Internal Medicine Cardiovascular Disease
DX: R55 Syncope and collapse (principal)
CPT/HCPCS: 93272

== ENCOUNTER → 2025-02-03 07:55 | Outpatient (BNVA) | payer MEDICARE, SELFPAY | PROVIDERS: PCP Family Medicine; Referring Provider Family Medicine; Visit Provider Physician Assistant | DX: M16.12 Unilateral primary osteoarthritis, left hip (principal) | CPT/HCPCS: 20611; J1010 ==

== ENCOUNTER 2025-05-01 07:29 | Outpatient (CLI) | payer MEDICARE, SELFPAY ==
[2025-05-01 10:55] LABS: HCT 36.8 % (36.0-46.0); HGB 12.1 g/dL (11.2-15.7); MCH 33.2 pg (27.0-33.0); MCHC 32.9 % (32.0-36.0); MCV 101 fL (80-95); MPV 9.2 fL (8.0-11.0); Platelet Count 272 10^3/uL (130-400); RBC 3.65 10^6/uL (3.93-5.22); RDW 12.2 % (11.7-14.6); RDW-SD 45.4 fL; WBC 9.60 10^3/uL (4.4-10.8)
[2025-05-01 11:19] LABS: Anion Gap 7.9 mmol/L (3-11); BUN 22 mg/dL (7-18); CO2 27.1 mmol/L (21.0-32.0); Calcium 9.3 mg/dL (8.5-10.1); Chloride 104 mmol/L (98-107); Estimated GFR 45.48 (mL/min/1.73m2); Glucose 92 mg/dL (74-106); Potassium 4.6 mmol/L (3.5-5.1); Sodium 139 mmol/L (136-145)
== END 2025-05-01 07:30 | disposition home or self-care (01) ==
LOC: LBO 07:29
PROVIDERS: PCP Family Medicine; Visit Provider Student in an Organized Health Care Education/Training Program
DX: M16.12 Unilateral primary osteoarthritis, left hip (principal); Z01.818 Encounter for other preprocedural examination
CPT/HCPCS: 36415; 80048; 85027

== ENCOUNTER 2025-05-01 11:51 | Outpatient (CLI) | payer MEDICARE, SELFPAY ==
--- NOTE | 2025-05-01 09:45 | DI.RAD_ITS ---
Exam(s) XR PELVIS AP EXAM: XR PELVIS AP CLINICAL HISTORY: PRE OP L OZIEL. TECHNIQUE: 2D digital imaging was performed. Single AP view. COMPARISON: CR XR HIP LT COMPLETE AP PELVIS from 01/18/2024 FINDINGS: BONES: No acute fracture is present. No bony destructive lesion is seen. JOINTS: No dislocation present. The right hip prosthesis is unchanged in alignment. No abnormal surrounding lucencies. The left hip joint space shows narrowing greater medially. There is spurring at the acetabulum and margin of the femoral head. Findings are slightly worse when compared with the previous exam. SI joints and pubic symphysis unremarkable. SOFT TISSUE: Normal. IMPRESSION: Moderate degenerative changes of the left hip. DATA REPOSITORY: RADIATION DOSE DELIVERED:
== END 2025-05-01 11:52 | disposition home or self-care (01) ==
LOC: DIORS 11:52
PROVIDERS: PCP Family Medicine; Visit Provider Physician Assistant
DX: Z01.818 Encounter for other preprocedural examination (principal); M16.12 Unilateral primary osteoarthritis, left hip
CPT/HCPCS: 99024; 72170

== ENCOUNTER 2025-05-09 05:51 | Day surgery (SDC) | payer MEDICARE, SELFPAY ==
[2025-05-09] VITALS (9 sets, daily range): BP systolic 97–164; BP diastolic 59–71; PULSE 52–56; RESP 11–18; TEMP 36–36.6; O2SAT 94–99; BMI 27.3
[2025-05-09] MEDS: Celecoxib 200 MG CAP 400 MG PO (06:38)
[2025-05-09] MEDS: Acetaminophen 500 MG TAB 1000 MG PO (06:38)
[2025-05-09] MEDS: Lactated Ringers 1,000 ML 80 ML IV (06:49)
--- NOTE | 2025-05-09 06:55 | W.PM.DSUDISC ---
Date of service: 05/09/25 Discharge Plan Disposition Patient Disposition: Home Condition: Good Discharge Details Reason For Visit: Left hip DJD Attending Provider: Baldo Fraire Primary Care Provider: Jana Wayne Home Meds and New Rx's Prescriptions: New acetaminophen 500 mg tablet 1,000 mg PO Q8H PRN Qty: 90 0RF Rx Instructions: Take two tablets up to every 8 hours as needed for pain aspirin 81 mg tablet,delayed release (DR/EC) 81 mg PO BID 30 Days Qty: 60 0RF celecoxib [Celebrex] 200 mg capsule 200 mg PO BID PRNQty: 60 0RF Rx Instructions: Take one tablet twice daily for pain and inflammation docusate sodium [Colace] 100 mg capsule 100 mg PO BID Qty: 28 0RF hydromorphone 2 mg tablet 2 mg PO Q6H PRNQty: 12 0RF Rx Instructions: Take one tablet up to every 4 hours as needed for severe postoperative pain dexamethasone 4 mg tablet 4 mg PO DAILY Qty: 2 0RF Rx Instructions: Take one tablet once daily for two days Continued folic acid 1 mg tablet 1 mg PO DAILY omeprazole 20 mg capsule,delayed release(DR/EC) 20 mg PO HS spironolactone 25 mg tablet 25 mg PO DAILY losartan 100 mg tablet 100 mg PO HS atorvastatin 20 mg tablet 20 mg PO DAILY calcium carb, citrate-vit D3 1 EACH tablet extended release 1 ea PO DAILY cyanocobalamin (vitamin B-12) 1,000 mcg capsule 1,000 mcg PO DAILY gabapentin 300 mg capsule 900 mg PO HS cholecalciferol (vitamin D3) 50 mcg (2,000 unit) capsule 50 mcg PO DAILY colestipol 1 gram tablet 1 g PO ONCE sodium chloride 5 % drops 1 drp ophthalmic (eye) QAM famotidine 20 mg tablet 20 mg PO BID (DME) [facility] See Rx Instructions .Route Rx Instructions: As directed sertraline 25 mg tablet 25 mg PO DAILY Systane (propylene glycol) 0.4-0.3 % drops 1 drp ophthalmic (eye) TID PRN metoprolol succinate 25 mg tablet extended release 24 hr 1 tab PO DAILY ondansetron 4 mg tablet,disintegrating 4 mg PO Q8H PRN (Reason: nausea and vomiting) Qty: 30 0RF Discontinued meloxicam 15 mg tablet See Rx Instructions .ROUTE .COMPLEX Qty: 30 1RF Dose Instruction: TAKE 1 TABLET BY MOUTH DAILY FOR INFLAMMATION AND PAIN Rx Instructions: TAKE 1 TABLET BY MOUTH DAILY FOR INFLAMMATION AND PAIN acetaminophen 500 mg tablet 1,000 mg PO Q8H PRN (Reason: pain) Qty: 90 3RF Discharge Instructions Additional Instructions: Total Hip Discharge Instructions Activity: The most important activity is to walk. You should try to take short walks a few times a day. You have no restrictions on movement or positioning, but do not try to force what you do. You will find some stiffness and weakness with hip flexion (lifting your knee). Do not try to strengthen this too early, continue to practice walking and stairs and this will come. - Outpatient physical therapy can be helpful to help return you to a normal gait and improve your flexibility and strength. This can start around 2 weeks. For some patients, it?s not necessary. Usually this is determined at the time of discharge or at the first post-operative visit. - You should wear the NEELIMA hose on both legs for 2 weeks. Dressing: Keep the surgical dressing in place for at least one week. After the first week it may be removed and replace with light gauze and tape or nothing. It may get wet after 3 days but avoid soaking the dressing. If it gets wet, just lightly pat dry. It is important to always keep some gauze between skin folds, especially when you are sitting. Spend some time with the wound exposed when you are lying flat as the incision does wrinkle onto itself. Medications: - You should take Tylenol and an anti-inflammatory Celebrex as your primary pain control medications. If the Celebrex is too expensive or not covered, please call the office for another alternative (Advil/Ibuprofen or Naproxen/Aleve). - You have been prescribed a stronger pain medication Hydromorphone for breakthrough pain, take as needed as prescribed. - You take a stomach acid reduction agent Omeprazole at baseline - continue with this medication to help reduce stomach acid and reflux. - You have also been prescribed Decadron to help with post-operative nausea and pain. You will take this for two days starting tomorrow. - You will be taking Aspirin 81mg twice a day for DVT prevention unless instructed otherwise. - If you have constipation you should take Colace (which has been prescribed) or Miralax (which is available [id number]). It takes most people 3-4 days to have a bowel movement. Follow-up: 2 weeks If you have any acute concerns or questions, please do not hesitate to contact the office at [phone]. You may contact Dr. Fraire with any questions after hours through the hospital at [phone] or on his cell phone at [phone]. Referrals: Baldo Fraire MD [ [facility] STAFF PHYSICIAN, Orthopaedic Surgical] Equipment/Supplies: Walker Activity:: Elevate Remove Dressings/Wound Care:: Do Not Remove Shower/Bathe:: Cover Diet:: As Tolerated Discharge Orders Discharge Orders: Discharge Order (Routine); Ordered 05/09/25 Ordered By: Nadia Elaine
--- NOTE | 2025-05-09 07:00 | W.ANESPRE ---
General Info Date of Service Date Performed: 05/09/25 Height: 5 ft 2 in Weight: 67.8 kg Body Mass Index (BMI): 27.3 Surgical Procedure: Operation Date: 05/09/25 07:50 Proposed Procedure Side Surgeon p Hip Total Hip Anterior, Corail Left Baldo Fraire MD Meds Allergies and Home Medications Allergies Allergy/AdvReac Type Severity Reaction Status Date / Time pramipexole di-HCl (From Allergy Severe patient Verified 05/09/25 06:07 Mirapex) cannot remember ropinirole HCl (From Requip) Allergy Intermediate patient Verified 05/09/25 06:07 cannot remember tramadol Allergy Unknown Other (See Verified 05/09/25 06:07 Comment) amoxicillin AdvReac Intermediate freezing/hot Verified 05/09/25 06:07 sensation bee stings AdvReac Intermediate generalized Uncoded 05/09/25 06:07 swelling oxycodeine AdvReac Intermediate heart races Uncoded 05/09/25 06:07 Home Medication ?Medication ?Instructions ?Recorded calcium ER 600 mg (as carb,cit)-D3 1 ea PO DAILY 08/31/17 12.5 mcg (500 unit) tablet, ext.rel atorvastatin 20 mg tablet 20 mg PO DAILY 04/25/21 folic acid 1 mg tablet 1 mg PO DAILY 04/25/21 losartan 100 mg tablet 100 mg PO HS 04/25/21 omeprazole 20 mg capsule,delayed 20 mg PO HS 04/25/21 release spironolactone 25 mg tablet 25 mg PO DAILY 04/25/21 metoprolol succinate 25 mg 1 tab PO DAILY 06/03/22 tablet,extended release 24 hr ondansetron 4 mg disintegrating 4 mg PO Q8H PRN nausea and 12/02/22 tablet vomiting #30 tabs cyanocobalamin (vitamin B-12) 1,000 mcg PO DAILY 05/05/23 1,000 mcg capsule cholecalciferol (vitamin D3) 50 50 mcg PO DAILY 12/09/24 mcg (2,000 unit) capsule colestipol 1 gram tablet 1 g PO ONCE 12/09/24 famotidine 20 mg tablet 20 mg PO BID 12/09/24 gabapentin 300 mg capsule 900 mg PO HS 12/09/24 inhalational spacing device 12/09/24 [facility] peg 400-propylene glycol 0.4 %-0.3 1 drp ophthalmic (eye) TID PRN 12/09/24 % eye drops (Systane (propylene glycol)) sertraline 25 mg tablet 25 mg PO DAILY 12/09/24 sodium chloride 5 % eye drops 1 drp ophthalmic (eye) QAM 12/09/24 acetaminophen 500 mg tablet 1,000 mg (2 x 500 mg) PO Q8H PRN 05/09/25 pain #90 tabs aspirin 81 mg tablet,delayed 81 mg PO BID 30 days #60 tabs 05/09/25 release celecoxib 200 mg capsule (Celebrex) 200 mg PO BID PRN #60 caps 05/09/25 dexamethasone 4 mg tablet 4 mg PO DAILY #2 tabs 05/09/25 docusate sodium 100 mg capsule 100 mg PO BID #28 caps 05/09/25 (Colace) hydromorphone 2 mg tablet 2 mg PO Q6H PRN #12 tabs 05/09/25 Current Visit Medications: Current Medications Generic Name Dose Route Start Last Admin Trade Name Iban PRN Reason Stop Dose Admin Acetaminophen 1,000 mg 05/09/25 06:00 05/09/25 06:38 Acetaminophen 500 Mg Tab PO 06/07/25 23:59 1,000 mg PREOP LILI Administration Celecoxib 400 mg 05/09/25 06:00 05/09/25 06:38 Celecoxib 200 Mg Cap PO 06/07/25 23:59 400 mg PREOP LILI Administration Hydromorphone HCl 0 mg 05/09/25 06:54 Hydromorphone 2 Mg Tab PO 06/08/25 06:53 Q3H PRN PRN Pain Hydromorphone HCl 0.5 mg 05/09/25 06:54 Hydromorphone 2 Mg/Ml Syr IVP 06/08/25 06:53 Q2H PRN PRN Ringer's Solution 1,000 mls @ 80 mls/hr 05/09/25 06:00 05/09/25 06:49 IV 06/07/25 23:59 80 mls/hr INFUSION LILI Administration Cefazolin Sodium/Dextrose 2 gm in 50 mls @ 100 mls/hr 05/09/25 06:00 Ancef Duplex IVPB 06/07/25 23:59 PREOP LILI Tranexamic Acid/Sodium Chloride 1,000 mg in 100 mls @ 600 mls/hr 05/09/25 06:00 IVPB 06/07/25 23:59 PREOP LILI Cefazolin Sodium/Dextrose 1 gm in 50 mls @ 100 mls/hr 05/09/25 08:00 Ancef Duplex IVPB 05/10/25 00:29 Q8H LILI IV Miscellaneous Supplies 1 each 05/09/25 06:00 Iv Access IV 06/07/25 23:59 DIRECTED LILI Sodium Chloride 0 ml 05/09/25 06:00 Normal Saline Flush 10 Ml Syr IV 06/07/25 23:59 PRN PRN Sodium Chloride 0 ml 05/09/25 06:00 Normal Saline 10 Ml Vial IJ 06/07/25 23:59 DIRECTED PRN Sterile Water 0 ml 05/09/25 06:00 Water,Injection,Sterile 10 Ml Vial IJ 06/07/25 23:59 DIRECTED PRN Tranexamic Acid 1,300 mg 05/09/25 06:54 Tranexamic Acid 650 Mg Tab PO 06/08/25 06:53 ONCE PRN postoperative PFSH Active Problems Active Problems: Problem Status Onset Code Osteoarthritis of left hip Chronic M16.12 Trochanteric bursitis, left hip Acute M70.62 Foot pain Acute M79.673 Neuropathy Acute G62.9 History of total right knee replacement (TKR) Acute 06/03/22 Z96.651 Lumbar stenosis Acute M48.061 Sensorineural hearing loss of both ears Acute H90.3 Sciatica of right side without back pain Acute M54.31 Lumbar radiculopathy, right Acute M54.16 Pulsatile tinnitus of both ears Acute H93.A3 Abdominal pain Acute R10.9 Diarrhea Acute R19.7 Medical History Medical History Incoordination Acquired ptosis of eyelid Adjustment disorder Over weight Lumbar epidural mass Lumbar disc disease Arthritis of facet joint of lumbar spine Leg pain, right Diverticulosis of colon Peripheral neuropathy Loss of balance Paresthesia Leg cramps Tinnitus of right ear Vitamin D deficiency Folic acid deficiency Sciatica Kidney disease Hyperlipidemia Memory loss Chronic kidney disease, stage 3 Right sided sciatica Dyslipidemia Hypertension GERD (gastroesophageal reflux disease) Abnormal chest xray Osteopenia Anxiety Family history of colon cancer Obstructive sleep apnea Does not use CPAP; returned to company since she did not have change in symptoms Insomnia Diverticulosis Surgical History Surgical History H/O total hip arthroplasty Right hip History of left cataract surgery H/O laminectomy L4-5 11/13/21 Hx of total knee replacement right History of lumbar surgery 11/2020 History of bronchoscopy 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 Goldman DOS: 09/19/2018 Colonoscopy - MAC (10/12/17) Cholecystectomy Tobacco Smoking/Tobacco Use Status: Never Passive smoking exposure: No Alcohol Alcohol Intake: former Substance Use Substance use: Never Substance use type: does not use Vital Signs and Lab Results Vital Signs Most Recent Vital Signs in EMR: Most Recent Vital Signs Temp Pulse Resp BP Pulse Ox 36.6 C 54 L 14 124/61 99 05/09/25 06:17 05/09/25 06:17 05/09/25 06:17 05/09/25 06:17 05/09/25 06:17 Lab Results Complete Blood Count: WBC, (4.4-10.8) 9.60 10^3/uL 05/01/25, 10:44 RBC, (3.93-5.22) 3.65 10^6/uL L 05/01/25, 10:44 Hgb, (11.2-15.7) 12.1 g/dL 05/01/25, 10:44 Hct, (36.0-46.0) 36.8 % 05/01/25, 10:44 Plt Count, (130-400) 272 10^3/uL 05/01/25, 10:44 Complete Metabolic Panel: Sodium, (136-145) 139 mmol/L 05/01/25, 10:44 Potassium, (3.5-5.1) 4.6 mmol/L 05/01/25, 10:44 Chloride, (98-107) 104 mmol/L 05/01/25, 10:44 Carbon Dioxide, (21.0-32.0) 27.1 mmol/L 05/01/25, 10:44 BUN, (7-18) 22 mg/dL H 05/01/25, 10:44 Creatinine, (0.55-1.02) 1.2 mg/dL H 05/01/25, 10:44 Est GFR (CKD-EPI 2020), (mL/min/1.73m2) 45.48 05/01/25, 10:44 Calcium, (8.5-10.1) 9.3 mg/dL 05/01/25, 10:44 Glucose, (74-106) 92 mg/dL 05/01/25, 10:44 Imaging and Studies Imaging and Studies Study information below may be from another EMR and interpreted by another provider. Please see original notes in EMR for more complete details. EKG Summary: 08/02: Exam: Resting ECG Reason for Exam: PRE-OP Patient Location: O HR:57 bpm ECG Measurements Heart Rate 57 AXIS FL 145 P 19 QRSd 100 QRS -5 QT 446 T13 QTc 435 Conclusion Sinus rhythm...normal P axis, V-rate 50- 99 RSR' in V1 or V2 Anesthesia Assessment and Plan Anesthesia History Personal History: No History of Anesthesia Complications Family History: No Family History of Anesthesia Complications Exercise Tolerance Exercise Tolerance: Metabolic Equivalents>4 Cardiac & Pulmonary Exam Cardiac Exam: Normal S1/S2 Heart Sounds Pulmonary Exam: Clear Bilateral Breath Sounds Implantable Cardiac Device Does patient have a Pacemaker or an ICD?: No Airway Exam Known Difficult Airway: No Mallampati Class: 3 Mouth Opening: Normal (> 3cm) Thyromental Distance: Greater than 3 cm Neck Range of Motion: Full ROM Neck Circumference: Normal Teeth Condition: Normal Dentition ASA Classification ASA Score: ASA 2 Emergency Case?: No NPO Status NPO Status: NPO Clears >2 hours, Solids >8 hours Anesthesia Plan Resuscitation Status: Full Code Anesthesia Technique: Spinal Anesthesia Airway Planned: Natural Airway Monitors Used: Standard Monitors
[2025-05-09] MEDS: ceFAZolin 2 GM/50 ML BAG IVPB (07:33)
--- NOTE | 2025-05-09 07:35 | ROE_ITS ---
Operative Note Operative Note PRE-OP DIAGNOSIS: Left Hip Osteoarthritis POST-OP DIAGNOSIS: same PROCEDURE: Left Anterior Total Hip Arthroplasty with Intraoperative Navigation SURGEON: Baldo Fraire SOFTWARE SECURITY CONSULTANT: Nadia Elaine ANESTHESIA TYPE: Spinal Refer to Anesthesia Record ESTIMATED BLOOD LOSS: 75 PATHOLOGY: none sent TOURNIQUET TIME: 0 COMPLICATIONS: None Patient was transported to: PACU Patient's condition: stable Implants: 1. Depuy [place] Lodge Acetabular Component, 52mm 2. Depuy Acetabular Liner, [id number] 3. Depuy Corail Standard 125 Degree Collared Femoral Stem, Size 11 4. Depuy Altrx Ceramic Femoral Head, Size 36+8.5mm Indications: I have seen Diana in clinic for symptoms of hip arthritis, confirmed with ra diographic findings. She has exhausted nonoperative methods and was having significant limitations in daily function and desired better function and less pain. I discussed the technical details of a hip replacement. I explained the risks of the procedure to include, but not limited to, bleeding, infection, pain, stiffness, fracture, damage to nerves and vessels, damage to muscles and tendons, loosening, instability, leg length inequality, need for repeat procedure, blood clot and cardiopulmonary demise. Despite these risks, Diana elected to proceed. Findings: There was significant signs of arthritis throughout the hip with notable synovitis. Procedure Description: Diana was greeted in the preoperative holding area where the correct side was identified and marked. The consent was reviewed with the patient and signed. The history and physical was updated. All questions were answered. She was taken back to the operating room. A spinal anesthestic was then administered. The feet were wrapped with cast padding and Coban and then placed into the boot liners and then into the boots. Care was taken to protect the skin and make sure the heels were fully down and the boots were stable. The patient was then positioned onto the HANA table. Both legs were held in a neutral position. SCDs were applied. The patient was then slid down onto a peroneal post. Prophylactic antibiotics in the form of Cefazolin were administered. 1g of Tranxemic Acid was given intravenously within 30 minutes of incision. The left leg was then prepped with Chloraprep and draped in a standard fashion. A second prep with Chloraprep was performed prior to placement of a shower-curtain type drape with Iodine impregnated skin protection. A timeout to confirm correct identity, side and site, procedure, allergies, anesthesia, and medical concerns was performed. An obliquely oriented incision was made starting lateral to the ASIS and running distal over the Tensor Fascia Dee (TFL) muscle belly toward the fibular head, approximately 10cm. The skin and soft tissue was dissected sharply, through Gopal?s fascia, and to the fascia of the TFL. With the fascia and superior border of the IT band identified, the fascia was incised with a new knife just above any perforators from the IT band. The TFL muscle belly was bluntly dissected away from the fascia and moved laterally. The fat between TFL and rectus was identified to ensure the dissection was not within the TFL. Blunt dissection created space between abductors and the capsule and retractor was placed over the lateral femoral neck. The fibers of the rectus femoris tendon were identified and these were freed from the anterior capsule. A second cobra retractor was placed around the medial femoral neck. The TFL was further retracted laterally to show the deep fascia. Careful dissection through this layer identified three main crossing vessels of the lateral femoral circumflex. These were cauterized in multiple locations and then cut without any noticeable bleeding. The TFL was further released bluntly from the deep fascia to expose anterior hip capsule and fat The soft tissue orthopaedic retractor was then placed beneath the TFL and against sartorius and medial soft tissues to protect and retract the soft tissues. A T-capsulotomy was then performed starting at the superior lateral acetabulum and moving distally to the intertrochanteric ridge. These capsular flaps were tagged with a No. 1 Vicryl and elevated from within. The capsular flaps were released to the shoulder of the lateral neck and to the lesser trochanter to give excellent visualization of the proximal femur. A neck osteotomy was performed using an oscillating saw based on preoperative templates. This cut started in the shoulder and of the lateral neck and exited medially. The saw was at all times directed medially to avoid injury to the greater trochanter. Gross traction was applied to the leg and the osteotomy opened. The femoral head was removed with a corkscrew, making sure to protect the TFL on its exit. Traction was released after head removal. This was measured on the back table to determine the starting reamer size. Portions of the rectus obscuring visualization were minimally elevated off the superior acetabulum. An anterior retractor was placed over the anterior wall between capsule and labrum and attached to the Gripper retraction system. The femur was rotated to 90 degrees and medial capsule was fully released until the lesser trochanter was palpable and visible; the femur was returned to 30 degrees. A posterior retractor was placed similarly between capsule and labrum. This provided excellent visualization. The contents of the cotyloid fossa were removed with electrocautery and the labrum was removed with a knife. There was a notable floor osteophyte. There was significant chondromalacia of the superior acetabulum. Acetabular reaming began with a 47mm reamer. This first reaming was directed anterior to posterior and medial to get down to the true floor. This was inspected and reamed until the true floor was reached. The anterior retractor was then released and entry and exit was provided by traction on the capsular flaps. I then reamed sequentially up to a 52mm reamer where good fit was obtained. The larger reamers were oriented based on anatomical reference of the anterior and lateral fu to ensure proper abduction and anteversion. Positioning and size was confirmed with the fluoroscopy. A 52mm Depuy [place] acetabular component was selected. The acetabulum was reamed around the periphery with the selected acetabular size to prevent a rim fit. The deep tissues were irrigated. The acetabular component was then impacted in a position of about 40-45 degrees of abduction and 15-20 degrees of anteversion, using the patient?s anatomy as the ultimate landmark. Fluoroscopy was used to confirm this. There was excellent corporate legal intern of the acetabular component and the inserting handle was removed. The acetabular liner, Depuy [id number] polyethylene liner, was inserted and lined up with the tines of the acetabular component. There was no soft tissue interposition. The liner was then impacted into position and confirmed to be well-seated. A portion of the kelly-articular cocktail was then injected around the acetabulum into the capsule and periosteum. This cocktail consisted of 123mg of Ropivacaine, 0.25mg of Epinephrine, 0.04mg of Clonidine, and 15mg of Ketorolac, diluted to 50cc. The leg was rotated to 120 degrees. Any remaining medial capsule was released until the lesser trochanter was easily palpable. A retractor was placed medially. The lateral capsule was further released into the shoulder to allow access to the greater trochanter. A Roth retractor was placed over the greater trochanter which allowed the trochanter to flip in front of the capsule for excellent exposure. The leg was brought down into maximal extension and 20 degrees of adduction while ensuring there was no impingement on the acetabulum. Any remnant capsule within the trochanter was released. Piriformis and obturator externis were identified and protected. There was excellent access to the proximal femur. The lateral neck remnant was removed with a rongeur. A blunt canal probe was used to identify the canal and trajectory for later broaching. A box osteotome initiated the broach course. A small curved rasp and a curved curette were used to work laterally. Broaching then began with a size 8 Corail broach. This was inserted manually around the trochanter and into the canal before mallet blows. The broach was seated to a few millimeters below the cut level based on the neck cut and the preoperative template. Sequential broaching was continued with the [employer] pneumatic broaching device until a tight fit was obtained with good rotational control of the femur. A trial standard 125 degree neck was inserted along with a +1.5 trial head. The leg was brought out of extension and adduction and then reduced with traction and internal rotation. The leg was stable anteriorly in a position of 30 degrees of extension and 90 degrees of external rotation. Fluoroscopy was used to ensure there was no fracture and the stem was seated well. Leg lengths were checked with an AP pelvis and pelvic reference points. [employer] navigation system was used to confirm appropriate positioning and leg length and offset. This slightly undercorrected leg length and offset, improved with +8.5mm neck. Once content with the desired offset and leg lengths, the leg was brought back into extension, external rotation and adduction. The periosteum and surrounding tissue was injected with remaining portion of the kelly-articular cocktail. The proximal femur was irrigated as well as the deep tissues. The Depuy Corail standard 125 degree collared stem, size 11, was then manually inserted into the proximal femur making sure to control rotation. It was then malleted into position with light blows, giving breaks to allow bone expansion and decrease risk of fracture. The selected Depuy Altrx Ceramic Head, size 36+8.5mm, was then placed onto the clean and dry trunnion and secured with impaction onto the tapered fit. The leg was brought back out of extension and adduction and reduced with traction and internal rotation. Stability was confirmed with no shuck at 90 degrees of external rotation and 30 degrees of extension. No impingement through range of motion arc. Final x-ray images were obtained with fluoroscopy to confirm adequate positioning and no intraoperative fracture. The deep tissues were thoroughly irrigated with Surgiphor, betadine solution. This was allowed to sit in the wound for 3 minutes before being thoroughly irrigated out with normal saline. The capsule was then reapproximated with the previously placed sutures and the superior, anterior capsule was reapproximated with a #1 Vicryl. The TFL fascia was finally closed with a No. 2 Stratafix, barbed suture. Deep tissues were then reapproximated with 0 Vicryl and a running 2-0 Vicryl. The skin was closed with a running 4-0 Monocryl in a subcuticular fashion. This was reinforced with skin glue. A Mepilex silver dressing was applied. At the end of the case, all counts were correct. Pat was transferred to the hospital bed without difficulty and suffering no apparent complication. Pat has a good prognosis. Physical therapy will start today and without restrictions, weight-bearing as tolerated. Aspirin 81mg BID will be used for DVT prophylaxis. Date of Procedure: 05/09/25
[2025-05-09] MEDS: TRANEXAMIC ACID/SOD. CHL. 1,000 MG/100 ML BAG 600 MG IVPB (07:47)
--- NOTE | 2025-05-09 09:04 | DI.RAD_ITS ---
Exam(s) XR HIP LT IN OR EXAM: XR HIP LT IN OR CLINICAL HISTORY: arthritis of left hip. TECHNIQUE: 2D digital imaging was performed. COMPARISON: No exams were available for comparison FINDINGS: Fluoroscopy was provided intraoperatively during left hip arthroplasty. See procedure report for details. IMPRESSION: Radiation exposure index/cumulative dose:marina Silva=3.1562mGy DATA REPOSITORY: RADIATION DOSE DELIVERED:
[2025-05-09] MEDS: Tranexamic Acid 650 MG TAB 1300 MG PO (10:04)
[2025-05-09] MEDS: HYDROmorphone 2 MG TAB PO (10:10)
--- NOTE | 2025-05-09 10:57 | IN_ITS ---
PT Notes Visit Reasons: Left hip DJD Physical Therapy Day Surgery Initial Evaluation Date: 05/09/25 Referring Doctor: Dr. Fraire PT Orders: PT CONSULT s/p left OZIEL Precautions: fall, standard Patient Profile/Admitting Diagnosis: Licha is an 79 year old female with left hip OA, now s/p OZIEL post op day #0. Social History/Home Situation: Lives in a multilevel home with ramp to enter. Full flight of stairs to laundry in basement. Independent at baseline with occasional use of walking stick. Owns her own walker from previous surgeries. Lives alone, but plans to have her adult granddaughter staying with her tonight. Daughter is present for majority of evaluation. Equipment Owned/DME: FWW, walking stick Subjective: Licha is agreeable to PT intervention. Objective: General Observation: Resting in bed. No lines. Ice to left groin. Mental Status: A&Ox3. [place]. Pain: not nothing. ROM: Right Upper Extremity: Shoulder flexion to 100*. Elbow, wrist motion WFL. Left Upper Extremity: Shoulder flexion to 100*. Elbow, wrist motion WFL. Right Lower Extremity: WFL Left Lower Extremity: Functionally demonstrates hip flexion to 80*. Strength: Right Upper Extremity: Biceps 4/5. Triceps 4/5. Left Upper Extremity: Biceps 4/5. Triceps 4/5. Right Lower Extremity: Quads 5/5. Ankle DF 5/5. Left Lower Extremity: Quads 3/5 or greater. DF 3/5 or greater Sensation: intact distally Bed Mobility/Transfers: Supine to sit : supervision Sit to stand : SBA, with cues for technique. Good carryover and safety awareness. Stand to sit : SBA Bed to chair : supervision with FWW Gait: Ambulates 75'x2, FWW, SBA Stairs: Manages therapeutic stairs, 6x2 with bilat rails, CGA. Balance: Static Sitting: good Dynamic Sitting: good Static Standing: fair Dynamic Standing: fair Informed Consent/Education: Patient instructed in purpose of PT consult. Packet containing OZIEL exercise protocol has been given to patient. Education and training on initial set of exercises that can be done at home have been completed with patient. Treatment: Initial Evaluation (97887) Therapeutic Activities (02077): Gait and transfer training, including equipment management. Patient education regarding height adjustment for FWW, instruction in equipment management during transfers and gait, and stair training. Instructed in post-op HEP and provided with hand out for the following to be completed for 10 reps, 5x/day: Ankle pumps Quad sets Glutes sets LAQ Assessment: Patient presents with clinical signs and symptoms consistent with current/admitting diagnoses that have resulted to mobility limitations, gait instability, generalized weakness, and impairment of motor control as dem onstrated by the following impairment level findings: 1. Decreased strength to left hip major muscle groups 2. Impaired standing balance 3. Limitation of joint range of motion in left hip 4. gait impairment Impairments are contributing to the following functional limitations: 1. Inability to safely ambulate without assistive device 2. Increase completion time for mobility ADL performance 3. Increased fall risk Patient is assessed as low complexity based on the following: History: as above Examination: Demonstrable impairment in strength, balance, and mobility level with underlying impairments and functional limitations as documented above Presentation: stable Decision Making: low Goals: N/A. PT evaluation and 1-2 treatment sessions only for functional mobility training using recommended AD and for HEP instruction. Plan of Care/Treatment Plan: N/A. PT evaluation and 1-2 treatment session only for functional mobility training using recommended AD and for HEP instruction. DISCHARGE RECOMMENDATIONS: Home with family support. Has FWW. TREATMENT CODE/TIME: [id number] ([id number], [id number]) Thank you for the opportunity to participate in the care of this patient. Please sign an return this page within 30 days if you agree with the above POC. Thank you! Physician Signature Date [facility] All Active Problems (Updated 05/09/25 @ 07:50 by Jose Florentino RN) History of total left hip arthroplasty (Acute 05/09/25) Trochanteric bursitis, left hip (Acute) Injection: 01/18/2024 Foot pain (Acute) Neuropathy (Acute) History of total right knee replacement (TKR) (Acute 06/03/22) Lumbar stenosis (Acute) Sensorineural hearing loss of both ears (Acute) Sciatica of right side without back pain (Acute) Lumbar radiculopathy, right (Acute) Pulsatile tinnitus of both ears (Acute) Abdominal pain (Acute) Diarrhea (Acute) Medical History (Updated 05/09/25 @ 07:50 by Jose Florentino, RN) Incoordination Acquired ptosis of eyelid Adjustment disorder Over weight Lumbar epidural mass Lumbar disc disease Arthritis of facet joint of lumbar spine Leg pain, right Diverticulosis of colon Peripheral neuropathy Loss of balance Paresthesia Leg cramps Tinnitus of right ear Vitamin D deficiency Folic acid deficiency Sciatica Kidney disease Hyperlipidemia Memory loss Chronic kidney disease, stage 3 Right sided sciatica Dyslipidemia Hypertension GERD (gastroesophageal reflux disease) Abnormal chest xray Osteopenia Anxiety Family history of colon cancer Obstructive sleep apnea Does not use CPAP; returned to company since she did not have change in symptoms Insomnia Diverticulosis Surgical History (Updated 05/09/25 @ 07:50 by Jose Florentino RN) H/O total hip arthroplasty Right hip History of left cataract surgery H/O laminectomy L4-5 11/13/21 Hx of total knee replacement right History of lumbar surgery 11/2020 History of bronchoscopy 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 Goldman DOS: 09/19/2018 Colonoscopy - MAC (10/12/17) Cholecystectomy
--- NOTE | 2025-05-09 11:12 | W.ANESPOSTOP ---
Postoperative Evaluation Date, Time and Location Date Performed: 05/09/25 Time Performed: 11:12 Patient Location: Day Surgery Unit Vital Signs Most Recent Imported Vital Signs: Most Recent Vital Signs Temp Pulse Resp BP Pulse Ox 36.3 C L 54 L 14 164/71 H 99 05/09/25 10:16 05/09/25 10:16 05/09/25 10:16 05/09/25 10:16 05/09/25 10:16 Pain Score Most Recent Pain Score: Most Recent Pain Score Pain Level 3 05/09/25 10:16 Assessment Mental Status: Awake (Alert & Oriented to Patient Baseline) Airway and Respiratory Function: Patent airway with normal (patient baseline) respiratory exam Cardiovascular Function: Hemodynamically Stable Hydration Status: Adequately Hydrated Nausea & Vomiting: No Nausea or Vomiting Pain: Pain is tolerable per patient Peripheral Nerve Block: Patient did not receive a nerve block
== END 2025-05-09 11:25 | disposition home or self-care (01) ==
PROVIDERS: PCP Family Medicine; Visit Provider Student in an Organized Health Care Education/Training Program
PROC: (CPT 27130; principal; 2025-05-09 07:30)
DX: M16.12 Unilateral primary osteoarthritis, left hip (principal)
CPT/HCPCS: 20985; 27130; 97161; 97530; 73501; C1776; J0690; J2371; J2401; J2405; J2704

== ENCOUNTER 2025-05-22 13:00 | Outpatient (CLI) | payer MEDICARE, SELFPAY ==
--- NOTE | 2025-05-22 10:45 | DI.RAD_ITS ---
Exam(s) XR HIP LT COMPLETE AP PELVIS EXAM: XR HIP LT COMPLETE AP PELVIS INDICATION: 1ST POST OP S/P L OZIEL. COMPARISON: CR XR PELVIS AP from 05/01/2025 XA XR HIP LT IN OR from 05/09/2025 TECHNIQUE: 2D digital imaging was performed. Two views. FINDINGS: Stable alignment of bilateral hip prostheses. No abnormal surrounding bony lucencies. DATA REPOSITORY: RADIATION DOSE DELIVERED:
== END 2025-05-22 13:01 | disposition home or self-care (01) ==
LOC: DIORS 13:00
PROVIDERS: PCP Family Medicine; Referring Provider Family Medicine; Visit Provider Physician Assistant
DX: Z47.1 Aftercare following joint replacement surgery (principal); Z96.642 Presence of left artificial hip joint
CPT/HCPCS: 99024; 73502

== ENCOUNTER → 2025-06-22 10:01 | Outpatient (BNVA) | payer MEDICARE, SELFPAY | PROVIDERS: PCP Family Medicine; Referring Provider Family Medicine; Visit Provider Physician Assistant | DX: Z47.1 Aftercare following joint replacement surgery (principal); Z96.642 Presence of left artificial hip joint | CPT/HCPCS: 99024 ==

== ENCOUNTER → 2025-06-30 02:37 | Outpatient (CLI) | payer MEDICARE, SELFPAY ==
--- NOTE | 2025-06-30 08:46 | DI.MAMMO_ITS ---
Exam(s) MAMMO SCREENING EXAM: MAMMO SCREENING CLINICAL HISTORY: SCREENING, Z12.31 TECHNIQUE: Mammograms were interpreted according to the usual protocol including computer analysis with CAD system, tomosynthesis and C-view imaging. COMPARISON: 2016 through 2022 FINDINGS: The breasts are composed of scattered fibroglandular densities, Breast Density category B. No suspicious masses or suspicious microcalcifications are seen. No skin thickening or abnormal axillary lymph nodes are seen. There has been no significant change from prior exams. IMPRESSION: BI-RADS Category 1, Negative mammogram Yearly screening mammography is recommended. Breast Density - Category B - There are scattered areas of fibroglandular density. Breast density Category C or D implies that the patient has dense breast tissue. Dense breast tissue can make it harder to find cancer on a mammogram. Dense breast tissue is also associated with an increased risk of breast cancer. This information about the result of the mammogram report was provided to the patient to raise their awareness. Use this report when you speak with the patient about their risks for breast cancer, which includes their family history. At that time, you may recommend additional screening tests (Ultrasound or MRI) as these tests may add significant information. A negative radiographic report should not delay biopsy if a dominant or clinically suspicious mass is present. Up to ten percent of cancers are not identified on mammography. A negative report may reinforce clinical impression. Adenosis and dense breasts may obscure an underlying neoplasm. False positive reports average 6 to 10%. Patient will receive a letter notifying them of these results.
== END ==
LOC: DI 02:37
PROVIDERS: PCP Family Medicine; Visit Provider Family Medicine
DX: Z12.31 Encounter for screening mammogram for malignant neoplasm of breast (principal); R92.323 Mammographic fibroglandular density, bilateral breasts
CPT/HCPCS: 77063; 77067

== ENCOUNTER 2025-07-20 12:27 | Outpatient (CLI) | payer MEDICARE, SELFPAY ==
--- NOTE | 2025-07-20 12:15 | RT.EKG_ITS ---
APPROVED REPORT Exam: Resting ECG Reason for Exam: Dizzy Patient Location: O HR:48 bpm ECG Measurements Heart Rate 48 AXIS [place] 163 P -3 QRSd 95 QRS -4 QT 470 T 9 QTc 420 Conclusion Sinus bradycardia...rate< 50 Otherwise normal ECG
== END 2025-07-20 12:28 | disposition home or self-care (01) ==
LOC: DI.CM 12:28
PROVIDERS: PCP Family Medicine; Visit Provider Nurse Practitioner Family
DX: R07.89 Other chest pain (principal)
CPT/HCPCS: 93010

== ENCOUNTER 2025-07-20 13:08 | Observation (INO) | payer MEDICARE, SELFPAY ==
[2025-07-20 13:15] VITALS: BP 155/84; PULSE 51; TEMP 36.7; O2SAT 98
--- NOTE | 2025-07-20 13:15 | RT.EKG_ITS ---
APPROVED REPORT Exam: Resting ECG Reason for Exam: syncope Patient Location: E HR:47 bpm ECG Measurements Heart Rate 47 AXIS [place] 168 P 13 QRSd 87 QRS -7 QT 471 T 9 QTc 416 Conclusion Sinus bradycardia, rate 47 No interval abnormalities No STEMI No significant changes from prior
--- NOTE | 2025-07-20 13:15 | DI.CT_ITS ---
Exam(s) CT BRAIN NECK CTA EXAM: CT BRAIN NECK CTA CLINICAL HISTORY: ataxia, onset 7am yesterday. TECHNIQUE: Imaging Protocol: Axial CT angiography was performed with multi- slice acquisition and multi-planar and MIP reconstructions. CONTRAST MATERIAL: Intravenous: Omnipaque 350 Contrast volume:70 mL COMPARISON: No exams were available for comparison FINDINGS: CT Head W/O and W contrast: Ventricles and Extra axial spaces: Normal in size and morphology for the patient's age. Hemorrhage: None. Cerebral parenchyma: No evidence of acute infarct or mass. No visible white matter changes. Midline shift: None. Brainstem/Cerebellum: No acute findings.. Calvarium: Normal. Visualized Paranasal sinuses/Mastoids: Clear. Soft Tissues: Unremarkable. Enhancement: Normal. Venous sinuses are patent. CTA Brain W: Internal Carotid Arteries: Mild calcification. Right: No aneurysm, occlusion or significant stenosis. Left: No aneurysm, occlusion or significant stenosis. Middle Cerebral Arteries: Right: No aneurysm, occlusion or significant stenosis. Left: No aneurysm, occlusion or significant stenosis. Anterior Cerebral Arteries: Right: No aneurysm, occlusion or significant stenosis. Left: No aneurysm, occlusion or significant stenosis. Posterior cerebral Arteries: Right: No aneurysm, occlusion or significant stenosis. Left: No aneurysm, occlusion or significant stenosis. Vertebral Arteries: Right: No aneurysm, occlusion or significant stenosis. Left: No aneurysm, occlusion or significant stenosis. Basilar Artery: No aneurysm, occlusion or significant stenosis. CTA Neck W: Visualized aorta: Ascending aorta measures 3.2 cm. Mild calcification at the arch. Visualized pulmonary arteries: Unremarkable. Subclavian arteries: Unremarkable. Common Carotid: Right: No dissection, occlusion or significant stenosis. Left: No dissection, occlusion or significant stenosis. External Carotid: Right: No dissection, occlusion or significant stenosis. Left: No dissection, occlusion or significant stenosis. Internal Carotid: Right: Proximal mural calcification. No dissection, occlusion or significant stenosis. Left: Calcification at bulb and proximal internal carotid artery. No dissection, occlusion or significant stenosis. Vertebral Artery: Right: No dissection, occlusion or significant stenosis. Left: No dissection, occlusion or significant stenosis. Lung Apices: No acute findings. Bones: No acute abnormality. Soft Tissues: Normal. IMPRESSION: 1. CTA brain: Normal CTA examination of the [place]. 2. Head CT: No acute abnormality. 3. CTA neck: Mild calcification at the proximal internal carotid arteries. No evidence of occlusion, significant stenosis or dissection. RADIATION DOSE DELIVERED: 2,061.34mGy.cm Total DLP DATA REPOSITORY: All CT scans at this facility are submitted to the National Radiology Data Registry (NRDR) Dose Index Registry (DIR) with the [employer] [place] [employer] (A[employer]). RADIATION OPTIMIZATION: All CT scans at this facility use at least one of these dose optimization techniques: automated exposure control; mA and/or kV adjustment per patient size (includes targeted exams where dose is matched to clinical indication); or iterative reconstruction.
[2025-07-20 14:13] LABS: Abs Immature Grans 0.03 10^3/uL (0.0-0.06); HCT 37.0 % (36.0-46.0); HGB 12.4 g/dL (11.2-15.7); Immature Grans % 0.3 %; MCH 33.5 pg (27.0-33.0); MCHC 33.5 % (32.0-36.0); MCV 100 fL (80-95); MPV 8.9 fL (8.0-11.0); Platelet Count 271 10^3/uL (130-400); RBC 3.70 10^6/uL (3.93-5.22); RDW 11.6 % (11.7-14.6); RDW-SD 42.4 fL; WBC 9.00 10^3/uL (4.4-10.8)
[2025-07-20] MEDS: Normal Saline - Diluent 50 ML VIAL IJ (14:15)
[2025-07-20] MEDS: Omnipaque 350 MG/ML 100 ML BTL IJ (14:19)
[2025-07-20] MEDS: Normal Saline Flush 10 ML SYR IVP ×2 (14:20→19:55)
[2025-07-20 14:27] LABS: Magnesium 2.0 mg/dL (1.6-2.6)
[2025-07-20 14:28] LABS: ALT 14 U/L (10-49); AST 20 U/L (<34); Albumin 4.6 g/dL (3.2-5.0); Alkaline Phosphatase 108 U/L (46-116); Anion Gap 7.4 mmol/L (3-11); BUN 19 mg/dL (9-23); Bilirubin, Total 0.5 mg/dL (0.2-1.2); CO2 26.6 mmol/L (20.0-31.0); Calcium 9.2 mg/dL (8.3-10.6); Chloride 106 mmol/L (98-107); Glucose 91 mg/dL (74-106); Potassium 4.4 mmol/L (3.5-5.1); Sodium 140 mmol/L (136-145); Total Protein 7.3 g/dL (5.7-8.2); Troponin I 4 ng/L (<35)
[2025-07-20 15:13] LABS: Troponin I 5 ng/L (<35)
--- NOTE | 2025-07-20 15:30 | DI.MRI_ITS ---
Exam(s) MR BRAIN WO EXAM: MR BRAIN WO CLINICAL HISTORY: eval stroke, ataxia started yesterday TECHNIQUE: Multiplanar multisequence MRI of the brain was performed. COMPARISON: MR MR IAC BRAIN WO/W from 07/25/2021 FINDINGS: CEREBRAL PARENCHYMA: There is no evidence of intracranial hemorrhage, mass effect, or shift of midline structures. There are no extra-axial fluid collections. Ventricles are not enlarged or shifted. No evidence of cerebellar tonsillar ectopia. There is no significant focal signal abnormality in the cerebellar hemispheres nor within the shar, midbrain, and thalami. There are few small bilateral foci of FLAIR bright signal abnormality in the periventricular white matter, not associated with hemorrhage, surrounding edema, nor restricted diffusion. These are nonspecific findings. There is no significant focal signal abnormality evident on diffusion imaging to suggest acute ischemic event. PITUITARY GLAND: No mass nor parasellar abnormality. No obvious abnormality in the cavernous sinuses. FLOW VOIDS: The expected flow void are noted. No evidence of obvious aneurysm nor obvious vascular malformation. PARANASAL SINUSES: The visualized paranasal sinuses appear unremarkable. No obvious finding ORBITS: Evidence of bilateral cataract surgery. No evidence of dysconjugate gaze. IMPRESSION: No acute intracranial findings. There are few small FLAIR bright foci of signal abnormality in the periventricular white matter consistent with chronic small vessel ischemic changes. There is no evidence of acute ischemic event. Report called by myself to ER physician 07/20/2025 at 5 p.m. DATA REPOSITORY:
--- NOTE | 2025-07-20 16:00 | ED.GENADUL_ITS ---
Discharge Plan Disposition Patient Disposition: Admit to [facility] Condition: Stable Discharge Details Clinical Impression: Ataxia Primary Care Provider: Jana Wayne ED Provider: Renee Schultz Home Meds and New Rx's Prescriptions: No Action folic acid 1 mg tablet 1 mg PO DAILY omeprazole 20 mg capsule,delayed release(DR/EC) 20 mg PO HS spironolactone 25 mg tablet 25 mg PO DAILY losartan 100 mg tablet 100 mg PO HS atorvastatin 20 mg tablet 20 mg PO DAILY calcium carb, citrate-vit D3 1 EACH tablet extended release 1 ea PO DAILY cyanocobalamin (vitamin B-12) 1,000 mcg capsule 1,000 mcg PO DAILY gabapentin 300 mg capsule 900 mg PO HS cholecalciferol (vitamin D3) 50 mcg (2,000 unit) capsule 50 mcg PO DAILY colestipol 1 gram tablet 1 g PO ONCE sodium chloride 5 % drops 1 drp ophthalmic (eye) QAM famotidine 20 mg tablet 20 mg PO BID (DME) [facility] Spacer See Rx Instructions .Route Rx Instructions: As directed sertraline 25 mg tablet 25 mg PO DAILY Systane (propylene glycol) 0.4-0.3 % drops 1 drp ophthalmic (eye) TID PRN metoprolol succinate 25 mg tablet extended release 24 hr 1 tab PO DAILY ondansetron 4 mg tablet,disintegrating 4 mg PO Q8H PRN (Reason: nausea and vomiting) Qty: 30 0RF acetaminophen 500 mg tablet 1,000 mg PO Q8H PRN Qty: 90 0RF Rx Instructions: Take two tablets up to every 8 hours as needed for pain HPI General Mode of arrival: wheelchair . Date/Time Provider Initiated Documentation: 07/20/25 13:21 . Limitations to Documentation: no limitations . Information obtained by: patient, family, RN/MD and old records reviewed . HPI Narrative: This is an 80-year-old female patient with a past medical history significant for sensorineural hearing loss, presenting for evaluation of ataxia. The patient was seen at the urgent care facility today, states that yesterday she woke up in the morning from a normal sleep with significant room spinning and a sensation that she was going to fall. She has not sustained a fall but is having significant difficulty walking, feels like she is being pulled back down to a seated position. Her dizziness is positional and much worse when she stands up. The patient reports that she has not sustained any recent injury or illnesses, does not take blood thinning medications, denies headache, vision changes, numbness or weakness of any of her extremities. She was sent here for an evaluation after having a reassuring EKG and urinalysis at the urgent care facility. She is accompanied by her son Related Data Home Medications ?Medication ?Instructions ?Recorded ?Confirmed calcium ER 600 mg (as carb,cit)-D3 1 ea PO DAILY 08/3107/20/25 12.5 mcg (500 unit) tablet, ext.rel atorvastatin 20 mg tablet 20 mg PO DAILY 04/25/2107/10 folic acid 1 mg tablet 1 mg PO DAILY 04/25/2107/20 losartan 100 mg tablet 100 mg PO HS 04/25/21 omeprazole 20 mg capsule,delayed 20 mg PO HS 04/25/21 07/20/25 release spironolactone 25 mg tablet 25 mg PO DAILY 04/25/21 metoprolol succinate 25 mg 1 tab PO DAILY 06/03/2207/04 tablet,extended release 24 hr ondansetron 4 mg disintegrating 4 mg PO Q8H PRN nausea and 12/02/22 07/20/25 tablet vomiting #30 tabs cyanocobalamin (vitamin B-12) 1,000 mcg PO DAILY 05/0507/20/25 1,000 mcg capsule cholecalciferol (vitamin D3) 50 50 mcg PO DAILY 07/20/25 mcg (2,000 unit) capsule colestipol 1 gram tablet 1 g PO ONCE 12/09/24 5 famotidine 20 mg tablet 20 mg PO BID 12/09/24 gabapentin 300 mg capsule 900 mg PO HS 12/09/24 inhalational spacing device 12/09/24 07/20/25 [facility] spacer) peg 400-propylene glycol 0.4 %-0.3 1 drp ophthalmic (e ye) TID PRN 12/09/24 07/20/25 % eye drops (Systane (propylene glycol)) sertraline 25 mg tablet 25 mg PO DAILY 12/09/2407/10 sodium chloride 5 % eye drops 1 drp ophthalmic (eye) Q AM 12/09/24 07/20/25 acetaminophen 500 mg tablet 1,000 mg (2 x 500 mg) PO Q 8H PRN 05/09/25 07/20/25 pain #90 tabs Previous Rx's ?Medication ?Instructions ?Recorded ondansetron 4 mg disintegrating 4 mg PO Q8H PRN nausea and 12/02/22 tablet vomiting #30 tabs acetaminophen 500 mg tablet 1,000 mg (2 x 500 mg) PO Q 8H PRN 05/09/25 pain #90 tabs Allergies Allergy/AdvReac Type Severity Reaction Status Date / Time pramipexole di-HCl (From Allergy Severe patient Verified 07/20/25 13:17 Mirapex) cannot remember ropinirole HCl (From Requip) Allergy Intermediate patient Verified 07/20/25 13:17 cannot remember tramadol Allergy Unknown Other (See Verified 07/20/25 13:17 Comment) amoxicillin AdvReac Intermediate freezing/hot Verified 07/20/25 13:17 sensation bee stings AdvReac Intermediate generalized Uncoded 07/20/25 13:17 swelling oxycodeine AdvReac Intermediate heart races Uncoded 07/20/25 13:17 General Stated Complaint: Dizzy/Sync CHRISTIAN: 3 Exam Narrative Exam Narrative: Gen: awake and alert, in no apparent distress. Appears well nourished. HEENT: PERRL, EOMs full, the patient has 1-2 beats of horizontal nystagmus which extinguishes quickly, no vertical or rotary nystagmus appreciated. External ears and nose normal, mucous membranes moist. Neck: Supple, full range of motion, no observable masses Lungs: No increased work of breathing, lung sounds clear and equal bilaterally without wheezes, rhonchi, or rales. CV: Heart with regular rate and rhythm, no murmurs auscultated. Strong and symmetrical radial pulses. Abdomen: Soft, nondistended, non-tender to palpation. No rigidity, rebound tenderness, or guarding. MSK: No joint swelling, no redness. Full ROM without limitation, no external traumatic findings. Skin: No rashes or lesions to visualized skin. Normal color, warm, and dry. Neuro: Cranial nerves II-XII intact and symmetrical bilaterally. 5/5 strength in all muscle groups x4 extremities. No sensory deficits. Markedly ataxic even when simply standing with eyes open, falls backwards and towards the left. Psych: Appropriate for situation. Course Vital Signs Vital signs: Vital Signs Temperature 36.7 C 07/20/25 13:15 Pulse 51 L 07/20/25 13:15 Blood Pressure 155/84 H 07/20/25 13:15 Pulse Oximetry 98 07/20/25 13:15 Temperature 36.7 C 07/20/25 13:15 Pulse 51 L 07/20/25 13:15 Respiratory Effort Normal 07/20/25 14:54 Blood Pressure 155/84 H 07/20/25 13:15 Pulse Oximetry 98 07/20/25 13:15 Lab/Test Results Lab/Test Results: Laboratory Tests Range/Units 07/20/25 07/20/25 14:02 14:52 WBC (4.4-10.8) 10^3/uL 9.00 RBC (3.93-5.22) 10^6/uL 3.70 L Hgb (11.2-15.7) g/dL 12.4 Hct (36.0-46.0) % 37.0 MCV (80-95) fL 100 H MCH (27.0-33.0) pg 33.5 H MCHC (32.0-36.0) % 33.5 RDW (11.7-14.6) % 11.6 L Plt Count (130-400) 10^3/uL 271 MPV (8.0-11.0) fL 8.9 Immature Gran % % 0.3 Neutrophils % % 59.8 Lymphocytes % % 25.7 Monocytes % % 10.2 Eosinophils % % 2.7 Basophils % % 1.3 Nucleated RBC % (0.0-0.3) % 0.0 Absolute Neutrophils (1.2-6.7) 10^3/uL 5.38 Absolute Lymphocytes (1.2-3.4) 10^3/uL 2.31 Absolute Monocytes (0.1-0.8) 10^3/uL 0.92 H Absolute Eosinophils (0.0-0.7) 10^3/uL 0.24 Absolute Basophils (0.0-0.2) 10^3/uL 0.12 Sodium (136-145) mmol/L 140 Potassium (3.5-5.1) mmol/L 4.4 Chloride (98-107) mmol/L 106 Carbon Dioxide (20.0-31.0) mmol/L 26.6 Anion Gap (3-11) mmol/L 7.4 BUN (9-23) mg/dL 19 Creatinine (0.55-1.02) mg/dL 1.17 H Est GFR (CKD-EPI 2020) (mL/min/1.73m2) 44.28 Glucose (74-106) mg/dL 91 Calcium (8.3-10.6) mg/dL 9.2 Magnesium (1.6-2.6) mg/dL 2.0 Total Bilirubin (0.2-1.2) mg/dL 0.5 AST (<34) U/L 20 ALT (10-49) U/L 14 Alkaline Phosphatase (46-116) U/L 108 Troponin I (<35) ng/L 4 5 Total Protein (5.7-8.2) g/dL 7.3 Albumin (3.2-5.0) g/dL 4.6 Medical Decision Making This is an 80-year-old female patient presenting for evaluation of ataxia that started upon awakening yesterday. Differential includes but is not limited to intracranial pathology including posterior circulation stroke, mass effect, i ntracranial hemorrhage, considered hypertensive pathology including press and RCVS, though the patient's blood pressure is only modestly elevated to 155/84 at this time and she is without headache or seizure activity. The kyle ataxia and vertiginous symptoms are less consistent with orthostasis, vasovagal syndrome, presyncope. Considered metabolic and electrolyte derangement, kidney injury, arrhythmia and ACS. Finally, considered inner ear pathology including BPPV, labyrinth Mclean, M?ni?re's disease, though these are certainly diagnoses of exclusion and central causes of vertigo and ataxia are higher on the differential. EKG obtained shows a sinus bradycardia with a rate of 47, no evidence of acute ischemia, interval abnormality, or ectopy. I will obtain labs to include CBC, CMP, magnesium, troponin, INR, and will proceed with CT angio of the brain and neck. - CTA brain and neck reviewed by myself and shows no evidence of large vessel occlusion, obvious large territory infarct or hemorrhage. I independently interpreted the laboratory studies, which show no significant leukocytosis, anemia, or thrombocytopenia. The chemistry panel is without evidence of electrolyte abnormality, kidney dysfunction, or liver injury. Troponin is negative, INR 1.0. Given the significant symptoms I do feel it reasonable to proceed with a teleneurology consult. This was provided, and the teleneurologist recommends proceeding with MRI brain, and if positive for infarct loading the patient on aspirin and Plavix, and admitting for physical therapy evaluation and management. MRI obtained and reviewed by myself and discussed with the radiologist, shows some small areas of chronic small vessel ischemic changes but no acute ischemia was identified. However, the patient remains with profound ataxia and poor balance and I am concerned for her safety in the home, she lives alone. For this reason I discussed the case with the hospitalist who has graciously accepted this patient for admission for PT evaluation and treatment. I will hold on dual antiplatelet therapy given the lack of active ischemia identified on MRI. The patient remained hemodynamically appropriate while under my care and was transferred from our department without incident. Renee Schultz MD [facility] All Active Problems (Updated 07/20/25 @ 17:09 by Renee Schultz MD) Ataxia (Acute) History of total left hip arthroplasty (Acute 05/09/25) Trochanteric bursitis, left hip (Acute) Injection: 01/18/2024 Foot pain (Acute) Neuropathy (Acute) History of total right knee replacement (TKR) (Acute 06/03/22) Lumbar stenosis (Acute) Sensorineural hearing loss of both ears (Acute) Sciatica of right side without back pain (Acute) Lumbar radiculopathy, right (Acute) Pulsatile tinnitus of both ears (Acute) Abdominal pain (Acute) Diarrhea (Acute) Medical History (Updated 07/20/25 @ 17:09 by Renee Schultz MD) Incoordination Acquired ptosis of eyelid Adjustment disorder Over weight Lumbar epidural mass Lumbar disc disease Arthritis of facet joint of lumbar spine Leg pain, right Diverticulosis of colon Peripheral neuropathy Loss of balance Paresthesia Leg cramps Tinnitus of right ear Vitamin D deficiency Folic acid deficiency Sciatica Kidney disease Hyperlipidemia Memory loss Chronic kidney disease, stage 3 Right sided sciatica Dyslipidemia Hypertension GERD (gastroesophageal reflux disease) Abnormal chest xray Osteopenia Anxiety Family history of colon cancer Obstructive sleep apnea Does not use CPAP; returned to [facility] since she did not have change in symptoms Insomnia Diverticulosis Surgical History (Updated 05/09/25 @ 07:50 by Jose Florentino RN) H/O total hip arthroplasty Right hip History of left cataract surgery H/O laminectomy L4-5 11/13/21 Hx of total knee replacement right History of lumbar surgery 11/2020 History of bronchoscopy 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
[2025-07-20 16:19] LABS: INR 1.0 (0.9-1.1); Prothrombin Time 10.1 sec (9.1-11.1)
--- NOTE | 2025-07-20 17:10 | W.PM.HP.N ---
Date of service: 07/20/25 Time of Service: 17:10 Assessment and Plan Assessment and plan (1) Ataxia: Status: Acute Assessment and plan: -patient presented with dizziness/ataxia that occured suddenly upon waking up this morning -no focal neuro defectis found, no nystagmis -CT and MRI head were negative -apprecaite PT consultation in AM (2) Chronic kidney disease, stage 3: Assessment and plan: -appears baseline at this time (3) Dyslipidemia: Assessment and plan: -continue home lipitor 20mg daily (4) Hypertension: Assessment and plan: -continue home losartan, metoprolol, and spironolactone (5) GERD (gastroesophageal reflux disease): Assessment and plan: -contiune home PPI (6) Anxiety: Assessment and plan: -continue home SSRI History of Present Illness History of Present Illness Chief Complaint: dizziness Narrative: 80yo female with PMH hearing loss, HTN, HLD, CKD III, and anxiety who presents to the ED with complaints of dizziness. Patient states that she woke up yesterday morning and had a spinning sensation and feeling like she was going to fall forward. She has not fallen, but reports difficulty ambulating. She states the dizziness is worse when she stands up. She denies any MARTINEZ, lightheadedness, chest pain, SOB, nausea, vomiting, or extremity weakness. Patient was first seen at Urgent Care where she had a normal EKG and UA. In the ED the patient was noted as having normal vital signs, CBC, CMP, and physical exam. Head CT was negative and [facility] was consulted. They recommenced and MRI and to initiate ASA and plavix if any lesions were noted. MRI was done and was without any acute findings. Given that the patient remains symptomatic, emergency room physican paged hospitalist for admissions of a patient with ongoing ataxia requiring PT evaluation. Review of Systems All systems reviewed & are unremarkable except as noted in HPI and below PFSH All Active Problems (Updated 07/20/25 @ 17:09 by Renee Schultz MD) Ataxia (Acute) History of total left hip arthroplasty (Acute 05/09/25) Trochanteric bursitis, left hip (Acute) Injection: 01/18/2024 Foot pain (Acute) Neuropathy (Acute) History of total right knee replacement (TKR) (Acute 06/03/22) Lumbar stenosis (Acute) Sensorineural hearing loss of both ears (Acute) Sciatica of right side without back pain (Acute) Lumbar radiculopathy, right (Acute) Pulsatile tinnitus of both ears (Acute) Abdominal pain (Acute) Diarrhea (Acute) Medical History (Updated 07/20/25 @ 17:09 by Renee Schultz MD) Incoordination Acquired ptosis of eyelid Adjustment disorder Over weight Lumbar epidural mass Lumbar disc disease Arthritis of facet joint of lumbar spine Leg pain, right Diverticulosis of colon Peripheral neuropathy Loss of balance Paresthesia Leg cramps Tinnitus of right ear Vitamin D deficiency Folic acid deficiency Sciatica Kidney disease Hyperlipidemia Memory loss Chronic kidney disease, stage 3 Right sided sciatica Dyslipidemia Hypertension GERD (gastroesophageal reflux disease) Abnormal chest xray Osteopenia Anxiety Family history of colon cancer Obstructive sleep apnea Does not use CPAP; returned to company since she did not have change in symptoms Insomnia Diverticulosis Surgical History (Updated 05/09/25 @ 07:50 by Jose Florentino RN) H/O total hip arthroplasty Right hip History of left cataract surgery H/O laminectomy L4-5 11/13/21 Hx of total knee replacement right History of lumbar surgery 11/2020 History of bronchoscopy 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 Goldman DOS: 09/19/2018 Colonoscopy - MAC (10/12/17) Cholecystectomy Family History Father Hypertension Colon cancer Cancer THYROID CANCER Mother Hypertension Sister Hypertension Diabetes Brother Cancer Brother Kidney disorder Social History Smoking/Tobacco Use Status: Never Smoking risk assessment performed?: Yes Alcohol Intake: former Drug use: Never Substance use type: does not use Household members: spouse Housing: house Number of Children: 4 current occupation: [employer] Current gender identity: female Do you feel safe at home: Yes Do you feel safe in your relationship?: Yes Meds Allergies and Home Medications Allergies Allergy/AdvReac Type Severity Reaction Status Date / Time pramipexole di-HCl (From Allergy Severe patient Verified 07/20/25 13:17 Mirapex) cannot remember ropinirole HCl (From Requip) Allergy Intermediate patient Verified 07/20/25 13:17 cannot remember tramadol Allergy Unknown Other (See Verified 07/20/25 13:17 Comment) amoxicillin AdvReac Intermediate freezing/hot Verified 07/20/25 13:17 sensation bee stings AdvReac Intermediate generalized Uncoded 07/20/25 13:17 swelling oxycodeine AdvReac Intermediate heart races Uncoded 07/20/25 13:17 Home Medications ?Medication ?Instructions ?Recorded ?Confirmed ?Type calcium ER 600 mg (as carb,cit)-D3 1 ea PO DAILY 08/31/17 07/20/25 History 12.5 mcg (500 unit) tablet, ext.rel atorvastatin 20 mg tablet 20 mg PO DAILY 04/25/21 07/20/25 History folic acid 1 mg tablet 1 mg PO DAILY 04/25/21 07/20/25 History losartan 100 mg tablet 100 mg PO HS 04/25/21 07/20/25 History omeprazole 20 mg capsule,delayed 20 mg PO HS 04/25/21 07/20/25 History release spironolactone 25 mg tablet 25 mg PO DAILY 04/25/21 07/20/25 History metoprolol succinate 25 mg 1 tab PO DAILY 06/03/22 07/20/25 History tablet,extended release 24 hr ondansetron 4 mg disintegrating 4 mg PO Q8H PRN nausea and 12/02/22 07/20/25 Rx tablet vomiting #30 tabs cyanocobalamin (vitamin B-12) 1,000 mcg PO DAILY 05/05/23 07/20/25 History 1,000 mcg capsule cholecalciferol (vitamin D3) 50 50 mcg PO DAILY 12/09/24 07/20/25 History mcg (2,000 unit) capsule colestipol 1 gram tablet 1 g PO ONCE 12/09/24 07/20/25 History famotidine 20 mg tablet 20 mg PO BID 12/09/24 07/20/25 History gabapentin 300 mg capsule 900 mg PO HS 12/09/24 07/20/25 History inhalational spacing device 12/09/24 07/20/25 History (Jaycee Smith [facility] spacer) peg 400-propylene glycol 0.4 %-0.3 1 drp ophthalmic (eye) TID PRN 12/09/24 07/20/25 History % eye drops (Systane (propylene glycol)) sertraline 25 mg tablet 25 mg PO DAILY 12/09/24 07/20/25 History sodium chloride 5 % eye drops 1 drp ophthalmic (eye) QAM 12/09/24 07/20/25 History acetaminophen 500 mg tablet 1,000 mg (2 x 500 mg) PO Q8H PRN 05/09/25 07/20/25 Rx pain #90 tabs Exam Narrative Exam Narrative: well appearing older female laying back in the chair in no acute distress, AOx4, heart RRR, lungs CTAB, abdomen soft, non-tender, non-distended, spontaneous movement in bilateral upper and lower extremities Results Labs 07/20/25 14:02 07/20/25 14:02 Labs: Laboratory Results - last 24 hr 07/20/25 07/20/25 07/20/25 14:02 14:52 16:28 WBC 9.00 RBC 3.70 L Hgb 12.4 Hct 37.0 MCV 100 H MCH 33.5 H MCHC 33.5 RDW 11.6 L Plt Count 271 MPV 8.9 Immature Gran % 0.3 Neutrophils % 59.8 Lymphocytes % 25.7 Monocytes % 10.2 Eosinophils % 2.7 Basophils % 1.3 Nucleated RBC % 0.0 Absolute Neutrophils 5.38 Absolute Lymphocytes 2.31 Absolute Monocytes 0.92 H Absolute Eosinophils 0.24 Absolute Basophils 0.12 PT 10.1 INR 1.0 Sodium 140 Potassium 4.4 Chloride 106 Carbon Dioxide 26.6 Anion Gap 7.4 BUN 19 Creatinine 1.17 H Est GFR (CKD-EPI 2020) 44.28 Glucose 91 Calcium 9.2 Magnesium 2.0 Total Bilirubin 0.5 AST 20 ALT 14 Alkaline Phosphatase 108 Troponin I 4 5 Cancelled Total Protein 7.3 Albumin 4.6 Last Vital Signs Temp 98.1 F 07/20/25 13:15 Pulse 51 L 07/20/25 13:15 BP 155/84 H 07/20/25 13:15 Pulse Ox 98 07/20/25 13:15 VTE Prohylaxis Risk Level: Moderate/High Risk Contraindications: None Prophylaxis: Pharmacologic Time Spent Time spent with Patient: >75 minutes Time was spent: preparing to see the patient(eg.review tests), obtaining and/or reviewing separately otained hiistory, ordering medications,tests, procedures, referring, communicating with other health pet care worker, indepentently interpreting results, counseling the patient and care coordination
--- NOTE | 2025-07-20 17:28 | W.PC.ACHO ---
Registration Status: REG ER Primary Language: Preferred Language: Arabic ED Information & Data Chief Complaint Dizzy/Sync 07/20/25 16:00 Triage Note Pt complaining of dizziness 07/20/25 13:15 for 1 day Medical / Surgical History (Last Reviewed 05/09/25 @ 06:22 by Suze May, RN) Incoordination Acquired ptosis of eyelid Adjustment disorder Over weight Lumbar epidural mass Lumbar disc disease Arthritis of facet joint of lumbar spine Leg pain, right Diverticulosis of colon Peripheral neuropathy Loss of balance Paresthesia Leg cramps Tinnitus of right ear Vitamin D deficiency Folic acid deficiency Sciatica Kidney disease Hyperlipidemia Memory loss Chronic kidney disease, stage 3 Right sided sciatica Dyslipidemia Hypertension GERD (gastroesophageal reflux disease) Abnormal chest xray Osteopenia Anxiety Family history of colon cancer Obstructive sleep apnea Insomnia Diverticulosis (Last Reviewed 05/09/25 @ 06:22 by Suze May RN) H/O total hip arthroplasty History of left cataract surgery H/O laminectomy Hx of total knee replacement History of lumbar surgery History of bronchoscopy History of total replacement of right hip (07/15/19) Subcapital fracture of right femur Colonoscopy - MAC (10/12/17) Cholecystectomy Most Recent Vital Signs Temperature 36.7 C 07/20/25 13:15 Pulse 51 L 07/20/25 13:15 Respiratory Effort Normal 07/20/25 14:54 Blood Pressure 155/84 H 07/20/25 13:15 Pulse Oximetry 98 07/20/25 13:15 Allergies pramipexole di-HCl (From Mirapex) Allergy (Severe, Verified 07/20/25 13:17) patient cannot remember PCP lists as severe allergy ropinirole HCl (From Requip) Allergy (Intermediate, Verified 07/20/25 13:17) patient cannot remember PCP lists as moderate allergy tramadol Allergy (Unknown, Verified 07/20/25 13:17) Other (See Comment) irregular rapid heart rate amoxicillin Adverse Reaction (Intermediate, Verified 07/20/25 13:17) freezing/hot sensation PCP lists as severe allergy bee stings Adverse Reaction (Intermediate, Uncoded 07/20/25 13:17) generalized swelling oxycodeine Adverse Reaction (Intermediate, Uncoded 07/20/25 13:17) heart races Precautions Isolation Standard precaution 07/20/25 14:54 Active Medications Generic Name Dose Route Start Last Admin Trade Name Freq PRN Reason Stop Dose Admin Sodium Chloride 0 ml 07/20/25 14:14 07/20/25 14:20 Normal Saline Flush 10 Ml Syr IVP 10 ml PRN PRN Administration Sodium Chloride 50 ml 07/20/25 14:15 07/20/25 14:15 Normal Saline - Diluent 50 Ml Vial IJ 50 ml DIRECTED LILI Administration IV IV Catheter Type [Left Saline Lock Antecubital] IV Catheter Gauge [Left 20 Antecubital] Diet Orders Category Date Time Status Heart Healthy Eating [DIET] Nutrition 07/21/25 Breakfast Ordered Diagnostics 07/20/25 07/20/25 07/20/25 Range/Units 16:28 14:52 14:02 WBC 9.00 (4.4-10.8) 10^3/uL RBC 3.70 L (3.93-5.22) 10^6/uL Hgb 12.4 (11.2-15.7) g/dL Hct 37.0 (36.0-46.0) % MCV 100 H (80-95) fL MCH 33.5 H (27.0-33.0) pg MCHC 33.5 (32.0-36.0) % RDW 11.6 L (11.7-14.6) % Plt Count 271 (130-400) 10^3/uL MPV 8.9 (8.0-11.0) fL Immature Gran % 0.3 % Neutrophils % 59.8 % Lymphocytes % 25.7 % Monocytes % 10.2 % Eosinophils % 2.7 % Basophils % 1.3 % Nucleated RBC % 0.0 (0.0-0.3) % Absolute Neutrophils 5.38 (1.2-6.7) 10^3/uL Absolute Lymphocytes 2.31 (1.2-3.4) 10^3/uL Absolute Monocytes 0.92 H (0.1-0.8) 10^3/uL Absolute Eosinophils 0.24 (0.0-0.7) 10^3/uL Absolute Basophils 0.12 (0.0-0.2) 10^3/uL PT 10.1 (9.1-11.1) sec INR 1.0 (0.9-1.1) Sodium 140 (136-145) mmol/L Potassium 4.4 (3.5-5.1) mmol/L Chloride 106 (98-107) mmol/L Carbon Dioxide 26.6 (20.0-31.0) mmol/L Anion Gap 7.4 (3-11) mmol/L BUN 19 (9-23) mg/dL Creatinine 1.17 H (0.55-1.02) mg/dL Est GFR (CKD-EPI 2020) 44.28 (mL/min/1.73m2) Glucose 91 (74-106) mg/dL Calcium 9.2 (8.3-10.6) mg/dL Magnesium 2.0 (1.6-2.6) mg/dL Total Bilirubin 0.5 (0.2-1.2) mg/dL AST 20 (<34) U/L ALT 14 (10-49) U/L Alkaline Phosphatase 108 (46-116) U/L Troponin I Cancelled 5 4 (<35) ng/L Total Protein 7.3 (5.7-8.2) g/dL Albumin 4.6 (3.2-5.0) g/dL Intake and Output - 24 Hour Total 07/20/25 13:08 thru 07/20/25 13:15 Weight 66.224 kg Falls Risk Assessment History of Falls No History 07/20/25 14:54 Contributing Factors No Factors 07/20/25 14:54 Ambulatory Aids Independent 07/20/25 14:54 Tubes/Lines None 07/20/25 14:54 Gait Evaluation No gait disturbance 07/20/25 14:54 Cognition No cognitive impairment 07/20/25 14:54 Fall Total Score 0 07/20/25 14:54 Level of Risk Standard/Low Risk 07/20/25 14:54 Problems (Last Reviewed 05/09/25 @ 06:22 by Suze May RN) Ataxia (Acute) Attestation Statement: By documenting the first initial, last name, and credentials of the reporting nurse below, both parties acknowledge that all relevant information regarding the patient handoff has been communicated, and that all questions have been addressed to ensure continuity and safety of care. Additional Patient Information/Comments: Report Received From: Pt c/o light headed x2 days, ataxia, wobbly, poor gait. Head CT (-), HR 51, RR 18, 155/84, 36.4 C, 98% RA Liss RN
[2025-07-20 17:48] VITALS: BP 162/67; PULSE 50; RESP 17; TEMP 36.6; O2SAT 97
[2025-07-20 18:03] VITALS: BP 162/67; PULSE 50; RESP 17; TEMP 36.6; O2SAT 97
[2025-07-20 19:31] LABS: Glucose Negative (Negative)
[2025-07-20] MEDS: Gabapentin 300 MG CAP 900 MG PO (19:54)
[2025-07-20] MEDS: Atorvastatin 20 MG TAB PO (19:54)
[2025-07-20] MEDS: Omeprazole 20 MG CAPCR PO (19:54)
[2025-07-20] MEDS: Losartan 50 MG TAB 100 MG PO (19:55)
[2025-07-20] MEDS: Famotidine 20 MG TAB PO (19:55)
[2025-07-20 23:31] VITALS: BP 97/51; PULSE 52; RESP 16; TEMP 36.2; O2SAT 99
--- NOTE | 2025-07-21 02:47 | PTTR_ITS ---
PT Notes Visit Reasons: Ataxia Inpatient Physical Therapy Treatment Note Date:07/21/2025 SUBJECTIVE: Dizzy with sitting to supine and neck maneuvering into rotation and extension with the Javad-Hallpike, became nauseous but no vomiting this time. OBJECTIVE: Posture: Good upright posturing Observation: Guarded movements with limited head motions during gait, transfers, and bed mobility Bed Mobility/Transfers: Minimal cueing provided for use of B hands as needed for support due to unsteadiness, movement sequence, AD management, and posture to reduce fall risk and minimize pain report Rolling stand by assist Supine to sit contact guard assist Sit to supine contact guard assist Sit to stand contact guard assist without device Stand to sit contact guard assist without device Bed to chair contact guard assist without device Chair to bed contact guard assist without device Gait: 250 feet with front-wheeled walker and contact guard assist of DPTS Petar and stand by assist of PT. The ast 10 steps of the walk was completed without an assistive device with conatct guard assist of DPTS Petar. Goldie improved from earlier session but remained slow. Shakiness and instability resolved with AD use. Denied lightheadedness and dizziness during the walk. THERA ACT: Direct one-on-one instruction of patient first on the first afternoon session and then patient and 2 family members in the second afternoon session with L Anna Marie maneuver performance as well as gaze stabilization exercises/VOR1. Copy was given to family member on L Anna Marie maneuver for optimal performance. ASSESSMENT:? Patient with R upbeating torsional nystgamus with performance of the L Javad- Hallpike which degraded in about 1 minute signifying L posterior canal canalithiasis for which the L Anna Marie maneuver was immediately performed. Patient became highly symptomatic and vomited x 1 and a decision was made to continue corrective maneuver after medication intake to minimize symptom and allow completion of L Anna Marie maneuver. Plan of Care/Treatment Plan: Perform another L Anna Marie maneuver and gaze stabilization exercises (VOR1) and train another family member if present before tomorrow's discharge. DISCHARGE RECOMMENDATIONS: OP PT for continued vestibular rehabilitation for symptom resolution and return to premorbid independent PLOF TREATMENT CODE/TIME: 62641 x 50 minutes for 3 units (14:47-15:13 and 15:35-13:59).
[2025-07-21 03:00] VITALS: BP 91/48; PULSE 52; RESP 16; TEMP 36.4; O2SAT 95
[2025-07-21 06:30] LABS: HCT 35.5 % (36.0-46.0); HGB 11.7 g/dL (11.2-15.7); MCH 32.6 pg (27.0-33.0); MCHC 33.0 % (32.0-36.0); MCV 99 fL (80-95); MPV 9.0 fL (8.0-11.0); Platelet Count 227 10^3/uL (130-400); RBC 3.59 10^6/uL (3.93-5.22); RDW 11.5 % (11.7-14.6); RDW-SD 42.1 fL; WBC 7.81 10^3/uL (4.4-10.8)
[2025-07-21 07:00] LABS: Anion Gap 9.2 mmol/L (3-11); BUN 20 mg/dL (9-23); CO2 25.8 mmol/L (20.0-31.0); Calcium 9.1 mg/dL (8.3-10.6); Chloride 106 mmol/L (98-107); Glucose 89 mg/dL (74-106); Potassium 4.3 mmol/L (3.5-5.1); Sodium 141 mmol/L (136-145)
[2025-07-21 07:02] LABS: Magnesium 2.0 mg/dL (1.6-2.6)
[2025-07-21 07:45] VITALS: BP 134/59; PULSE 53; RESP 17; TEMP 36.4; O2SAT 98
[2025-07-21] MEDS: Metoprolol CR 25 MG TABCR PO (08:48)
[2025-07-21] MEDS: Famotidine 20 MG TAB PO (08:48)
[2025-07-21] MEDS: Spironolactone 25 MG TAB PO (08:48)
[2025-07-21] MEDS: Folic Acid 1 MG TAB PO (08:48)
[2025-07-21] MEDS: Colestipol 1 GM TAB PO ×2 (08:49→20:03)
[2025-07-21] MEDS: Normal Saline Flush 10 ML SYR IVP ×2 (08:49→20:09)
[2025-07-21] MEDS: Enoxaparin 40 MG/0.4 ML SYR SC (08:49)
[2025-07-21] MEDS: Sertraline 25 MG TAB PO (08:49)
[2025-07-21] MEDS: Metoprolol CR 50 MG TABCR PO (09:50)
--- NOTE | 2025-07-21 10:18 | INITIAL_ITS ---
Date of service: 07/21/25 Time of Service: 10:18 Care Management Initial Assmt Initial Assessment Reason for Hospitalization: Ataxia - r/o stroke Functional Status/Living Situation Patient Presentation: [facility] with c/o 24hours of positional dizziness and unsteady gait. EKG and urinalysis were reassuring. She was orthostatic, however, and was encouraged to report to the ED. CT and MRI of head were negative in the ER, labs reassuring. She was admitted to observation and is scheduled to have a PT evaluation today. Diana was very pleasant with CM. She lives alone in [place], her son, Laureano is near by. Diana receives no services in the community, and is still driving. Diana worked with PT today, who found that she has vertigo. Eply maneuver had good effect, and she was started on meclizine. Diana's son and DIL came to visit later in the day and were taught by PT how to perform the Eply. Plan is for Diana to discharge tomorrow. She will be referred to outpatient PT at [facility] in [place] for vestibular rehab. Town of Residence: [place] Resides with: Alone Significant Other/Family: Local (son Laureano, daughter Roxann) Natural Supports: family Employment Status: Retired Instrumental Activities of Daily Living (ADLs): Independent Medications Medication Management: No Issues/Barriers identified Physical Functioning/Mobility Assistive Device: none Advance Directives Advance Directives: Do you have an Advance Directive: Y , 11:31 AD On File at [facility]: Y 11/03/22, 11:31 Date Asked 07/20/25 07/20/25, 13:42 AD Date Reviewed 07/20/25 Today, 07:25 COLST On File at [facility] COLST Date Scanned Comment: Laureano is Diana's HCA. Advanced directive states Pat as DNI. Provider was notified. Code Status Resuscitation Status Full Code Insurance Coverage/Financial Issues Insurance: AARP/UN.[facility] [employer] FINANCIAL ASST [id number] Care Team Visit Care Team Role Provider Type Jana Wayne MD Primary Care Provider [facility] STAFF PHYSICIAN [facility] Other Providers OTHER Renee Schultz MD Emergency Provider [facility] STAFF PHYSICIAN Zuhair King MD Admit Provider [facility] STAFF PHYSICIAN Attending Provider Discharge Potential Discharge Needs: PCP F/U Appt and Other (out patient PT for vestibular rehab) Anticipated Barriers to Discharge: None Identified Patient/Family Education Needs: Review discharge instructions, discuss Ask Me Three Transportation: Private vehicle Plan: Anticipate that Diana will discharge home tomorrow with no new home care orders. She will f/u with her PCP and be referred to outpatient PT for vestibular rehab. Diana will transport with her family. Diana's daughter plans to stay with her for the weekend. CM will continue to follow. Social Determinants of Health Screening Social Determinants of health last assessed in clinic: 07/21/25 Will the Patient Participate in the Screening?: Yes Do you worry about having a steady place to live?: no Problems where you live: no known problems In the past 12 months, have you had to go without electric, gas, oil or water in your home?: no 1. Within the past 12 months, we worried whether our food would run out before we got money to buy more.: Don't know/refused 2. Within the past 12 months, the food we bought just didn't last and we didn't have money to get more.: Don't know/refused Has lack of transportation kept you from medical appointments or from doing things needed for daily living?: no Has anyone in your life made you feel unsafe or unsupported?: no How hard is it for you to pay for the very basics like food, housing, medical care, and heating? Would you say it is:: Not hard at all Do you want help finding or keeping work or a job?: I do not need or want help If for any reason you need help with day-to-day activities such as bathing, preparing meals, shopping, managing finances, etc., do you get the help you need?: I don?t need any help How often do you feel lonely or isolated from those around you?: Sometimes Do you speak a language other than [place] at home?: No Health Related Social Needs Health related social needs: feeling lonely/isolated (Z60.8) Health related social needs details: does have fuel assistance PFSH All Active Problems (Updated 07/21/25 @ 16:24 by Zuhair King MD) BPV (benign positional vertigo) (Acute) Ataxia (Acute) History of total left hip arthroplasty (Acute 05/09/25) Trochanteric bursitis, left hip (Acute) Injection: 01/18/2024 Foot pain (Acute) Neuropathy (Acute) History of total right knee replacement (TKR) (Acute 06/03/22) Lumbar stenosis (Acute) Sensorineural hearing loss of both ears (Acute) Sciatica of right side without back pain (Acute) Lumbar radiculopathy, right (Acute) Pulsatile tinnitus of both ears (Acute) Abdominal pain (Acute) Diarrhea (Acute) Medical History (Updated 07/21/25 @ 16:24 by Zuhair King MD) Incoordination Acquired ptosis of eyelid Adjustment disorder Over weight Lumbar epidural mass Lumbar disc disease Arthritis of facet joint of lumbar spine Leg pain, right Diverticulosis of colon Peripheral neuropathy Loss of balance Paresthesia Leg cramps Tinnitus of right ear Vitamin D deficiency Folic acid deficiency Sciatica Kidney disease Hyperlipidemia Memory loss Chronic kidney disease, stage 3 Right sided sciatica Dyslipidemia Hypertension GERD (gastroesophageal reflux disease) Abnormal chest xray Osteopenia Anxiety Family history of colon cancer Obstructive sleep apnea Does not use CPAP; returned to company since she did not have change in symptoms Insomnia Diverticulosis Surgical History (Updated 05/09/25 @ 07:50 by Jose Florentino RN) H/O total hip arthroplasty Right hip History of left cataract surgery H/O laminectomy L4-5 11/13/21 Hx of total knee replacement right History of lumbar surgery 11/2020 History of bronchoscopy 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
--- NOTE | 2025-07-21 11:03 | PT.INIE ---
PT Notes Visit Reasons: Ataxia Inpatient Physical Therapy Initial Evaluation Date: 07/21/2025 Referring MD: Zuhair King MD PT Orders: Eval/Treat Precautions: Standard. Activity as tolerated. SNHL, with hearing aid in situ. Patient profile/Admitting Diagnoses: Licha is an 80-year-old female patient who presented to the ED on 07/20/2025 after being seen at an urgent care clinic for decreased ability to move due to a feel of spinning sensation that is worse when sitting and standing up from lying down and difficulty walking/moving about. CT and MRI were unremarkable for any central affectation. Patient is being admitted for further assessment and management of vertigo, ataxia, CKD stage 3, dyslipiedmeia, HTN, GERD, and anxiety. PMH: All Active Problems (Updated 07/20/25 @ 17:09 by Renee Schultz MD) Ataxia (Acute) History of total left hip arthroplasty (Acute 05/09/25) Trochanteric bursitis, left hip (Acute) Injection: 01/18/2024Foot pain (Acute) Neuropathy (Acute) History of total right knee replacement (TKR) (Acute 06/03/22) Lumbar stenosis (Acute) Sensorineural hearing loss of both ears (Acute) Sciatica of right side without back pain (Acute) Lumbar radiculopathy, right (Acute) Pulsatile tinnitus of both ears (Acute) Medical History (Updated 07/20/25 @ 17:09 by Renee Schultz MD) Incoordination Acquired ptosis of eyelid Adjustment disorder Over weight Lumbar epidural mass Lumbar disc disease Arthritis of facet joint of lumbar spine Leg pain, right Diverticulosis of colon Peripheral neuropathy Loss of balance Paresthesia Leg cramps Tinnitus of right ear Vitamin D deficiency Folic acid deficiency Sciatica Kidney disease Hyperlipidemia Memory loss Chronic kidney disease, stage 3 Right sided sciatica Dyslipidemia Hypertension GERD (gastroesophageal reflux disease) Abnormal chest xray Osteopenia Anxiety Family history of colon cancer Obstructive sleep apnea Does not use CPAP; returned to company since she did not have change in symptoms Insomnia Diverticulosis Surgical History (Updated 05/09/25 @ 07:50 by Jose Florentino RN) H/O total hip arthroplastyRight hipHistory of left cataract surgery H/O laminectomy L4-5 11/13/21 Hx of total knee replacement right History of lumbar surgery 11/2020 History of bronchoscopy 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 Goldman DOS: 09/19/2018 Colonoscopy - MAC (10/12/17) Cholecystectomy SUBJECTIVE: Licha stated her symptom started when she woke up from bed Thursday morning when she felt a sense of spinning or falling and feeling of being pulled back from a sitting position. She had a hard time managing sitting up, standing up, and was very unstable transferring. She was not able to safely walk inside her house and so went in to an urgent care clinic from where she was sent to [facility] fir further assessment to rule out stroke. For this session, patient was still shaky standing up and moving from bedside recliner to bed, needing minimal assist from DPTS Petar to lessen her unsteadiness. Patient denied recent trauma and injury to her head. Onset: ?07/19/2025 when getting out of bed Quality: room-spinning dizziness, unsteadiness, no headache Duration: ?continuous dizziness and vomitting for hours. Previous Episodes: none Exacerbating Factors:change in position worse in standing Nausea/Vomitting: None prior to arival Hearing Loss: Patient with SNHL Tinnitus: None Fullness in Ear: None Imbalance: Yes with movement Red Flags: ? Visual changes: None ? Dysphagia or Dysarthria: None ? Facial Weakness: None ? Incoordination: Yes with walking OBJECTIVE: Posture: Good upright posturing Observation: Guarded movements with limited head motions during gait, transfers, and bed mobility ROM: Right Upper Extremity: Grossly WFL Left Upper Extremity: Grossly WFL Right Lower Extremity: Grossly WFL Left Lower Extremity: Grossly WFL Cervical ROM: AROM WNL. Some discomfort felt with transitioning head movement from side to side during Javad-Hallike test. STRENGTH: Right Upper Extremity: Grossly 4-/5 Left Upper Extremity: Grossly 4-/5 Right Lower Extremity: Grossly 4-/5 Left Lower Extremity:Grossly 4-/5 Cervical Strength: 4/5 Bed Mobility/Transfers: Minimal cueing provided for use of B hands as needed for support due to unsteadiness, movement sequence, AD management, and posture to reduce fall risk and minimize pain report Rolling stand by assist Supine to sit minimal assist Sit to supine contact guard assist Sit to stand minimal assist without device Stand to sit minimal assist without device Bed to chair minimal assist without device Chair to bed minimal assist without device Gait: Only able to tolerate walking about 8 steps from bedside recliner to bed. Slowed behzad, decreased arm swing, decreased trunk rotation ? Special Tests: -Rhomberg: Negative -Coordination: L UE and B LE rapid alternating movement intact -Fine Motor: Intact -Ocular motility stability battery: Spotaneous nystagmus: Negative Smooth pursuit/H-test: Negative Lateral gaze holding: Intact Saccadic testing: Normal -Head Impulse Test: R upbeating torsional nystagmus with L posterior canal HIT -[employer]-Halpike Maneuver:R upbeating torsional nystagmus with L [employer]-Hallpike maneuver -Supine Roll Test: Negative -Mobility Limitations Standardized Measure [facility]-PAC 6 clicks Basic Mobility Inpatient Short Form: Raw Score: 18 CMS Score: 47% deficit ASSESSMENT:? Patient with R upbeating torsional nystgamus with performance of the L Javad-Hallpike which degraded in about 1 minute signifying L posterior canal canalithiasis for which the L Anna Marie maneuver was immediately performed. Patient became highly symptomatic and vomited x 1 and a decision was made to continue corrective maneuver after medication intake to minimize symptom and allow completion of L Anna Marie maneuver. Patient presents with clinical signs and symptoms consistent with current/admitting diagnoses that have resulted to mobility limitations, gait instability, generalized weakness, and overall ADL decline as demonstrated by the following impairment level findings: 1. Impaired sitting/standing balance 2. Impaired activity tolerance Impairments are contributing to the following functional limitations: 1. Decline in bed mobility skills 2. Decline in transfer skills 3. Difficulty with ambulation without assistive device and physical assistance 4. Increased completion time for mobility ADL performance 5. Increased risk for falls 6. Difficulty with managing steps alone safely Patient is assessed as a 29282 moderate complexity based on the following: History: 80-year-old female with past medical history as indicated above Examination: Demonstrable impairment in strength, balance, and mobility level with underlying impairments and functional limitations as exhibited above as well as deficit score of 47% utilizing the [facility] Mobility Inpatient Short Form Presentation: Evolving Decision Makin moderate complexity Goals: Goals X1 week 1. Supine-Sit independent 2. Sit-Supine independent 3. Sit-Stand independent 4. Stand-Sit independent 5. Bed-Chair independent 6. Chair-Bed independent 7. Independent gait on level surface with use of FWW for at least 300 feet without report of pain nor dyspnea 8. Independent stair negotiation while holding onto B rails for at least 5 steps without report of pain nor dyspnea 9. Independent with home exercise program 10. Good static and dynamic standing balance/tolerance Plan of Care/Treatment Plan: 1-2x/day, 7 days/week x 1 week. Plan of care has been reviewed with the [employer] providing the service under Physical Therapy direction. Initiate Physical Therapy intervention for pain management as needed, strengthening, bed mobility, transfers, gait, stairs, balance training, and use of assistive device. DISCHARGE RECOMMENDATIONS: OP PT for continued vestibular rehabilitation for symptom resolution and return to premorbid PLOF. TREATMENT CODE/TIME: 55272 x 20 minutes for 1 unit, 47072 x 23 minutes for 2 units (11:03-11:46). Thank you for the opportunity to participate in the care of this patient. Cinda Pratt PT, DPT, CLT [facility] [place], [place] ???
[2025-07-21] MEDS: Ondansetron O.D.T. 4 MG TABEF PO (11:46)
[2025-07-21 11:48] VITALS: BP 145/74; PULSE 48; RESP 17; TEMP 36; O2SAT 95
[2025-07-21] MEDS: Meclizine 25 MG TAB PO ×2 (12:45→20:02)
--- NOTE | 2025-07-21 13:11 | PHA.REVIEW2 ---
Pharmacy Admission Review Admission Clinical Review Admission Pharmacy Review: Ataxia (Acute) pramipexole di-HCl (From Mirapex) Allergy (Severe, Verified 07/20/25 13:17) patient cannot remember ropinirole HCl (From Requip) Allergy (Intermediate, Verified 07/20/25 13:17) patient cannot remember tramadol Allergy (Unknown, Verified 07/20/25 13:17) Other (See Comment) amoxicillin Adverse Reaction (Intermediate, Verified 07/20/25 13:17) freezing/hot sensation bee stings Adverse Reaction (Intermediate, Uncoded 07/20/25 13:17) generalized swelling oxycodeine Adverse Reaction (Intermediate, Uncoded 07/20/25 13:17) heart races Resuscitation Status Full Code Height 5 ft 2 in Weight 66.224 kg Pharmacy Admission Review Renal Dosing Renal Dosing: BUN 20 mg/dL (9-23) 07/21/25 06:10 Creatinine 1.18 mg/dL (0.55-1.02) H 07/21/25 06:10 Medications needing adjustments: Intervened (CrCl 32.81 mL/min) List of meds needing interventions: Decreased famotidine from 20mg BID to 20mg daily due to CrCl < 60 Anticoagulation Anticoagulation: Hgb 11.7 g/dL (11.2-15.7) 07/21/25 06:10 Hct 35.5 % (36.0-46.0) L 07/21/25 06:10 Plt Count 227 10^3/uL (130-400) 07/21/25 06:10 INR 1.0 (0.9-1.1) 07/20/25 14:52 Creatinine 1.18 mg/dL (0.55-1.02) H 07/21/25 06:10 DVT Prophylaxis: Reviewed Medications: Enoxaparin (40mg daily) Relevant Labs Relevant Labs: Sodium 141 mmol/L (136-145) 07/21/25 06:10 Potassium 4.3 mmol/L (3.5-5.1) 07/21/25 06:10 Chloride 106 mmol/L (98-107) 07/21/25 06:10 Magnesium 2.0 mg/dL (1.6-2.6) 07/21/25 06:10 Electrolytes, C-Reactive P, ESR: Reviewed Cardiac Review Cardiac Review: Troponin I Cancelled 07/20/25 16:28 Blood Pressure : Heart Rate 145/74 : 48 1148 Blood Pressure : Heart Rate 134/59 : 53 0745 Blood Pressure : Heart Rate 91/48 : 52 0300 List meds needing interventions: Has orders for losartan 100mg daily, metoprolol XL 75mg daily and spironolactone 25mg daily QTc Review QTc: Reviewed (416 from 07/20/25) IV to PO Switch IV Medications: Reviewed Home Meds Home Med List reviewed: Intervened Relevent Home Meds Not ordered & why?: calcium/vitamin D3, vitamin D3, vitamin B12, Systane eye drops Asked nurse to confirm patients home metoprolol dose. On home med list as 25mg XL daily but per external fill history dose is 75mg XL daily. Patient confirmed home dose is 75mg XL daily. Updated home med list and order. Colestipol ordered as ONCE LILI as is listed on home med list. Per external fill history patient takes twice daily. Updated order. Current Meds Current Medication Order Review: Intervened Comments: Added 2nd PRN to ondansetron order per pharmacy protocol
[2025-07-21 15:18] VITALS: BP 105/57; PULSE 53; RESP 16; TEMP 36.4; O2SAT 97
--- NOTE | 2025-07-21 16:24 | PGE_ITS ---
Date of Service Date of service: 07/21/25 Time of Service: 16:24 Assessment and Plan Assessment and plan (1) BPV (benign positional vertigo): Status: Acute Assessment and plan: -patient presented with dizziness/ataxia that occured suddenly upon waking up the mornig of arrival -no focal neuro defectis found, no nystagmis -CT and MRI head were negative -found to be vertigo by PT evaluation -PT responded to Eply and started on meclazine -PT to teach family member Eply before DC tomorrow 07/22 (2) Chronic kidney disease, stage 3: Assessment and plan: -appears baseline at this time (3) Dyslipidemia: Assessment and plan: -continue home lipitor 20mg daily (4) Hypertension: Assessment and plan: -continue home losartan, metoprolol, and spironolactone (5) GERD (gastroesophageal reflux disease): Assessment and plan: -contiune home PPI (6) Anxiety: Assessment and plan: -continue home SSRI Discharge Planning Discharge Planning: home 07/22 after PT teaches Eply to family member Subjective Subjective Interval history since last seen: Patient states that she is feeling better and is looking forward to going home tomorrow. Exam Narrative Exam Narrative: well appearing older female laying back in the chair in no acute distress, AOx4, heart RRR, lungs CTAB, abdomen soft, non-tender, non-distended, spontaneous movement in bilateral upper and lower extremities Objective Last Vital Signs Temp 97.5 F L 07/21/25 15:18 Pulse 53 L 07/21/25 15:18 Resp 16 07/21/25 15:18 BP 105/57 L 07/21/25 15:18 Pulse Ox 97 07/21/25 15:18 Laboratory Results - last 24 hr 07/20/25 07/20/25 07/21/25 16:28 19:16 06:10 WBC 7.81 RBC 3.59 L Hgb 11.7 Hct 35.5 L MCV 99 H MCH 32.6 MCHC 33.0 RDW 11.5 L Plt Count 227 MPV 9.0 Sodium 141 Potassium 4.3 Chloride 106 Carbon Dioxide 25.8 Anion Gap 9.2 BUN 20 Creatinine 1.18 H Est GFR (CKD-EPI 2020) 43.85 Glucose 89 Calcium 9.1 Magnesium 2.0 Troponin I Cancelled Urine Color Yellow Urine Clarity Clear Urine pH 5.5 Ur Specific [place] <= 1.005 Urine Protein Negative Urine Ketones Negative Urine Blood Negative Urine Nitrite Negative Urine Bilirubin Negative Urine Urobilinogen 0.2 Ur Leukocyte Esterase Negative Urine Glucose Negative VTE Prohylaxis Risk Level: Moderate/High Risk Contraindications: None Prophylaxis: Pharmacologic Time Spent with Patient Time Spent with Patient: >50 minutes Time was spent: preparing to see the patient(eg.review tests), obtaining and/or reviewing separately otained hiistory, ordering medications,tests, procedures, referring, communicating with other health behavioral health care manager, indepentently interpreting results, counseling the patient and care coordination
[2025-07-21 19:37] VITALS: BP 107/61; PULSE 56; RESP 16; TEMP 36.2; O2SAT 97
[2025-07-21] MEDS: Atorvastatin 20 MG TAB PO (20:02)
[2025-07-21] MEDS: Gabapentin 300 MG CAP 900 MG PO (20:02)
[2025-07-21] MEDS: Omeprazole 20 MG CAPCR PO (20:03)
[2025-07-21] MEDS: Losartan 50 MG TAB 100 MG PO (20:04)
[2025-07-21 22:49] VITALS: BP 113/53; PULSE 53; RESP 16; TEMP 36.5; O2SAT 99
[2025-07-22 03:09] VITALS: BP 109/57; PULSE 53; RESP 16; TEMP 36.4; O2SAT 91
[2025-07-22 07:35] VITALS: BP 111/76; PULSE 50; RESP 16; TEMP 36.6; O2SAT 98
[2025-07-22] MEDS: Enoxaparin 40 MG/0.4 ML SYR SC (07:58)
[2025-07-22] MEDS: Normal Saline Flush 10 ML SYR IVP (07:59)
[2025-07-22] MEDS: Sertraline 25 MG TAB PO (07:59)
[2025-07-22] MEDS: Famotidine 20 MG TAB PO (07:59)
[2025-07-22] MEDS: Colestipol 1 GM TAB PO (07:59)
[2025-07-22] MEDS: Folic Acid 1 MG TAB PO (08:00)
--- NOTE | 2025-07-22 09:30 | PT.INTREAT ---
PT Notes Visit Reasons: Ataxia Inpatient Physical Therapy Treatment Note [facility] Date: 07/22/25 PRECAUTIONS: Fall. Standard. Activity as tolerated. WBAT, Dementia SUBJECTIVE: Patient standing by sink brushing her teeth. Nursing standby patient. OBJECTIVE: ? IV port left forearm? PAIN: None VITALS: monitored by nursing Therapeutic Activities 76374: Direct one-on-one instruction in dynamic activities to improve functional performance. ?? BED MOBILITY/TRANSFERS? Rolling L/R: Independent Supine-sit: Independent? Sit-supine: ? Independent? Sit-stand: ? Independent ? Stand-sit: ??Independent Bed-Chair:? ?Independent? Chair-bed: Independent Gait Training 37977: Direct one-on-one instruction and skilled instruction in: Employing an assistive device Modified weight-bearing status Movement sequencing Turning and movement with proper form Provided verbal cues for equipment management and technique Provided instruction in gait pattern Patient education regarding pacing and breathing techniques to maximize activity tolerance? GAIT? Assistive Device: ??None ? Weight bearing: Full weightbearing Assist: ? Standby assist? Distance:?? 400 feet with standby assist? Deviation: Mild unsteadiness when transitioning corners in hallway.? Stairs: patient associated 6 and 4 inch stairs in PT office x 3 with use of rail and standby assist. ? Neuromuscular Re-education 91286: Activities that facilitate re-education of movement balance, posture, coordination, and proprioception or kinesthetic sense, requiring skilled tactile and verbal cues Exercises/techniques: Patient presents with negative Javad-Hallpike left. Take her through the Anna Marie maneuver x 2. Handout distributed to patient with instructions on self performance of Anna Marie. Upon completion of treatment patient was positioned in sitting recliner with chair alarm activated. ASSESSMENT: Asymptomatic now. Has a good handle on Anna Marie maneuver. Is set up for outpatient consult for vestibular rehab. Discontinue PT services. PLAN: Discharge from physical therapy services. She is set up for vestibular rehab evaluation at the outpatient setting. TREATMENT CODE/TIME: [id number], [id number], 30mins (8:55-9:25 am) 29
[2025-07-22 11:22] VITALS: BP 103/56; PULSE 58; RESP 16; TEMP 36.6; O2SAT 98
--- NOTE | 2025-07-22 12:21 | W.PM.DS.N ---
Date of service: 07/22/25 Time of Service: 08:00 DS: Diagnosis Discharge Diagnosis (1) BPV (benign positional vertigo): Status: Acute Asessment and Plan: -patient presented with dizziness/ataxia that occured suddenly upon waking up the mornig of arrival -no focal neuro defectis found, no nystagmis -CT and MRI head were negative -found to be vertigo by PT evaluation -PT responded to Eply and started on meclazine -PT to teach family member Eply before DC tomorrow 07/22 (2) Chronic kidney disease, stage 3: Asessment and Plan: -appears baseline at this time (3) Dyslipidemia: Asessment and Plan: -continue home lipitor 20mg daily (4) Hypertension: Asessment and Plan: -continue home losartan, metoprolol, and spironolactone (5) GERD (gastroesophageal reflux disease): Asessment and Plan: continue home PPI (6) Anxiety: Asessment and Plan: -continue home SSRI Discharge Plan Disposition Patient Disposition: Home Anticipated Discharge Date/Time: 07/22/25 12:17 Condition: Improving Discharge Details Reason For Visit: Ataxia Admit Date/Time: 07/20/25 17:09 Admit Provider: Zuhair King Attending Provider: Zuhair King Primary Care Provider: Jana Wayne [facility] Course Hospital Course: Licha Aguilar is an 80 year old woman presenting July 20, sent in from [facility] for dizziness, found to have benign positional vertigo which responds to the Anna Marie maneuver. She does not have a urinary tract infection. Patient feels well and is safe for discharge home after being instructed on the maneuver. No changes in home medications. Home Meds and New Rx's Prescriptions: Continued folic acid 1 mg tablet 1 mg PO DAILY omeprazole 20 mg capsule,delayed release(DR/EC) 20 mg PO HS spironolactone 25 mg tablet 25 mg PO DAILY losartan 100 mg tablet 100 mg PO HS atorvastatin 20 mg tablet 20 mg PO DAILY calcium carb, citrate-vit D3 1 EACH tablet extended release 1 ea PO DAILY cyanocobalamin (vitamin B-12) 1,000 mcg capsule 1,000 mcg PO DAILY gabapentin 300 mg capsule 900 mg PO HS cholecalciferol (vitamin D3) 50 mcg (2,000 unit) capsule 50 mcg PO DAILY colestipol 1 gram tablet 1 g PO ONCE sodium chloride 5 % drops 1 drp ophthalmic (eye) QAM famotidine 20 mg tablet 20 mg PO BID (DME) Jaycee Smith [facility] Spacer See Rx Instructions .Route Rx Instructions: As directed sertraline 25 mg tablet 25 mg PO DAILY Systane (propylene glycol) 0.4-0.3 % drops 1 drp ophthalmic (eye) TID PRN metoprolol succinate 25 mg tablet extended release 24 hr 75 mg PO DAILY ondansetron 4 mg tablet,disintegrating 4 mg PO Q8H PRN (Reason: nausea and vomiting) Qty: 30 0RF acetaminophen 500 mg tablet 1,000 mg PO Q8H PRN Qty: 90 0RF Rx Instructions: Take two tablets up to every 8 hours as needed for pain Discharge Instructions Instructions: Vestibular Exercises Stand Alone Forms: Portal Information, Nursing Discharge Form Referrals: Jana Wayne MD [Primary Care Provider, Medicine] Referral Note: Please call your primary care office on Thursday and schedule a follow up appointment in 1-2 weeks. Activity:: Activity as Tolerated Equipment/Supplies:: No Equipment Needed Diet:: As Tolerated Discharge Orders Discharge Orders: Discharge Order (Routine); Ordered 07/22/25 Ordered By: Raf Zuleta Discharge Data Discharge Date/Time-TO BE ENTERED AT DEPARTURE: 07/22/25 13:18 DS: Summary Time Spent with Patient providing and/or coordinating discharge services: Less than 30 minutes Status at Discharge Functional status at discharge: independent ambulation Overall status at discharge: patient is back to baseline Mental Status: mental status grossly normal Speech and Movement: speech and movement normal Mood: congruent mood Affect: normal affect Quality:SDOH Health Related Social Needs: Health related social needs lonely/isolated Health related social needs details does have fuel assistance Health related social needs details: does have fuel assistance Exam Narrative Exam Narrative: General: This is a pleasant man in no distress HEENT: Normocephalic, atraumatic CV: RRR Resp: CTAB Abd: soft, NTND MSK: voluntary motion x4 Neuro: awake, alert, no focal deficits Psych Mental Status: mental status grossly normal Speech and Movement: speech and movement normal Mood: congruent mood Affect: normal affect DS: Data Vitals/I&O Vitals and I&O: Vital Signs Temperature 36.6 C 07/22/25 11:22 Temperature Source Temporal Artery Scan 07/22/25 11:22 Pulse 587 H 07/22/25 11:22 Respiratory Rate 16 07/22/25 11:22 Respiratory Effort Normal, Non-Labored 07/20/25 18:03 Respiratory Depth Normal 07/20/25 18:03 Respiratory Pattern Normal 07/20/25 18:03 Blood Pressure 103/56 L 07/22/25 11:22 Blood Pressure Mean 71 07/22/25 11:22 Pulse Oximetry 98 07/22/25 11:22 Oxygen Delivery Method Room Air 07/22/25 11:22 Oxygen Flow Rate 0 07/22/25 11:22 Pain Level 0 07/22/25 11:22 Intake & Output 07/21/25 07/22/25 07/22/25 23:59 11:59 23:59 Intake Total 720 / 1200 240 / 240 Output Total 600 / 800 500 / 500 Balance 120 / 400 -260 / -260 Intake: Oral 720 / 1200 240 / 240 Output: Urine 600 / 800 500 / 500 Other: Urine Color Pale Yellow Yellow Urine Appearance Clear Clear Urine Odor Normal None Data Completed and Pending Pending Labs at Discharge: 07/20/25 07/20/25 07/20/25 14:02 14:52 16:28 WBC 9.00 RBC 3.70 L Hgb 12.4 Hct 37.0 MCV 100 H MCH 33.5 H MCHC 33.5 RDW 11.6 L Plt Count 271 MPV 8.9 Immature Gran % 0.3 Neutrophils % 59.8 Lymphocytes % 25.7 Monocytes % 10.2 Eosinophils % 2.7 Basophils % 1.3 Nucleated RBC % 0.0 Absolute Neutrophils 5.38 Absolute Lymphocytes 2.31 Absolute Monocytes 0.92 H Absolute Eosinophils 0.24 Absolute Basophils 0.12 PT 10.1 INR 1.0 Sodium 140 Potassium 4.4 Chloride 106 Carbon Dioxide 26.6 Anion Gap 7.4 BUN 19 Creatinine 1.17 H Est GFR (CKD-EPI 2020) 44.28 Glucose 91 Calcium 9.2 Magnesium 2.0 Total Bilirubin 0.5 AST 20 ALT 14 Alkaline Phosphatase 108 Troponin I 4 5 Cancelled Total Protein 7.3 Albumin 4.6 Urine Color Urine Clarity Urine pH Ur Specific Stonewall Urine Protein Urine Ketones Urine Blood Urine Nitrite Urine Bilirubin Urine Urobilinogen Ur Leukocyte Esterase Urine Glucose 07/20/25 07/21/25 19:16 06:10 WBC 7.81 RBC 3.59 L Hgb 11.7 Hct 35.5 L MCV 99 H MCH 32.6 MCHC 33.0 RDW 11.5 L Plt Count 227 MPV 9.0 Immature Gran % Neutrophils % Lymphocytes % Monocytes % Eosinophils % Basophils % Nucleated RBC % Absolute Neutrophils Absolute Lymphocytes Absolute Monocytes Absolute Eosinophils Absolute Basophils PT INR Sodium 141 Potassium 4.3 Chloride 106 Carbon Dioxide 25.8 Anion Gap 9.2 BUN 20 Creatinine 1.18 H Est GFR (CKD-EPI 2020) 43.85 Glucose 89 Calcium 9.1 Magnesium 2.0 Total Bilirubin AST ALT Alkaline Phosphatase Troponin I Total Protein Albumin Urine Color Yellow Urine Clarity Clear Urine pH 5.5 Ur Specific Stonewall <= 1.005 Urine Protein Negative Urine Ketones Negative Urine Blood Negative Urine Nitrite Negative Urine Bilirubin Negative Urine Urobilinogen 0.2 Ur Leukocyte Esterase Negative Urine Glucose Negative PFSH All Active Problems (Updated 07/21/25 @ 16:24 by Zuhair King MD) BPV (benign positional vertigo) (Acute) Ataxia (Acute) History of total left hip arthroplasty (Acute 05/09/25) Trochanteric bursitis, left hip (Acute) Injection: 01/18/2024 Foot pain (Acute) Neuropathy (Acute) History of total right knee replacement (TKR) (Acute 06/03/22) Lumbar stenosis (Acute) Sensorineural hearing loss of both ears (Acute) Sciatica of right side without back pain (Acute) Lumbar radiculopathy, right (Acute) Pulsatile tinnitus of both ears (Acute) Abdominal pain (Acute) Diarrhea (Acute) Medical History (Updated 07/21/25 @ 16:24 by Zuhair King MD) Incoordination Acquired ptosis of eyelid Adjustment disorder Over weight Lumbar epidural mass Lumbar disc disease Arthritis of facet joint of lumbar spine Leg pain, right Diverticulosis of colon Peripheral neuropathy Loss of balance Paresthesia Leg cramps Tinnitus of right ear Vitamin D deficiency Folic acid deficiency Sciatica Kidney disease Hyperlipidemia Memory loss Chronic kidney disease, stage 3 Right sided sciatica Dyslipidemia Hypertension GERD (gastroesophageal reflux disease) Abnormal chest xray Osteopenia Anxiety Family history of colon cancer Obstructive sleep apnea Does not use CPAP; returned to company since she did not have change in symptoms Insomnia Diverticulosis Surgical History (Updated 05/09/25 @ 07:50 by Jose Florentino RN) H/O total hip arthroplasty Right hip History of left cataract surgery H/O laminectomy L4-5 11/13/21 Hx of total knee replacement right History of lumbar surgery 11/2020 History of bronchoscopy 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 Goldman DOS: 09/19/2018 Colonoscopy - MAC (10/12/17) Cholecystectomy Family History Father Hypertension Colon cancer Cancer THYROID CANCER Mother Hypertension Sister Hypertension Diabetes Brother Cancer Brother Kidney disorder Social History Smoking/Tobacco Use Status: Never Smoking risk assessment performed?: Yes Alcohol Intake: former Drug use: Never Substance use type: does not use Household members: spouse Housing: house Number of Children: 4 current occupation: [employer] Current gender identity: female Do you feel safe at home: Yes Do you feel safe in your relationship?: Yes Time Spent with Patient Time Spent with Patient: <45 minutes Time was spent: preparing to see the patient(eg.review tests), obtaining and/or reviewing separately otained hiistory, ordering medications,tests, procedures, referring, communicating with other health administrator health care facility, indepentently interpreting results, counseling the patient and care coordination
== END 2025-07-22 13:18 | disposition home or self-care (01) ==
LOC: ER 17:09 → MS 17:32
PROVIDERS: Admitting Provider Family Medicine; Emergency Provider Emergency Medicine; PCP Family Medicine; Responsible Provider Family Medicine; Visit Provider Family Medicine
DX: H81.12 Benign paroxysmal vertigo, left ear (principal); I12.9 Hypertensive chronic kidney disease with stage 1 through stage 4 chronic kidney disease, or unspecified chronic kidney disease; N18.30 Chronic kidney disease, stage 3 unspecified; E78.5 Hyperlipidemia, unspecified; K21.9 Gastro-esophageal reflux disease without esophagitis; F41.9 Anxiety disorder, unspecified; G47.33 Obstructive sleep apnea (adult) (pediatric); M70.62 Trochanteric bursitis, left hip; E53.8 Deficiency of other specified B group vitamins; M48.061 Spinal stenosis, lumbar region without neurogenic claudication; E55.9 Vitamin D deficiency, unspecified; Z96.651 Presence of right artificial knee joint; Z79.899 Other long term (current) drug therapy
CPT/HCPCS: 00123; 36415; 70496; 70498; 80048; 80053; 85027; 93005; 97112; 97116; 97162; 97530; 99285; J1650; 70551; 81003; 83735; 84484; 85025; 85610; 93010; 99223; 99233; 99238; G0378; J3490